=== PATIENT | male | born 1945 | race Caucasian/White ===

== ENCOUNTER 2018-01-01 18:37 | Emergency (ER) | payer MEDICARE, OTHER, SELFPAY ==
[2018-01-01 18:42] VITALS: BP 148/79; PULSE 89; RESP 15; O2SAT 97; BMI 32.1
--- NOTE | 2018-01-01 22:03 | ED_ITS ---
HPI - Wound/Laceration General Chief Complaint: Wound/Laceration Stated Complaint: CUT SELF WITH GLASS,BLEEDING Time Seen by Provider: 01/01/18 22:00 Source: patient Mode of arrival: ambulatory Limitations: no limitations History of Present Illness HPI narrative: Patient presents with the lacerations secondary to broken glass. He denies any other injuries. Laceration occurred on his right forearm. No weakness or sensory deficit. Onset (ago): minute(s) Extremity Location: Right: forearm Place: home Patient tetanus UTD: Yes Context: accidental Associated symptoms: none Related Data Home Medications Medication Instructions Recorded Confirmed ASPIRIN (Aspirin EC) 81 mg PO QDAY #0 06/19/11 ESOMEPRAZOLE SODIUM (NEXIUM) 20 mg PO QDAY@0600 #0 06/19/11 HYDROCHLOROTHIAZIDE (#HCTZ) 25 mg PO QDAY #0 06/19/11 Metformin Hydrochloride 500 mg PO QDAY #0 06/19/11 (#GLUCOPHAGE) simvastatin 20 mg PO HS #0 06/19/11 MELOXICAM 15 mg PO QDAY #0 03/29/12 SERTRALINE HCL (Sertraline HCl) 50 mg PO QDAY #0 03/29/12 nifedipine 60 mg PO QDAY #0 03/29/12 CA PANTOTHENATE/FOLIC ACID/VIT 1 tab PO QDAY #0 09/18/12 (MULTIVITAMIN) gabapentin [Neurontin] 1,200 mg PO BID #0 09/18/12 lisinopril 40 mg PO QDAY #0 09/18/12 Allergies Allergy/AdvReac Type Severity Reaction Status Date / Time No Known Drug Allergies Allergy Verified 01/01/18 18:42 Review of Systems Review of Systems All systems reviewed & are unremarkable except as noted in HPI and below Constitutional Denies chills, Denies fever(s), Denies lethargy and Denies weakness Eyes Denies change in vision, Denies eye discharge, Denies irritation and Denies loss of vision ENT Ears, Nose, Mouth, and Throat: Denies change in voice, Denies neck pain and Denies sore throat Cardiovascular Denies chest pain, Denies irregular heart rhythm, Denies lightheadedness, Denies palpitations, Denies dyspnea, Denies dyspnea on exertion and Denies orthopnea Respiratory Denies cough, Denies dyspnea, Denies dyspnea on exertion and Denies wheezing Gastrointestinal Gastrointestinal: Denies abdominal pain, Denies change in bowel habits, Denies diarrhea, Denies nausea and Denies vomiting Genitourinary Denies hematuria, Denies flank pain, Denies urinary incontinence and Denies urinary urgency Musculoskeletal Denies neck pain Comments: Full range of motion right upper extremity. Integumentary/Breasts Denies pruritus, Denies erythema, Denies rash and Reports wounds (Laceration right forearm.) Neurologic Denies confusion, Denies loss of vision and Denies weakness Psychiatric Denies anxiety, Denies confusion, Denies depression, Denies homicidal ideation and Denies suicidal ideation Endocrine Denies palpitations Hematologic/Lymphatic Denies easy bruising Allergic/Immunologic Denies wheezing PFSH Medical History Hyperlipemia (Acute) Diabetes (Acute) HTN (hypertension) (Acute) GERD (gastroesophageal reflux disease) (Acute) Laceration (Acute) Surgical History No pertinent past surgical history (Acute) Social History Smoking Status: Never smoker Comment: Occasional alcohol. Exam Initial Vital Signs Initial Vital Signs: Vital Signs Pulse Rate 89 01/01/18 18:42 Respiratory Rate 15 01/01/18 18:42 Blood Pressure 148/79 H 01/01/18 18:42 Pulse Oximetry 97 01/01/18 18:42 Const General: cooperative and well developed Nutritional Appearance: well nourished Orientation: alert, awake, oriented x3 and not confused [facility] Head: normocephalic and atraumatic Ears: external ears normal and TM's normal bilaterally Nose: external nose normal and No nasal discharge Face and sinus: face symmetric and No dry mucous membranes Mouth: oral mucosae normal and moist mucous membranes Neck Neck: normal visual inspection, trachea midline, No lymphadenopathy, No midline deformity and No JVD Lymphatic: No lymphedema Resp Effort & Inspection: normal respiratory effort, able to speak in complete sentences, no respiratory distress and no use of accessory muscles Auscultation: clear to auscultation bilaterally, no rales, no rhonchi and no wheezes Skin General: no rashes or lesions noted, No jaundice and No petechiae Trauma: laceration (2.5 cm laceration to right forearm. Depth of 4 mm. Involve skin and subcutaneous tissue only. No foreign bodies. Patient is neurovascularly intact distally. Tendon function intact.) Neuro General: alert, oriented x3, gait normal and no focal motor deficits Speech: speech normal Extrem General: full ROM and no pedal edema Procedures Laceration Repair Laceration 1: Site: upper extremity Side (If applicable): right Size (cm): 2.5 Description: linear Depth: simple, single layer Local Anesthetic: lidocaine 2% Amount of anesthesia used (mL): 2 Pre-repair: wound explored and irrigated extensively Skin layer closed with: nylon Size (cm): 5-0 Number of sutures: 6 Technique: simple, interrupted Course Hospital Course: Patient's laceration was repaired, as above. We have discussed wound care at home, as well as the usual indications for return. Patient expresses understanding. Vital Signs - 8 hr 01/01/18 18:42 Pulse Rate 89 Respiratory Rate 15 Blood Pressure 148/79 H Pulse Oximetry 97 MDM - Wound/Laceration Differential Diagnosis Differential diagnosis: Likely laceration Medical Records Attestation: I reviewed the patient's medical records. Discharge Plan Departure Patient Disposition: Home Clinical Impression: Laceration Discharge Date/Time: 01/01/18 23:32 Interventions: ED Discharge Assessment Last Done: 01/01/18 23:31 Instructions: DI for Laceration Repair Activity Restrictions/Additional Instructions: Please have your sutures removed in 7 days. If you develop redness spreading away from the wound, or if the wound splits apart and begins to drain, please be seen immediately to have a wound rechecked, as it may be infected. Prescriptions: No Action ASPIRIN (Aspirin EC) 81 mg PO QDAY Qty: 0 RF: 0 HYDROCHLOROTHIAZIDE (#HCTZ) 25 mg PO QDAY Qty: 0 RF: 0 Metformin Hydrochloride (#GLUCOPHAGE) 500 mg PO QDAY Qty: 0 RF: 0 simvastatin 20 MG tablet 20 mg PO HS Qty: 0 RF: 0 ESOMEPRAZOLE SODIUM (NEXIUM) 20 mg PO QDAY@0600 Qty: 0 RF: 0 MELOXICAM 15 mg PO QDAY Qty: 0 RF: 0 nifedipine 60 MG tablet extended release 24hr 60 mg PO QDAY Qty: 0 RF: 0 SERTRALINE HCL (Sertraline HCl) 50 mg PO QDAY Qty: 0 RF: 0 gabapentin [Neurontin] 600 MG tablet 1,200 mg PO BID Qty: 0 RF: 0 lisinopril 40 MG tablet 40 mg PO QDAY Qty: 0 RF: 0 CA PANTOTHENATE/FOLIC ACID/VIT (MULTIVITAMIN) 1 tab PO QDAY Qty: 0 RF: 0 Referrals: [facility] [Provider Group] (7 days, for suture removal.)
--- NOTE | 2018-01-01 23:27 | PC.NURSE ---
wound cleansed, bacitracin applied and cobane aplaced for security
[2018-01-01 23:28] VITALS: BP 159/57; PULSE 77; RESP 15; TEMP 36.6; O2SAT 99
== END 2018-01-01 23:32 | disposition home or self-care (01) ==
PROVIDERS: Emergency Provider Emergency Medicine
DX: S51.811A Laceration without foreign body of right forearm, initial encounter (principal); W25.XXXA Contact with sharp glass, initial encounter
CPT/HCPCS: 12001; 99282; 99283

== ENCOUNTER 2018-04-11 09:46 | Emergency (ER) | payer MEDICARE, OTHER, SELFPAY ==
[2018-04-11 09:50] VITALS: BP 154/76; PULSE 89; RESP 18; TEMP 36.3; O2SAT 100
--- NOTE | 2018-04-11 10:24 | DI.US.S_ITS ---
PROCEDURE: US PERIPH VENOUS LOW EXTREM LT INDICATIONS: LEFT CALF PAIN; SOB TECHNIQUE: Real-time imaging, as well as color and pulse Doppler interrogation, were performed of the lower extremity deep veins from the inguinal ligament to the popliteal fossa. COMPARISON: None. FINDINGS: There is a short segment occlusive thrombus identified within the popliteal vein, which does not extend into the superficial femoral vein. The superficial femoral vein, profunda femoral vein, and common femoral vein are widely patent and demonstrate normal compressibility, Doppler augmentation and color-flow. IMPRESSION: Short segment occlusive thrombus within the popliteal vein without extension into the superficial femoral vein. Dictated by: Todd Crespo M.D. on 04/11/2018 at 10:05 Approved by: Todd Crespo M.D. on 04/11/2018 at 10:24
--- NOTE | 2018-04-11 10:28 | ED_ITS ---
HPI - SOB/Dyspnea General Chief Complaint: Shortness of Breath/Dyspnea Stated Complaint: SOB Time Seen by Provider: 04/11/18 09:53 Source: patient Mode of arrival: ambulatory Limitations: no limitations History of Present Illness Patient complains of fatigue and shortness of breath for the last 3 days and calf pain for the last 2 days. He states that normally, he is very strong and able to complete what ever he starts. However, yesterday, he was volunteering at the [employer], and he states that he felt bad enough that he almost needed to come home early. He decided to stick it out, but he states he has just not been feeling right. He states he has been lightheaded and short of breath. The shortness of breath is noticeable even at rest, but he states it is worse with any level of exertion. Patient states that he did take a trip to the [facility] and flew home about a week and a half ago. He did not begin having symptoms until several days ago however. Patient has no history of DVT, and does not know of any family history of DVT. He states has 2 male relatives who had coronary artery disease, and his father of cancer. Patient was a smoker but quit 30 years ago. He states he has been noticing pain in the left calf, but no noticeable swelling. He does not have any heart or lung conditions otherwise that he knows of. The patient has type 2 diabetes and hypertension, both of which are well controlled. Patient denies fever or cough. No sore throat, vomiting, or diarrhea. [place] Data Home Medications Medication Instructions Recorded Confirmed esomeprazole magnesium [Nexium] 20 mg PO DAILY #0 06/19/11 04/11/18 simvastatin 20 mg PO BEDTIME #0 06/19/11 04/11/18 nifedipine 60 mg PO DAILY #0 03/29/12 04/11/18 multivitamin 1 tab PO DAILY #0 09/18/12 04/11/18 gabapentin 600 mg PO BID 04/11/18 04/11/18 hydrochlorothiazide 25 mg PO DAILY 04/11/18 04/11/18 lisinopril 20 mg PO DAILY 04/11/18 04/11/18 meloxicam 7.5 mg PO DAILY 04/11/18 04/11/18 metformin 500 mg PO DAILY 04/11/18 04/11/18 sertraline 100 mg PO BEDTIME 04/11/18 04/11/18 Previous Rx's Medication Instructions Recorded rivaroxaban [Xarelto] 10 mg PO DAILY #30 tab 04/11/18 Allergies Allergy/AdvReac Type Severity Reaction Status Date / Time No Known Drug Allergies Allergy Verified 01/01/18 18:42 Review of Systems Review of Systems All systems reviewed & are unremarkable except as noted in HPI and below Constitutional Denies chills, Denies fever(s), Denies lethargy and Denies weakness Eyes Denies change in vision, Denies eye discharge, Denies irritation and Denies loss of vision ENT Ears, Nose, Mouth, and Throat: Denies change in voice, Denies neck pain and Denies sore throat Cardiovascular Denies chest pain, Denies irregular heart rhythm, Denies lightheadedness, Denies palpitations, Reports dyspnea, Reports dyspnea on exertion and Denies orthopnea Respiratory Denies cough, Reports dyspnea, Reports dyspnea on exertion and Denies wheezing Gastrointestinal Gastrointestinal: Denies abdominal pain, Denies change in bowel habits, Denies diarrhea, Denies nausea and Denies vomiting Genitourinary Denies hematuria, Denies flank pain, Denies urinary incontinence and Denies urinary urgency Musculoskeletal Denies neck pain Comments: L calf pain Integumentary/Breasts Denies pruritus, Denies erythema, Denies rash and Denies wounds Neurologic Denies confusion, Denies loss of vision and Denies weakness Psychiatric Denies anxiety, Denies confusion, Denies depression, Denies homicidal ideation and Denies suicidal ideation Endocrine Denies palpitations Hematologic/Lymphatic Denies easy bruising Allergic/Immunologic Denies wheezing [facility] Medical History Central sleep apnea (Chronic) Obstructive sleep apnea of adult (Chronic) Obesity (Chronic) Hyperlipemia (Chronic) Diabetes (Chronic) HTN (hypertension) (Chronic) GERD (gastroesophageal reflux disease) (Chronic) Laceration (Inactive) Surgical History No pertinent past surgical history (Acute) Social History marital status: details: to Soraida household members: spouse lives independently: Yes caregiver/support person: No education level: college 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 Smoking Status: Never smoker alcohol intake: current substance use type: does not use Exam Initial Vital Signs Initial Vital Signs: Vital Signs Temperature 97.3 F L 04/11/18 09:50 Pulse Rate 89 04/11/18 09:50 Respiratory Rate 18 04/11/18 09:50 Blood Pressure 154/76 H 04/11/18 09:50 Pulse Oximetry 100 04/11/18 09:50 Const General: cooperative and well developed Nutritional Appearance: well nourished Orientation: alert, awake, oriented x3 and not confused [facility] Head: normocephalic and atraumatic Ears: external ears normal and TM's normal bilaterally Nose: external nose normal and No nasal discharge Face and sinus: sinuses nontender, face symmetric, no sinus tenderness and No dry mucous membranes Mouth: oral mucosae normal and moist mucous membranes Teeth and gingiva: dentition normal Throat: tonsils normal and uvula midline Eyes General: appearance normal, both eyes and all related structures Eyelids: eyelids normal Conjunctivae: conjunctivae normal Sclera: sclerae normal Pupils: PERRL EOM: EOM intact bilaterally Neck Neck: normal visual inspection, trachea midline, No lymphadenopathy, No midline deformity and No JVD Lymphatic: No lymphedema Chest Chest: normal inspection of the chest Resp Effort & Inspection: normal respiratory effort, able to speak in complete sentences, no respiratory distress and no use of accessory muscles Auscultation: clear to auscultation bilaterally, no rales, no rhonchi and no wheezes Cardio Rate: regular rate Rhythm: regular rhythm Heart Sounds: no click, no gallops, no murmurs and no rubs Pulses: normal peripheral pulses GI Inspection: non-distended Palpation: soft, no hepatosplenomegaly, No guarding, No pulsatile mass and No tender Auscultation: normal bowel sounds Back/Spine/Pelvis Back: No CVA tenderness Cervical Spine: cervical ROM normal and No pain with cervical ROM Thoracic/Lumbar Spine: thoracic and lumbar spine normal to inspection Skin General: no rashes or lesions noted, No jaundice and No petechiae Neuro General: alert, oriented x3, gait normal and no focal motor deficits Speech: speech normal Extrem General: full ROM, no calf tenderness (Mild, left) and edema (Slight, pitting, left lower extremity. Pitting is seen over the anterior tibial area.) Psych Appearance: well kempt Mental Status: mental status grossly normal Attitude: cooperative Thought Content: normal and suicidality Judgment: judgment good Course Course Narrative: Patient was worked up with labs, chest x-ray, ultrasound of the left lower extremity, and EKG. The ultrasound did show a DVT in the left leg and so the patient was sent for CTA of the chest. This did show 2 right- sided pulmonary emboli. The patient was given a dose of Lovenox in the emergency department. I did speak with [place] generally use as an oral anticoagulant for DVT management. She did state that either Xarelto or Coumadin could be used, but that she would prefer Xarelto. I discussed with the patient that as he is otherwise stable, he has the option to continue treatment as an outpatient, or to be observed in the hospital overnight and have treatment initiated here. Patient states he would prefer to take care of things as an outpatient, as his is with him and he has an appointment tomorrow. 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 He has received his Lovenox, as stated. We have discussed the usual indications for return including worsening shortness of breath, syncope, or chest pain. Also, any general worsening should prompt return. Otherwise, the patient should follow up tomorrow morning as he scheduled to do. Orders Ordered: Discontinued Medications Enoxaparin Sodium (Lovenox) 105 mg 1 mg/kg (105 mg) SUBCUT NOW ONE Stop: 04/11/18 12:41 Last Admin: 04/11/18 13:02 Dose: Enoxaparin Sodium (Lovenox) 100 mg 1 mg/kg (105 mg) SUBCUT NOW ONE Stop: 04/11/18 13:01 Last Admin: 04/11/18 13:02 Dose: 100 mg Vital Signs - 8 hr 04/11/18 09:50 Temperature 97.3 F L Pulse Rate 89 Respiratory Rate 18 Blood Pressure 154/76 H Pulse Oximetry 100 MDM - SOB/Dyspnea Medical Records Attestation: I reviewed the patient's medical records. Lab Data Attestation: I reviewed the patient's lab results. Result diagrams: 04/11/18 10:00 04/11/18 10:00 Lab Results 04/11/18 04/11/18 04/11/18 Range/Units 10:00 10:00 10:00 WBC 8.9 (4.5-11.0) X10^3/uL RBC 4.40 L (4.5-5.9) X10^6/uL Hgb 13.7 (13.5-17.5) g/dL Hct 39.8 L (41-53) % MCV 90.4 (80-100) fL MCH 31.2 (26-34) PG MCHC 34.5 (30-36) % RDW 14.5 (11.6-14.8) % Plt Count 146 L (150-400) X10^3/uL Neut % (Auto) 62.5 (50-75) % Lymph % (Auto) 22.7 L (25-40) % Andrews % (Auto) 10.5 (3-14) % Eos % (Auto) 3.3 (2-4) % Baso % (Auto) 1.0 (0-2) % Neut # (Auto) 5600 (8184-0707) /uL D-Dimer 2014 H (<230) ng/mL Sodium 142 (137-145) mmol/L Potassium 4.0 (3.4-5.1) mmol/L Chloride 102 (98-107) mmol/L Carbon Dioxide 25 (22-32) mmol/L BUN 27 H (9-20) mg/dL Creatinine 1.20 (0.66-1.25) mg/dL Estimated GFR 59.7 L (>60) mL/min BUN/Creatinine Ratio 22.5 H (6-22) Glucose 108 (80-110) mg/dL Calcium 10.0 (8.4-10.2) mg/dL Total Bilirubin 0.5 (0.2-1.3) mg/dL AST 22 (17-59) IU/L ALT 22 (21-72) IU/L Alkaline Phosphatase 92 (38-126) U/L Total Creatine Kinase 74 (55-170) U/L CK-MB (CK-2) TNP CK-MB (CK-2) Rel Index TNP Troponin I < 0.012 (0.01-0.034) ng/mL B-Natriuretic Peptide < 100.0 (<100) Total Protein 7.9 (6.3-8.2) g/dL Albumin 4.7 (3.5-5.0) g/dL Globulin 3.2 (1.7-4.1) g/dL Albumin/Globulin Ratio 1.5 (1.0-2.8) Imaging Data CT scan - chest: Radiologist's impression: PROCEDURE: CT ANGIO CHEST PE PROTOCOL INDICATIONS: Short of breath TECHNIQUE: After the administration of intravenous contrast, 2 mm thick sections acquired from the pulmonary apices to the posterior costophrenic angles. 3-dimensional maximum intensity projection (MIP) coronal and sagittal reformats were then acquired through the thorax. For radiation dose reduction, the following was used: automated exposure control, adjustment of mA and/or kV according to patient size. COMPARISON: None. FINDINGS: Image quality: Excellent. Pulmonary arteries: Pulmonary arteries are normal in size. No filling defect is noted in left main pulmonary artery, left upper and lower lobe pulmonary artery branches. There is intraluminal filling defect involving the most distal right main pulmonary artery with filling defects extending into right middle lobe pulmonary artery and proximal, mid to distal branches of right lower lobe pulmonary artery, consistent with right- sided pulmonary emboli. Lungs and pleura: There is no focal airspace opacities. Dependent atelectasis scattered in posterior lateral periphery of the lateral lower lobes are seen. No pleural effusions or pneumothorax. Central and peripheral airways are patent. Mediastinum: Heart size is mildly enlarged, without pericardial effusion. No mediastinal or hilar adenopathy. Thoracic aorta is normal in caliber and enhancement. Atherosclerotic calcifications are noted scattered along descending thoracic aorta and aortic arch. Esophagus is normal in caliber, with a small hiatal hernia. Bones and chest wall: No suspicious bony lesions. Ribs and thoracic spine appear intact throughout. Thyroid gland is within normal limits. No axillary or supraclavicular adenopathy. Abdomen: Visualized upper abdominal solid organs appear normal in the early arterial phase of enhancement. IMPRESSION: 1. Pulmonary emboli involving most distal right main pulmonary artery and extending into right middle and lower lobe pulmonary artery branches as above. No left-sided pulmonary emboli. 2. Bibasilar dependent atelectasis. Bilateral lung gaines are otherwise clear. 3. Mild cardiomegaly. No mediastinal or hilar adenopathy. Small hiatal hernia. Dictated by: Joe Cantrell M.D. on 04/11/2018 at 12:15 Approved by: Joe Cantrell M.D. on 04/11/2018 at 12:27 Chest x-ray: Attestation: I personally reviewed and interpreted this imaging study as follows: My impression: Negative Radiologist's impression: PROCEDURE: XR CHEST 2V INDICATIONS: dyspnea TECHNIQUE: 2 views of the chest were acquired. COMPARISON: None. FINDINGS: Surgical changes and devices: None. Lungs and pleura: There is elevation of the right diaphragm. Subtle haziness at the left lung base partially obscured the left diaphragm. No focal consolidation is evident. No large effusion or pneumothorax is identified. Mediastinum: Mediastinal contours are normal. Heart size is borderline enlarged. Bones and chest wall: No suspicious bony abnormalities. Degenerative changes of the spine and shoulders are normal characterized. Soft tissues appear unremarkable. IMPRESSION: 1. Probable minimal left basilar atelectasis. No acute cardiopulmonary process is evident. 2. Elevation of the right diaphragm. Dictated by: Todd Crespo M.D. on 04/11/2018 at 10:28 Approved by: Todd Crespo M.D. on 04/11/2018 at 10:29 Discharge Plan Departure Patient Disposition: Home Clinical Impression: Pulmonary embolism, DVT (deep venous thrombosis) Discharge Date/Time: 04/11/18 14:18 Interventions: ED Discharge Assessment Last Done: 04/11/18 14:23 Instructions: DI for Deep Vein Thrombosis, DI for Pulmonary Embolism Activity Restrictions/Additional Instructions: [place] would like you to start Xarelto. This is an oral anticoagulant. They would still like to see you tomorrow morning at 11:00 a.m., as you are scheduled already to do. Prescriptions: New rivaroxaban [Xarelto] 10 mg tablet 10 mg PO DAILY Qty: 30 RF: 0 No Action simvastatin 20 MG tablet 20 mg PO BEDTIME Qty: 0 RF: 0 esomeprazole magnesium [Nexium] 20 mg Capsule,Delayed Release(Dr/Ec) 20 mg PO DAILY Qty: 0 RF: 0 nifedipine 60 MG tablet extended release 24hr 60 mg PO DAILY Qty: 0 RF: 0 multivitamin Tablet 1 tab PO DAILY Qty: 0 RF: 0 gabapentin 600 mg tablet 600 mg PO BID RF: 0 lisinopril 20 mg tablet 20 mg PO DAILY RF: 0 sertraline 100 mg tablet 100 mg PO BEDTIME RF: 0 meloxicam 7.5 mg tablet 7.5 mg PO DAILY RF: 0 hydrochlorothiazide 25 mg tablet 25 mg PO DAILY RF: 0 metformin 500 mg tablet extended release 24 hr 500 mg PO DAILY RF: 0
[2018-04-11 10:29] LABS: Add Manual Diff / Slide Review NO; Eosinophils Percent Auto 3.3 % (2-4); Hematocrit 39.8 % (41-53); Hemoglobin 13.7 g/dL (13.5-17.5); Lymphocytes Percent Auto 22.7 % (25-40); Mean Corpuscular HGB Conc 34.5 % (30-36); Mean Corpuscular Hemoglobin 31.2 PG (26-34); Mean Corpuscular Volume 90.4 fL (80-100); Monocytes Percent Auto 10.5 % (3-14); Neutrophils Absolute Auto 5600 /uL (3000-5900); Neutrophils Percent Auto 62.5 % (50-75); Platelet Count 146 X10^3/uL (150-400); Red Cell Distribution Width 14.5 % (11.6-14.8); White Blood Cell Count 8.9 X10^3/uL (4.5-11.0)
[2018-04-11 10:34] LABS: Alanine Aminotransferase 22 IU/L (21-72); Albumin 4.7 g/dL (3.5-5.0); Albumin Globulin Ratio 1.5 (1.0-2.8); Alkaline Phosphatase 92 U/L (38-126); Aspartate Aminotransferase 22 IU/L (17-59); BUN Creatinine Ratio 22.5 (6-22); Bilirubin Total 0.5 mg/dL (0.2-1.3); Blood Urea Nitrogen 27 mg/dL (9-20); Carbon Dioxide 25 mmol/L (22-32); Chloride 102 mmol/L (98-107); Creatine Kinase 74 U/L (55-170); Estimated Glomerular Filt Rate 59.7 mL/min (>60); Globulin 3.2 g/dL (1.7-4.1); Glucose 108 mg/dL (80-110); HEMOLYSIS < 15 (0-50); Sodium 142 mmol/L (137-145); Total Protein 7.9 g/dL (6.3-8.2)
[2018-04-11 10:40] LABS: D Dimer 2014 ng/mL (<230)
[2018-04-11 10:47] LABS: Troponin I < 0.012 ng/mL (0.01-0.034)
[2018-04-11 10:48] LABS: B Type Natriuretic Peptide < 100.0 (<100)
--- NOTE | 2018-04-11 10:50 | DI.RAD.S_ITS ---
PROCEDURE: XR CHEST 2V INDICATIONS: dyspnea TECHNIQUE: 2 views of the chest were acquired. COMPARISON: None. FINDINGS: Surgical changes and devices: None. Lungs and pleura: There is elevation of the right diaphragm. Subtle haziness at the left lung base partially obscured the left diaphragm. No focal consolidation is evident. No large effusion or pneumothorax is identified. Mediastinum: Mediastinal contours are normal. Heart size is borderline enlarged. Bones and chest wall: No suspicious bony abnormalities. Degenerative changes of the spine and shoulders are normal characterized. Soft tissues appear unremarkable. IMPRESSION: 1. Probable minimal left basilar atelectasis. No acute cardiopulmonary process is evident. 2. Elevation of the right diaphragm. Dictated by: Todd Crespo M.D. on 04/11/2018 at 10:28 Approved by: Todd Crespo M.D. on 04/11/2018 at 10:29
[2018-04-11 11:26] VITALS: BP 116/69; PULSE 69; RESP 9; O2SAT 100
--- NOTE | 2018-04-11 12:10 | DI.CT.S_ITS ---
PROCEDURE: CT ANGIO CHEST PE PROTOCOL INDICATIONS: Short of breath TECHNIQUE: After the administration of intravenous contrast, 2 mm thick sections acquired from the pulmonary apices to the posterior costophrenic angles. 3-dimensional maximum intensity projection (MIP) coronal and sagittal reformats were then acquired through the thorax. For radiation dose reduction, the following was used: automated exposure control, adjustment of mA and/or kV according to patient size. COMPARISON: None. FINDINGS: Image quality: Excellent. Pulmonary arteries: Pulmonary arteries are normal in size. No filling defect is noted in left main pulmonary artery, left upper and lower lobe pulmonary artery branches. There is intraluminal filling defect involving the most distal right main pulmonary artery with filling defects extending into right middle lobe pulmonary artery and proximal, mid to distal branches of right lower lobe pulmonary artery, consistent with right-sided pulmonary emboli. Lungs and pleura: There is no focal airspace opacities. Dependent atelectasis scattered in posterior lateral periphery of the lateral lower lobes are seen. No pleural effusions or pneumothorax. Central and peripheral airways are patent. Mediastinum: Heart size is mildly enlarged, without pericardial effusion. No mediastinal or hilar adenopathy. Thoracic aorta is normal in caliber and enhancement. Atherosclerotic calcifications are noted scattered along descending thoracic aorta and aortic arch. Esophagus is normal in caliber, with a small hiatal hernia. Bones and chest wall: No suspicious bony lesions. Ribs and thoracic spine appear intact throughout. Thyroid gland is within normal limits. No axillary or supraclavicular adenopathy. Abdomen: Visualized upper abdominal solid organs appear normal in the early arterial phase of enhancement. IMPRESSION: 1. Pulmonary emboli involving most distal right main pulmonary artery and extending into right middle and lower lobe pulmonary artery branches as above. No left-sided pulmonary emboli. 2. Bibasilar dependent atelectasis. Bilateral lung gaines are otherwise clear. 3. Mild cardiomegaly. No mediastinal or hilar adenopathy. Small hiatal hernia. Dictated by: Joe Cantrell M.D. on 04/11/2018 at 12:15 Approved by: Jeo Cantrell M.D. on 04/11/2018 at 12:27
[2018-04-11 12:27] VITALS: BP 113/62; PULSE 70; RESP 20; O2SAT 99
[2018-04-11] MEDS: ENOXAPARIN 100 MG/ML SYRINGE SUBCUT (13:02)
[2018-04-11 13:03] VITALS: BP 118/65; PULSE 71; RESP 12; O2SAT 98
[2018-04-11 14:03] VITALS: BP 114/67; PULSE 73; RESP 12; O2SAT 98
[2018-04-11 14:23] VITALS: BP 105/48; PULSE 79; RESP 15; O2SAT 97
== END 2018-04-11 14:18 | disposition home or self-care (01) ==
PROVIDERS: Emergency Provider Emergency Medicine
DX: I26.99 Other pulmonary embolism without acute cor pulmonale (principal); I82.409 Acute embolism and thrombosis of unspecified deep veins of unspecified lower extremity
CPT/HCPCS: 36591; 71046; 71275; 80053; 82550; 83880; 84484; 85025; 85379; 93005; 93010; 93041; 93971; 99283; 99285; J1650; Q9967

== ENCOUNTER → 2018-05-07 10:51 | Outpatient (CLI) | payer MEDICARE, OTHER, SELFPAY ==
[2018-05-07 11:39] LABS: Add Manual Diff / Slide Review NO; Eosinophils Percent Auto 3.1 % (2-4); Hemoglobin 12.7 g/dL (13.5-17.5); Lymphocytes Percent Auto 29.1 % (25-40); Mean Corpuscular HGB Conc 33.3 % (30-36); Mean Corpuscular Hemoglobin 30.8 PG (26-34); Mean Corpuscular Volume 92.3 fL (80-100); Neutrophils Absolute Auto 3900 /uL (1500-7000); Neutrophils Percent Auto 56.8 % (50-75); Platelet Count 175 X10^3/uL (150-400); Red Blood Cell Count 4.12 X10^6/uL (4.5-5.9); Red Cell Distribution Width 14.6 % (11.6-14.8); White Blood Cell Count 6.8 X10^3/uL (4.5-11.0)
[2018-05-07 11:50] LABS: D Dimer < 200 ng/mL (<230)
[2018-05-07 11:52] LABS: Alanine Aminotransferase 30 IU/L (21-72); Albumin 4.5 g/dL (3.5-5.0); Albumin Globulin Ratio 1.5 (1.0-2.8); Alkaline Phosphatase 75 U/L (38-126); Aspartate Aminotransferase 22 IU/L (17-59); BUN Creatinine Ratio 20.7 (6-22); Bilirubin Total 0.4 mg/dL (0.2-1.3); Blood Urea Nitrogen 29 mg/dL (9-20); Calcium 9.8 mg/dL (8.4-10.2); Carbon Dioxide 26 mmol/L (22-32); Chloride 104 mmol/L (98-107); Globulin 3.1 g/dL (1.7-4.1); Glucose 121 mg/dL (80-110); HEMOLYSIS < 15 (0-50); Lactate Dehydrogenase 418 U/L (313-618); Potassium 4.3 mmol/L (3.4-5.1); Sodium 141 mmol/L (137-145); Total Protein 7.6 g/dL (6.3-8.2)
[2018-05-09 16:36] LABS: Beta-2-Microglobulin 3.04 mg/L (< 2.52)
== END ==
PROVIDERS: Family Provider Family Medicine; PCP Family Medicine; Visit Provider Internal Medicine Hematology & Oncology
DX: I26.99 Other pulmonary embolism without acute cor pulmonale (principal); I82.409 Acute embolism and thrombosis of unspecified deep veins of unspecified lower extremity
CPT/HCPCS: 36415; 80053; 82232; 83615; 85025; 85379

== ENCOUNTER → 2018-11-11 15:02 | Outpatient (CLI) | payer MEDICARE, OTHER, SELFPAY ==
--- NOTE | 2018-11-11 15:04 | DI.US.S_ITS ---
PROCEDURE: US [facility] VENOUS LOW EXTREM LT INDICATIONS: LEFT LEG SWELLING, HISTORY OF DEEP VEIN THROMBOSIS TECHNIQUE: Real-time imaging, as well as color and pulse Doppler interrogation, were performed of the lower extremity deep veins from the inguinal ligament to the popliteal fossa. COMPARISON: [facility], , [facility] VENOUS LOW EXTREM LT, 04/11/2018, 10:46. FINDINGS: The common femoral, femoral and popliteal veins are normally compressible, and free of intraluminal thrombus. Color and pulse Doppler demonstrate normal phasic intraluminal flow. There is normal augmentation response to distal compression maneuver. IMPRESSION: 1. No evidence of thrombus involving the deep venous system of the left lower extremity. 2. Occlusive thrombus noted in the superficial venous system of the left lower extremity at the level of the left ankle. Dictated by: Natalie Daigle MD, PhD on 11/11/2018 at 17:23 Approved by: Natalie Daigle MD, PhD on 11/11/2018 at 17:29
--- NOTE | 2018-11-11 15:04 | DI.MRI.S_ITS ---
PROCEDURE: MR HEAD/BRAIN WO/W CON INDICATIONS: left hand: loss of dexderity and dropping of objects, h/o PE TECHNIQUE: Noncontrast axial T1 spin echo, axial T2 fast spin echo, sagittal and axial FLAIR, coronal T2 fast spin echo, axial gradient echo, axial diffusion and ADC through the brain. After the administration of contrast, axial and coronal T1 spin echo with fat saturation through the brain. COMPARISON: None. FINDINGS: Image quality: Excellent. CSF spaces: Basal cisterns are patent. No extra-axial fluid collections. Ventricles are normal in size and shape. Brain: No midline shift. No intracranial bleeds or masses. No abnormal intracranial enhancement. There is cerebral volume loss for age. There is periventricular white matter chronic small vessel ischemic change. The brainstem appears normal. Diffusion-weighted images demonstrate no acute ischemic insults. No chronic ischemic insults. Normal intravascular flow voids are present. Skull and face: Calvarial marrow is normal in signal. Orbits appear normal. Sinuses: Right maxillary sinus mucous retention cyst or polyp. IMPRESSION: No evidence of acute ischemia or abnormal enhancement. Mild right maxillary sinus disease. Dictated by: Kelvin Bedolla M.D. on 11/11/2018 at 16:41 Approved by: Kelvin Bedolla M.D. on 11/11/2018 at 16:45
== END ==
PROVIDERS: Family Provider Family Medicine; PCP Family Medicine; Visit Provider Internal Medicine Hematology & Oncology
DX: R27.8 Other lack of coordination (principal); J32.0 Chronic maxillary sinusitis; I82.812 Embolism and thrombosis of superficial veins of left lower extremity; Z86.718 Personal history of other venous thrombosis and embolism
CPT/HCPCS: 70553; 93971; A9579

== ENCOUNTER → 2019-06-13 11:46 | Outpatient (CLI) | payer MEDICARE, OTHER, SELFPAY ==
--- NOTE | 2019-06-13 11:52 | DI.MRI.S_ITS ---
PROCEDURE: MR LUMBAR SPINE WO CON INDICATIONS: Radiculopathy TECHNIQUE: Noncontrast sagittal T1 spin echo and T2 fast echo, coronal T2, sagittal STIR, axial T1 and T2 fast spin echo through the lumbar spine. COMPARISON: None. FINDINGS: Image quality: Excellent. Alignment and Curvature: No plain films are available for comparison, for numbering purposes. Thus, for the purposes of this examination, 5 lumbar type vertebral bodies will be presumed, as denoted on the montage panel. This should be confirmed and correlated with plain films, prior to any lumbar spinal intervention. There is moderate rightward curvature of the lower lumbar spine a mild leftward curvature of the upper lumbar spine. There is loss of normal lumbar lordosis. There is mild grade 1 retrolisthesis of L1 on L2, L2 on L3, L3 on L4, L4-L5, and L5 on S1. Bone Marrow: Marrow is of normal overall signal. No acute vertebral body compression fractures. There is moderate reactive signal within the endplates adjacent to the L2-L3 and L5-S1 intervertebral discs. Mild reactive signal within the endplates adjacent to the L1-L2, L3-L4, and L4-L5 intervertebral discs. Spinal Cord: Conus medullaris terminates at the L1-L2 disc space level. Visualized cord demonstrates normal signal and size. Paraspinous Soft Tissues: No paravertebral masses. L1-L2: Severe disc height loss and desiccation. Mild diffuse disc bulge with superimposed broad-based right posterolateral far lateral protrusion. Mild facet hypertrophy and ligamentum flavum hypertrophy bilaterally. Mild epidural lipomatosis. Mild canal stenosis. Moderate right and mild left subarticular foraminal stenosis. L2-L3: Severe disc height loss and desiccation. Moderate diffuse disc bulge. Mild facet and ligamentum flavum hypertrophy. Moderate epidural lipomatosis. Severe canal stenosis. Mild right and moderate left subarticular foraminal stenosis. L3-L4: Moderate disc height loss and desiccation. Moderate diffuse disc bulge/osteophyte with superimposed left far lateral protrusion/osteophyte. Mild facet and ligament flavum hypertrophy. Mild epidural lipomatosis. Severe canal stenosis. Severe left and mild right subarticular foraminal stenosis. Left L3 nerve root compression. L4-L5: Moderate disc height loss and desiccation. Moderate diffuse disc bulge with superimposed left far lateral protrusion/osteophyte. Moderate facet and ligamentum flavum hypertrophy. Mild epidural lipomatosis. Severe canal stenosis. Moderate to severe left and moderate right foraminal stenosis. L5-S1: Moderate disc height loss and desiccation. Moderate diffuse disc bulge/osteophyte. Moderate facet and ligamentum flavum hypertrophy. Mild epidural lipomatosis. Severe canal stenosis. Severe bilateral foraminal stenosis with bilateral L5 nerve root compression. IMPRESSION: 1. Multilevel degenerative disc and facet disease, as well as ligamentum flavum hypertrophy and epidural lipomatosis. 2. 5 lumbar type vertebral bodies were presumed for the current report. Plain films of the lumbar spine are recommended for confirmation, prior to any lumbar spinal intervention. 3. Multilevel canal stenoses, worst at L2-L3, L3-L4, L4-L5, and L5-S1, where there are severe canal stenoses present. 4. Multilevel foraminal stenoses, worst at L3-L4 on the left, and at L5-S1 bilaterally where there is associated intraforaminal neural compression. Recommend correlation with clinical symptoms to ascertain relevance of these findings. Dictated by: Nilsa Mireles M.D. on 06/13/2019 at 13:30 Approved by: Nilsa Mireles M.D. on 06/13/2019 at 13:36
--- NOTE | 2019-06-13 11:52 | DI.MRI.S_ITS ---
PROCEDURE: MR CERVICAL SPINE WO CON INDICATIONS: Radiculopathy TECHNIQUE: Noncontrast sagittal T1 spin echo and T2 fast spin echo, sagittal STIR, foraminal oblique sagittal T2 fast spin echo, and axial gradient echo or T2 fast spin echo through the cervical spine. COMPARISON: [facility], CR, CERVICAL SPINE 1 VIEW, 06/27/2011, 9:04. [facility], MR, MR HEAD/BRAIN WO/W CON, 11/11/2018, 15:45. [facility], MR, C-SPINE WITHOUT CONTRAST, 04/28/2009, 8:49. [facility], MR, MR LUMBAR SPINE WO CON, 06/13/2019, 12:33. [facility], MR, C-SPINE WITHOUT CONTRAST, 01/26/2011, 7:32. FINDINGS: Image quality: Excellent. Alignment and Curvature: There is mild overall straightening of the normal cervical lordosis. No focal AP alignment abnormality is seen. Bone Marrow: Marrow demonstrates normal overall signal. Spinal Cord: Visualized spinal cord has normal size and signal. No cerebellar tonsillar herniation. Paraspinous Soft Tissues: No paravertebral masses. Prevertebral soft tissues are normal in thickness. C2-C3: The disc height is well-preserved. Loss of disc signal is seen at this level. A mild degree of generalized disc osteophyte complex is seen. [id number] facet hypertrophy is seen. There is mild bilateral neural foraminal narrowing seen, left worse than right. No significant central canal narrowing is seen. When comparison is made with the prior examination, these findings are similar. C3-C4: The disc height is well-preserved. Loss of disc signal is seen at this level. Moderate disc osteophyte complex is seen, which is eccentric to the right. There is prominent right-sided and moderate left-sided facet hypertrophy seen. There is moderate to severe bilateral neural foraminal narrowing seen, right worse than left. Mild to moderate central canal narrowing is seen. These degenerative changes are clearly worse than in 2011. C4-C5: The disc height is well-preserved. Loss of disc signal is seen at this level. There is at least moderate disc osteophyte complex seen. Uncovertebral joint hypertrophy is seen at this level. Large prominent facet hypertrophy is seen. There is moderate to severe bilateral neural foraminal narrowing seen. Moderate central canal narrowing is seen. These imaging findings have progressed compared to the prior study. C5-C6: Mild loss of disc height is seen. Loss of disc signal is seen. Moderate to prominent disc osteophyte complex is seen. Prominent bridging anterior osteophytes are seen on the left. Uncovertebral joint hypertrophy is seen at this level. Moderate facet joint hypertrophy is seen. Moderate to severe bilateral neural foraminal narrowing is seen, left worse than right. Moderate central canal narrowing is seen. There is associated mass effect upon the ventral spinal cord. These imaging findings have progressed compared to the prior study. C6-C7: Moderate loss of disc height is seen. Loss of disc signal is seen. Moderate to prominent disc osteophyte complex is seen. Prominent bridging anterior osteophytes are seen on the left. Uncovertebral joint hypertrophy is seen at this level. There is moderate left-sided and mild to moderate right-sided facet hypertrophy seen. There is moderate to severe bilateral neural foraminal narrowing seen. Moderate central canal narrowing is seen. There is associated mass effect upon the ventral spinal cord. These degenerative changes are more prominent than in 2011. C7-T1: Mild loss of disc height is seen. Loss of disc signal is seen. A mild degree of generalized disc osteophyte complex is seen. There is moderate to prominent left-sided and moderate right-sided facet hypertrophy seen. There is moderate to severe left-sided and moderate right-sided neural foraminal narrowing seen. Mild to moderate central canal narrowing is seen. These degenerative changes are worse than in 2011. IMPRESSION: Multiple levels of relatively prominent cervical spine degenerative change are seen. The degenerative changes are clearly worse than in 2011. Dictated by: Krzysztof Salgado M.D. on 06/13/2019 at 12:51 Approved by: Krzysztof Salgado M.D. on 06/13/2019 at 12:59
== END ==
PROVIDERS: Family Provider Family Medicine; Referring Provider Internal Medicine; Visit Provider Internal Medicine
DX: M47.22 Other spondylosis with radiculopathy, cervical region (principal); M51.16 Intervertebral disc disorders with radiculopathy, lumbar region; M51.17 Intervertebral disc disorders with radiculopathy, lumbosacral region; M48.061 Spinal stenosis, lumbar region without neurogenic claudication; M48.07 Spinal stenosis, lumbosacral region; E88.2 Lipomatosis, not elsewhere classified
CPT/HCPCS: 72141; 72148

== ENCOUNTER 2020-02-05 14:27 | Emergency (ER) | payer MEDICARE, OTHER, SELFPAY ==
[2020-02-05] VITALS (16 sets, daily range): BP systolic 131–188; BP diastolic 63–89; PULSE 100–135; RESP 14–30; TEMP 36.9; O2SAT 89–97; BMI 33.7
--- NOTE | 2020-02-05 14:39 | DI.RAD.S_ITS ---
PROCEDURE: XR CHEST 2V INDICATIONS: shortness of breath TECHNIQUE: 2 views of the chest were acquired. COMPARISON: [facility], CR, XR CHEST 2V, 04/11/2018, 10:57. FINDINGS: Surgical changes and devices: None. Lungs and pleura: Lungs are clear. No pleural effusions or pneumothorax. Mediastinum: Mediastinal contours are normal. Heart size is normal. Bones and chest wall: No suspicious bony abnormalities. Soft tissues appear unremarkable. 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 Please correlate for presence of COPD. Dictated by: Juan Cerda M.D. on 02/05/2020 at 15:31 Approved by: Juan Cerda M.D. on 02/05/2020 at 15:31
[2020-02-05 15:00] LABS: Add Manual Diff / Slide Review NO; Basophils Absolute Auto 0 /uL (0-100); Basophils Percent Auto 0.2 % (0-2); Eosinophils Absolute Auto 0 /uL (0-450); Eosinophils Percent Auto 0.3 % (2-4); Hematocrit 40.3 % (41-53); Hemoglobin 13.5 g/dL (13.5-17.5); Lymphocytes Absolute Auto 1600 /uL (1100-4500); Lymphocytes Percent Auto 11.2 % (25-40); Mean Corpuscular HGB Conc 33.6 % (30-36); Mean Corpuscular Hemoglobin 30.9 PG (26-34); Mean Corpuscular Volume 91.9 fL (80-100); Monocytes Absolute Auto 1400 /uL (0-900); Monocytes Percent Auto 9.5 % (3-14); Neutrophils Absolute Auto 11400 /uL (1500-7000); Neutrophils Percent Auto 78.8 % (50-75); Platelet Count 176 X10^3/uL (150-400); Red Blood Cell Count 4.38 X10^6/uL (4.5-5.9); Red Cell Distribution Width 14.3 % (11.6-14.8); White Blood Cell Count 14.4 X10^3/uL (4.5-11.0)
[2020-02-05 15:17] LABS: Lactate (Lactic Acid) 2.9 mmol/L (0.7-2.1)
[2020-02-05 15:18] LABS: Alanine Aminotransferase 21 IU/L (<50); Albumin 4.6 g/dL (3.5-5.0); Albumin Globulin Ratio 1.4 (1.0-2.8); Alkaline Phosphatase 84 U/L (38-126); Aspartate Aminotransferase 27 IU/L (17-59); BUN Creatinine Ratio 22.1 (6-22); Bilirubin Total 0.8 mg/dL (0.2-1.3); Blood Urea Nitrogen 33 mg/dL (9-20); Calcium 10.3 mg/dL (8.4-10.2); Carbon Dioxide 26 mmol/L (22-32); Chloride 103 mmol/L (98-107); Creatine Kinase 118 U/L (55-170); Estimated Glomerular Filt Rate 46.4 mL/min (>60); Globulin 3.3 g/dL (1.7-4.1); Glucose 131 mg/dL (80-110); HEMOLYSIS < 15 (0-50); Potassium 3.8 mmol/L (3.4-5.1); Sodium 141 mmol/L (137-145); Total Protein 7.9 g/dL (6.3-8.2)
[2020-02-05 15:27] LABS: NT-proBNP (BNP-Adult 18+) 72 pg/mL (<125)
[2020-02-05 15:29] LABS: Troponin I < 0.012 ng/mL (0.01-0.034)
[2020-02-05] MEDS: SODIUM CHLORIDE 0.9% 1,000 ML 1000 ML IV (15:33)
[2020-02-05 15:34] LABS: CKMB % Relative Index 0.8 % (1.5-5.0); Creatine Kinase MB 0.97 ng/mL (<2.37)
[2020-02-05 15:46] LABS: COVID19 -Nasal RAPID Negative (Negative)
--- NOTE | 2020-02-05 16:00 | ED.GENADULT ---
HPI - General Adult General Chief complaint: Shortness of Breath/Dyspnea Stated complaint: SOB Time Seen by Provider: 02/05/20 14:44 Source: patient Mode of arrival: Ambulatory Limitations: no limitations History of Present Illness HPI narrative: Patient is a 74-year-old male with prior history of pulmonary embolism approximately 2 years ago after [place]. He was on anticoagulation afterwards but has since been discontinued by his primary provider. Has no issues since then. He states that several days/week ago he started having more dyspnea on exertion. He states that was not to the point to where he had to stop and catch his breath but he did notice that he was having more problems breathing with exerting himself. Yesterday he underwent a lumbar spinal epidural injections secondary to chronic low back pain. He states that afterwards he went home and was moving some wood around his house when he had a sudden onset of shortness of breath. This was the point were he had to stop and catch his breath. He was able to catch his breath when it took him a little while. He reports his symptoms today are somewhat improved from that but are worse than what they have been over the past couple days. Denies any chest pain. No lower extremity swelling. Has been taking the rest of his medications as directed. Related Data Home Medications Medication Instructions Recorded Confirmed simvastatin 20 mg PO BEDTIME #0 06/19/11 05/15/19 nifedipine 60 mg PO DAILY #0 03/29/12 05/15/19 multivitamin 1 tab PO DAILY #0 09/18/12 05/15/19 gabapentin 600 mg PO BID 04/11/18 05/15/19 hydrochlorothiazide 25 mg PO DAILY 04/11/18 05/15/19 metformin 500 mg PO BID 04/11/18 05/15/19 sertraline 100 mg PO BEDTIME 04/11/18 05/15/19 Lactobacillus acidophilus 2 cap DAILY 05/06/18 05/15/19 [Probiotic] lisinopril 20 mg PO DAILY 05/06/18 05/15/19 Respironics Dreamstation BIPAP #1 ea 09/17/18 11/14/18 Allergies Allergy/AdvReac Type Severity Reaction Status Date / Time No Known Drug Allergies Allergy Verified 02/05/20 14:36 Review of Systems Constitutional Constitutional: Denies fever(s) and Denies headache(s) Eyes Eyes: Denies change in vision ENT Ears, Nose, Mouth, and Throat: Denies headache(s) Cardiovascular Cardiovascular: Denies chest pain and Reports dyspnea Respiratory Respiratory: Denies cough and Reports dyspnea Gastrointestinal Gastrointestinal: Denies abdominal pain, Denies nausea and Denies vomiting Genitourinary Genitourinary: Denies dysuria Genitourinary: Denies dysuria Musculoskeletal Musculoskeletal: Denies arthralgias and Denies myalgias Integumentary/Breasts Skin/Breast: Denies rash Neurologic Neurologic: Denies behavioral changes, Denies confusion and Denies headache(s) Psychiatric Psychiatric: Denies behavioral changes and Denies confusion Hematologic/Lymphatic Hematologic/Lymphatic: Denies easy bleeding and Denies easy bruising Allergic/Immunologic Allergic/Immunologic: Denies urticaria Patient History Medical History Central sleep apnea (Chronic) Diabetes (Chronic) DVT (deep venous thrombosis) (Acute) GERD (gastroesophageal reflux disease) (Chronic) HTN (hypertension) (Chronic) Hyperlipemia (Chronic) Laceration (Inactive) Obesity (Chronic) Obstructive sleep apnea of adult (Chronic) Pulmonary embolism (Acute) Surgical History H/O Spinal surgery (Resolved) History of hip replacement (Resolved) History of tonsillectomy and adenoidectomy (Resolved) Family History Father Pancreatic cancer Social History marital status: details: to [facility] household members: spouse lives independently: Yes caregiver/support person: No education level: college 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 Smoking Status: Former smoker alcohol intake: current substance use type: does not use Smoking Status: Former smoker alcohol intake frequency: 3 or more drinks per day Substance Use Type: does not use Exam Initial Vital Signs Initial Vital Signs: Vital Signs Temperature 98.4 F 02/05/20 14:31 Pulse Rate 135 H 02/05/20 14:31 Respiratory Rate 19 02/05/20 14:31 Blood Pressure 188/89 H 02/05/20 14:31 Pulse Oximetry 95 02/05/20 14:31 Const General: cooperative, comfortable and well developed Limitations: mental status not altered HENMT Head: normal to inspection and normocephalic Resp Effort & Inspection: normal respiratory effort Auscultation: clear to auscultation bilaterally Cardio Rate: tachycardic Rhythm: regular rhythm Pulses: radial pulses present GI Inspection: non-distended Palpation: soft Skin Lesions: no lesions Rashes: no rashes Neuro General: patient alert, patient awake and patient oriented x3 Cognition: normal cognition Speech: speech normal Extrem General: normal to inspection and capillary refill normal Psych Appearance: grossly normal and well kempt Scores GCS Nam coma scale eye opening: Spontaneous [place] coma scale verbal response: Orientated [place] coma scale motor response: Obey commands Nam coma scale total score: 15 Course Orders Ordered: ED Orders 02/05/20 14:39 XR chest 2V Stat EKG-12 Lead Stat Measure peak expiratory flow ONCE RT Consult Eval and Treat Now 02/05/20 14:50 Complete Blood Count AUTO DIFF Stat Comprehensive Metabolic Panel Stat Lactate (Lactic Acid) Stat NT-proBNP (BNP-Adult 18+) Stat Partial Thromboplastin Time Stat Troponin & CK Cardiac Panel Stat 02/05/20 15:15 COVID19 -ED/INPAT/OR/L&D Stat 02/05/20 16:01 CT angio chest PE protocol Stat 02/06/20 00:15 PTT [Partial Thromboplastin Time] Q6H 02/06/20 06:15 PTT [Partial Thromboplastin Time] Q6H 02/06/20 12:15 PTT [Partial Thromboplastin Time] Q6H Heparin Sodium/Dextrose (Heparin Drip) 25,000 unit in 500 mls @ 24 mls/hr IV CONT MAGI; Protocol Last Admin: 02/05/20 18:31 Dose: 1,200 units/hr, 24 mls/hr Documented by: ISHMAEL Discontinued Medications Heparin Sodium (Porcine) (Heparin) 7,500 unit IV NOW ONE Stop: 02/05/20 18:12 Last Admin: 02/05/20 18:28 Dose: 7,500 unit Documented by: ISHMAEL Sodium Chloride (Normal Saline 0.9%) 1,000 mls @ 1,000 mls/hr IV BOLUS ONE Stop: 02/05/20 16:26 Last Infusion: 02/05/20 16:45 Dose: 0 mls/hr Documented by: Admin: 02/05/20 15:33 Dose: 1,000 mls/hr Documented by: GARETT Heparin Sodium/Dextrose (Heparin Drip) 25,000 unit in 500 mls @ 38.374 mls/hr IV CONT MAGI; Protocol Last Admin: 02/05/20 18:25 Dose: Not Given Documented by: ISHMAEL Vital Signs Vital signs: Vital Signs - 8 hr 02/05/20 14:31 02/05/20 14:36 02/05/20 15:00 Temperature 98.4 F Pulse Rate 135 H 114 H 104 H Respiratory Rate 19 18 15 Blood Pressure 188/89 H Pulse Oximetry 95 97 95 02/05/20 15:01 02/05/20 15:11 02/05/20 15:30 Temperature Pulse Rate 104 H 107 H 104 H Respiratory Rate 16 18 16 Blood Pressure 136/70 142/63 H 131/70 Pulse Oximetry 94 93 97 02/05/20 16:00 02/05/20 16:35 02/05/20 17:00 Temperature Pulse Rate 106 H 103 H 100 H Respiratory Rate 21 14 Blood Pressure 146/73 H 145/68 H 144/67 H Pulse Oximetry 94 93 94 02/05/20 17:32 02/05/20 17:34 02/05/20 17:43 Temperature Pulse Rate 128 H 109 H 112 H Respiratory Rate 23 30 H Blood Pressure 163/80 H Pulse Oximetry 90 L 94 89 L 02/05/20 18:00 02/05/20 18:30 02/05/20 19:00 Temperature Pulse Rate 107 H 105 H 104 H Respiratory Rate 24 23 24 Blood Pressure 144/66 H 139/70 139/71 Pulse Oximetry 94 93 92 02/05/20 19:30 Temperature Pulse Rate 101 H Respiratory Rate 18 Blood Pressure 145/70 H Pulse Oximetry 94 Medical Decision Making Medical Records Medical records reviewed: Yes I reviewed the patient's medical records. Lab Data Lab results reviewed: Yes I reviewed the patient's lab results. Result diagrams: 02/05/20 14:50 02/05/20 14:50 Labs: Lab Results 02/05/20 02/05/20 02/05/20 Range/Units 14:50 14:50 14:50 WBC 14.4 H (4.5-11.0) X10^3/uL RBC 4.38 L (4.5-5.9) X10^6/uL Hgb 13.5 (13.5-17.5) g/dL Hct 40.3 L (41-53) % MCV 91.9 (80-100) fL MCH 30.9 (26-34) PG MCHC 33.6 (30-36) % RDW 14.3 (11.6-14.8) % Plt Count 176 (150-400) X10^3/uL Neut % (Auto) 78.8 H (50-75) % Lymph % (Auto) 11.2 L (25-40) % Bucks % (Auto) 9.5 (3-14) % Eos % (Auto) 0.3 L (2-4) % Baso % (Auto) 0.2 (0-2) % Neut # (Auto) 97797 H (6526-5209) /uL Lymph # (Auto) 1600 (3556-3409) /uL Bucks # (Auto) 1400 H (0-900) /uL Eos # (Auto) 0 (0-450) /uL Baso # (Auto) 0 (0-100) /uL APTT (26.4-36.2) SECONDS Sodium 141 (137-145) mmol/L Potassium 3.8 (3.4-5.1) mmol/L Chloride 103 (98-107) mmol/L Carbon Dioxide 26 (22-32) mmol/L BUN 33 H (9-20) mg/dL Creatinine 1.49 H (0.66-1.25) mg/dL Estimated GFR 46.4 L (>60) mL/min BUN/Creatinine Ratio 22.1 H (6-22) Glucose 131 H (80-110) mg/dL Lactate 2.9 H (0.7-2.1) mmol/L Calcium 10.3 H (8.4-10.2) mg/dL Total Bilirubin 0.8 (0.2-1.3) mg/dL AST 27 (17-59) IU/L ALT 21 (<50) IU/L Alkaline Phosphatase 84 (38-126) U/L Total Creatine Kinase (55-170) U/L CK-MB (CK-2) (<2.37) ng/mL CK-MB (CK-2) Rel Index (1.5-5.0) % Troponin I (0.01-0.034) ng/mL NT-Pro-B Natriuret Pep (<125) pg/mL Total Protein 7.9 (6.3-8.2) g/dL Albumin 4.6 (3.5-5.0) g/dL Globulin 3.3 (1.7-4.1) g/dL Albumin/Globulin Ratio 1.4 (1.0-2.8) COVID-19 PCR (Negative) 02/05/20 02/05/20 02/05/20 Range/Units 14:50 14:50 14:50 WBC (4.5-11.0) X10^3/uL RBC (4.5-5.9) X10^6/uL Hgb (13.5-17.5) g/dL Hct (41-53) % MCV (80-100) fL MCH (26-34) PG MCHC (30-36) % RDW (11.6-14.8) % Plt Count (150-400) X10^3/uL Neut % (Auto) (50-75) % Lymph % (Auto) (25-40) % Bucks % (Auto) (3-14) % Eos % (Auto) (2-4) % Baso % (Auto) (0-2) % Neut # (Auto) (1155-5855) /uL Lymph # (Auto) (8559-1704) /uL Bucks # (Auto) (0-900) /uL Eos # (Auto) (0-450) /uL Baso # (Auto) (0-100) /uL APTT 31 (26.4-36.2) SECONDS Sodium (137-145) mmol/L Potassium (3.4-5.1) mmol/L Chloride (98-107) mmol/L Carbon Dioxide (22-32) mmol/L BUN (9-20) mg/dL Creatinine (0.66-1.25) mg/dL Estimated GFR (>60) mL/min BUN/Creatinine Ratio (6-22) Glucose (80-110) mg/dL Lactate (0.7-2.1) mmol/L Calcium (8.4-10.2) mg/dL Total Bilirubin (0.2-1.3) mg/dL AST (17-59) IU/L ALT (<50) IU/L Alkaline Phosphatase (38-126) U/L Total Creatine Kinase 118 (55-170) U/L CK-MB (CK-2) 0.97 (<2.37) ng/mL CK-MB (CK-2) Rel Index 0.8 L (1.5-5.0) % Troponin I < 0.012 (0.01-0.034) ng/mL NT-Pro-B Natriuret Pep 72 (<125) pg/mL Total Protein (6.3-8.2) g/dL Albumin (3.5-5.0) g/dL Globulin (1.7-4.1) g/dL Albumin/Globulin Ratio (1.0-2.8) COVID-19 PCR (Negative) 02/05/20 02/05/20 Range/Units 15:15 17:16 WBC (4.5-11.0) X10^3/uL RBC (4.5-5.9) X10^6/uL Hgb (13.5-17.5) g/dL Hct (41-53) % MCV (80-100) fL MCH (26-34) PG MCHC (30-36) % RDW (11.6-14.8) % Plt Count (150-400) X10^3/uL Neut % (Auto) (50-75) % Lymph % (Auto) (25-40) % Bucks % (Auto) (3-14) % Eos % (Auto) (2-4) % Baso % (Auto) (0-2) % Neut # (Auto) (1742-7331) /uL Lymph # (Auto) (8840-1920) /uL Bucks # (Auto) (0-900) /uL Eos # (Auto) (0-450) /uL Baso # (Auto) (0-100) /uL APTT (26.4-36.2) SECONDS Sodium (137-145) mmol/L Potassium (3.4-5.1) mmol/L Chloride (98-107) mmol/L Carbon Dioxide (22-32) mmol/L BUN (9-20) mg/dL Creatinine (0.66-1.25) mg/dL Estimated GFR (>60) mL/min BUN/Creatinine Ratio (6-22) Glucose (80-110) mg/dL Lactate 1.6 (0.7-2.1) mmol/L Calcium (8.4-10.2) mg/dL Total Bilirubin (0.2-1.3) mg/dL AST (17-59) IU/L ALT (<50) IU/L Alkaline Phosphatase (38-126) U/L Total Creatine Kinase (55-170) U/L CK-MB (CK-2) (<2.37) ng/mL CK-MB (CK-2) Rel Index (1.5-5.0) % Troponin I (0.01-0.034) ng/mL NT-Pro-B Natriuret Pep (<125) pg/mL Total Protein (6.3-8.2) g/dL Albumin (3.5-5.0) g/dL Globulin (1.7-4.1) g/dL Albumin/Globulin Ratio (1.0-2.8) COVID-19 PCR Negative (Negative) Imaging Data Chest x-ray: Radiologist's Impression: [address] [address] XRay Report Signed Patient: José Miguel Borjas [facility]#: [id number] : 7Acct:[id number] Age/Sex: 74 / MDate of Service: 02/05/20 Loc: ED Accession Number: [id number] Procedure: XR chest 2V Ordering Provider: Mihir Bunch D.O. PROCEDURE: XR CHEST 2V INDICATIONS: shortness of breath TECHNIQUE: 2 views of the chest were acquired. COMPARISON: [facility], , XR CHEST 2V, 04/11/2018, 10:57. FINDINGS: Surgical changes and devices: None. Lungs and pleura: Lungs are clear. No pleural effusions or pneumothorax. Mediastinum: Mediastinal contours are normal. Heart size is normal. Bones and chest wall: No suspicious bony abnormalities. Soft tissues appear unremarkable. 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 Please correlate for presence of COPD. Dictated by: Juan Cerda M.D. on 02/05/2020 at 15:31 Approved by: Juan Cerda M.D. on 02/05/2020 at 15:31 CT scan - chest: Radiologist's Impression: [address] [address] [address] Scan Report Signed Patient: José Miguel Borjas [facility]#: [id number] : 7Acct:[id number] Age/Sex: 74 / MDate of Service: 02/05/20 Loc: ED Accession Number: [id number] Procedure: CT angio chest PE protocol Ordering Provider: Mihir Bunch D.O. PROCEDURE: CT ANGIO CHEST PE PROTOCOL INDICATIONS: Shortness of breath with history of PE TECHNIQUE: After the administration of intravenous contrast, 2 mm thick sections acquired from the pulmonary apices to the posterior costophrenic angles. 3-dimensional maximum intensity projection (MIP) coronal and sagittal reformats were then acquired through the thorax. For radiation dose reduction, the following was used: automated exposure control, adjustment of mA and/or kV according to patient size. COMPARISON: [facility], CT, CT ANGIO CHEST PE PROTOCOL, 04/11/2018, 11:56. FINDINGS: Image quality: Excellent. Pulmonary arteries: There multiple filling defects in keeping with pulmonary emboli involving the left and right pulmonary arteries with straddle appearance, bilateral lower lobar and segmental pulmonary arteries. There are also bilateral upper lobar pulmonary artery emboli. Scattered subsegmental atelectasis and/or scarring. No focal consolidation. No pleural effusions or pneumothorax. Central and peripheral airways are patent. Mediastinum: Heart size is normal, without pericardial effusion. No leftward bowing of the interventricular septum. No mediastinal or hilar adenopathy. Thoracic aorta is normal in caliber and enhancement. Esophagus is normal in caliber, without hiatal hernia. Bones and chest wall: No suspicious bony lesions. Ribs and thoracic spine appear intact throughout. Thyroid gland negative. No axillary or supraclavicular adenopathy. Abdomen: Visualized upper abdominal solid organs appear normal in the early arterial phase of enhancement. IMPRESSION: Numerous left, right pulmonary artery and bilateral upper and lower lobar pulmonary arteries, as detailed above. Critical findings were personally telephoned and discussed with Dr. Bunch in the emergency department at 1704 hours on 02/05/20. Dictated by: Kelvin Bedolla M.D. on 02/05/2020 at 16:56 Approved by: Kelvin Bedolla M.D. on 02/05/2020 at 17:11 ECG Data Attestation: I personally reviewed and interpreted this ECG as follows: Prior ECG tracings: not available for review Interpretation: Sinus rhythm Ventricular rate [address] T wave changes MDM Narrative Medical decision making narrative: Patient with shortness of breath. No chest pain. Not hypoxic while lying in the bed. Does have a history of a DVT 2 years ago. Not currently on anticoagulation. EKG is unremarkable. Labs unremarkable. Troponin BNP negative. Chest x-ray is unremarkable. CTA ordered secondary to his prior history of pulmonary embolisms which does show bilateral pulmonary embolisms with fairly large clot burden. There is no CT evidence of right heart strain. While lying in bed patient is very stable and not having much symptoms. We got him up to walk him around and after approximately 50 ft he had to sit down because of shortness of breath and his oxygen saturations dropped to the mid 80s. He has never been hypotensive. Patient was started on heparin. I did discuss the case with Dr russo pulmonology [facility] who stated that he potentially could be a candidate for catheter directed thrombolysis. She asked that I discuss the case with Cardiology. I then discussed the case with with cardiology who also stated the patient would be a candidate for catheter directed thrombolysis however given the fact that he had a lumbar spine epidural injection yesterday he would be extremely risky to perform this procedure. She did agree with the heparin. She stated that the patient should be transferred to admitted to the medicine service with trending of troponins and an echocardiogram and then re-evaluation in the morning as to whether not catheter directed thrombolysis should be pursued. I did discuss all this with the patient. I then discussed the case with the hospitalist at [facility]. Patient is stable for transfer. Will transfer the patient. Discharge Plan Departure Patient Disposition: [facility] Clinical Impression: Pulmonary embolism Qualifiers: Pulmonary embolism type: saddle Chronicity: acute Acute cor pulmonale presence: unspecified Qualified Code(s): I26.92 - Saddle embolus of pulmonary artery without acute cor pulmonale Prescriptions: No Action simvastatin 20 MG tablet 20 mg PO BEDTIME Qty: 0 RF: 0 nifedipine 60 MG tablet extended release 24hr 60 mg PO DAILY Qty: 0 RF: 0 multivitamin Tablet 1 tab PO DAILY Qty: 0 RF: 0 lisinopril 30 mg Tablet 20 mg PO DAILY RF: 0 Probiotic 10 billion cell Capsule 2 cap DAILY RF: 0 gabapentin 600 mg tablet 600 mg PO BID RF: 0 sertraline 100 mg tablet 100 mg PO BEDTIME RF: 0 hydrochlorothiazide 25 mg tablet 25 mg PO DAILY RF: 0 metformin 500 mg tablet extended release 24 hr 500 mg PO BID RF: 0 (DME) [employer] Dreamstation BIPAP Qty: 1 RF: 0
[2020-02-05 16:57] LABS: Reflexed Lactate in 2 Hours Y
[2020-02-05 17:33] LABS: Lactate 2HR (Lactic Acid Rflx) 1.6 mmol/L (0.7-2.1)
[2020-02-05 18:22] LABS: PTT Partial Thromboplastin Tim 31 SECONDS (26.4-36.2)
[2020-02-05] MEDS: HEPARIN 5,000 UNIT/ML VIAL 7500 UNIT IV (18:28)
[2020-02-05] MEDS: HEPARIN DRIP 25,000 UNIT/500 ML IV.SOLN 24 UNIT IV (18:31)
--- NOTE | 2020-03-12 12:08 | PC.NURSE ---
Iv fluids (heparin) was stopped at 2126.
== END 2020-02-05 21:27 | disposition short-term general hospital (02) ==
PROVIDERS: Emergency Provider Emergency Medicine; Family Provider Family Medicine
DX: I26.92 Saddle embolus of pulmonary artery without acute cor pulmonale (principal)
CPT/HCPCS: 36415; 71046; 71275; 80053; 82550; 82553; 83605; 83880; 84484; 85025; 85730; 87635; 93005; 96361; 96365; 96366; 96375; 99284; J1644; Q9967

== ENCOUNTER → 2020-05-28 13:34 | Outpatient (CLI) | payer MEDICARE, OTHER, SELFPAY ==
[2020-05-28] MEDS: COVID-19 VACC #1, MRNA(MOD) 100 MCG/0.5 ML VIAL IM (13:47)
== END ==
PROVIDERS: Family Provider Family Medicine; PCP Internal Medicine; Visit Provider Internal Medicine
DX: Z23 Encounter for immunization (principal)
CPT/HCPCS: 0011A; 91301

== ENCOUNTER → 2020-06-25 13:42 | Outpatient (CLI) | payer MEDICARE, OTHER, SELFPAY ==
[2020-06-25] MEDS: COVID-19 VACC #2, MRNA(MOD) 100 MCG/0.5 ML VIAL IM (13:47)
== END ==
PROVIDERS: Family Provider Family Medicine; PCP Internal Medicine; Visit Provider Internal Medicine
DX: Z23 Encounter for immunization (principal)
CPT/HCPCS: 0012A; 91301

== ENCOUNTER → 2021-11-17 07:37 | Outpatient (CLI) | payer MEDICARE, OTHER, SELFPAY ==
--- NOTE | 2021-11-17 | DI.MRI.S_ITS ---
PROCEDURE: MR LUMBAR SPINE WO CON INDICATIONS: Spinal stenosis, lumbar region with neurogenic claudication TECHNIQUE: Noncontrast sagittal T1 spin echo and T2 fast echo, sagittal STIR, and T2 fast spin echo through the lumbar spine. In cases with scoliosis, additional coronal T2 fast spin echo may be performed. COMPARISON: 06/13/2019 MRI lumbar spine FINDINGS: S shaped scoliosis in the lumbar spine is similar to the prior study. No significant listhesis. Vertebral body heights maintained. No suspicious focal marrow signal abnormality. Mild discogenic marrow edema and periarticular bone marrow edema at multiple levels. Normal position and appearance of the conus. Regional soft tissues otherwise normal. T12-L1: No spinal canal or neural foraminal stenosis. Mild facet hypertrophy. L1-L2: Diffuse disc bulge flattens the ventral thecal sac with disc material displacing the descending right L2 nerve roots in the right subarticular zone. Foraminal components of the disc bulge and facet hypertrophy combine to produce severe neural foraminal narrowing on the right with compression of the exiting right L1 nerve roots. L2-L3: Moderate to severe spinal canal stenosis due to diffuse disc bulge and a superimposed broad-based posterior disc protrusion along with buckling of the ligamentum flavum and bulky facet hypertrophy. CSF in the thecal sac is almost entirely effaced and there is crowding of the traversing nerve roots. Severe bilateral neural foraminal narrowing due to foraminal components of the disc bulge with compression of the exiting L2 nerve roots bilaterally, right greater than left. L3-L4: Severe spinal canal stenosis due to diffuse disc bulge and a superimposed broad-based posterior disc protrusion along with bulky facet hypertrophy and buckling of the ligamentum flavum. In particular the left facet is markedly hypertrophic and contribute significantly to the spinal canal stenosis at this level. Severe left and mild right neural foraminal stenosis with compression of the exiting left L3 nerve root by facet and disc material. L4-L5: Severe spinal canal stenosis with near complete effacement of CSF in the thecal sac due to a combination of diffuse disc bulge, bulky facet hypertrophy, and buckling of the ligamentum flavum. Findings more pronounced on the left at driven again by bulky left facet hypertrophy. There is severe left and mild right neural foraminal narrowing. L5-S1: Diffuse disc bulge and a superimposed broad-based posterior disc protrusion with moderate-severe subarticular zone stenosis and likely impingement of the descending S1 nerve roots bilaterally. Bilateral severe neural foraminal narrowing due to foraminal components of the disc bulge and facet hypertrophy with compression of the exiting L5 nerve roots. IMPRESSION: Overall severe multilevel multifactorial degenerative changes. Moderate to severe spinal canal stenosis at L2-L3, L3-L4, and L4-L5. Moderate to severe subarticular zone stenosis at L5-S1. Varying degrees of neural foraminal stenosis, severe bilaterally at L1-L2, L2-L3, and L5-S1 as well as on the left at L3-L4 and L4-L5. Dictated by: Florian Lewis M.D. on 11/17/2021 at 11:19 Approved by: Florian Lewis M.D. on 11/17/2021 at 11:24
== END ==
PROVIDERS: Family Provider Family Medicine; PCP Internal Medicine; Referring Provider Physical Medicine & Rehabilitation; Visit Provider Physical Medicine & Rehabilitation
DX: M48.062 Spinal stenosis, lumbar region with neurogenic claudication (principal); M48.07 Spinal stenosis, lumbosacral region; M47.816 Spondylosis without myelopathy or radiculopathy, lumbar region; M47.817 Spondylosis without myelopathy or radiculopathy, lumbosacral region
CPT/HCPCS: 72148

== ENCOUNTER 2021-12-20 11:05 | Observation (INO) | payer MEDICARE, OTHER, SELFPAY ==
[2021-12-20] VITALS (21 sets, daily range): BP systolic 125–146; BP diastolic 49–73; PULSE 88–114; RESP 14–20; TEMP 36.4–36.8; O2SAT 91–96; BMI 36.4
--- NOTE | 2021-12-20 12:34 | ED.BACK ---
HPI - Back Pain/Injury <ANATOLIY Bettencourt - Last Filed: 12/20/21 17:32> General Chief Complaint: Back Pain/Injury Stated Complaint: Back Pain,chronic,worse today Time Seen by Provider: 12/20/21 11:44 Source: patient and EMS History of Present Illness HPI Narrative: 76-year-old male former smoker, presents to the emergency department via EMS for lower back pain x6 days. Patient lives on [facility] and has been bed ridden for 6 days. Patient denies any new trauma to his lower back but has injuries from decades ago from skydiving in the . Patient reports his last MRI was in September and Dr. Michelle, of [facility], is intending on doing a lumbar fusion. Patient's request for pain medication resulted in a eventual prescription for tramadol, that he started yesterday. Patient states that he cannot rollover due to the pain in his back and has pain radiating down both legs. History of pulmonary embolism and bilateral hip replacements. Patient denies any numbness or weakness of his legs but cannot get out of bed due to the back pain. Patient has been drinking normally and urinating normally but has been eating less and has not had a bowel movement in 6 days, that he believes is due to the anticipated pain of straining. 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 Related Data Home Medications Medication Instructions Recorded Confirmed simvastatin 20 mg tablet 20 mg PO DAILY ##0 06/19/11 12/20/21 nifedipine 60 mg tablet,extended 60 mg PO DAILY ##0 03/29/12 12/20/21 release 24 hr multivitamin 1 tab PO DAILY ##0 09/18/12 12/20/21 hydrochlorothiazide 25 mg tablet 25 mg PO DAILY 04/11/18 12/20/21 metformin 500 mg tablet,extended 500 mg PO DAILY 04/11/18 12/20/21 release 24 hr Respironics Dreamstation BIPAP #1 ea 09/17/18 12/21/21 duloxetine 60 mg capsule,delayed 90 mg PO DAILY 02/17/20 12/20/21 release pregabalin 225 mg capsule 225 mg PO BID 04/13/21 12/20/21 lisinopril 20 mg tablet 20 mg PO DAILY 08/23/22 08/23/22 rivaroxaban 20 mg tablet (Xarelto) 20 mg PO DAILY 12/20/21 12/20/21 Previous Rx's Medication Instructions Recorded acetaminophen 325 mg tablet 650 mg PO Q6HR #90 tabs 12/22/21 dexamethasone 4 mg tablet 8 mg PO Q8HR #10 tabs 12/22/21 diazepam 5 mg tablet 5 mg PO Q6HR PRN Muscle Spasm #10 12/22/21 tabs docusate sodium 100 mg capsule 100 mg PO BID #20 caps 12/22/21 methocarbamol 500 mg tablet 500 mg PO Q8H #10 tabs 12/22/21 polyethylene glycol 3350 17 gram 17 gm PO DAILY #10 ea 12/22/21 oral powder packet quetiapine 25 mg tablet 12.5 mg PO 1800 #10 tabs 12/22/21 sennosides 8.6 mg tablet (senna) 17.2 mg PO BEDTIME #10 tabs 12/22/21 tramadol 50 mg tablet 50 mg PO Q4H PRN Pain, Mild (1-3) 12/22/21 #30 tabs Allergies Allergy/AdvReac Type Severity Reaction Status Date / Time No Known Drug Allergies Allergy Verified 12/20/21 11:44 Review of Systems <ANATOLIY Bettencourt - Last Filed: 12/20/21 17:32> Review of Systems Narrative: Narrative: GENERAL: Denies chills, fatigue, fever, sweats. See HPI HEENT: Denies sinus pain, ear pain, sore throat, difficulty swallowing, dizziness. RESPIRATORY: Denies dyspnea, cough, wheezing, sputum. Endorses shallow breathing due to the mask and supine position. CARDIOVASCULAR: Denies chest pain, palpitations, edema. GASTROINTESTINAL: Denies nausea, vomiting, abdominal pain, diarrhea. : Denies dysuria, frequency, incontinence, hematuria, urinary retention, flank pain. Denies any loss of control of bowel or bladder. MSK: Endorses low back pain.. SKIN: Denies rash, skin lesions, or pruritis. NEUROLOGIC: Denies weakness, dizziness, headache, numbness, confusion. PSYCHIATRIC: No concerning psychosocial issues. Patient History <ANATOLIY Bettencourt - Last Filed: 12/20/21 17:32> Medical History (Updated 12/22/21 @ 10:45 by Floresita Vora PA-C) Anticoagulated Central sleep apnea Diabetes DVT (deep venous thrombosis) GERD (gastroesophageal reflux disease) HTN (hypertension) Hx pulmonary embolism Hyperlipemia Laceration Obesity Obstructive sleep apnea of adult Pulmonary embolism Spinal stenosis Surgical History H/O Spinal surgery History of hip replacement History of tonsillectomy and adenoidectomy Family History Father Pancreatic cancer Social History marital status: details: to Soraida household members: spouse lives independently: Yes caregiver/support person: No education level: college 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 Normocephalic. CARDIOVASCULAR: Regular rate and rhythm without murmurs, peripheral pulses intact, cap refill <2 sec. RESPIRATORY: Breath sounds equal and clear bilaterally. No wheezes, rales, or rhonchi. No cough. No increased respiratory effort. No accessory muscle use. Shallow breathing noted due to supine position. GASTROINTESTINAL: Abdomen soft, lower abdominal tenderness, nondistended without guarding or rebound. Positive suprapubic pain due to the need for urination. Patient provided a urine all but states that he now cannot urinate, but feels the need. North catheter ordered. MSK: Moves all extremities. Limited range of motion, no clubbing or edema. Neurovascularly intact. NEURO: A&O x 3. SKIN: Warm, dry, no rashes or lesions noted. Initial Vital Signs Initial Vital Signs: Vital Signs Temperature 98.2 F 12/20/21 11:07 Pulse Rate 88 12/20/21 11:07 Respiratory Rate 14 12/20/21 11:07 Blood Pressure 137/70 12/20/21 11:07 Pulse Oximetry 95 12/20/21 11:07 Oxygen Delivery Method 12/20/21 11:07 Reviewed <Brook Larios DO - Last Filed: 12/23/21 09:56> Initial Vital Signs Initial Vital Signs: Vital Signs Temperature 98.2 F 12/20/21 11:07 Pulse Rate 88 12/20/21 11:07 Respiratory Rate 14 12/20/21 11:07 Blood Pressure 137/70 12/20/21 11:07 Pulse Oximetry 95 12/20/21 11:07 Oxygen Delivery Method 12/20/21 11:07 Course <ANATOLIY Bettencourt - Last Filed: 12/20/21 17:32> Orders Ordered: Discontinued Medications Acetaminophen (Acetaminophen 325 Mg Tablet) 650 mg PO Q6HR [facility] Last Admin: 12/22/21 18:19 Dose: 650 mg Documented By: Admin: 12/22/21 13:20 Dose: Not Given Documented By: Admin: 12/22/21 06:03 Dose: Not Given Documented By: Admin: 12/22/21 00:00 Dose: Not Given Documented By: Admin: 12/21/21 17:45 Dose: 650 mg Documented By: Admin: 12/21/21 12:26 Dose: 650 mg Documented By: Admin: 12/21/21 06:07 Dose: Not Given Documented By: Admin: 12/21/21 00:51 Dose: Not Given Documented By: BALA Atorvastatin Calcium (Atorvastatin 20 Mg Tablet) 10 mg PO DAILY [facility] Last Admin: 12/22/21 09:44 Dose: 10 mg Documented By: Admin: 12/21/21 09:14 Dose: 10 mg Documented By: YONY Dexamethasone (Dexamethasone 4 Mg Tablet) 8 mg PO Q8HR [facility] Last Admin: 12/22/21 13:40 Dose: 8 mg Documented By: Admin: 12/22/21 06:02 Dose: 8 mg Documented By: Admin: 12/21/21 21:23 Dose: 8 mg Documented By: Admin: 12/21/21 14:47 Dose: 8 mg Documented By: YONY Dextrose (Dextrose 50 % In Water 25 Gm/50 Ml Syringe) 25 gm IV PRN PRN PRN Reason: Hypoglycemia Diazepam (Diazepam 5 Mg Tablet) 5 mg PO NOW ONE Stop: 12/20/21 13:17 Last Admin: 12/20/21 13:36 Dose: 5 mg Documented By: CHRIS Diazepam (Diazepam 5 Mg Tablet) 5 mg PO Q6HR PRN PRN Reason: Muscle Spasm Last Admin: 12/22/21 19:55 Dose: 5 mg Documented By: Admin: 12/21/21 21:23 Dose: 5 mg Documented By: Admin: 12/21/21 12:26 Dose: 5 mg Documented By: NOEL Docusate Sodium (Docusate 100 Mg Capsule) 100 mg PO BID [facility] Last Admin: 12/22/21 09:43 Dose: 100 mg Documented By: Admin: 12/21/21 21:23 Dose: 100 mg Documented By: Admin: 12/21/21 09:14 Dose: 100 mg Documented By: Admin: 12/20/21 23:36 Dose: 100 mg Documented By: BALA Duloxetine HCl (Duloxetine 30 Mg Capsule) 90 mg PO DAILY [facility] Last Admin: 12/22/21 09:43 Dose: 90 mg Documented By: Admin: 12/21/21 09:13 Dose: 90 mg Documented By: YONY Hydromorphone HCl (Hydromorphone 1 Mg Inj) 1 mg IV NOW ONE Stop: 12/20/21 15:55 Last Admin: 12/20/21 16:14 Dose: 1 mg Documented By: CHRIS(2) Hydromorphone HCl (Hydromorphone 0.5 Mg Inj) 0.5 mg IV Q4H PRN PRN Reason: Breakthrough pain only (8-10) Sodium Chloride (Normal Saline 0.9%) 1,000 mls @ 100 mls/hr IV CONT MAGI Last Admin: 12/21/21 06:06 Dose: 100 mls/hr Documented By: BALA Insulin Human Lispro (Insulin Lispro 100 Unit/Ml 3ml Vial) 0 unit SUBCUT ACHS [facility]; Protocol Last Admin: 12/22/21 17:02 Dose: Not Given Documented By: Admin: 12/22/21 13:20 Dose: Not Given Documented By: Admin: 12/22/21 07:34 Dose: Not Given Documented By: Admin: 12/21/21 21:00 Dose: Not Given Documented By: Admin: 12/21/21 16:43 Dose: Not Given Documented By: Admin: 12/21/21 12:26 Dose: 1 unit Documented By: NOEL Co-signed By: YONY Admin: 12/21/21 08:50 Dose: Not Given Documented By: YONY Ketorolac Tromethamine (Ketorolac 30 Mg/Ml Vial) 30 mg IV NOW ONE Stop: 12/20/21 13:17 Last Admin: 12/20/21 13:36 Dose: 30 mg Documented By: CHRIS Lisinopril (Lisinopril 20 Mg Tablet) 20 mg PO DAILY [facility] Last Admin: 12/22/21 09:43 Dose: 20 mg Documented By: Admin: 12/21/21 09:13 Dose: 20 mg Documented By: YONY Methocarbamol (Methocarbamol 500 Mg Tablet) 500 mg PO Q8H [facility] Last Admin: 12/22/21 19:52 Dose: 500 mg Documented By: Admin: 12/22/21 13:40 Dose: 500 mg Documented By: Admin: 12/22/21 06:03 Dose: 500 mg Documented By: Admin: 12/21/21 21:22 Dose: 500 mg Documented By: Admin: 12/21/21 12:26 Dose: 500 mg Documented By: Admin: 12/21/21 06:06 Dose: 500 mg Documented By: Admin: 12/20/21 23:36 Dose: 500 mg Documented By: BALA Morphine Sulfate (Morphine 2 Mg/Ml Inj) 2 mg IV Q4H PRN PRN Reason: Pain, Severe (7-10) Nifedipine (Nifedipine 30 Mg Tab Er) 60 mg PO DAILY [facility] Last Admin: 12/22/21 09:42 Dose: 60 mg Documented By: Admin: 12/21/21 09:12 Dose: 60 mg Documented By: YONY Ondansetron HCl (Ondansetron 4 Mg/2 Ml Inj) 4 mg IV Q6HR PRN PRN Reason: Nausea And Vomiting Polyethylene Glycol (Polyethylene Glycol 3350 17 Gm Powd.Pack) 17 gm PO DAILY [facility] Last Admin: 12/22/21 09:42 Dose: 17 gm Documented By: Admin: 12/21/21 12:27 Dose: 17 gm Documented By: NOEL Pregabalin (Pregabalin 75 Mg Capsule) 225 mg PO BID [facility] Last Admin: 12/22/21 19:52 Dose: 225 mg Documented By: Admin: 12/22/21 09:43 Dose: 225 mg Documented By: Admin: 12/21/21 21:23 Dose: 225 mg Documented By: Admin: 12/21/21 09:14 Dose: 225 mg Documented By: Admin: 12/20/21 23:35 Dose: 225 mg Documented By: BALA Quetiapine Fumarate (Quetiapine 25 Mg Tablet) 12.5 mg PO 1800 [facility] Last Admin: 12/22/21 18:19 Dose: 12.5 mg Documented By: YONY Rivaroxaban (Rivaroxaban 10 Mg Tablet) 20 mg PO DAILY [facility] Last Admin: 12/22/21 09:45 Dose: 20 mg Documented By: Admin: 12/21/21 09:13 Dose: 20 mg Documented By: YONY Sennosides (Sennosides 8.6 Mg Tablet) 17.2 mg PO BEDTIME [facility] Last Admin: 12/21/21 21:23 Dose: 17.2 mg Documented By: Admin: 12/20/21 23:38 Dose: 17.2 mg Documented By: BALA Tramadol HCl (Tramadol 50 Mg Tablet) 50 mg PO Q4H PRN PRN Reason: Pain, Mild (1-3) Last Admin: 12/21/21 09:13 Dose: 50 mg Documented By: Admin: 12/20/21 23:39 Dose: 50 mg Documented By: BALA Consultations Consultation #1: Dr. Caicedo, orthopedics. Will forward concerns to the on-call back surgeon who will call back. Consultation #2: Dr. Michelle, Orthopedics. Review of MRI shows no acute changes that require emergent surgery. Stated that he will try to expedite the elective surgery process but may need to be admitted for pain control. Consideration marine painter, Dr. Vale, by medicine team. Consultation #3: Dr. Mir, hospitalist, was agreeable to admission for pain control. Vital Signs Vital signs: Vital Signs - 8 hr 12/20/21 11:08 12/20/21 11:07 12/20/21 11:30 Temperature 98.2 F Pulse Rate 92 H 88 90 Respiratory Rate 14 Blood Pressure 137/70 137/70 Pulse Oximetry 96 95 96 Oxygen Delivery Method Room Air 12/20/21 12:00 12/20/21 12:30 12/20/21 13:00 Temperature Pulse Rate 94 H 92 H 96 H Respiratory Rate Blood Pressure Pulse Oximetry 94 93 96 Oxygen Delivery Method 12/20/21 13:17 12/20/21 13:30 12/20/21 14:00 Temperature Pulse Rate 98 H 107 H Respiratory Rate 18 Blood Pressure Pulse Oximetry 93 94 Oxygen Delivery Method 12/20/21 14:09 12/20/21 14:09 12/20/21 14:30 Temperature Pulse Rate 102 H 107 H Respiratory Rate Blood Pressure 146/66 H Pulse Oximetry 94 95 Oxygen Delivery Method 12/20/21 15:08 12/20/21 15:30 Temperature Pulse Rate 112 H 110 H Respiratory Rate 20 Blood Pressure Pulse Oximetry 93 91 Oxygen Delivery Method <Broko Larios DO - Last Filed: 12/23/21 09:56> Orders Ordered: Discontinued Medications Acetaminophen (Acetaminophen 325 Mg Tablet) 650 mg PO Q6HR [facility] Last Admin: 12/22/21 18:19 Dose: 650 mg Documented By: Admin: 12/22/21 13:20 Dose: Not Given Documented By: Admin: 12/22/21 06:03 Dose: Not Given Documented By: Admin: 12/22/21 00:00 Dose: Not Given Documented By: Admin: 12/21/21 17:45 Dose: 650 mg Documented By: Admin: 12/21/21 12:26 Dose: 650 mg Documented By: Admin: 12/21/21 06:07 Dose: Not Given Documented By: Admin: 12/21/21 00:51 Dose: Not Given Documented By: BALA Atorvastatin Calcium (Atorvastatin 20 Mg Tablet) 10 mg PO DAILY [facility] Last Admin: 12/22/21 09:44 Dose: 10 mg Documented By: Admin: 12/21/21 09:14 Dose: 10 mg Documented By: YONY Dexamethasone (Dexamethasone 4 Mg Tablet) 8 mg PO Q8HR [facility] Last Admin: 12/22/21 13:40 Dose: 8 mg Documented By: Admin: 12/22/21 06:02 Dose: 8 mg Documented By: Admin: 12/21/21 21:23 Dose: 8 mg Documented By: Admin: 12/21/21 14:47 Dose: 8 mg Documented By: YONY Dextrose (Dextrose 50 % In Water 25 Gm/50 Ml Syringe) 25 gm IV PRN PRN PRN Reason: Hypoglycemia Diazepam (Diazepam 5 Mg Tablet) 5 mg PO NOW ONE Stop: 12/20/21 13:17 Last Admin: 12/20/21 13:36 Dose: 5 mg Documented By: CHRIS Diazepam (Diazepam 5 Mg Tablet) 5 mg PO Q6HR PRN PRN Reason: Muscle Spasm Last Admin: 12/22/21 19:55 Dose: 5 mg Documented By: Admin: 12/21/21 21:23 Dose: 5 mg Documented By: Admin: 12/21/21 12:26 Dose: 5 mg Documented By: NOEL Docusate Sodium (Docusate 100 Mg Capsule) 100 mg PO BID [facility] Last Admin: 12/22/21 09:43 Dose: 100 mg Documented By: Admin: 12/21/21 21:23 Dose: 100 mg Documented By: Admin: 12/21/21 09:14 Dose: 100 mg Documented By: Admin: 12/20/21 23:36 Dose: 100 mg Documented By: BALA Duloxetine HCl (Duloxetine 30 Mg Capsule) 90 mg PO DAILY [facility] Last Admin: 12/22/21 09:43 Dose: 90 mg Documented By: Admin: 12/21/21 09:13 Dose: 90 mg Documented By: YONY Hydromorphone HCl (Hydromorphone 1 Mg Inj) 1 mg IV NOW ONE Stop: 12/20/21 15:55 Last Admin: 12/20/21 16:14 Dose: 1 mg Documented By: CHRIS(2) Hydromorphone HCl (Hydromorphone 0.5 Mg Inj) 0.5 mg IV Q4H PRN PRN Reason: Breakthrough pain only (8-10) Sodium Chloride (Normal Saline 0.9%) 1,000 mls @ 100 mls/hr IV CONT MAGI Last Admin: 12/21/21 06:06 Dose: 100 mls/hr Documented By: BALA Insulin Human Lispro (Insulin Lispro 100 Unit/Ml 3ml Vial) 0 unit SUBCUT ACHS [facility]I; Protocol Last Admin: 12/22/21 17:02 Dose: Not Given Documented By: Admin: 12/22/21 13:20 Dose: Not Given Documented By: Admin: 12/22/21 07:34 Dose: Not Given Documented By: Admin: 12/21/21 21:00 Dose: Not Given Documented By: Admin: 12/21/21 16:43 Dose: Not Given Documented By: Admin: 12/21/21 12:26 Dose: 1 unit Documented By: NOEL Co-signed By: YONY Admin: 12/21/21 08:50 Dose: Not Given Documented By: YONY Ketorolac Tromethamine (Ketorolac 30 Mg/Ml Vial) 30 mg IV NOW ONE Stop: 12/20/21 13:17 Last Admin: 12/20/21 13:36 Dose: 30 mg Documented By: CHRIS Lisinopril (Lisinopril 20 Mg Tablet) 20 mg PO DAILY [facility] Last Admin: 12/22/21 09:43 Dose: 20 mg Documented By: Admin: 12/21/21 09:13 Dose: 20 mg Documented By: YONY Methocarbamol (Methocarbamol 500 Mg Tablet) 500 mg PO Q8H [facility] Last Admin: 12/22/21 19:52 Dose: 500 mg Documented By: Admin: 12/22/21 13:40 Dose: 500 mg Documented By: Admin: 12/22/21 06:03 Dose: 500 mg Documented By: Admin: 12/21/21 21:22 Dose: 500 mg Documented By: Admin: 12/21/21 12:26 Dose: 500 mg Documented By: Admin: 12/21/21 06:06 Dose: 500 mg Documented By: Admin: 12/20/21 23:36 Dose: 500 mg Documented By: BALA Morphine Sulfate (Morphine 2 Mg/Ml Inj) 2 mg IV Q4H PRN PRN Reason: Pain, Severe (7-10) Nifedipine (Nifedipine 30 Mg Tab Er) 60 mg PO DAILY [facility] Last Admin: 12/22/21 09:42 Dose: 60 mg Documented By: Admin: 12/21/21 09:12 Dose: 60 mg Documented By: YONY Ondansetron HCl (Ondansetron 4 Mg/2 Ml Inj) 4 mg IV Q6HR PRN PRN Reason: Nausea And Vomiting Polyethylene Glycol (Polyethylene Glycol 3350 17 Gm Powd.Pack) 17 gm PO DAILY [facility] Last Admin: 12/22/21 09:42 Dose: 17 gm Documented By: Admin: 12/21/21 12:27 Dose: 17 gm Documented By: NOEL Pregabalin (Pregabalin 75 Mg Capsule) 225 mg PO BID [facility] Last Admin: 12/22/21 19:52 Dose: 225 mg Documented By: Admin: 12/22/21 09:43 Dose: 225 mg Documented By: Admin: 12/21/21 21:23 Dose: 225 mg Documented By: Admin: 12/21/21 09:14 Dose: 225 mg Documented By: Admin: 12/20/21 23:35 Dose: 225 mg Documented By: BALA Quetiapine Fumarate (Quetiapine 25 Mg Tablet) 12.5 mg PO 1800 [facility] Last Admin: 12/22/21 18:19 Dose: 12.5 mg Documented By: YONY Rivaroxaban (Rivaroxaban 10 Mg Tablet) 20 mg PO DAILY [facility] Last Admin: 12/22/21 09:45 Dose: 20 mg Documented By: Admin: 12/21/21 09:13 Dose: 20 mg Documented By: YONY Sennosides (Sennosides 8.6 Mg Tablet) 17.2 mg PO BEDTIME [facility] Last Admin: 12/21/21 21:23 Dose: 17.2 mg Documented By: Admin: 12/20/21 23:38 Dose: 17.2 mg Documented By: BALA Tramadol HCl (Tramadol 50 Mg Tablet) 50 mg PO Q4H PRN PRN Reason: Pain, Mild (1-3) Last Admin: 12/21/21 09:13 Dose: 50 mg Documented By: Admin: 12/20/21 23:39 Dose: 50 mg Documented By: BALA Vital Signs Vital signs: Vital Signs - 8 hr 12/20/21 11:08 12/20/21 11:07 12/20/21 11:30 Temperature 98.2 F Pulse Rate 92 H 88 90 Respiratory Rate 14 Blood Pressure 137/70 137/70 Pulse Oximetry 96 95 96 Oxygen Delivery Method Room Air 12/20/21 12:00 12/20/21 12:30 12/20/21 13:00 Temperature Pulse Rate 94 H 92 H 96 H Respiratory Rate Blood Pressure Pulse Oximetry 94 93 96 Oxygen Delivery Method 12/20/21 13:17 12/20/21 13:30 12/20/21 14:00 Temperature Pulse Rate 98 H 107 H Respiratory Rate 18 Blood Pressure Pulse Oximetry 93 94 Oxygen Delivery Method 12/20/21 14:09 12/20/21 14:09 12/20/21 14:30 Temperature Pulse Rate 102 H 107 H Respiratory Rate Blood Pressure 146/66 H Pulse Oximetry 94 95 Oxygen Delivery Method 12/20/21 15:08 12/20/21 15:30 Temperature Pulse Rate 112 H 110 H Respiratory Rate 20 Blood Pressure Pulse Oximetry 93 91 Oxygen Delivery Method MDM - Back Pain/Injury <ANATOLIY Bettencourt - Last Filed: 12/20/21 17:32> Differential Diagnosis Differential diagnosis: Likely lumbar radiculopathy Lab Data Result diagrams: 12/22/21 07:11 12/22/21 07:11 Labs: Lab Results 12/20/21 Range/Units 15:44 Urine RBC 0-1/hpf (0-5/HPF) Urine WBC None seen (0-5/HPF) Ur Squamous Epith Cells None seen (0-5/HPF) Urine Bacteria None seen (None) Ur Culture Indicated? Cult not indicated Urine Dip Bedside Urine Glucose Negative Bedside Urine Bilirubin - Negative Bedside Urine Ketone - Negative Urine Specific [place] 1.015 Bedside Urine Occult Blood +/- Bedside Urine pH 6.0 Bedside Urine Protein - Negative Bedside Urine Urobilinogen - Negative Bedside Urine Nitrite - Negative Bedside Urine Leukocytes - Negative Esterase Imaging Data MRI - Lumbar: Radiologist's Impression: [address] [address] Magnetic Resonance Report Signed Patient: José Miguel Borjas MR#: [id number] : 1945 Acct:[id number] Age/Sex: 76 / M Date of Service: 12/20/21 Loc: ED Accession Number: [id number] ?? Procedure: MR lumbar spine wo con Ordering Provider: Mihir He PROCEDURE:? MR LUMBAR SPINE WO CON ? INDICATIONS:? Lumbar back pain ? TECHNIQUE:? Noncontrast sagittal T1 spin echo and T2 fast echo, sagittal STIR, and T2 fast spin echo through the lumbar spine.? In cases with scoliosis, additional coronal T2 fast spin echo may be performed.? ? COMPARISON:? [facility], , MR LUMBAR SPINE WO CON, 11/17/2021, 7:57. ? FINDINGS:? Image quality:? Excellent.? ? Alignment and Curvature:? Convex left thoracolumbar scoliosis ? Bone Marrow:? Modic type 1 degenerative endplate changes noted at L1-2 and L2-3.? In the disc spaces at L2-3, L3-4 and L4-5 to lesser degree L5-S1 is similar to the prior ? Spinal Cord:? Conus medullaris terminates at the L1 level.? Visualized cord demonstrates normal signal and size.? ? Paraspinous Soft Tissues:? No paravertebral masses.? ? T12-L1:? Disc space narrowing without central or foraminal stenosis ? L1-L2:? Disc space narrowing with circumferential disc bulge and hypertrophic facet joints results in mild central stenosis.? Moderate right and no left foraminal stenosis ? L2-L3:? Disc space narrowing with asymmetric right circumferential disc bulge and hypertrophic facet joints combines with dorsal epidural fat result in severe central stenosis.? Moderate right and left foraminal stenosis ? L3-L4:? Disc space narrowing and circumferential disc bulge with hypertrophic facet joints so results in severe central stenosis.? Moderate right and severe left foraminal stenosis ? L4-L5:? Disc space narrowing with circumferential disc bulge, hypertrophic facet joints and dorsal epidural fat to result in severe central stenosis.? Severe left and moderate severe right foraminal stenosis ? L5-S1:? Disc space narrowing and circumferential disc bulge combines with hypertrophic facet joints to result in moderate central stenosis.? Moderate bilateral lateral recess effacement Severe bilateral foraminal stenosis present. ? ? IMPRESSION:? ? 1. Multilevel advanced degenerative disc disease and arthropathy results in varying degrees of central and foraminal stenosis including severe central stenosis L2-3, L3-4 and L4-5, similar to the prior ? Approved by: Darrian Russell M.D. on 12/20/2021 at 14:26? [facility] Narrative Medical decision making narrative: 76-year-old male with complaints of lower back pain and inability to get out of bed x6 days. MRI reveals no change from previous MRI in September 2021. Patient given Toradol and Valium for additional pain relief before MRI. After MRI, patient given an additional 1 mg of Dilaudid. Patient still at a 3/[address] Caicedo and Dr. Michelle of Orthopedics who recommended contacting hospitalist for admission for pain control. Contacted Dr. Bales, who was agreeable with admission.. <Brook Larios, DO - Last Filed: 12/23/21 09:56> Lab Data Labs: Lab Results 12/20/21 Range/Units 15:44 Urine RBC 0-1/hpf (0-5/HPF) Urine WBC None seen (0-5/HPF) Ur Squamous Epith Cells None seen (0-5/HPF) Urine Bacteria None seen (None) Ur Culture Indicated? Cult not indicated Urine Dip Bedside Urine Glucose Negative Bedside Urine Bilirubin - Negative Bedside Urine Ketone - Negative Urine Specific [place] 1.015 Bedside Urine Occult Blood +/- Bedside Urine pH 6.0 Bedside Urine Protein - Negative Bedside Urine Urobilinogen - Negative Bedside Urine Nitrite - Negative Bedside Urine Leukocytes - Negative Esterase Discharge Plan Departure Patient Disposition: Admitted As Inpatient Clinical Impression: Chronic lumbar radiculopathy Admit Date/Time: 12/20/21 17:33 Admit Provider: Olya Bales <Brook Larios DO - Last Filed: 12/23/21 09:56> Cosign ED Attending Cosignature Attestation: I was immediately available in the department for consultation. Documentation has been reviewed. Case was discussed patient does not have any acute neurologic changes but has significant pain. Lumbar spine MRI from October was reviewed and was repeated today with no acute changes and Orthopedics was consulted as patient does have some severe central canal stenosis, no emergent surgery today. They request we admit to medicine for pain control.
[2021-12-20] MEDS: KETOROLAC 30 MG/ML VIAL IV (13:36)
[2021-12-20] MEDS: diazePAM 5 MG TABLET PO (13:36)
--- NOTE | 2021-12-20 14:45 | DI.MRI.S_ITS ---
PROCEDURE: MR LUMBAR SPINE WO CON INDICATIONS: Lumbar back pain TECHNIQUE: Noncontrast sagittal T1 spin echo and T2 fast echo, sagittal STIR, and T2 fast spin echo through the lumbar spine. In cases with scoliosis, additional coronal T2 fast spin echo may be performed. COMPARISON: [facility], MR, MR LUMBAR SPINE WO CON, 11/17/2021, 7:57. FINDINGS: Image quality: Excellent. Alignment and Curvature: Convex left thoracolumbar scoliosis Bone Marrow: Modic type 1 degenerative endplate changes noted at L1-2 and L2-3. In the disc spaces at L2-3, L3-4 and L4-5 to lesser degree L5-S1 is similar to the prior Spinal Cord: Conus medullaris terminates at the L1 level. Visualized cord demonstrates normal signal and size. Paraspinous Soft Tissues: No paravertebral masses. T12-L1: Disc space narrowing without central or foraminal stenosis L1-L2: Disc space narrowing with circumferential disc bulge and hypertrophic facet joints results in mild central stenosis. Moderate right and no left foraminal stenosis L2-L3: Disc space narrowing with asymmetric right circumferential disc bulge and hypertrophic facet joints combines with dorsal epidural fat result in severe central stenosis. Moderate right and left foraminal stenosis L3-L4: Disc space narrowing and circumferential disc bulge with hypertrophic facet joints so results in severe central stenosis. Moderate right and severe left foraminal stenosis L4-L5: Disc space narrowing with circumferential disc bulge, hypertrophic facet joints and dorsal epidural fat to result in severe central stenosis. Severe left and moderate severe right foraminal stenosis L5-S1: Disc space narrowing and circumferential disc bulge combines with hypertrophic facet joints to result in moderate central stenosis. Moderate bilateral lateral recess effacement Severe bilateral foraminal stenosis present. IMPRESSION: 1. 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 on 12/20/2021 at 14:26
[2021-12-20 16:06] LABS: Bacteria Urine None Seen; Culture Indicated Urine Cult Not Indicated; RBC Urine 0-1/HPF (0-5/HPF); Squamous Epithelial Cell Urine None Seen (0-5/HPF); WBC Urine None Seen (0-5/HPF)
[2021-12-20] MEDS: HYDROMORPHONE 1 MG INJ IV (16:14)
[2021-12-20 21:18] LABS: COVID19 -Nasal RAPID Negative (Negative)
[2021-12-20 21:57] LABS: Alanine Aminotransferase 19 IU/L (<50); Albumin 4.2 g/dL (3.5-5.0); Albumin Globulin Ratio 1.4 (1.0-2.8); Alkaline Phosphatase 66 U/L (38-126); Aspartate Aminotransferase 29 IU/L (17-59); BUN Creatinine Ratio 21.9 (6-22); Bilirubin Total 0.5 mg/dL (0.2-1.3); Blood Urea Nitrogen 39 mg/dL (9-20); Calcium 10.2 mg/dL (8.4-10.2); Carbon Dioxide 27 mmol/L (22-32); Chloride 102 mmol/L (98-107); Estimated Glomerular Filt Rate 40 mL/min (>60); Glucose 110 mg/dL (80-110); HEMOLYSIS < 15 (0-50); Magnesium 2.4 mg/dL (1.6-2.3); Potassium 4.4 mmol/L (3.4-5.1); Sodium 137 mmol/L (137-145); Total Protein 7.2 g/dL (6.3-8.2)
[2021-12-20] MEDS: PREGABALIN 75 MG CAPSULE 225 MG PO (23:35)
[2021-12-20] MEDS: methocarbamoL 500 MG TABLET PO (23:36)
[2021-12-20] MEDS: DOCUSATE 100 MG CAPSULE PO (23:36)
[2021-12-20] MEDS: SENNOSIDES 8.6 MG TABLET 17.2 MG PO (23:38)
[2021-12-20] MEDS: TRAMADOL 50 MG TABLET PO (23:39)
[2021-12-21] VITALS (7 sets, daily range): BP systolic 116–139; BP diastolic 58–68; PULSE 81–100; RESP 16–18; TEMP 36.2–36.5; O2SAT 94–100
--- NOTE | 2021-12-21 04:53 | P.HP_ITS ---
History of Present Illness History of Present Illness Date Patient Seen: 12/20/21 Time Patient Seen: 20:15 Chief complaint: Back Pain,chronic,worse today Narrative: José Miguel Borjas is a 76-year-old male with a history of hypertension, dyslipidemia, and a history of provoked and unprovoked pulmonary embolisms 1 being very small and the other 1 being small clots affecting both lungs and chronic back pain he has had for quite a while. He comes in because he has exacerbations where he is unable to get out of bed due to the pain. This time he is on day 7 of being flat on his back he is unable to use the bathroom and has been me using a make shift bedpan at home. He was able to convince the ED nurse to provide him with a [place] because he states he is unable to move. He states that he has not lost any bowel or bladder control. It is worse with movement, has deep throbbing pain in hip and back radiates to the back of his right leg and the front of both legs and numbing in his right foot. He has been in consultation with Dr. Michelle, orthopedic spinal surgeon and has a telemedicine appointment with an orthopedic spinal surgeon at [facility] this coming . He has a expectation that Dr. Cantrell will see him in the hospital. He underwent MRI imaging in October and then again on December 20 with no significant change. It did note multilevel advanced degenerative disc disease and arthropathy with various degrees of central and foraminal stenosis including severe state canal stenosis at L2-3, L3-4 and L4-5 similar to prior imaging. He is afebrile, blood pressure 118/60, heart rate 92, respiratory rate 18, oxygen saturation of 95% on room air he weighs 106 kg with a BMI of 36.4. He does have an elevated creatinine of 1.78 with a EGFR 40 which is higher than his normal baseline, magnesium is 2.4, no CBC was done on ED admission however morning CBCs are pending. UA is negative for UTI and COVID-19 PCR is negative Patient History Medical History Anticoagulated Central sleep apnea Diabetes DVT (deep venous thrombosis) GERD (gastroesophageal reflux disease) HTN (hypertension) Hx pulmonary embolism Hyperlipemia Laceration Obesity Obstructive sleep apnea of adult Pulmonary embolism Surgical History H/O Spinal surgery History of hip replacement History of tonsillectomy and adenoidectomy Family & Social History Family History Father Pancreatic cancer Social History: household members spouse Prior Living Arrangements House lives independently Yes caregiver/support person No Safety & Behavioral: Feels Safe in Current Yes Environment Tobacco & Substance use: Smoking Status Former smoker alcohol intake current alcohol intake frequency 0-2 drinks per day Substance Use Type does not use Meds Home Medications and Allergies Home Medications Medication Instructions Recorded Confirmed Type simvastatin 20 mg tablet 20 mg PO DAILY ##0 06/19/11 12/20/21 History nifedipine 60 mg tablet,extended 60 mg PO DAILY ##0 03/29/12 12/20/21 History release 24 hr multivitamin 1 tab PO DAILY ##0 09/18/12 12/20/21 History hydrochlorothiazide 25 mg tablet 25 mg PO DAILY 04/11/18 12/20/21 History metformin 500 mg tablet,extended 500 mg PO DAILY 04/11/18 12/20/21 History release 24 hr [employer]pir[employer] Dreamstation BIPAP #1 ea 09/17/18 11/14/18 History duloxetine 60 mg capsule,delayed 90 mg PO DAILY 02/17/20 12/20/21 History release pregabalin 225 mg capsule 225 mg PO BID 04/13/21 12/20/21 History lisinopril 20 mg tablet 20 mg PO DAILY 12/20/21 12/20/21 History rivaroxaban 20 mg tablet (Xarelto) 20 mg PO DAILY 12/20/21 12/20/21 History Allergies Allergy/AdvReac Type Severity Reaction Status Date / Time No Known Drug Allergies Allergy Verified 12/20/21 11:44 Review of Systems Review of Systems ROS: Yes All systems reviewed with the patient and are negative except as ot herwise documented Exam Vital Signs (past 8 hours): - 12/20/21 21:30 12/21/21 00:00 12/21/21 04:31 Temperature 97.6 F 97.2 F L 97.2 F L Pulse Rate 100 H 97 H 92 H Respiratory Rate 18 18 18 Blood Pressure 141/73 H 122/67 118/60 Pulse Oximetry 95 95 95 Oxygen Flow Rate 0 0 0 Oxygen Delivery Method Room Air Oxygen Flow Rate 0 Narrative Exam Narrative: Gen: Alert, oriented, truncal E obese 76 y.o. male, NAD HEENT: normocephalic, atraumatic, conjunctiva clear, sclera non-icteric, oral mucosa pink and moist Neck: supple, full ROM, no JVD, trachea is midline Resp: Lungs CTA, non-labored breathing CV: RRR, no murmur or rubs Abd: Obese, soft, non-tender, normoactive BTs Skin: no lesions or rashes, dry and intact Neuro: Alert and oriented X 4 w/no focal deficits. Speech clear and coherent. Extremities: Has difficulty ambulating but is able to roll over without significant pain Psyche: normal mood and affect. Objective Labs Result Diagrams: 12/20/21 21:38 Labs: Laboratory Results - last 24 hr 12/20/21 12/20/21 12/20/21 15:44 20:40 21:38 Sodium 137 Potassium 4.4 Chloride 102 Carbon Dioxide 27 BUN 39 H Creatinine 1.78 H Estimated GFR 40 L BUN/Creatinine Ratio 21.9 Glucose 110 Calcium 10.2 Magnesium 2.4 H Total Bilirubin 0.5 AST 29 ALT 19 Alkaline Phosphatase 66 Total Protein 7.2 Albumin 4.2 Globulin 3.0 Albumin/Globulin Ratio 1.4 Urine RBC 0-1/hpf Urine WBC None seen Ur Squamous Epith Cells None seen Urine Bacteria None seen Ur Culture Indicated? Cult not indicated SARS-CoV-2 (PCR) Negative Assessment & Plan Assessment & Plan narrative: José Miguel Borjas is observed overnight for pain control and for an evaluation of his lumbar radiculopathy by Physical therapy. Lumbar radiculopathy, likely chronic, present on admission * Pain control with Dilaudid, Robaxin, and tramadol * PT evaluation in the morning * I have requested consult from Dr. Cantrell however I am not sure he will be available to see the patient and informed him of such History of pulmonary embolisms x2 * Patient is on lifelong anticoagulation with rivaroxaban 20 mg daily * He sees Hematology Acute kidney injury unknown cause * Possibly likely due to dehydration presumably the patient has been avoiding taking in fluids due to pain upon ambulation Diabetes type 2 * A1c is pending * Low-dose correctional insulin per protocol, metformin is held * Carb controlled diet Essential hypertension, chronic * Appears to be well controlled * Continue home dose of lisinopril 20 mg p.o. daily Dyslipidemia, chronic * Continue simvastatin 20 mg p.o. daily VTE Prophylaxis: Wells risk score 3.0 X Bilateral SCDs Patient is currently anticoagulated on rivaroxaban 20 mg daily. Patient is placed into observation as his stay is not expected to exceed 2 midnights. FEN: IV fluids: Normal saline at 100 mL/hour, diet: Carb controlled on, labs: CBC, C/BMP, liver enzymes, Mag, PT/INR Consultants requested consultation from Dr. Cantrell Dispo: Probable discharge home Code status: Full as discussed with the patient who identifies Soraida Borjas, as his surrogate and POA. X I have utilized all available immediate resources to obtain, update, or review of the patient's current medications COVID-19 COVID-19 status: Negative Result date/Date tested (Pos, Neg/Pending): 12/20/21 Scores Wells' Criteria for PE Clinical signs and symptoms of DVT: No PE is #1 Dx or equally likely: No Heart rate > 100: No Immobilization at least 3 days or surg in previous 4 weeks: Yes History of PE or DVT: Yes Hemoptysis: No Malignancy w/Treatment within 6 months or palliative: No Wells' PE Score total: 3.0 Quality VTE Deep Vein Thrombosis/Pulmonary Embolism Present on Admission: No MIPS - Admit I confirm the patient?s Advance Care Plan is present, Code status is documented, Surrogate decision maker is in patient?s record [If Yes, STOP here]: Yes MIPS - DC The patient has current or prior documentation of left ventricular ejection fraction (LVEF) less than 40%, or moderate or severely depressed left ventricular systolic function.: No
[2021-12-21] MEDS: SODIUM CHLORIDE 0.9% 1,000 ML 100 ML IV (06:06)
[2021-12-21] MEDS: methocarbamoL 500 MG TABLET PO ×3 (06:06→21:22)
[2021-12-21 06:12] LABS: Add Manual Diff / Slide Review NO; Basophils Absolute Auto 200 /uL (0-100); Basophils Percent Auto 2.5 % (0-2); Eosinophils Absolute Auto 500 /uL (0-450); Eosinophils Percent Auto 7.3 % (2-4); Hematocrit 42.8 % (41-53); Hemoglobin 14.7 g/dL (13.5-17.5); Lymphocytes Absolute Auto 2200 /uL (1100-4500); Lymphocytes Percent Auto 29.8 % (25-40); Mean Corpuscular HGB Conc 34.3 % (30-36); Mean Corpuscular Hemoglobin 30.9 PG (26-34); Mean Corpuscular Volume 90.1 fL (80-100); Monocytes Absolute Auto 1000 /uL (0-900); Monocytes Percent Auto 13.7 % (3-14); Neutrophils Absolute Auto 3400 /uL (1500-7000); Neutrophils Percent Auto 46.7 % (50-75); Platelet Count 223 X10^3/uL (150-400); Red Blood Cell Count 4.75 X10^6/uL (4.5-5.9); Red Cell Distribution Width 14.7 % (11.6-14.8); White Blood Cell Count 7.4 X10^3/uL (4.5-11.0)
[2021-12-21 06:31] LABS: BUN Creatinine Ratio 24.9 (6-22); Blood Urea Nitrogen 42 mg/dL (9-20); Calcium 10.5 mg/dL (8.4-10.2); Carbon Dioxide 29 mmol/L (22-32); Chloride 102 mmol/L (98-107); Estimated Glomerular Filt Rate 42 mL/min (>60); Glucose 110 mg/dL (80-110); HEMOLYSIS < 15 (0-50); Magnesium 2.4 mg/dL (1.6-2.3); Potassium 4.1 mmol/L (3.4-5.1); Sodium 137 mmol/L (137-145)
[2021-12-21 06:36] LABS: Hemoglobin A1C% w Est Avg Glu 6.1 % (4.0-6.0)
[2021-12-21] MEDS: NIFEdipine 30 MG TAB ER 60 MG PO (09:12)
[2021-12-21] MEDS: TRAMADOL 50 MG TABLET PO (09:13)
[2021-12-21] MEDS: DULOXETINE 30 MG CAPSULE 90 MG PO (09:13)
[2021-12-21] MEDS: RIVAROXABAN 10 MG TABLET 20 MG PO (09:13)
[2021-12-21] MEDS: lisinopriL 20 MG TABLET PO (09:13)
[2021-12-21] MEDS: ATORVASTATIN 20 MG TABLET 10 MG PO (09:14)
[2021-12-21] MEDS: DOCUSATE 100 MG CAPSULE PO ×2 (09:14→21:23)
[2021-12-21] MEDS: PREGABALIN 75 MG CAPSULE 225 MG PO ×2 (09:14→21:23)
--- NOTE | 2021-12-21 11:46 | PM.CN ---
History of Present Illness Consult details Date Patient Seen: 12/21/21 Time Patient Seen: 11:46 Chief complaint: Back Pain,chronic,worse today Requesting provider: Ginette Bedolla Narrative: Dr Michelle saw pt and spoke to pt and . Per Dr Michelle, pt has been followed by him as an outpatient and is in the process of being scheduled for a 3-level transforaminal lumbar interbody fusion with posterolateral instrumentation. The pt presented to the ED yesterday after being bedridden for several days due to severe pain. Per Dr Michelle, he is feeling better today. Meds Home Medications and Allergies Home Medications Medication Instructions Recorded Confirmed Type simvastatin 20 mg tablet 20 mg PO DAILY ##0 06/19/11 12/20/21 History nifedipine 60 mg tablet,extended 60 mg PO DAILY ##0 03/29/12 12/20/21 History release 24 hr multivitamin 1 tab PO DAILY ##0 09/18/12 12/20/21 History hydrochlorothiazide 25 mg tablet 25 mg PO DAILY 04/11/18 12/20/21 History metformin 500 mg tablet,extended 500 mg PO DAILY 04/11/18 12/20/21 History release 24 hr [employer] Dreamstation BIPAP #1 ea 09/17/18 12/21/21 History duloxetine 60 mg capsule,delayed 90 mg PO DAILY 02/17/20 12/20/21 History release pregabalin 225 mg capsule 225 mg PO BID 04/13/21 12/20/21 History lisinopril 20 mg tablet 20 mg PO DAILY 12/20/21 12/20/21 History rivaroxaban 20 mg tablet (Xarelto) 20 mg PO DAILY 12/20/21 12/20/21 History Allergies Allergy/AdvReac Type Severity Reaction Status Date / Time No Known Drug Allergies Allergy Verified 12/20/21 11:44 Exam Vital Signs (past 8 hours): - 12/21/21 04:31 12/21/21 07:52 12/21/21 09:13 Temperature 97.2 F L 97.7 F Pulse Rate 92 H 81 Respiratory Rate 18 17 Blood Pressure 118/60 118/65 118/65 Pulse Oximetry 95 98 Oxygen Flow Rate 0 0 Oxygen Delivery Method Room Air Oxygen Flow Rate 0 Objective Labs Result Diagrams: 12/21/21 05:48 12/21/21 05:48 Labs: Laboratory Results - last 24 hr 12/20/21 12/20/21 12/20/21 15:44 20:40 21:38 WBC RBC Hgb Hct MCV MCH MCHC RDW Plt Count Neut % (Auto) Lymph % (Auto) [place] % (Auto) Eos % (Auto) Baso % (Auto) Neut # (Auto) Lymph # (Auto) [place] # (Auto) Eos # (Auto) Baso # (Auto) Sodium 137 Potassium 4.4 Chloride 102 Carbon Dioxide 27 BUN 39 H Creatinine 1.78 H Estimated GFR 40 L BUN/Creatinine Ratio 21.9 Glucose 110 Hemoglobin A1c Calcium 10.2 Magnesium 2.4 H Total Bilirubin 0.5 AST 29 ALT 19 Alkaline Phosphatase 66 Total Protein 7.2 Albumin 4.2 Globulin 3.0 Albumin/Globulin Ratio 1.4 Urine RBC 0-1/hpf Urine WBC None seen Ur Squamous Epith Cells None seen Urine Bacteria None seen Ur Culture Indicated? Cult not indicated SARS-CoV-2 (PCR) Negative 12/21/21 12/21/21 12/21/21 05:48 05:48 05:48 WBC 7.4 RBC 4.75 Hgb 14.7 Hct 42.8 MCV 90.1 MCH 30.9 MCHC 34.3 RDW 14.7 Plt Count 223 Neut % (Auto) 46.7 L Lymph % (Auto) 29.8 [place] % (Auto) 13.7 Eos % (Auto) 7.3 H Baso % (Auto) 2.5 H Neut # (Auto) 3400 Lymph # (Auto) 2200 [place] # (Auto) 1000 H Eos # (Auto) 500 H Baso # (Auto) 200 H Sodium 137 Potassium 4.1 Chloride 102 Carbon Dioxide 29 BUN 42 H Creatinine 1.69 H Estimated GFR 42 L BUN/Creatinine Ratio 24.9 H Glucose 110 Hemoglobin A1c 6.1 H Calcium 10.5 H Magnesium 2.4 H Total Bilirubin AST ALT Alkaline Phosphatase Total Protein Albumin Globulin Albumin/Globulin Ratio Urine RBC Urine WBC Ur Squamous Epith Cells Urine Bacteria Ur Culture Indicated? SARS-CoV-2 (PCR) [facility] Medical History Anticoagulated Central sleep apnea Diabetes DVT (deep venous thrombosis) GERD (gastroesophageal reflux disease) HTN (hypertension) Hx pulmonary embolism Hyperlipemia Laceration Obesity Obstructive sleep apnea of adult Pulmonary embolism Surgical History H/O Spinal surgery History of hip replacement History of tonsillectomy and adenoidectomy Family History Father Pancreatic cancer Social History marital status: details: william Quigley household members: spouse lives independently: Yes caregiver/support person: No education level: college 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 Will continue plan for lumbar decompression and fusion in the future as an outpatient. Adding Valium to pain regimen as well as Miralax to bowel regimen. Starting dexamethasone 8 mg PO q 8 hrs. Recommend discharge w/ Medrol Chris. Time Spent With Patient Critical Care time: I spent a total of [] minutes of critical care time on this patient's care today; this time is exclusive of procedural time.
[2021-12-21] MEDS: INSULIN LISPRO 100 UNIT/ML 3ML VIAL SUBCUT (12:26)
[2021-12-21] MEDS: ACETAMINOPHEN 325 MG TABLET 650 MG PO ×2 (12:26→17:45)
[2021-12-21] MEDS: diazePAM 5 MG TABLET PO ×2 (12:26→21:23)
[2021-12-21] MEDS: polyethylene glycoL 3350 17 GM POWD.PACK PO (12:27)
--- NOTE | 2021-12-21 13:07 | PT-IP ANOTE ---
checked on pt but pt is eating lunch. will checked again later.
--- NOTE | 2021-12-21 14:31 | P.PN_ITS ---
Subjective Subjective Date Patient Seen: 12/21/21 Time Patient Seen: 14:15 Interval history: And having no new complaints. He states that his pain is actually somewhat better. He is quite comfortable minimal pain when lying completely still. He does have some slight numbness on the dorsal aspect of both feet. When the pain does come it is mostly in the anterior lower leg area. Can also include up to the buttock area. Exam Vital Signs (past 8 hours): - 12/21/21 07:52 12/21/21 09:13 12/21/21 11:49 Temperature 97.7 F 97.7 F Pulse Rate 81 85 Respiratory Rate 17 17 Blood Pressure 118/65 118/65 116/62 Pulse Oximetry 98 97 Oxygen Flow Rate 0 0 Oxygen Delivery Method Room Air Oxygen Flow Rate 0 Narrative Exam Narrative: Gen: Alert, oriented, general obesity. It appears to be in no acute distress. HEENT: normocephalic, atraumatic, conjunctiva clear, sclera non-icteric, oral mucosa pink and moist Neck: supple, full ROM, no JVD, trachea is midline Resp: Lungs CTA, non-labored breathing CV: Heart sounds S1-S2, rhythm normal, no murmur or rubs Abd:? Obese, soft, non-tender, bowel sounds normal Skin: no lesions or rashes, dry and intact Neuro: Alert and oriented X 4 w/no focal deficits. Speech clear and coherent. Extremities:? Has difficulty ambulating but is able to roll over without significant pain Psyche: normal mood and affect. Objective Labs Result Diagrams: 12/21/21 05:48 12/21/21 05:48 Labs: Laboratory Results - last 24 hr 12/20/21 12/20/21 12/20/21 15:44 20:40 21:38 WBC RBC Hgb Hct MCV MCH MCHC RDW Plt Count Neut % (Auto) Lymph % (Auto) [place] % (Auto) Eos % (Auto) Baso % (Auto) Neut # (Auto) Lymph # (Auto) [place] # (Auto) Eos # (Auto) Baso # (Auto) Sodium 137 Potassium 4.4 Chloride 102 Carbon Dioxide 27 BUN 39 H Creatinine 1.78 H Estimated GFR 40 L BUN/Creatinine Ratio 21.9 Glucose 110 Hemoglobin A1c Calcium 10.2 Magnesium 2.4 H Total Bilirubin 0.5 AST 29 ALT 19 Alkaline Phosphatase 66 Total Protein 7.2 Albumin 4.2 Globulin 3.0 Albumin/Globulin Ratio 1.4 Urine RBC 0-1/hpf Urine WBC None seen Ur Squamous Epith Cells None seen Urine Bacteria None seen Ur Culture Indicated? Cult not indicated SARS-CoV-2 (PCR) Negative 12/21/21 12/21/21 12/21/21 05:48 05:48 05:48 WBC 7.4 RBC 4.75 Hgb 14.7 Hct 42.8 MCV 90.1 MCH 30.9 MCHC 34.3 RDW 14.7 Plt Count 223 Neut % (Auto) 46.7 L Lymph % (Auto) 29.8 [place] % (Auto) 13.7 Eos % (Auto) 7.3 H Baso % (Auto) 2.5 H Neut # (Auto) 3400 Lymph # (Auto) 2200 [place] # (Auto) 1000 H Eos # (Auto) 500 H Baso # (Auto) 200 H Sodium 137 Potassium 4.1 Chloride 102 Carbon Dioxide 29 BUN 42 H Creatinine 1.69 H Estimated GFR 42 L BUN/Creatinine Ratio 24.9 H Glucose 110 Hemoglobin A1c 6.1 H Calcium 10.5 H Magnesium 2.4 H Total Bilirubin AST ALT Alkaline Phosphatase Total Protein Albumin Globulin Albumin/Globulin Ratio Urine RBC Urine WBC Ur Squamous Epith Cells Urine Bacteria Ur Culture Indicated? SARS-CoV-2 (PCR) [facility] Medical History Anticoagulated Central sleep apnea Diabetes DVT (deep venous thrombosis) GERD (gastroesophageal reflux disease) HTN (hypertension) Hx pulmonary embolism Hyperlipemia Laceration Obesity Obstructive sleep apnea of adult Pulmonary embolism Surgical History H/O Spinal surgery History of hip replacement History of tonsillectomy and adenoidectomy Family History Father Pancreatic cancer Social History marital status: details: william Quigley household members: spouse lives independently: Yes caregiver/support person: No education level: college 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 Lumbar radiculopathy, likely chronic, present on admission Pain control with Dilaudid, Robaxin, and tramadol. Will consider to add intrave nously if renal function improves. PT evaluation pending Dr. Michelle consulted and his physician legislative assistant saw the patient. 2.History of pulmonary embolisms x2 Patient is on lifelong anticoagulation with rivaroxaban 20 mg daily. Followed by hematology. 3. Acute kidney injury unknown cause Possibly likely due to dehydration presumably the patient has been avoiding taking in fluids due to pain upon ambulation. If not improved in the morning will continue intravenous fluid hydration. 4. Diabetes type 2 A1c is 6.1 Low-dose correctional insulin per protocol, metformin is held Carb controlled diet 5. Essential hypertension, chronic Appears to be well controlled Continue home dose of lisinopril 20 mg p.o. daily 6. Dyslipidemia, chronic Continue simvastatin 20 mg p.o. daily VTE Prophylaxis: Wells risk score 3.0 X Bilateral SCDs? Patient is currently anticoagulated on rivaroxaban 20 mg daily. Patient is placed into observation as his stay is not expected to exceed 2 midnights. FEN: IV fluids:? Normal saline at 100 mL/hour, diet:? Carb controlled diet. Consultants requested consultation from Dr. Michelle Dispo:? Probable discharge home Code status:? Full as discussed with the patient who identifies Soraida Borjas, as? his surrogate and POA. Time Spent With Patient Critical Care time: I spent a total of [] minutes of critical care time on this patient's care today; this time is exclusive of procedural time. Quality VTE Deep Vein Thrombosis/Pulmonary Embolism Present on Admission: No
[2021-12-21] MEDS: dexAMETHasone 4 MG TABLET 8 MG PO ×2 (14:47→21:23)
--- NOTE | 2021-12-21 15:06 | CM.DANOTE ---
Patient is a 76 yo male who was admitted on 12/20/21 for Back Pain. Pt has [employer] for insurance and his PCP is Annabella Mora. EMR was reviewed. Per MD, pt with spinal stenosis and lumbar radiculopathy. Per Ortho MD Consult, pt's pain meds changed for better pain management and no need for emergent back surgery but Dr. Michelle has pt on the schedule for surgery in 2 weeks and to work with PT. PT eval ordered and still pending and not able to complete until later this afternoon. SW met bedside with pt and explained role and he confirms he lives on [facility] with his spouse and is typically independent at baseline but past couple weeks has declined in his ambulation and increased pain and has mostly been bedbound last few days. Pt denies any hx of HH or SNF but states he would be agreeable to HH if needed at d/c and spouse is his DPOA and will be bedside again later today. Pt states he was brought to ED via EMS and is hopeful to be able to ambulate at least some with PT and to d/c via spouse POV pending his pain. Plan: SW to follow closely for PT eval and recommendations to determine if pt better pain managed for safe d/c home with spouse and r/o HH while awaiting outpt surgery. JAZMIN Moy Discharge Planning/Care Management Advanced directive, confirm from FAMILY Start: 12/20/21 23:12 Freq: Q24H Status: Active Protocol: Document 12/20/21 23:12 AKP (Rec: 12/20/21 23:14 AKP [id number]) Advance Directive, confirm on record Time 23:14 Person contacted pt to ask to bring Copy received No CM Discharge Assessment Start: 12/21/21 15:01 Freq: Status: Active Protocol: Document 12/21/21 15:02 BF (Rec: 12/21/21 15:06 BF [id number]) Discharge Planning Assessment Assigned Hse Specialist JAZMIN Recinos DPOA/Assigned Designee Name spouse Soraida Advance Directives? Yes Advance Directives on File No History Provided By Patient,Medical Record Has Patient been admitted in last 30 No days? Prior Living Arrangements House Household Members spouse Type of transporation used prior to Drives own vehicle admit Independent with ADL's Yes Is patient alert and oriented? Yes Caregiver for Another No Patient/Family Preference Home with Home Health Barriers to Discharge No Discharge Plan Home with Home Health Transportation Arrangement Spouse will be bedside and if pt passes PT eval then likely d/c home via POV Additional Comment Pending PT eval Whiteboard Updated in Patient Room with Yes name and ext. # of Hse Specialist Review Status In Process Please Provide Date Initial DC 12/21/21 Assessment Was Performed Next Review Type Continued Stay Review
--- NOTE | 2021-12-21 15:30 | PT.IIE ---
Current Diagnoses Radiculopathy, lumbar region (12/20/21) prison (current) use of anticoagulants (12/20/21) Personal history of pulmonary embolism (12/20/21) Surgical History (Last Reviewed 12/21/21 @ 05:07 by ANATOLIY Child) H/O Spinal surgery History of hip replacement History of tonsillectomy and adenoidectomy Medical History (Last Reviewed 12/21/21 @ 05:07 by ANATOLIY Child) Anticoagulated Central sleep apnea Diabetes DVT (deep venous thrombosis) GERD (gastroesophageal reflux disease) HTN (hypertension) Hx pulmonary embolism Hyperlipemia Laceration Obesity Obstructive sleep apnea of adult Pulmonary embolism Physical Therapy Inpatient Evaluation/Re-Eval M1 PT/OT-IP Prior Functional Status Start: 12/21/21 16:20 Freq: NEEDED Status: Active Protocol: Document 12/21/21 15:20 AB (Rec: 12/21/21 16:36 AB [email or web address]) Medical Review Prior Functional Status Medical History Reviewed Yes Communication able to make needs known Mobility and Gait pt stated that he is modified independent with all mobilities and ambulation using a walking stick but has worsening back pain and has been using a 4WW for ~ 4 weeks but now has not been able to get out of the bed due to pain for ~ 6 days. Social History Household Members spouse Living Arrangements House Number of Floors (Floors) One Floor Number of Stairs To Enter/Railing? 3 steps R rail to enter from the back 3 steps wide rails from the front Home Environment Standard Height Toilet,Walk in Shower,Tub/Shower Doors,Built -In Shower Seat Home Equipment Front Wheel Walker,Four Wheel Walker,Hand Held Shower,Grab Bars In Shower Additional Social History Comment stated that his other option for d/c is to go to their [place] in [place] with only 1 step to enter M2 PT-IP Current Condition Start: 12/21/21 16:20 Freq: NEEDED Status: Active Protocol: Document 12/21/21 15:20 AB (Rec: 12/21/21 16:36 AB [email or web address]) Physical Therapy Current Condition Current Condition Evaluation Date 12/21/21 Treatment Diagnosis LBP; difficulty in walking Onset Date 12/20/21 M3 PT-IP Subjective Start: 12/21/21 16:20 Freq: NEEDED Status: Active Protocol: Document 12/21/21 15:20 AB (Rec: 12/21/21 16:36 AB [id number]) Subjective Physical Therapy Visit Type Type Initial Evaluation Visit Start Time 15:20 Visit Stop Time 16:00 Total Visit Minutes 40 Number of MACHINE BUILDER Visits 0 Physical Therapy Visit Comments Patient Comments agreeable to do PT Therapy Pain Assessment Pain When Pain Assessed At Rest Location Lower Back Intensity 5 Scale Used Numeric (0 - 10) Pain Management Techniques Apply Cold,Distraction, Modification of Treatment,Re- positioning,Timing of Activity with Medications M4 PT-IP Mobility and Gait Start: 12/21/21 16:20 Freq: NEEDED Status: Active Protocol: Document 12/21/21 15:20 AB (Rec: 12/21/21 16:36 [email or web address]) PT-Bed Mobility Assessment Rolling Type of Rolling Log Rolling Level of Assist Maximal Assistance Supine to Sit Supine to Sit Maximum Assistance,Bedrails PT-Transfer Assessment Sit to and From Stand Sit to and from Stand Moderate Assistance,Maximum Assistance,1 Person Assistance ,Use of Upper Extremities Equipment Transfer Assistive Device Gait Belt,Front Wheeled Walker Orthotic/Prosthetic Devices or Brace: No Transfers Transfer Destination Chair Transfer Technique ambulated Transfer Ability Level of Assist Moderate Assistance,Maximum Assistance,1 Person Assistance ,Use of Upper Extremities Comments Mobility Comments educated pt regarding back precautions and log roll bed mobility. BP in supine: 136/ 62. completed log roll supine to sit max A and max cues. mod A for sitting balance with increase posterior LOB. educated on posture and increase awareness of COG. completed sit to stand mod to max A and max cues. (+) tremors during standing and required mod to max A for balance. pt c/o dizziness and needs to sit back down. BP checked: 157/78. pt agreed to stand again and completed mod to max A and ambulated to the chair using FWW ~ 15 ft mod to max A and max cues. presents with unsteady gait with B hip ER but with narrow OLIVA. sat on chair and positioned. call light and table placed within reach. informed pt regarding current level of assistance and d/c plan. pt understood and agreed. Gait Assessment Gait Gait Assistance Required: Moderate Assistance,Maximum Assistance Distance (Feet) 15 Able to Maintain Weight Bearing Status Yes During Gait Assistive Devices Assistive Device Gait Belt,Front Wheeled Walker Orthotic/Prosthetic Devices or Brace: No Gait Deviations General Gait Pattern Antalgic,Decreased Stride Length,Decreased Feet Clearance,Narrow Based Gait Factors Limiting Gait Function Factors Limiting Gait Function Decreased Activity Tolerance, Decreased Sensation,Decreased Strength,Difficulty Following Directions,Limited Range of Motion,Pain,Poor Balance,Poor Safety Awareness PT-Balance Assessment Sitting Balance and Reactions Static Sitting Balance Ability Fair Dynamic Sitting Balance Ability Poor Standing Balance and Reactions Static Standing Balance Ability Poor Dynamic Standing Balance Ability Poor Device Used FWW M5 PT-IP Objective Assessments Start: 12/21/21 16:20 Freq: NEEDED Status: Active Protocol: Document 12/21/21 15:20 AB (Rec: 12/21/21 16:36 AB [email or web address]) Orientation Orientation/Cognition Level of Alertness Alert Orientation Name,Place,Situation Language Function Ability No Deficits Noted Safety Awareness Decreased Safety Awareness Memory Description No Deficits Noted Gross Range of Motion Lower Extremity ROM Assessment Within Functional Limits Strength Lower Extremity Strength Assessment Bilaterally Impaired Knee 3+/5 Muscle Tone Muscle Tone WNL Yes M6 PT-IP Treatment Start: 12/21/21 16:20 Freq: NEEDED Status: Active Protocol: Document 12/21/21 15:20 AB (Rec: 12/21/21 16:36 AB [email or web address]) Physical Therapy Treatment Education Education Provided Precautions,Safety M7 PT-IP Assessment and Plan Start: 12/21/21 16:20 Freq: NEEDED Status: Active Protocol: Document 12/21/21 15:20 AB (Rec: 12/21/21 16:36 AB [email or web address]) PT Summary Assessment and Plan Potential Rehabilitation Potential Fair Status of Condition at Evaluation Evolving Summary Impairments Pain,ROM,Strength,Balance, Coordination,Sensation,Tone, Cognition,Bed Mobility, Transfers,Gait,Activity Tolerance Assessment Summary pt requirign mod to max A with mobility and unable to tolerate much activity due to c/o increase LBP. will continue to assess progress but pt may require SNF rehab. will conduct caregiver training with spouse when appropriate. Goals Bed Mobility Goal Standby Assistance Transfer Goal Standby Assistance,Front Wheeled Walker Gait Goal Standby Assistance,Front Wheel Walker Gait Distance 200 Other Goals up/down 3 steps R rail SBA Days to Meet Goals 10 Frequency of Treatment Frequency Of Treatment Once a Day Treatment Plan Physical Therapy Treatment Plan Bed Mobility Training,Transfer Training,Gait Training, Therapeutic Exercise,Balance Retraining,Discharge Planning, Hot or Cold Pack,Neuromuscular Re-ed,Coordination Retraining ,Manual Therapy Precautions Lumbar Precautions Log Roll,No Twisting,Limit Bending,Lifting Restriction of 10 lbs Recommendations To Nursing Amount of Assist Needed 2 Person Assist Discharge Recommendations PT Discharge Recommendations Home with 20/11 Assist Available,Home Health,SNF Rehab,Home vs SNF Transportation Needs at Discharge Private Vehicle,Wheelchair/ Cabulance
--- NOTE | 2021-12-21 15:59 | PM.PN.1 ---
Exam Vital Signs (past 8 hours): - 12/21/21 09:13 12/21/21 11:49 Temperature 97.7 F Pulse Rate 85 Respiratory Rate 17 Blood Pressure 118/65 116/62 Pulse Oximetry 97 Oxygen Flow Rate 0 Oxygen Delivery Method Room Air Oxygen Flow Rate 0 Objective Labs Result Diagrams: 12/21/21 05:48 12/21/21 05:48 Labs: Laboratory Results - last 24 hr 12/20/21 12/20/21 12/20/21 15:44 20:40 21:38 WBC RBC Hgb Hct MCV MCH MCHC RDW Plt Count Neut % (Auto) Lymph % (Auto) [place] % (Auto) Eos % (Auto) Baso % (Auto) Neut # (Auto) Lymph # (Auto) [place] # (Auto) Eos # (Auto) Baso # (Auto) Sodium 137 Potassium 4.4 Chloride 102 Carbon Dioxide 27 BUN 39 H Creatinine 1.78 H Estimated GFR 40 L BUN/Creatinine Ratio 21.9 Glucose 110 Hemoglobin A1c Calcium 10.2 Magnesium 2.4 H Total Bilirubin 0.5 AST 29 ALT 19 Alkaline Phosphatase 66 Total Protein 7.2 Albumin 4.2 Globulin 3.0 Albumin/Globulin Ratio 1.4 Urine RBC 0-1/hpf Urine WBC None seen Ur Squamous Epith Cells None seen Urine Bacteria None seen Ur Culture Indicated? Cult not indicated SARS-CoV-2 (PCR) Negative 12/21/21 12/21/21 12/21/21 05:48 05:48 05:48 WBC 7.4 RBC 4.75 Hgb 14.7 Hct 42.8 MCV 90.1 MCH 30.9 MCHC 34.3 RDW 14.7 Plt Count 223 Neut % (Auto) 46.7 L Lymph % (Auto) 29.8 [place] % (Auto) 13.7 Eos % (Auto) 7.3 H Baso % (Auto) 2.5 H Neut # (Auto) 3400 Lymph # (Auto) 2200 [place] # (Auto) 1000 H Eos # (Auto) 500 H Baso # (Auto) 200 H Sodium 137 Potassium 4.1 Chloride 102 Carbon Dioxide 29 BUN 42 H Creatinine 1.69 H Estimated GFR 42 L BUN/Creatinine Ratio 24.9 H Glucose 110 Hemoglobin A1c 6.1 H Calcium 10.5 H Magnesium 2.4 H Total Bilirubin AST ALT Alkaline Phosphatase Total Protein Albumin Globulin Albumin/Globulin Ratio Urine RBC Urine WBC Ur Squamous Epith Cells Urine Bacteria Ur Culture Indicated? 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 Patient has radicular pain and spasm to left leg for the last week. Patient has radiculopathy on exam with leg numbness and + straight leg raise w/o s/s of cauda equina syndrome. Motor strength 4/5 in left quadriceps/TA/EHL/Gastroc, exam is limited by pain. His recent MRI was reviewed which showed no acute changes with chronic appearing degenerative changes. Patient has less pain today and is able to sit up to 60 degrees w/o pain during my visit. There is no plan for urgent surgery at this time. Will continue pain management, prescribe IV steroids and possible d/c home with oral steroids. Will expedite patient's elective lumbar surgery scheduling once acute pain and immobility improves. Can d/c to home once patient is able to mobilize with PT/OT and will plan surgical treatment on elective basis for L3-S1 TLIF and L2-3 hemilaminectomy. Time Spent With Patient Critical Care time: I spent a total of [] minutes of critical care time on this patient's care today; this time is exclusive of procedural time. Quality VTE Deep Vein Thrombosis/Pulmonary Embolism Present on Admission: No
[2021-12-21] MEDS: SENNOSIDES 8.6 MG TABLET 17.2 MG PO (21:23)
[2021-12-22 05:00] VITALS: BP 140/70; PULSE 115; RESP 18; TEMP 36.1; O2SAT 95
[2021-12-22] MEDS: dexAMETHasone 4 MG TABLET 8 MG PO ×2 (06:02→13:40)
[2021-12-22] MEDS: methocarbamoL 500 MG TABLET PO ×3 (06:03→19:52)
[2021-12-22 07:50] LABS: Add Manual Diff / Slide Review NO; Basophils Absolute Auto 0 /uL (0-100); Basophils Percent Auto 0.3 % (0-2); Eosinophils Absolute Auto 0 /uL (0-450); Eosinophils Percent Auto 0.1 % (2-4); Hematocrit 43.3 % (41-53); Hemoglobin 14.8 g/dL (13.5-17.5); Lymphocytes Absolute Auto 900 /uL (1100-4500); Lymphocytes Percent Auto 10.6 % (25-40); Mean Corpuscular HGB Conc 34.3 % (30-36); Mean Corpuscular Hemoglobin 30.7 PG (26-34); Mean Corpuscular Volume 89.7 fL (80-100); Monocytes Absolute Auto 300 /uL (0-900); Monocytes Percent Auto 2.9 % (3-14); Neutrophils Absolute Auto 7700 /uL (1500-7000); Neutrophils Percent Auto 86.1 % (50-75); Platelet Count 244 X10^3/uL (150-400); Red Blood Cell Count 4.83 X10^6/uL (4.5-5.9); Red Cell Distribution Width 14.4 % (11.6-14.8)
[2021-12-22 08:11] LABS: Alanine Aminotransferase 21 IU/L (<50); Albumin 4.5 g/dL (3.5-5.0); Albumin Globulin Ratio 1.3 (1.0-2.8); Alkaline Phosphatase 70 U/L (38-126); Aspartate Aminotransferase 31 IU/L (17-59); BUN Creatinine Ratio 26.5 (6-22); Bilirubin Total 0.6 mg/dL (0.2-1.3); Blood Urea Nitrogen 36 mg/dL (9-20); Calcium 10.2 mg/dL (8.4-10.2); Carbon Dioxide 24 mmol/L (22-32); Chloride 104 mmol/L (98-107); Estimated Glomerular Filt Rate 55 mL/min (>60); Globulin 3.5 g/dL (1.7-4.1); Glucose 142 mg/dL (80-110); HEMOLYSIS < 15 (0-50); Potassium 4.7 mmol/L (3.4-5.1); Sodium 138 mmol/L (137-145)
[2021-12-22 08:19] LABS: Magnesium 2.3 mg/dL (1.6-2.3)
--- NOTE | 2021-12-22 08:59 | PM.PN.1 ---
Subjective Subjective Date Patient Seen: 12/22/21 Time Patient Seen: 09:00 Interval history: Feeling much better. Difficulty with change of position and pain. Still remains a 1 person assist. Patient is improving and is pleased with this. Per nursing, has been confused at night. Exam Vital Signs (past 8 hours): - 12/22/21 05:00 Temperature 97.0 F L Pulse Rate 115 H Respiratory Rate 18 Blood Pressure 140/70 Pulse Oximetry 95 Oxygen Flow Rate 0 Oxygen Delivery Method Room Air Oxygen Flow Rate 0 Narrative Exam Narrative: Gen: Alert, oriented, general obesity.? It appears to be in no acute distress. HEENT: normocephalic, atraumatic, conjunctiva clear, sclera non-icteric, oral mucosa pink and moist Neck: supple, full ROM, no JVD, trachea is midline Resp: Lungs CTA, non-labored breathing CV:? Heart sounds S1-S2, rhythm normal, no murmur or rubs Abd:? Obese, soft, non-tender, bowel sounds normal Skin: no lesions or rashes, dry and intact Neuro: Alert and oriented X 4 w/no focal deficits. Speech clear and coherent. Extremities:? Has difficulty changing positions. Needs one-person assist for getting in and out of bed and any movement. Psyche: normal mood and affect. Objective Labs Result Diagrams: 12/22/21 07:11 12/22/21 07:11 Labs: Laboratory Results - last 24 hr 12/22/21 12/22/21 12/22/21 07:11 07:11 07:11 WBC 9.0 RBC 4.83 Hgb 14.8 Hct 43.3 MCV 89.7 MCH 30.7 MCHC 34.3 RDW 14.4 Plt Count 244 Neut % (Auto) 86.1 H D Lymph % (Auto) 10.6 L [place] % (Auto) 2.9 L Eos % (Auto) 0.1 L Baso % (Auto) 0.3 Neut # (Auto) 7700 H Lymph # (Auto) 900 L [place] # (Auto) 300 Eos # (Auto) 0 Baso # (Auto) 0 Sodium 138 Potassium 4.7 Chloride 104 Carbon Dioxide 24 BUN 36 H Creatinine 1.36 H Estimated GFR 55 L BUN/Creatinine Ratio 26.5 H Glucose 142 H Calcium 10.2 Magnesium 2.3 Total Bilirubin 0.6 AST 31 ALT 21 Alkaline Phosphatase 70 Total Protein 8.0 Albumin 4.5 Globulin 3.5 Albumin/Globulin Ratio 1.3 PFSH Medical History Anticoagulated Central sleep apnea Diabetes DVT (deep venous thrombosis) GERD (gastroesophageal reflux disease) HTN (hypertension) Hx pulmonary embolism Hyperlipemia Laceration Obesity Obstructive sleep apnea of adult Pulmonary embolism Surgical History H/O Spinal surgery History of hip replacement History of tonsillectomy and adenoidectomy Family History Father Pancreatic cancer Social History marital status: details: to Soraida household members: spouse lives independently: Yes caregiver/support person: No education level: college 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 Lumbar radiculopathy, likely chronic, present on admission Pain control with Dilaudid, Robaxin, and tramadol.? On steroids as well with benefit. May be contributing however to nighttime confusion. PT ongoing. Dr. Michelle consulted and his physician cataloging assistant saw the patient.? 2.History of pulmonary embolisms x2 Patient is on lifelong anticoagulation with rivaroxaban 20 mg daily.? Followed by hematology. 3. Acute kidney injury unknown cause Possibly likely due to dehydration presumably the patient has been avoiding taking in fluids due to pain upon ambulation.? Consistently improving. 4. Diabetes type 2 A1c is 6.1 Low-dose correctional insulin per protocol, metformin is held Carb controlled diet 5. Essential hypertension, chronic Appears to be well controlled Continue home dose of lisinopril 20 mg p.o. daily 6. Dyslipidemia, chronic Continue simvastatin 20 mg p.o. daily 7. Confusion in the evening. Add quetiapine dose at 6:00 p.m. VTE Prophylaxis: Wells risk score 3.0 X Bilateral SCDs? Patient is currently anticoagulated on rivaroxaban 20 mg daily. Expect discharge tomorrow if continues to improve. FEN: IV fluids:? Normal saline at 100 mL/hour, diet:? Carb controlled diet. Consultants requested consultation from Dr. Michelle Dispo:? Probable discharge home Code status:? Full as discussed with the patient who identifies Soraida Borjas, as? his surrogate and POA. Time Spent With Patient Critical Care time: I spent a total of [] minutes of critical care time on this patient's care today; this time is exclusive of procedural time. Quality VTE Deep Vein Thrombosis/Pulmonary Embolism Present on Admission: No
[2021-12-22] MEDS: NIFEdipine 30 MG TAB ER 60 MG PO (09:42)
[2021-12-22] MEDS: polyethylene glycoL 3350 17 GM POWD.PACK PO (09:42)
[2021-12-22 09:43] VITALS: BP 140/70
[2021-12-22] MEDS: lisinopriL 20 MG TABLET PO (09:43)
[2021-12-22] MEDS: DULOXETINE 30 MG CAPSULE 90 MG PO (09:43)
[2021-12-22] MEDS: PREGABALIN 75 MG CAPSULE 225 MG PO ×2 (09:43→19:52)
[2021-12-22] MEDS: DOCUSATE 100 MG CAPSULE PO (09:43)
[2021-12-22] MEDS: ATORVASTATIN 20 MG TABLET 10 MG PO (09:44)
[2021-12-22] MEDS: RIVAROXABAN 10 MG TABLET 20 MG PO (09:45)
[2021-12-22 09:53] VITALS: BP 135/72; PULSE 121; RESP 18; TEMP 36.3; O2SAT 95
--- NOTE | 2021-12-22 10:41 | P.PN_ITS ---
Subjective Subjective Date Patient Seen: 12/22/21 Time Patient Seen: 10:41 Interval history: Pt sitting up in chair, quite cheerful and comfortable. He states that the only thing that may prevent him from going home is right hip pain. Started dexamethasone orally yesterday, and this seems to have helped his radicular symptoms. No N/V. Voiding without difficulty. Has not moved bowels since admission but is passing flatus. Exam Vital Signs (past 8 hours): - 12/22/21 05:00 12/22/21 09:43 12/22/21 09:53 Temperature 97.0 F L 97.3 F L Pulse Rate 115 H 121 H Respiratory Rate 18 18 Blood Pressure 140/70 140/70 135/72 Pulse Oximetry 95 95 Oxygen Flow Rate 0 0 Oxygen Delivery Method Room Air Oxygen Flow Rate 0 Narrative Exam Narrative: 4/5 strength in quadriceps, hamstrings, DF, PF, EHL bilaterally. Sensation to light touch intact in BLE. Calves soft, compressible, nontender. Objective Labs Result Diagrams: 12/22/21 07:11 12/22/21 07:11 Labs: Laboratory Results - last 24 hr 12/22/21 12/22/21 12/22/21 07:11 07:11 07:11 WBC 9.0 RBC 4.83 Hgb 14.8 Hct 43.3 MCV 89.7 MCH 30.7 MCHC 34.3 RDW 14.4 Plt Count 244 Neut % (Auto) 86.1 H D Lymph % (Auto) 10.6 L [place] % (Auto) 2.9 L Eos % (Auto) 0.1 L Baso % (Auto) 0.3 Neut # (Auto) 7700 H Lymph # (Auto) 900 L [place] # (Auto) 300 Eos # (Auto) 0 Baso # (Auto) 0 Sodium 138 Potassium 4.7 Chloride 104 Carbon Dioxide 24 BUN 36 H Creatinine 1.36 H Estimated GFR 55 L BUN/Creatinine Ratio 26.5 H Glucose 142 H Calcium 10.2 Magnesium 2.3 Total Bilirubin 0.6 AST 31 ALT 21 Alkaline Phosphatase 70 Total Protein 8.0 Albumin 4.5 Globulin 3.5 Albumin/Globulin Ratio 1.3 PFSH Medical History (Updated 12/22/21 @ 10:45 by Floresita Vora PA-C) Anticoagulated Central sleep apnea Diabetes DVT (deep venous thrombosis) GERD (gastroesophageal reflux disease) HTN (hypertension) Hx pulmonary embolism Hyperlipemia Laceration Obesity Obstructive sleep apnea of adult Pulmonary embolism Spinal stenosis Surgical History H/O Spinal surgery History of hip replacement History of tonsillectomy and adenoidectomy Family History Father Pancreatic cancer Social History marital status: details: william Quigley household members: spouse lives independently: Yes caregiver/support person: No education level: college 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 Dr Michelle has started the surgery scheduling process for L2-3 decompression and L3-S1 decompression and fusion. The patient will follow up with us as an outpatient and have this surgery scheduled electively. I will have our office call him with an update on a surgery date; due to his medical history of PE w/ chronic anticoagulation, DM, ILEANA, and chronic kidney disease, we will need medical optimization/clearance from his other providers prior to proceeding. Recommend Medrol Chris on discharge to help with pain from nerve root irritation. Time Spent With Patient Critical Care time: I spent a total of [] minutes of critical care time on this patient's care today; this time is exclusive of procedural time. Quality VTE Deep Vein Thrombosis/Pulmonary Embolism Present on Admission: No
--- NOTE | 2021-12-22 11:18 | PT.IPTN ---
Current Diagnoses Spinal stenosis, site unspecified (12/20/21) Radiculopathy, lumbar region (12/20/21) nursing home (current) use of anticoagulants (12/20/21) Personal history of pulmonary embolism (12/20/21) Physical Therapy Treatment Note M2 PT-IP Current Condition Start: 12/21/21 16:20 Freq: NEEDED Status: Active Protocol: Document 12/21/21 15:20 AB (Rec: 12/21/21 16:36 AB [id number]) Physical Therapy Current Condition Current Condition Evaluation Date 12/21/21 Treatment Diagnosis LBP; difficulty in walking Onset Date 12/20/21 M3 PT-IP Subjective Start: 12/21/21 16:20 Freq: NEEDED Status: Active Protocol: Document 12/22/21 11:09 BC (Rec: 12/22/21 11:18 BC [id number]) Subjective Physical Therapy Visit Type Type Treatment Note Visit Start Time 10:30 Visit Stop Time 11:00 Total Visit Minutes 25 Physical Therapy Visit Comments Patient Comments Pt states he is feeling 90% better. Patient Goals Go home today M4 PT-IP Mobility and Gait Start: 12/21/21 16:20 Freq: NEEDED Status: Active Protocol: Document 12/22/21 11:09 BC (Rec: 12/22/21 11:18 BC [id number]) PT-Transfer Assessment Sit to and From Stand Sit to and from Stand Independent Equipment Transfer Assistive Device Front Wheeled Walker Transfers Transfer Destination Chair Transfer Technique Stand Pivot Transfer Ability Level of Assist Standby Assistance Comments Mobility Comments Pt sitting to recliner without reaching back for chair arm rests. States he is doing ok and has no pain with sit to stand transfer. Reviewed safety. Gait Assessment Gait Gait Assistance Required: Standby Assistance Distance (Feet) 180 Assistive Devices Assistive Device Gait Belt,Front Wheeled Walker Gait Deviations General Gait Pattern Antalgic,Lateral Trunk Lean, Wide Based Gait Factors Limiting Gait Function Factors Limiting Gait Function Decreased Strength,Pain Comments Gait Comments Pt with trendelenburg gait pattern during SLS on LLE. States pain and weakness are limiting his gait pattern but overall he feels more steady today with ambulation than last 1+ week. Stair Climbing Assessment Evaluation Level of Assist On Stairs Standby Assistance Devices Stair Climbing Assistive Devices Front Wheel Walker,Left Railing Technique/Endurance Stair Climbing Direction Ascend and Descend Stair Climbing Technique Step to Step Number of Steps Climbed 1 Comments Stair Climbing Comments Pt recalled single step in back door that he can access with a driveway to [facility] easily. The step has a railing on the L hand side. Pt able to ascend/descend step with SBA and vc's for safety. PT-Balance Assessment Sitting Balance and Reactions Static Sitting Balance Ability Normal Dynamic Sitting Balance Ability Normal Standing Balance and Reactions Static Standing Balance Ability Good Dynamic Standing Balance Ability Good Device Used FWW M5 PT-IP Objective Assessments Start: 12/21/21 16:20 Freq: NEEDED Status: Active Protocol: Document 12/21/21 15:20 AB (Rec: 12/21/21 16:36 AB [id number]) Orientation Orientation/Cognition Level of Alertness Alert Orientation Name,Place,Situation Language Function Ability No Deficits Noted Safety Awareness Decreased Safety Awareness Memory Description No Deficits Noted Gross Range of Motion Lower Extremity ROM Assessment Within Functional Limits Strength Lower Extremity Strength Assessment Bilaterally Impaired Knee 3+/5 Muscle Tone Muscle Tone WNL Yes M6 PT-IP Treatment Start: 12/21/21 16:20 Freq: NEEDED Status: Active Protocol: Document 12/22/21 11:09 BC (Rec: 12/22/21 11:18 [id number]) Physical Therapy Treatment Other Treatments Other Treatment Performed Education on single step mgmt, railing and walker use. Pt reports no further questions/ concerns regarding d/c home. M7 PT-IP Assessment and Plan Start: 12/21/21 16:20 Freq: NEEDED Status: Active Protocol: Document 12/22/21 11:09 BC (Rec: 12/22/21 11:18 [id number]) PT Summary Assessment and Plan Potential Rehabilitation Potential Excellent Status of Condition at Evaluation Stable Summary Progress Towards Goals Goals Met Assessment Summary Pt is reporting significant improvement in LBP vs his past 1.5 weeks of LBP. States 90% better. He continues to use the FWW for support. Pt has met his PT goals. He is able to ambulate 180' and manage 1 step to enter home with SBA today. He is transferring in/ out of bed I'ly and to bathroom with FWW I'ly in room per Pt/nsng. He does still have an antalgic gait pattern with LLE SLS phase of gait but he is not demonstrating instability and is safely using the FWW for support. Recommend d/c home with family support and continued follow up with surgeon. Goals Bed Mobility Goal Standby Assistance Transfer Goal Standby Assistance,Front Wheeled Walker Gait Goal Standby Assistance,Front Wheel Walker Gait Distance 200 Other Goals up/down 3 steps R rail SBA Days to Meet Goals 10 Frequency of Treatment Frequency Of Treatment Discharge Recommendations To Nursing Amount of Assist Needed Independent,Standby Assistance Discharge Recommendations PT Discharge Recommendations Home with Assistance,Home with / Assist Available Transportation Needs at Discharge Private Vehicle
--- NOTE | 2021-12-22 11:41 | CM.DPNOTE ---
Discharge Planning Note: Patient sitting up in chair this morning. Patient lives with supportive spouse on [address]. PT genovevaal recommends home with assistance and able to negotiate stairs. Patient has FWW. OT Eval still pending. BOBBI Canas in this morning. Plan: Watch closely for discharge orders. Consider HH if needed? Look for OT Eval notes. Isela Briseno RN/DCP
[2021-12-22 16:25] VITALS: BP 134/59; PULSE 105; RESP 16; TEMP 37.2; O2SAT 94
[2021-12-22] MEDS: ACETAMINOPHEN 325 MG TABLET 650 MG PO (18:19)
[2021-12-22] MEDS: QUETIAPINE 25 MG TABLET 12.5 MG PO (18:19)
--- NOTE | 2021-12-22 18:24 | PM.DS.1 ---
History of Present Illness History of Present Illness Date Patient Seen: 12/22/21 Time Patient Seen: 18:15 Chief complaint: Back Pain,chronic,worse today Narrative: José Miguel Borjas is a 76-year-old male with a history of hypertension, dyslipidemia, and a history of provoked and unprovoked pulmonary embolisms 1 being very small and the other 1 being small clots affecting both lungs and chronic back pain he has had for quite a while.? He comes in because he has exacerbations where he is unable to get out of bed due to the pain.? This time he is on day 7 of being flat on his back he is unable to use the bathroom and has been me using a make shift bedpan at home.? He was able to convince the ED nurse to provide him with a North because he states he is unable to move.? He states that he has not lost any bowel or bladder control.? It is worse with movement, has deep throbbing pain in hip and back radiates to the back of his right leg and the front of both legs and numbing in his right foot.? He has been in consultation with Dr. Michelle, orthopedic spinal surgeon and has a telemedicine appointment with an orthopedic spinal surgeon at [facility].? Dr. Michelle was consulted to see him in the hospital. Discharge Providers Provider Date of admission: 12/20/21 17:33 Discharge Date: 12/22/21 Primary care physician: Annabella Mora MD Consults: 12/20/21 21:08 Consult to Physician Routine Comment: Consulting Provider: Eric Michelle Reason for consultation: lumbar radiculopathy Has provider been notified: Yes 12/21/21 04:58 Consult to Physical Therapy Evaluate & Treat Comment: Chronic back pain to the point of being debilitati Physician Instructions: Evaluate and Treat Discharge provider: Olya Bales MD Summary Hospital Course Discharge Diagnosis: Acute on chronic low back pain secondary to spinal stenosis. Hospital Course: Patient's back pain and decrease in mobility abruptly increased and therefore presented to the emergency room. With conservative treatment with medication the patient was able to decrease his pain increases mood mobility. Once he was functional enough to be large home. His medications include did corticosteroids and pain medication as well as meds are diazepam for muscle relaxation. These were continued on discharge. Time Spent with Patient Time spent: Less than 30 minutes Exam Vital Signs (past 8 hours): - 12/22/21 16:25 Temperature 99.0 F Pulse Rate 105 H Respiratory Rate 16 Blood Pressure 134/59 L Pulse Oximetry 94 Oxygen Flow Rate 0 Oxygen Delivery Method Room Air Oxygen Flow Rate 0 Narrative Exam Narrative: Gen: Alert, oriented, general obesity.? It appears to be in no acute distress. HEENT: normocephalic, atraumatic, conjunctiva clear, sclera non-icteric, oral mucosa pink and moist Neck: supple, full ROM, no JVD, trachea is midline Resp: Lungs CTA, non-labored breathing CV:? Heart sounds S1-S2, rhythm normal, no murmur or rubs Abd:? Obese, soft, non-tender, bowel sounds normal Skin: no lesions or rashes, dry and intact Neuro: Alert and oriented X 4 w/no focal deficits. Speech clear and coherent. Extremities:? Has difficulty changing positions.? However has improved to be functional to go home. Psyche: normal mood and affect. Objective Labs Result Diagrams: 12/22/21 07:11 12/22/21 07:11 Labs: Laboratory Results - last 24 hr 12/22/21 12/22/21 12/22/21 07:11 07:11 07:11 WBC 9.0 RBC 4.83 Hgb 14.8 Hct 43.3 MCV 89.7 MCH 30.7 MCHC 34.3 RDW 14.4 Plt Count 244 Neut % (Auto) 86.1 H D Lymph % (Auto) 10.6 L Josephine % (Auto) 2.9 L Eos % (Auto) 0.1 L Baso % (Auto) 0.3 Neut # (Auto) 7700 H Lymph # (Auto) 900 L Josephine # (Auto) 300 Eos # (Auto) 0 Baso # (Auto) 0 Sodium 138 Potassium 4.7 Chloride 104 Carbon Dioxide 24 BUN 36 H Creatinine 1.36 H Estimated GFR 55 L BUN/Creatinine Ratio 26.5 H Glucose 142 H Calcium 10.2 Magnesium 2.3 Total Bilirubin 0.6 AST 31 ALT 21 Alkaline Phosphatase 70 Total Protein 8.0 Albumin 4.5 Globulin 3.5 Albumin/Globulin Ratio 1.3 PFSH Medical History (Updated 12/22/21 @ 10:45 by Floresita Vora PA-C) Anticoagulated Central sleep apnea Diabetes DVT (deep venous thrombosis) GERD (gastroesophageal reflux disease) HTN (hypertension) Hx pulmonary embolism Hyperlipemia Laceration Obesity Obstructive sleep apnea of adult Pulmonary embolism Spinal stenosis Surgical History H/O Spinal surgery History of hip replacement History of tonsillectomy and adenoidectomy Family History Father Pancreatic cancer Social History marital status: details: william Quigley household members: spouse lives independently: Yes caregiver/support person: No education level: college 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 Smoking Status: Former smoker alcohol intake: current substance use type: does not use Discharge Plan Discharge Plan Patient Disposition: Home Discharge orders & Medications Prescriptions: New quetiapine 25 mg Tablet 12.5 mg PO 1800 Qty: 10 0RF methocarbamol 500 mg Tablet 500 mg PO Q8H Qty: 10 0RF sennosides [senna] 8.6 mg Tablet 17.2 mg PO BEDTIME Qty: 10 0RF acetaminophen 325 mg Tablet 650 mg PO Q6HR Qty: 90 0RF polyethylene glycol 3350 17 gram Powder In Packet 17 gm PO DAILY Qty: 10 0RF tramadol 50 mg Tablet 50 mg PO Q4H PRN (Reason: Pain, Mild (1-3)) Qty: 30 0RF dexamethasone 4 mg Tablet 8 mg PO Q8HR Qty: 10 0RF docusate sodium 100 mg Capsule 100 mg PO BID Qty: 20 0RF diazepam 5 mg Tablet 5 mg PO Q6HR PRN (Reason: Muscle Spasm) Qty: 10 0RF Continued simvastatin 20 MG tablet 20 mg PO DAILY Qty: 0 nifedipine 60 MG tablet extended release 24hr 60 mg PO DAILY Qty: 0 multivitamin Tablet 1 tab PO DAILY Qty: 0 duloxetine 60 mg Capsule,Delayed Release(Dr/Ec) 90 mg PO DAILY pregabalin 225 mg Capsule 225 mg PO BID hydrochlorothiazide 25 mg tablet 25 mg PO DAILY metformin 500 mg tablet extended release 24 hr 500 mg PO DAILY Rx Instructions: PT TAKES ONE TAB ONE TIME DAILY lisinopril 20 mg tablet 20 mg PO DAILY Xarelto 20 mg tablet 20 mg PO DAILY (DME) [employer] BIPAP Qty: 1 Dose Instruction: As directed Label Comments: Pressure: IPAP 21 EPAP 17 DME: [facility] Rx Instructions: As directed Follow up/Referrals: Annabella Mora MD [Primary Care Provider] - Diet/Activity/Treatments Diet: Diet as Tolerated Discharge Data Primary Care Provider: Annabella Mora Attending Provider: Olya Bales VTE Deep Vein Thrombosis/Pulmonary Embolism Present on Admission: No
[2021-12-22] MEDS: diazePAM 5 MG TABLET PO (19:55)
== END 2021-12-22 20:01 | disposition home or self-care (01) ==
LOC: ED 17:30 → AC 19:35
PROVIDERS: Nurse Practitioner Family; Admitting Provider Neuromusculoskeletal Medicine, Sports Medicine; Emergency Provider Registered Nurse; Family Provider Family Medicine; PCP Internal Medicine; Referring Provider Registered Nurse; Visit Provider Neuromusculoskeletal Medicine, Sports Medicine
DX: M54.16 Radiculopathy, lumbar region (principal); M54.50 Low back pain, unspecified; N17.9 Acute kidney failure, unspecified; I10 Essential (primary) hypertension; Z86.711 Personal history of pulmonary embolism; Z79.01 Long term (current) use of anticoagulants; E11.9 Type 2 diabetes mellitus without complications; Z79.84 Long term (current) use of oral hypoglycemic drugs; E78.5 Hyperlipidemia, unspecified; R41.0 Disorientation, unspecified; Z20.822 Contact with and (suspected) exposure to COVID-19; Z87.891 Personal history of nicotine dependence; M48.061 Spinal stenosis, lumbar region without neurogenic claudication; E66.9 Obesity, unspecified; Z68.36 Body mass index [BMI] 36.0-36.9, adult
CPT/HCPCS: 36415; 72148; 80048; 80053; 81003; 81015; 82962; 83036; 83735; 85025; 87635; 96374; 96375; 97162; 97530; 99284; C9803; G0378; J1170; J1815; J1885

== ENCOUNTER 2021-12-27 07:57 | Emergency (ER) | payer MEDICARE, OTHER, SELFPAY ==
[2021-12-20 22:59] VITALS: BMI 36.4
[2021-12-27] VITALS (24 sets, daily range): BP systolic 122–176; BP diastolic 66–83; PULSE 75–99; RESP 10–45; TEMP 37; O2SAT 91–99; BMI 34.7
--- NOTE | 2021-12-27 | DI.RAD.S_ITS ---
PROCEDURE: XR LUMBAR SPINE 2-3V INDICATIONS: fall TECHNIQUE: 3 views of the lumbar spine were acquired. COMPARISON: None. FINDINGS: Bones: 5 [id number] vertebrae are present. There is mild dextroscoliosis of lumbar spine centered at L4 level. Moderate degenerative disc disease throughout lumbar spine is seen with loss of disc height, degenerative endplate changes and bilateral facet arthrosis more prominent at L4-5 and L5-S1 levels. No vertebral body compression fractures. No suspicious bony lesions. Soft tissues: Overlying bowel gas pattern is normal. No suspicious soft tissue calcifications. IMPRESSION: Degenerative disc disease throughout lumbar spine. Scoliosis as above. No gross acute compression fracture or spondylolisthesis. Dictated by: Joe Cantrell M.D. on 12/27/2021 at 9:35 Approved by: Joe Cantrell M.D. on 12/27/2021 at 9:35
--- NOTE | 2021-12-27 08:21 | PC.NURSE ---
Pt stated he had to pee. He was unable to urinate with the urinal. Spouse states he had wiped the tip of his penis after trying to pee and the wipe was bloody. Will perform bladder scan as ordered.
--- NOTE | 2021-12-27 08:22 | ED_ITS ---
HPI - Fall General Chief Complaint: Fall Stated Complaint: Fall, on thinners. Time Seen by Provider: 12/27/21 08:11 Source: EMS Mode of arrival: EMS Limitations: no limitations History of Present Illness HPI Narrative: This is a 76-year-old male with known history of lumbar stenosis, chronic back pain, pulmonary emboli anticoagulated on Xarelto, hypertension, dyslipidemia and diabetes type 2. Patient presents today after a ground level fall. Patient has had increasing back pain he is seen Dr. Michelle and has gone through medical clearance and is awaiting insurance approval for back surgery. Today patient was at home he was up secondary to his pain at about 4:00 a.m. this morning he had 10 mg of oxycodone, oral Valium and Vistaril. He was ambulating with his walker and lost balance and fell backwards into closet doors landing on his buttocks and then striking his head on the door. Patient is anticoagulated. No loss of consciousness. Patient denies headache, he states his neck does hurt him. He denies any chest pain. States he feels short of breath. Denies any nausea or vomiting. His main complaint is pain in his lower back in the location of his usual back issues but significantly worse. Patient states it radiates down his legs which is not new, he is also had paresthesias and numbness down his bilateral extremities prior to and currently. He is had some issues with incontinence prior to today. None currently at this time. Patient has had prior cervical surgery remotely and bilateral hip replacement. Denies prior back surgeries. No known drug allergies. Remote tobacco, occasional alcohol nothing recently, patient has been using THC to help with pain management but has not been helpful no other recreational drugs. [facility] and is accompanied by his today. Related Data Home Medications Medication Instructions Recorded Confirmed simvastatin 20 mg tablet 20 mg PO DAILY ##0 06/19/11 12/20/21 nifedipine 60 mg tablet,extended 60 mg PO DAILY ##0 03/29/12 12/20/21 release 24 hr multivitamin 1 tab PO DAILY ##0 09/18/12 12/20/21 hydrochlorothiazide 25 mg tablet 25 mg PO DAILY 04/11/18 12/20/21 metformin 500 mg tablet,extended 500 mg PO DAILY 04/11/18 12/20/21 release 24 hr RespirAuthentic8s Dreamstation BIPAP #1 ea 09/17/18 12/21/21 duloxetine 60 mg capsule,delayed 90 mg PO DAILY 02/17/20 12/20/21 release pregabalin 225 mg capsule 225 mg PO BID 04/13/21 12/20/21 lisinopril 20 mg tablet 20 mg PO DAILY 12/20/21 12/20/21 rivaroxaban 20 mg tablet (Xarelto) 20 mg PO DAILY 12/20/21 12/20/21 Previous Rx's Medication Instructions Recorded acetaminophen 325 mg tablet 650 mg PO Q6HR #90 tabs 12/22/21 dexamethasone 4 mg tablet 8 mg PO Q8HR #10 tabs 12/22/21 diazepam 5 mg tablet 5 mg PO Q6HR PRN Muscle Spasm #10 12/22/21 tabs docusate sodium 100 mg capsule 100 mg PO BID #20 caps 12/22/21 methocarbamol 500 mg tablet 500 mg PO Q8H #10 tabs 12/22/21 polyethylene glycol 3350 17 gram 17 gm PO DAILY #10 ea 12/22/21 oral powder packet quetiapine 25 mg tablet 12.5 mg PO 1800 #10 tabs 12/22/21 sennosides 8.6 mg tablet (senna) 17.2 mg PO BEDTIME #10 tabs 12/22/21 tramadol 50 mg tablet 50 mg PO Q4H PRN Pain, Mild (1-3) 12/22/21 #30 tabs dexamethasone 4 mg tablet 4 mg PO TID #18 tabs 12/23/21 Allergies Allergy/AdvReac Type Severity Reaction Status Date / Time No Known Drug Allergies Allergy Verified 12/27/21 08:09 Review of Systems Review of Systems ROS Unobtainable: All systems reviewed & are unremarkable except as noted in HPI and below Patient History Medical History Anticoagulated Central sleep apnea Diabetes DVT (deep venous thrombosis) GERD (gastroesophageal reflux disease) HTN (hypertension) Hx pulmonary embolism Hyperlipemia Laceration Obesity Obstructive sleep apnea of adult Pulmonary embolism Spinal stenosis Surgical History H/O Spinal surgery History of hip replacement History of tonsillectomy and adenoidectomy Family History Father Pancreatic cancer Social History marital status: details: to Soraida household members: spouse lives independently: Yes caregiver/support person: No education level: college 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 Patient appears quite uncomfortable on exam. HEENT: Atraumatic, pupils are equal round reactive to light, extraocular movements are intact, nares are clear, TMs are clear with no fluid, there is no conjunctival pallor. Throat is clear without any exudates, erythema, tonsillar enlargement or uvular deviation HEART: Regular rate and rhythm without murmur, clicks, rubs. Pulses are equal in upper and lower extremities LUNGS:Lungs clear to auscultation, no wheezes, rales, crackles, chest moves symmetrically ABD:bowel sounds normal, soft, non-tender, no guarding, rebound, rigidity, no masses noted, no hepatosplenomegaly :No CVA tenderness BACK: No cervical, thoracic or lumbar vertebral point tenderness. Patient has decreased range of motion, patient is significantly uncomfortable unable to raise the bed more than 15? without significant pain. Patient's gait is unable to be tested. Patient has normal range of motion of upper extremities. Rectal exam is has tone present. No saddle anesthesia noted Muscle strength is 5/5 in bilateral lower extremities-patient able to flex at the hips, knees and ankles without issue after pain medication but significantly exacerbates his pain, DTRs present but difficulty to appreciate. Dorsalis pedis and tibialis pulses are 2+ and lower extremities. Sensation is intact in the lower extremities, patient perceives difference right versus left but is able to feel light sensation. MSCL: Non-tender, no muscle atrophy, no bony tenderness. NEURO:CN 2-12 intact, sensation normal SKIN: No rash, erythema or other skin changes. Initial Vital Signs Initial Vital Signs: Vital Signs Temperature 98.6 F 12/27/21 08:03 Pulse Rate 84 12/27/21 08:03 Respiratory Rate 36 H 12/27/21 08:03 Blood Pressure 167/83 H 12/27/21 08:03 Pulse Oximetry 99 12/27/21 08:03 Oxygen Delivery Method 12/27/21 08:03 Scores GCS Henderson coma scale eye opening: Spontaneous Henderson coma scale verbal response: Orientated Nam coma scale motor response: Obey commands Henderson coma scale total score: 15 Nexus Score for C-Spine Focal Neurologic deficit present: No Midline spinal tenderness present: No Altered level of conciousness present: No Intoxication present: No Distracting Injury Present: Yes Nexus Criteria for C-spine: 1 Course Orders Ordered: ED Orders 12/27/21 10:52 CT cervical spine wo con Stat CT chest abd pel w con Stat CT head/brain wo con Stat 12/27/21 17:09 COVID19 -Nasal RAPID/Pre-Proc Stat Hydromorphone HCl (Hydromorphone 1 Mg Inj) 1 mg IV Q2H PRN PRN Reason: pain Last Admin: 12/27/21 18:52 Dose: 1 mg Documented By: Admin: 12/27/21 14:11 Dose: 1 mg Documented By: STEPHANIE Discontinued Medications Dexamethasone (Dexamethasone 10 Mg/Ml Vial) 10 mg IV NOW ONE Stop: 12/27/21 12:26 Last Admin: 12/27/21 12:59 Dose: 10 mg Documented By: STEPHANIE Diazepam (Diazepam 5 Mg Tablet) 5 mg PO NOW ONE Stop: 12/27/21 12:26 Last Admin: 12/27/21 12:58 Dose: 5 mg Documented By: STEPHANIE Hydromorphone HCl (Hydromorphone 1 Mg Inj) 1 mg IV NOW ONE Stop: 12/27/21 08:23 Last Admin: 12/27/21 08:50 Dose: 1 mg Documented By: STEPHANIE Hydromorphone HCl (Hydromorphone 1 Mg Inj) 1 mg IV NOW ONE Stop: 12/27/21 10:53 Last Admin: 12/27/21 10:56 Dose: 1 mg Documented By: STEPHANIE Hydromorphone HCl (Hydromorphone 0.5 Mg Inj) 0.5 mg IV NOW ONE Stop: 12/27/21 12:26 Last Admin: 12/27/21 12:59 Dose: 0.5 mg Documented By: STEPHANIE Lidocaine HCl (Lidocaine 2% (Glydo) 6 Ml Gel) 6 ml TOP NOW ONE Stop: 12/27/21 10:41 Last Admin: 12/27/21 10:42 Dose: 6 ml Documented By: STEPHANIE Vital Signs Vital signs: Vital Signs - 8 hr 12/27/21 12:00 12/27/21 12:00 12/27/21 12:30 Pulse Rate 84 Respiratory Rate 10 L Blood Pressure 165/74 H 159/71 H Pulse Oximetry 98 Oxygen Delivery Method Nasal Cannula Oxygen Flow Rate 2.0 12/27/21 12:30 12/27/21 13:00 12/27/21 13:00 Pulse Rate 91 H 86 Respiratory Rate 29 H 38 H Blood Pressure 144/80 H Pulse Oximetry 98 97 Oxygen Delivery Method Oxygen Flow Rate 12/27/21 13:30 12/27/21 13:30 12/27/21 14:00 Pulse Rate 76 Respiratory Rate 21 Blood Pressure 148/70 H 175/81 H Pulse Oximetry 93 Oxygen Delivery Method Oxygen Flow Rate 12/27/21 14:00 12/27/21 14:05 12/27/21 14:30 Pulse Rate 85 Respiratory Rate 34 H Blood Pressure 146/75 H Pulse Oximetry 91 Oxygen Delivery Method Room Air Nasal Cannula Oxygen Flow Rate 2 12/27/21 14:30 12/27/21 15:00 12/27/21 15:00 Pulse Rate 82 88 Respiratory Rate 18 17 Blood Pressure 143/74 H Pulse Oximetry 96 97 Oxygen Delivery Method Nasal Cannula Nasal Cannula Oxygen Flow Rate 2.0 2.0 12/27/21 15:30 12/27/21 15:30 12/27/21 16:00 Pulse Rate 84 Respiratory Rate 10 L Blood Pressure 142/69 H 169/77 H Pulse Oximetry 97 Oxygen Delivery Method Oxygen Flow Rate 12/27/21 16:00 12/27/21 16:30 12/27/21 16:30 Pulse Rate 85 84 Respiratory Rate 11 L 11 L Blood Pressure 155/75 H Pulse Oximetry 97 96 Oxygen Delivery Method Oxygen Flow Rate 12/27/21 17:00 12/27/21 17:00 12/27/21 17:30 Pulse Rate 87 Respiratory Rate 15 Blood Pressure 153/73 H 157/73 H Pulse Oximetry 98 Oxygen Delivery Method Oxygen Flow Rate 12/27/21 17:30 12/27/21 17:59 12/27/21 18:00 Pulse Rate 93 H 99 H Respiratory Rate 12 16 Blood Pressure 145/75 H Pulse Oximetry 99 99 Oxygen Delivery Method Oxygen Flow Rate 12/27/21 18:00 12/27/21 18:30 12/27/21 18:30 Pulse Rate 97 H 89 Respiratory Rate 13 12 Blood Pressure 149/78 H Pulse Oximetry 99 97 Oxygen Delivery Method Room Air Room Air Oxygen Flow Rate MDM - Fall Lab Data Result diagrams: 12/27/21 08:40 12/27/21 08:40 Labs: Lab Results 12/27/21 12/27/21 12/27/21 Range/Units 08:40 08:40 08:40 WBC 16.7 H (4.5-11.0) X10^3/uL RBC 4.95 (4.5-5.9) X10^6/uL Hgb 14.9 (13.5-17.5) g/dL Hct 44.1 (41-53) % MCV 89.1 (80-100) fL MCH 30.0 (26-34) PG MCHC 33.7 (30-36) % RDW 14.7 (11.6-14.8) % Plt Count 293 (150-400) X10^3/uL Neut % (Auto) 76.4 H (50-75) % Lymph % (Auto) 16.5 L (25-40) % [place] % (Auto) 6.3 (3-14) % Eos % (Auto) 0.2 L (2-4) % Baso % (Auto) 0.6 (0-2) % Neut # (Auto) 50306 H (3072-6890) /uL Lymph # (Auto) 2800 (5054-1514) /uL [place] # (Auto) 1100 H (0-900) /uL Eos # (Auto) 0 (0-450) /uL Baso # (Auto) 100 (0-100) /uL PT 19.4 H (10.1-12.7) SECONDS INR 1.7 H (0.9-1.3) APTT 33 (26-36) SECONDS Sodium 138 (137-145) mmol/L Potassium 4.1 (3.4-5.1) mmol/L Chloride 105 (98-107) mmol/L Carbon Dioxide 23 (22-32) mmol/L BUN 32 H (9-20) mg/dL Creatinine 1.31 H (0.66-1.25) mg/dL Estimated GFR 57 L (>60) mL/min BUN/Creatinine Ratio 24.4 H (6-22) Glucose 108 (80-110) mg/dL Calcium 10.3 H (8.4-10.2) mg/dL Total Bilirubin 0.7 (0.2-1.3) mg/dL AST 28 (17-59) IU/L ALT 21 (<50) IU/L Alkaline Phosphatase 77 (38-126) U/L Total Protein 7.8 (6.3-8.2) g/dL Albumin 4.4 (3.5-5.0) g/dL Globulin 3.4 (1.7-4.1) g/dL Albumin/Globulin Ratio 1.3 (1.0-2.8) Lipase 242 (23-300) U/L SARS-CoV-2 (PCR) (Negative) 12/27/21 Range/Units 17:09 WBC (4.5-11.0) X10^3/uL RBC (4.5-5.9) X10^6/uL Hgb (13.5-17.5) g/dL Hct (41-53) % MCV (80-100) fL MCH (26-34) PG MCHC (30-36) % RDW (11.6-14.8) % Plt Count (150-400) X10^3/uL Neut % (Auto) (50-75) % Lymph % (Auto) (25-40) % [place] % (Auto) (3-14) % Eos % (Auto) (2-4) % Baso % (Auto) (0-2) % Neut # (Auto) (6462-6582) /uL Lymph # (Auto) (2761-4702) /uL [place] # (Auto) (0-900) /uL Eos # (Auto) (0-450) /uL Baso # (Auto) (0-100) /uL PT (10.1-12.7) SECONDS INR (0.9-1.3) APTT (26-36) SECONDS Sodium (137-145) mmol/L Potassium (3.4-5.1) mmol/L Chloride (98-107) mmol/L Carbon Dioxide (22-32) mmol/L BUN (9-20) mg/dL Creatinine (0.66-1.25) mg/dL Estimated GFR (>60) mL/min BUN/Creatinine Ratio (6-22) Glucose (80-110) mg/dL Calcium (8.4-10.2) mg/dL Total Bilirubin (0.2-1.3) mg/dL AST (17-59) IU/L ALT (<50) IU/L Alkaline Phosphatase (38-126) U/L Total Protein (6.3-8.2) g/dL Albumin (3.5-5.0) g/dL Globulin (1.7-4.1) g/dL Albumin/Globulin Ratio (1.0-2.8) Lipase (23-300) U/L SARS-CoV-2 (PCR) Negative (Negative) Urine Dip Bedside Urine Glucose Negative Bedside Urine Bilirubin - Negative Bedside Urine Ketone - Negative Urine Specific [place] 1.015 Bedside Urine Occult Blood ++ Bedside Urine pH 6.5 Bedside Urine Protein - Negative Bedside Urine Urobilinogen - Negative Bedside Urine Nitrite - Negative Bedside Urine Leukocytes - Negative Esterase Imaging Data MRI Lspine: Radiologist's Impression: [address] [address] Magnetic Resonance Report Signed Patient: José Miguel Borjas MR#: [id number] : 1945 Acct:[id number] Age/Sex: 76 / M Date of Service: 12/20/21 Loc: ED Accession Number: [id number] ?? Procedure: MR lumbar spine wo con Ordering Provider: Mihir He PROCEDURE:? MR LUMBAR SPINE WO CON ? INDICATIONS:? Lumbar back pain ? TECHNIQUE:? Noncontrast sagittal T1 spin echo and T2 fast echo, sagittal STIR, and T2 fast spin echo through the lumbar spine.? In cases with scoliosis, additional coronal T2 fast spin echo may be performed.? ? COMPARISON:? [facility], , MR LUMBAR SPINE WO CON, 11/17/2021, 7:57. ? FINDINGS:? Image quality:? Excellent.? ? Alignment and Curvature:? Convex left thoracolumbar scoliosis ? Bone Marrow:? Modic type 1 degenerative endplate changes noted at L1-2 and L2- 3.? In the disc spaces at L2-3, L3-4 and L4-5 to lesser degree L5-S1 is similar to the prior ? Spinal Cord:? Conus medullaris terminates at the L1 level.? Visualized cord demonstrates normal signal and size.? ? Paraspinous Soft Tissues:? No paravertebral masses.? ? T12-L1:? Disc space narrowing without central or foraminal stenosis ? L1-L2:? Disc space narrowing with circumferential disc bulge and hypertrophic facet joints results in mild central stenosis.? Moderate right and no left foraminal stenosis ? L2-L3:? Disc space narrowing with asymmetric right circumferential disc bulge and hypertrophic facet joints combines with dorsal epidural fat result in severe central stenosis.? Moderate right and left foraminal stenosis ? L3-L4:? Disc space narrowing and circumferential disc bulge with hypertrophic facet joints so results in severe central stenosis.? Moderate right and severe left f oraminal stenosis ? L4-L5:? Disc space narrowing with circumferential disc bulge, hypertrophic facet joints and dorsal epidural fat to result in severe central stenosis.? Severe left and moderate severe right foraminal stenosis ? L5-S1:? Disc space narrowing and circumferential disc bulge combines with hypertrophic facet joints to result in moderate central stenosis.? Moderate bilateral lateral recess effacement Severe bilateral foraminal stenosis present. ? ? IMPRESSION:? ? 1. Multilevel advanced degenerative disc disease and arthropathy results in varying degrees of central and foraminal stenosis including severe central stenosis L2- 3, L3-4 and L4-5, similar to the prior ? Approved by: Darrian Russell M.D. on 12/20/2021 at 14:26? CT scan - head: Radiologist's Impression: [place] [address] CT Scan Report Signed Patient: José Miguel Borjas MR#: [id number] : 1945 Acct:[id number] Age/Sex: 76 / M Date of Service: 12/27/21 Loc: ED Accession Number: [id number] ?? Procedure: CT head/brain wo con Ordering Provider: Brook Larios D.O. PROCEDURE:? CT HEAD/BRAIN WO CON ? INDICATIONS:? fall, back pain Lumbar known stenosis, ? change cxr, head in ? TECHNIQUE:? Noncontrast 4.5 mm thick angled axial sections acquired from the foramen magnum to the vertex, with coronal and sagittal reformats.? For radiation dose reduction, the following was used:? automated exposure control, adjustment of mA and/or kV according to patient size.? ? COMPARISON:? 11/11/2018 MRI brain ? FINDINGS:? Image quality:? Excellent.? ? CSF spaces:? Basal cisterns are patent.? No extra-axial fluid collections.? Ventricles are normal in size and shape.? ? Brain:? Tnjn-[id number] global cerebral volume loss and chronic microvascular ischemic changes.? No midline shift.? No intracranial masses or hemorrhage.? Zelaya-white matter interface is normal.? ? Skull and face:? Calvarium and visualized facial bones are intact, without suspicious lesions.? ? Sinuses:? Visualized sinuses and mastoids are predominantly clear.? ? IMPRESSION:? No acute intracranial finding. ? ? Dictated by: Florian Lewis M.D. on 12/27/2021 at 12:05 ? ? Approved by: Florian Lewis M.D. on 12/27/2021 at 12:05?? CT - cervical spine: Radiologist's Impression: [place] [address] CT Scan Report Signed Patient: José Miguel Borjas MR#: [id number] : 1945 Acct:[id number] Age/Sex: 76 / M Date of Service: 12/27/21 Loc: ED Accession Number: [id number] ?? Procedure: CT cervical spine wo con Ordering Provider: Brook Larios D.O. PROCEDURE:? CT CERVICAL SPINE WO CON ? INDICATIONS:? fall, back pain Lumbar known stenosis, ? change cxr, head in ? TECHNIQUE:? Noncontrast 3 mm thick sections acquired from the skull base to the T4 level.? Sagittal and coronal reformats were then constructed.? For radiation dose reduction, the following was used:? automated exposure control, adjustment of mA and/or kV according to patient size.? ? COMPARISON:? None. ? FINDINGS:? Image quality:? Excellent.? ? Bones:? No fractures or dislocations.? Degenerative endplate changes, loss of disc height and bilateral uncinate hypertrophic changes are noted throughout cervical spine more prominent at C5-6 and C6-7 levels.? Dorsal disc osteophyte complex formation at C4-5 through C6-7 levels are noted causing [id number] central canal stenosis and bilateral neural foraminal narrowing.? Visualized superior ribs are intact.? ? Soft tissues:? Prevertebral soft tissues are normal in thickness.? No paraver tebral hematomas.? No apical pneumothoraces.? ? ? IMPRESSION:? 1. No acute cervical spine fracture or dislocation. 2. Degenerative disc disease throughout cervical spine as above.? Dictated by: Joe Cantrell M.D. on 12/27/2021 at 11:30 ? ? Approved by: Joe Cantrell M.D. on 12/27/2021 at 11:36?? CT scan - abdomen/pelvis: Radiologist's Impression: José Miguel Borjas?(Bashir)??76??M??1945 ? Allergy/Adv: No Known Drug Allergies (More??) Close Head CT (Signed) Florian Lewis - 12/27/21 Chest/Abdomen/Pelvis CT (Signed) Hossein Jain - 12/27/[address] (Signed) Joe Cantrell - 12/27/21 Pelvis X-Ray (Signed) Joe Cantrell - 12/27/21 Chest X-Ray (Signed) Florian Lewis - 12/27/21 Lumbar Spine X-Ray (Signed) Joe Cantrell - 12/27/21 Telemetry Strips 12/20/21 Lumbar Spine MRI (Signed) Darrian Russell - 12/20/21 Lumbar Spine MRI (Signed) Florian Lewis - 11/17/21 Chest CTA (Signed) Kelvin Bedolla - 02/05/20 Chest X-Ray (Signed) Juan Cerda - 02/05/20 Lumbar Spine MRI (Signed) Nilsa Mireles - 06/13/19 Cervical Spine MRI (Signed) Krzysztof Salgado - 06/13/19 Vascular Ultrasound (Signed) Natalie Daigle - 11/11/18 Brain MRI (Signed) Kelvin Bedolla - 11/11/18 Chest CTA (Signed) Joe Cantrell - 04/11/18 Chest X-Ray (Signed) Todd Crespo - 04/11/18 Vascular Ultrasound (Signed) Todd Crespo - 04/11/18 Telemetry Strips 04/11/18 Launch?Image [address] [address] [address] Scan Report Signed Patient: José Miguel Borjas MR#: [id number] : 1945 Acct:[id number] Age/Sex: 76 / M Date of Service: 12/27/21 Loc: ED Accession Number: [id number] ?? Procedure: CT chest abd pel w con Ordering Provider: Brook Larios D.O. PROCEDURE:? CT CHEST ABD PEL W CON ? INDICATIONS:? fall, back pain Lumbar known stenosis, ? change cxr, head in ? TECHNIQUE:? After the administration of intravenous contrast, 5 mm thick sections acquired from the lung apices to the symphysis.? 2.5 mm thick coronal and sagittal reformats were acquired. ?Additional 7 mm thick coronal maximum intensity projection (MIP) reformats acquired through the lungs.? Optional 10-minute delayed imaging may be performed from the kidneys to the bladder.? For radiation dose reduction, the following was used:? automated exposure control, adjustment of mA and/or kV according to patient size.? ? COMPARISON:? [facility], CR, XR LUMBAR SPINE 2-3V, 12/27/2021, 9:04.? [facility], CR, XR PELVIS 1-2V, 12/27/2021, 9:04.? CT, CT ANGIO CHEST PE PROTOCOL, 02/05/2020, 16:27. ? FINDINGS:? Image quality:? Excellent.? ? CHEST:? Lungs:? No pulmonary contusions or lacerations.? No acute airspace opacities.? Minimal dependent atelectasis.? No pneumothorax or hemothorax.? Central and peripheral airways appear patent and normal in caliber.? ? Mediastinum:? No mediastinal hematomas.? Heart size is normal.? Moderate koch ry artery calcifications.? No pericardial effusion.? Thoracic aorta and pulmonary arteries demonstrate normal size and enhancement.? No mediastinal or hilar adenopathy.? Esophagus is normal in caliber.? No hiatal hernia.? Elevation of the right hemidiaphragm, unchanged.? ? Chest wall:? No rib fractures.? No subcutaneous emphysema.? No axillary or supraclavicular adenopathy.? Thyroid gland is unremarkable.? ? ? ABDOMEN:? Solid organs:? Liver is normal in size and enhancement, without lacerations.? A few punctate hypodensities which are likely benign cysts.? Gallbladder is unremarkable.? Biliary system is non-dilated.? Pancreas enhances normally, without transection.? Spleen is normal in size and enhancement, without lacerations.? No adrenal hematomas.? Both kidneys enhance normally, without hydronephrosis or lacerations.? ? Peritoneum and bowel:? No free fluid or air.? Unenhanced bowel loops demonstrate normal wall thickness and caliber.? Prominent stool in the colon.? Normal appendix.? ? Nodes and vessels:? No retroperitoneal or mesenteric adenopathy.? Aorta and inferior vena cava are normal in size and enhancement.? Circumferential calcified atherosclerotic plaque.? ? Miscellaneous:? Tiny umbilical hernia ? ? PELVIS:? Genitourinary:? Bladder is decompressed with North catheter.? Trabeculated appearance.? ? Miscellaneous:? No inguinal hernias or adenopathy.? ? Bones:? Pelvic ring and hip joints appear intact.? Bilateral hip arthroplasties.? Beam hardening artifact.? Mild scoliosis.? No vertebral compression fractures.? Moderate to severe degenerative change in DDD.? ? ? IMPRESSION:? 1. No hemothorax.? Minimal dependent atelectasis.? ? 2. No traumatic injury identified.? No free fluid. ? 3.? Trabeculated appearance of the urinary bladder.? ? 4. Diverticulosis. ? ? ? Dictated by: Hossein Jain M.D. on 12/27/2021 at 11:51 ? ? Approved by: Hossein Jain M.D. on 12/27/2021 at 12:06?? ECG Data Attestation: I personally reviewed and interpreted this ECG as follows: Prior ECG tracings: available for review Interpretation: Sinus rhythm rate of 92 NJ 174 QRS of 92 and QTC of 427. No acute ST changes appreciated. Patient has slight elevation of and V2 V3 but this appears to be stable compared to priors from 2018. No reciprocal changes noted. MDM Narrative Medical decision making narrative: This is a 76-year-old male with acute on chronic low back pain after ground level fall with known lumbar stenosis with plan for lumbar surgery in the near future. Patient did take oxycodone, Valium and Vistaril which may have increased his fall risk he fell backwards onto his buttocks and did hit his head on some closet doors. He complains lumen neck pain but his main complaint is l ower back. Patient does not have acute neurologic changes from his recent findings. Did have an MRI of his L-spine on 12/20/2021 and patient has multilevel degenerative disc disease which is advanced and arthropathy with varying degrees of central and foraminal stenosis including severe central st enosis at L2 through L5 similar to a prior MRI in October. Patient is anticoagulated secondary to having history of pulmonary embolus, head CT and C- spine as well as L-spine were ordered based on patient's anticoagulation status. There was delay in imaging secondary to CT scanner going down. We were able to get back up up over having to ship the patient for imaging. Head CT, cervical spine and chest abdomen pelvis were obtained his chest x-ray showed possible hemothorax versus atypical change. Head CT, C-spine and CT abdomen pelvis do not show any acute changes significant degenerative changes no fracture. Patient has an L-spine MRI from 12/20/2021 which shows severe moderate to severe spinal stenosis and foraminal stenosis L 2 through L5. Patient's does have urinary retention, he had 400 mL out with an additional 1000 mL present on bladder scan and North catheter placement. He does not have any obvious saddle anesthesia but did not feel his retention. Has chronic radiculopathy with pain and paresthesias but no new changes in his paresthesias. His pain has been increasing over time and he is been unable to get out of bed or easily move and has become increasingly weak and fell today. Also been increasing his pain management regimen quite a bit and was seen here a week ago. Patient case was discussed with ortho Orthopedic Dr. Carter, Dr Michelle who felt patient was emergent today for surgery. Dr. Cantrell is not on today. Patient was recommended have images pushed to outside facility and consultation. I spoke with Dr. Regan at [facility] with spinal surgery who accepts for transfer to [facility] Emergency [facility]. Patient has required multiple doses of IV pain medications, he is occasionally dropped his O2 sats and response to pain medications but has improved unless he is moved. Critical Care Time Critical Care Time Critical Care Time: Yes Total Critical Care Time: 47 Attestation: The high probability of a clinically significant, sudden or life threatening deterioration of the [neurologic] system(s) required my full and direct attention, intervention and personal management. The aggregate critical care time was [] minutes. This time is in addition to time spent performing reported procedures but includes the following: [x] Data Review and interpretation [x] Patient assessment and monitoring of vital signs [x] Documentation [x] Medication orders and management Discharge Plan Departure Patient Disposition: [facility] Clinical Impression: Spinal stenosis, Cauda equina syndrome, Fall, Urinary retention, Back pain Prescriptions: No Action simvastatin 20 MG tablet 20 mg PO DAILY Qty: 0 nifedipine 60 MG tablet extended release 24hr 60 mg PO DAILY Qty: 0 multivitamin Tablet 1 tab PO DAILY Qty: 0 duloxetine 60 mg Capsule,Delayed Release(Dr/Ec) 90 mg PO DAILY pregabalin 225 mg Capsule 225 mg PO BID hydrochlorothiazide 25 mg tablet 25 mg PO DAILY metformin 500 mg tablet extended release 24 hr 500 mg PO DAILY Rx Instructions: PT TAKES ONE TAB ONE TIME DAILY lisinopril 20 mg tablet 20 mg PO DAILY Xarelto 20 mg tablet 20 mg PO DAILY quetiapine 25 mg Tablet 12.5 mg PO 1800 Qty: 10 0RF methocarbamol 500 mg Tablet 500 mg PO Q8H Qty: 10 0RF sennosides [senna] 8.6 mg Tablet 17.2 mg PO BEDTIME Qty: 10 0RF acetaminophen 325 mg Tablet 650 mg PO Q6HR Qty: 90 0RF polyethylene glycol 3350 17 gram Powder In Packet 17 gm PO DAILY Qty: 10 0RF tramadol 50 mg Tablet 50 mg PO Q4H PRN (Reason: Pain, Mild (1-3)) Qty: 30 0RF dexamethasone 4 mg Tablet 8 mg PO Q8HR Qty: 10 0RF docusate sodium 100 mg Capsule 100 mg PO BID Qty: 20 0RF diazepam 5 mg Tablet 5 mg PO Q6HR PRN (Reason: Muscle Spasm) Qty: 10 0RF dexamethasone 4 mg tablet 4 mg PO TID Qty: 18 0RF Rx Instructions: Following the prescription the patient already has for 8 mg t.i.d., initiate 4 mg t.i.d. for 3 days then 4 mg b.i.d. for 3 days then 4 mg daily for 3 days. with 18 tablets of 4 mg tabs. (DME) Respironics Dreamstation BIPAP Qty: 1 Dose Instruction: As directed Label Comments: Pressure: IPAP 21 EPAP 17 DME: [facility] Rx Instructions: As directed Referrals: Arielle Claros DO [Primary Care Provider] -
--- NOTE | 2021-12-27 08:25 | DI.RAD.S_ITS ---
PROCEDURE: XR PELVIS 1-2V INDICATIONS: fall, back TECHNIQUE: 3 view of the lower pelvis acquired. COMPARISON: [facility], CR, PELVIS W UNILATERAL HIP RIGHT, 10/02/2012, 15:15. FINDINGS: Bones: Patient is status post bilateral hip arthroplasty, with hardware components in expected positions. The hip joint appears congruent. No gross hardware loosening or failure. No acute pelvic fracture or dislocation is seen. Soft tissues: Overlying postoperative changes are noted. No suspicious soft tissue densities. IMPRESSION: Prior bilateral total hip arthroplasty. No gross acute pelvic fracture or dislocation. No gross hardware complication. Dictated by: Joe Cantrell M.D. on 12/27/2021 at 9:33 Approved by: Joe Cantrell M.D. on 12/27/2021 at 9:35
--- NOTE | 2021-12-27 08:25 | DI.RAD.S_ITS ---
PROCEDURE: XR CHEST 1V INDICATIONS: fall, back TECHNIQUE: One view of the chest was acquired. COMPARISON: [facility], , XR CHEST 2V, 02/05/2020, 15:00. FINDINGS: Asymmetric new opacification in the right lung apex. Lungs otherwise clear. No pneumothorax. IMPRESSION: New asymmetric right a buckle opacity. Given that this is a supine exam in the setting of trauma, the finding could potentially represent pleural fluid or hemothorax. A lung mass could cause a similar appearance. Recommend CT chest for further characterization. Dictated by: Florian Lewis M.D. on 12/27/2021 at 9:27 Approved by: Florian Lewis M.D. on 12/27/2021 at 9:29
[2021-12-27 08:48] LABS: Add Manual Diff / Slide Review NO; Basophils Absolute Auto 100 /uL (0-100); Basophils Percent Auto 0.6 % (0-2); Eosinophils Absolute Auto 0 /uL (0-450); Eosinophils Percent Auto 0.2 % (2-4); Hematocrit 44.1 % (41-53); Hemoglobin 14.9 g/dL (13.5-17.5); Lymphocytes Absolute Auto 2800 /uL (1100-4500); Lymphocytes Percent Auto 16.5 % (25-40); Mean Corpuscular HGB Conc 33.7 % (30-36); Mean Corpuscular Volume 89.1 fL (80-100); Monocytes Absolute Auto 1100 /uL (0-900); Monocytes Percent Auto 6.3 % (3-14); Neutrophils Absolute Auto 12700 /uL (1500-7000); Neutrophils Percent Auto 76.4 % (50-75); Platelet Count 293 X10^3/uL (150-400); Red Blood Cell Count 4.95 X10^6/uL (4.5-5.9); Red Cell Distribution Width 14.7 % (11.6-14.8); White Blood Cell Count 16.7 X10^3/uL (4.5-11.0)
[2021-12-27] MEDS: HYDROMORPHONE 1 MG INJ IV ×4 (08:50→18:52)
[2021-12-27 08:56] LABS: INR 1.7 (0.9-1.3); Prothrombin Time 19.4 SECONDS (10.1-12.7)
[2021-12-27 08:58] LABS: PTT Partial Thromboplastin Tim 33 SECONDS (26-36)
[2021-12-27 09:02] LABS: Alanine Aminotransferase 21 IU/L (<50); Albumin 4.4 g/dL (3.5-5.0); Albumin Globulin Ratio 1.3 (1.0-2.8); Alkaline Phosphatase 77 U/L (38-126); Aspartate Aminotransferase 28 IU/L (17-59); BUN Creatinine Ratio 24.4 (6-22); Bilirubin Total 0.7 mg/dL (0.2-1.3); Blood Urea Nitrogen 32 mg/dL (9-20); Calcium 10.3 mg/dL (8.4-10.2); Carbon Dioxide 23 mmol/L (22-32); Chloride 105 mmol/L (98-107); Estimated Glomerular Filt Rate 57 mL/min (>60); Globulin 3.4 g/dL (1.7-4.1); Glucose 108 mg/dL (80-110); HEMOLYSIS 23 (0-50); Lipase 242 U/L (23-300); Potassium 4.1 mmol/L (3.4-5.1); Sodium 138 mmol/L (137-145); Total Protein 7.8 g/dL (6.3-8.2)
[2021-12-27] MEDS: LIDOCAINE 2% (GLYDO) 6 ML GEL TOP (10:42)
--- NOTE | 2021-12-27 10:52 | DI.CT.S_ITS ---
PROCEDURE: CT CHEST ABD PEL W CON INDICATIONS: fall, back pain Lumbar known stenosis, ? change cxr, head in TECHNIQUE: After the administration of intravenous contrast, 5 mm thick sections acquired from the lung apices to the symphysis. 2.5 mm thick coronal and sagittal reformats were acquired. Additional 7 mm thick coronal maximum intensity projection (MIP) reformats acquired through the lungs. Optional 10-minute delayed imaging may be performed from the kidneys to the bladder. For radiation dose reduction, the following was used: automated exposure control, adjustment of mA and/or kV according to patient size. COMPARISON: [facility], CR, XR LUMBAR SPINE 2-3V, 12/27/2021, 9:04. [facility], CR, XR PELVIS 1-2V, 12/27/2021, 9:04. CT, CT ANGIO CHEST PE PROTOCOL, 02/05/2020, 16:27. FINDINGS: Image quality: Excellent. CHEST: Lungs: No pulmonary contusions or lacerations. No acute airspace opacities. Minimal dependent atelectasis. No pneumothorax or hemothorax. Central and peripheral airways appear patent and normal in caliber. Mediastinum: No mediastinal hematomas. Heart size is normal. Moderate coronary artery calcifications. No pericardial effusion. Thoracic aorta and pulmonary arteries demonstrate normal size and enhancement. No mediastinal or hilar adenopathy. Esophagus is normal in caliber. No hiatal hernia. Elevation of the right hemidiaphragm, unchanged. Chest wall: No rib fractures. No subcutaneous emphysema. No axillary or supraclavicular adenopathy. Thyroid gland is unremarkable. ABDOMEN: Solid organs: Liver is normal in size and enhancement, without lacerations. A few punctate hypodensities which are likely benign cysts. Gallbladder is unremarkable. Biliary system is non-dilated. Pancreas enhances normally, without transection. Spleen is normal in size and enhancement, without lacerations. No adrenal hematomas. Both kidneys enhance normally, without hydronephrosis or lacerations. Peritoneum and bowel: No free fluid or air. Unenhanced bowel loops demonstrate normal wall thickness and caliber. Prominent stool in the colon. Normal appendix. Nodes and vessels: No retroperitoneal or mesenteric adenopathy. Aorta and inferior vena cava are normal in size and enhancement. Circumferential calcified atherosclerotic plaque. Miscellaneous: Tiny umbilical hernia PELVIS: Genitourinary: Bladder is decompressed with North catheter. Trabeculated appearance. Miscellaneous: No inguinal hernias or adenopathy. Bones: Pelvic ring and hip joints appear intact. Bilateral hip arthroplasties. Beam hardening artifact. Mild scoliosis. No vertebral compression fractures. Moderate to severe degenerative change in DDD. IMPRESSION: 1. No hemothorax. Minimal dependent atelectasis. 2. No traumatic injury identified. No free fluid. 3. Trabeculated appearance of the urinary bladder. 4. Diverticulosis. Dictated by: Hossein Jain M.D. on 12/27/2021 at 11:51 Approved by: Hossein Jain M.D. on 12/27/2021 at 12:06
--- NOTE | 2021-12-27 10:52 | DI.CT.S_ITS ---
PROCEDURE: CT CERVICAL SPINE WO CON INDICATIONS: fall, back pain Lumbar known stenosis, ? change cxr, head in TECHNIQUE: Noncontrast 3 mm thick sections acquired from the skull base to the T4 level. Sagittal and coronal reformats were then constructed. For radiation dose reduction, the following was used: automated exposure control, adjustment of mA and/or kV according to patient size. COMPARISON: None. FINDINGS: Image quality: Excellent. Bones: No fractures or dislocations. Degenerative endplate changes, loss of disc height and bilateral uncinate hypertrophic changes are noted throughout cervical spine more prominent at C5-6 and C6-7 levels. Dorsal disc osteophyte complex formation at C4-5 through C6-7 levels are noted causing [id number] central canal stenosis and bilateral neural foraminal narrowing. Visualized superior ribs are intact. Soft tissues: Prevertebral soft tissues are normal in thickness. No paravertebral hematomas. No apical pneumothoraces. IMPRESSION: 1. No acute cervical spine fracture or dislocation. 2. Degenerative disc disease throughout cervical spine as above. Dictated by: Joe Cantrell M.D. on 12/27/2021 at 11:30 Approved by: Joe Cantrell M.D. on 12/27/2021 at 11:36
--- NOTE | 2021-12-27 10:52 | DI.CT.S_ITS ---
PROCEDURE: CT HEAD/BRAIN WO CON INDICATIONS: fall, back pain Lumbar known stenosis, ? change cxr, head in TECHNIQUE: Noncontrast 4.5 mm thick angled axial sections acquired from the foramen magnum to the vertex, with coronal and sagittal reformats. For radiation dose reduction, the following was used: automated exposure control, adjustment of mA and/or kV according to patient size. COMPARISON: 11/11/2018 MRI brain FINDINGS: Image quality: Excellent. CSF spaces: Basal cisterns are patent. No extra-axial fluid collections. Ventricles are normal in size and shape. Brain: [id number]-zefxxnff global cerebral volume loss and chronic microvascular ischemic changes. No midline shift. No intracranial masses or hemorrhage. Zelaya-white matter interface is normal. Skull and face: Calvarium and visualized facial bones are intact, without suspicious lesions. Sinuses: Visualized sinuses and mastoids are predominantly clear. IMPRESSION: No acute intracranial finding. Dictated by: Florian Lewis M.D. on 12/27/2021 at 12:05 Approved by: Florian Lewis M.D. on 12/27/2021 at 12:05
[2021-12-27] MEDS: diazePAM 5 MG TABLET PO (12:58)
[2021-12-27] MEDS: DEXAMETHASONE 10 MG/ML VIAL IV (12:59)
[2021-12-27] MEDS: HYDROMORPHONE 0.5 MG INJ IV (12:59)
--- NOTE | 2021-12-27 13:53 | PC.NURSE ---
Standby for rectal exam. Patient tolerated fairly. Removed excess sheets and les move at time of exam
--- NOTE | 2021-12-27 14:06 | PC.NURSE ---
Patient oxygen level dips intermittently. Patient saturations come back up with verbal reminders to take deep breaths. Placed on 2L NC to help maintain sats above 91%
[2021-12-27 17:45] LABS: COVID19 -Nasal RAPID Negative (Negative)
--- NOTE | 2021-12-28 15:35 | PC.NURSE ---
I called [facility] and they sent me to the unit that this patient is on. I gave the unit nurse Lorne information about [facility] where the social science research assistant (Sharon) would be able to help secure a bed for them, as HV wanted to transfer patient here by direct admit. There are no available beds here and the patient needs SNF capacity. Sharon's number is [phone].
== END 2021-12-27 19:00 | disposition short-term general hospital (02) ==
PROVIDERS: Emergency Provider Emergency Medicine; Family Provider Family Medicine; PCP Family Medicine
DX: M48.02 Spinal stenosis, cervical region (principal); G83.4 Cauda equina syndrome; R33.8 Other retention of urine; M54.50 Low back pain, unspecified; R09.02 Hypoxemia; M54.2 Cervicalgia; W19.XXXA Unspecified fall, initial encounter; Z79.01 Long term (current) use of anticoagulants; Z20.822 Contact with and (suspected) exposure to COVID-19
CPT/HCPCS: 36415; 51798; 70450; 71045; 71260; 72100; 72125; 72170; 74177; 80053; 81003; 83690; 85025; 85610; 85730; 87635; 93005; 96374; 96375; 96376; 99285; 99291; C9803; G0390; J1100; J1170; Q9967

== ENCOUNTER 2022-01-03 15:53 | Emergency (ER) | payer MEDICARE, OTHER, SELFPAY ==
[2021-12-20 22:59] VITALS: BMI 36.4
[2022-01-03] VITALS (38 sets, daily range): BP systolic 88–140; BP diastolic 50–63; PULSE 88–109; RESP 18; TEMP 36.3; O2SAT 95–99
--- NOTE | 2022-01-03 17:29 | ED.SYNCOPE ---
HPI - Syncope <Doroteo Martin MD - Last Filed: 02/14/22 09:05> General Chief Complaint: Dizziness Stated Complaint: Dizzy, Fell over, BP was 60/37 HR was 128 Time Seen by Provider: 01/03/22 17:11 Source: patient Mode of arrival: Wheelchair Limitations: no limitations History of Present Illness HPI narrative: Mr. Borjas is a 76-year-old man with severe back pain. He was admitted to [facility] from December 27 through yesterday. No surgery was done. Family was told that the back abnormalities were non operative. Today [facility] was going [facility] to get a prescription for a reported urinary tract infection that was not included in her discharge medications. As he was walking into the clinic he fainted on the sidewalk and was not injured. They brought him into the clinic and found that his systolic pressure was 60 with a heart rate over 100. Staff at that clinic suggested that ER evaluation was more appropriate. At this point the patient says that he feels quite well. He is unaware of any dysuria. He has had a North catheter in place since the exacerbation of his back pain was more severe over these past few weeks. On the schedule for back surgery in early January with Dr. Viviana sorto here. He denies weakness. He denies fever, chills, nausea, vomiting, chest pain, shortness of breath, abdominal pain or constipation. Past medical history includes pulmonary embolism, spinal stenosis, cauda equina, hypertension, diabetes and sleep apnea. Related Data Home Medications Medication Instructions Recorded Confirmed multivitamin 1 tab PO DAILY ##0 09/18/12 01/30/22 metformin 500 mg tablet,extended 500 mg PO DAILY 04/11/18 01/30/22 release 24 hr Respironics Dreamstation BIPAP #1 ea 09/17/18 01/30/22 rivaroxaban 20 mg tablet (Xarelto) 20 mg PO DAILY 12/20/21 01/30/22 duloxetine 30 mg capsule,delayed 30 mg PO DAILY 01/25/22 01/30/22 release lisinopril 10 mg tablet 10 mg PO BEDTIME 01/25/22 01/30/22 Previous Rx's Medication Instructions Recorded docusate sodium 100 mg capsule 100 mg PO BID #20 caps 12/22/21 acetaminophen 325 mg tablet 650 mg PO Q6HR PRN Pain, Mild 02/02/22 (1-3) #60 tabs oxycodone 5 mg tablet 5 mg PO Q4H PRN pain #60 tabs 02/02/22 pregabalin 150 mg capsule 150 mg PO BID #60 caps 02/02/22 Allergies Allergy/AdvReac Type Severity Reaction Status Date / Time No Known Drug Allergies Allergy Verified 01/30/22 06:43 Review of Systems <Doroteo Martin MD - Last Filed: 02/14/22 09:05> Review of Systems Narrative: Complete review of systems is negative other than as noted above. Patient History <Doroteo Martin MD - Last Filed: 02/14/22 09:05> Medical History Anticoagulated Central sleep apnea COVID-19 virus infection (01/03/22) Diabetes DVT (deep venous thrombosis) GERD (gastroesophageal reflux disease) HTN (hypertension) Hx pulmonary embolism Hyperlipemia Laceration Obesity Obstructive sleep apnea of adult Pulmonary embolism Spinal stenosis Surgical History H/O Spinal surgery History of hip replacement History of tonsillectomy and adenoidectomy Family History Father Pancreatic cancer Social History marital status: details: [facility] household members: spouse lives independently: Yes caregiver/support person: No education level: college 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 HEAD: Atraumatic. Normocephalic. EYES: Sclera are clear without icterus. Extraocular movements are full. ENT: No rhinorrhea. Oropharynx is moist. Mouth exam is benign. NECK: Supple. Full range of motion. CARDIOVASCULAR: Normal rate and rhythm without murmur gallop or rub. RESPIRATORY: Clear to auscultation. Breath sounds equal bilaterally. No wheezes, rales, or rhonchi. GASTROINTESTINAL: Abdomen soft, non-tender, nondistended. EXTREMITIES: No edema, full range of motion. No obvious trauma. NEURO: Nonfocal examination, normal speech, normal dorsiflexion and plantar flexion strength SKIN: No rash or erythema of visible areas PSYCH: Normally oriented. Normal range of affect. Appropriate behavior Initial Vital Signs Initial Vital Signs: Vital Signs Temperature 97.3 F L 01/03/22 15:58 Pulse Rate 107 H 01/03/22 15:58 Respiratory Rate 18 01/03/22 15:58 Blood Pressure 104/58 L 01/03/22 15:58 Pulse Oximetry 95 01/03/22 15:58 Oxygen Delivery Method 01/03/22 15:58 <Darby Montoya MD - Last Filed: 01/03/22 23:23> Initial Vital Signs Initial Vital Signs: Vital Signs Temperature 97.3 F L 01/03/22 15:58 Pulse Rate 107 H 01/03/22 15:58 Respiratory Rate 18 01/03/22 15:58 Blood Pressure 104/58 L 01/03/22 15:58 Pulse Oximetry 95 01/03/22 15:58 Oxygen Delivery Method 01/03/22 15:58 Course <Doroteo Martin MD - Last Filed: 02/14/22 09:05> Orders Ordered: Discontinued Medications Amoxicillin/Clavulanate Potassium (Amoxicillin/Clav 875/125 Mg) 1 tab PO NOW ONE Stop: 01/03/22 23:16 Last Admin: 01/03/22 23:34 Dose: 1 tab Documented By: APOLINAR Duloxetine HCl (Duloxetine 30 Mg Capsule) 30 mg PO NOW ONE Stop: 01/03/22 23:16 Last Admin: 01/03/22 23:34 Dose: 30 mg Documented By: AMU Sodium Chloride (Normal Saline 0.9%) 1,000 mls @ 1,000 mls/hr IV BOLUS ONE Stop: 01/03/22 18:34 Last Infusion: 01/03/22 19:28 Dose: 0 mls/hr Documented By: Admin: 01/03/22 17:57 Dose: 1,000 mls/hr Documented By: MARIO Oxycodone/Acetaminophen (Oxycodone/Acetaminophen 5/325 Tablet) 1 tab PO NOW ONE Stop: 01/03/22 23:16 Last Admin: 01/03/22 23:34 Dose: 1 tab Documented By: APOLINAR Oxycodone/Acetaminophen (Oxycodone/Apap 5/325 Prepack) 1 bottle MISC SEEINSTR ONE Stop: 01/03/22 23:16 Last Admin: 01/03/22 23:34 Dose: 1 bottle Documented By: APOLINAR Vital Signs Vital signs: Vital Signs - 8 hr 01/03/22 15:58 01/03/22 18:43 01/03/22 17:19 Temperature 97.3 F L Pulse Rate 107 H Pulse Rate [Orthostatic Lying] 90 Pulse Rate [Orthostatic Sitting] 97 H Pulse Rate [Orthostatic Standing] 105 H Respiratory Rate 18 Blood Pressure 104/58 L Blood Pressure [Orthostatic Lying] 106/54 L Blood Pressure [Orthostatic Sitting] 105/57 L Blood Pressure [Orthostatic Standing] 100/50 L Pulse Oximetry 95 97 Oxygen Delivery Method Room Air 01/03/22 17:20 01/03/22 17:20 01/03/22 17:21 Temperature Pulse Rate 99 H Pulse Rate [Orthostatic Lying] Pulse Rate [Orthostatic Sitting] Pulse Rate [Orthostatic Standing] Respiratory Rate Blood Pressure 93/52 L 104/54 L Blood Pressure [Orthostatic Lying] Blood Pressure [Orthostatic Sitting] Blood Pressure [Orthostatic Standing] Pulse Oximetry 97 Oxygen Delivery Method 01/03/22 17:21 01/03/22 17:30 01/03/22 17:30 Temperature Pulse Rate 98 H 94 H Pulse Rate [Orthostatic Lying] Pulse Rate [Orthostatic Sitting] Pulse Rate [Orthostatic Standing] Respiratory Rate Blood Pressure 101/58 L Blood Pressure [Orthostatic Lying] Blood Pressure [Orthostatic Sitting] Blood Pressure [Orthostatic Standing] Pulse Oximetry 96 98 Oxygen Delivery Method 01/03/22 17:45 01/03/22 17:45 01/03/22 17:46 Temperature Pulse Rate 90 94 H Pulse Rate [Orthostatic Lying] Pulse Rate [Orthostatic Sitting] Pulse Rate [Orthostatic Standing] Respiratory Rate Blood Pressure 88/53 L Blood Pressure [Orthostatic Lying] Blood Pressure [Orthostatic Sitting] Blood Pressure [Orthostatic Standing] Pulse Oximetry 97 97 Oxygen Delivery Method 01/03/22 17:47 01/03/22 17:50 01/03/22 17:50 Temperature Pulse Rate 90 Pulse Rate [Orthostatic Lying] Pulse Rate [Orthostatic Sitting] Pulse Rate [Orthostatic Standing] Respiratory Rate Blood Pressure 91/60 108/58 L Blood Pressure [Orthostatic Lying] Blood Pressure [Orthostatic Sitting] Blood Pressure [Orthostatic Standing] Pulse Oximetry 97 Oxygen Delivery Method 01/03/22 18:00 01/03/22 18:00 01/03/22 18:15 Temperature Pulse Rate 90 91 H Pulse Rate [Orthostatic Lying] Pulse Rate [Orthostatic Sitting] Pulse Rate [Orthostatic Standing] Respiratory Rate Blood Pressure 107/61 Blood Pressure [Orthostatic Lying] Blood Pressure [Orthostatic Sitting] Blood Pressure [Orthostatic Standing] Pulse Oximetry 97 95 Oxygen Delivery Method 01/03/22 18:15 01/03/22 18:30 01/03/22 18:30 Temperature Pulse Rate 88 Pulse Rate [Orthostatic Lying] Pulse Rate [Orthostatic Sitting] Pulse Rate [Orthostatic Standing] Respiratory Rate Blood Pressure 116/60 126/58 L Blood Pressure [Orthostatic Lying] Blood Pressure [Orthostatic Sitting] Blood Pressure [Orthostatic Standing] Pulse Oximetry 95 Oxygen Delivery Method 01/03/22 18:39 01/03/22 18:39 01/03/22 18:40 Temperature Pulse Rate 96 H 97 H Pulse Rate [Orthostatic Lying] Pulse Rate [Orthostatic Sitting] Pulse Rate [Orthostatic Standing] Respiratory Rate Blood Pressure 106/54 L Blood Pressure [Orthostatic Lying] Blood Pressure [Orthostatic Sitting] Blood Pressure [Orthostatic Standing] Pulse Oximetry 98 98 Oxygen Delivery Method 01/03/22 18:40 01/03/22 18:41 01/03/22 18:41 Temperature Pulse Rate 106 H Pulse Rate [Orthostatic Lying] Pulse Rate [Orthostatic Sitting] Pulse Rate [Orthostatic Standing] Respiratory Rate Blood Pressure 105/57 L 100/50 L Blood Pressure [Orthostatic Lying] Blood Pressure [Orthostatic Sitting] Blood Pressure [Orthostatic Standing] Pulse Oximetry 99 Oxygen Delivery Method 01/03/22 18:45 01/03/22 18:45 01/03/22 19:00 Temperature Pulse Rate 91 H Pulse Rate [Orthostatic Lying] Pulse Rate [Orthostatic Sitting] Pulse Rate [Orthostatic Standing] Respiratory Rate Blood Pressure 122/59 L 122/58 L Blood Pressure [Orthostatic Lying] Blood Pressure [Orthostatic Sitting] Blood Pressure [Orthostatic Standing] Pulse Oximetry 99 Oxygen Delivery Method 01/03/22 19:00 01/03/22 19:15 01/03/22 19:15 Temperature Pulse Rate 91 H 93 H Pulse Rate [Orthostatic Lying] Pulse Rate [Orthostatic Sitting] Pulse Rate [Orthostatic Standing] Respiratory Rate Blood Pressure 125/58 L Blood Pressure [Orthostatic Lying] Blood Pressure [Orthostatic Sitting] Blood Pressure [Orthostatic Standing] Pulse Oximetry 95 95 Oxygen Delivery Method 01/03/22 19:30 01/03/22 19:30 01/03/22 19:45 Temperature Pulse Rate 90 90 Pulse Rate [Orthostatic Lying] Pulse Rate [Orthostatic Sitting] Pulse Rate [Orthostatic Standing] Respiratory Rate Blood Pressure 140/63 Blood Pressure [Orthostatic Lying] Blood Pressure [Orthostatic Sitting] Blood Pressure [Orthostatic Standing] Pulse Oximetry 96 97 Oxygen Delivery Method 01/03/22 19:45 01/03/22 20:00 01/03/22 20:00 Temperature Pulse Rate 94 H Pulse Rate [Orthostatic Lying] Pulse Rate [Orthostatic Sitting] Pulse Rate [Orthostatic Standing] Respiratory Rate Blood Pressure 132/56 L 119/58 L Blood Pressure [Orthostatic Lying] Blood Pressure [Orthostatic Sitting] Blood Pressure [Orthostatic Standing] Pulse Oximetry 97 Oxygen Delivery Method 01/03/22 20:15 01/03/22 20:15 01/03/22 20:30 Temperature Pulse Rate 94 H Pulse Rate [Orthostatic Lying] Pulse Rate [Orthostatic Sitting] Pulse Rate [Orthostatic Standing] Respiratory Rate Blood Pressure 122/58 L 106/52 L Blood Pressure [Orthostatic Lying] Blood Pressure [Orthostatic Sitting] Blood Pressure [Orthostatic Standing] Pulse Oximetry 98 Oxygen Delivery Method 01/03/22 20:30 01/03/22 20:45 01/03/22 20:45 Temperature Pulse Rate 95 H 92 H Pulse Rate [Orthostatic Lying] Pulse Rate [Orthostatic Sitting] Pulse Rate [Orthostatic Standing] Respiratory Rate Blood Pressure 96/51 L Blood Pressure [Orthostatic Lying] Blood Pressure [Orthostatic Sitting] Blood Pressure [Orthostatic Standing] Pulse Oximetry 98 98 Oxygen Delivery Method 01/03/22 21:00 01/03/22 21:00 01/03/22 21:15 Temperature Pulse Rate 90 93 H Pulse Rate [Orthostatic Lying] Pulse Rate [Orthostatic Sitting] Pulse Rate [Orthostatic Standing] Respiratory Rate Blood Pressure 118/55 L Blood Pressure [Orthostatic Lying] Blood Pressure [Orthostatic Sitting] Blood Pressure [Orthostatic Standing] Pulse Oximetry 99 98 Oxygen Delivery Method 01/03/22 21:15 01/03/22 21:30 01/03/22 21:30 Temperature Pulse Rate 97 H Pulse Rate [Orthostatic Lying] Pulse Rate [Orthostatic Sitting] Pulse Rate [Orthostatic Standing] Respiratory Rate Blood Pressure 123/57 L 121/56 L Blood Pressure [Orthostatic Lying] Blood Pressure [Orthostatic Sitting] Blood Pressure [Orthostatic Standing] Pulse Oximetry 98 Oxygen Delivery Method 01/03/22 21:45 01/03/22 21:45 01/03/22 22:00 Temperature Pulse Rate 97 H Pulse Rate [Orthostatic Lying] Pulse Rate [Orthostatic Sitting] Pulse Rate [Orthostatic Standing] Respiratory Rate Blood Pressure 98/56 L 105/58 L Blood Pressure [Orthostatic Lying] Blood Pressure [Orthostatic Sitting] Blood Pressure [Orthostatic Standing] Pulse Oximetry 98 Oxygen Delivery Method 01/03/22 22:00 01/03/22 22:07 01/03/22 22:07 Temperature Pulse Rate 95 H 91 H Pulse Rate [Orthostatic Lying] Pulse Rate [Orthostatic Sitting] Pulse Rate [Orthostatic Standing] Respiratory Rate Blood Pressure 111/58 L Blood Pressure [Orthostatic Lying] Blood Pressure [Orthostatic Sitting] Blood Pressure [Orthostatic Standing] Pulse Oximetry 98 98 Oxygen Delivery Method 01/03/22 22:09 01/03/22 22:09 01/03/22 22:15 Temperature Pulse Rate 109 H 95 H Pulse Rate [Orthostatic Lying] Pulse Rate [Orthostatic Sitting] Pulse Rate [Orthostatic Standing] Respiratory Rate Blood Pressure 95/52 L Blood Pressure [Orthostatic Lying] Blood Pressure [Orthostatic Sitting] Blood Pressure [Orthostatic Standing] Pulse Oximetry 98 98 Oxygen Delivery Method 01/03/22 22:15 Temperature Pulse Rate Pulse Rate [Orthostatic Lying] Pulse Rate [Orthostatic Sitting] Pulse Rate [Orthostatic Standing] Respiratory Rate Blood Pressure 113/59 L Blood Pressure [Orthostatic Lying] Blood Pressure [Orthostatic Sitting] Blood Pressure [Orthostatic Standing] Pulse Oximetry Oxygen Delivery Method <Darby Montoya MD - Last Filed: 01/03/22 23:23> Orders Ordered: Discontinued Medications Amoxicillin/Clavulanate Potassium (Amoxicillin/Clav 875/125 Mg) 1 tab PO NOW ONE Stop: 01/03/22 23:16 Last Admin: 01/03/22 23:34 Dose: 1 tab Documented By: APOLINAR Duloxetine HCl (Duloxetine 30 Mg Capsule) 30 mg PO NOW ONE Stop: 01/03/22 23:16 Last Admin: 01/03/22 23:34 Dose: 30 mg Documented By: APOLINAR Sodium Chloride (Normal Saline 0.9%) 1,000 mls @ 1,000 mls/hr IV BOLUS ONE Stop: 01/03/22 18:34 Last Infusion: 01/03/22 19:28 Dose: 0 mls/hr Documented By: Admin: 01/03/22 17:57 Dose: 1,000 mls/hr Documented By: MARIO Oxycodone/Acetaminophen (Oxycodone/Acetaminophen 5/325 Tablet) 1 tab PO NOW ONE Stop: 01/03/22 23:16 Last Admin: 01/03/22 23:34 Dose: 1 tab Documented By: APOLINAR Oxycodone/Acetaminophen (Oxycodone/Apap 5/325 Prepack) 1 bottle MISC SEEINSTR ONE Stop: 01/03/22 23:16 Last Admin: 01/03/22 23:34 Dose: 1 bottle Documented By: APOLINAR Vital Signs Vital signs: Vital Signs - 8 hr 01/03/22 15:58 01/03/22 18:43 01/03/22 17:19 Temperature 97.3 F L Pulse Rate 107 H Pulse Rate [Orthostatic Lying] 90 Pulse Rate [Orthostatic Sitting] 97 H Pulse Rate [Orthostatic Standing] 105 H Respiratory Rate 18 Blood Pressure 104/58 L Blood Pressure [Orthostatic Lying] 106/54 L Blood Pressure [Orthostatic Sitting] 105/57 L Blood Pressure [Orthostatic Standing] 100/50 L Pulse Oximetry 95 97 Oxygen Delivery Method Room Air 01/03/22 17:20 01/03/22 17:20 01/03/22 17:21 Temperature Pulse Rate 99 H Pulse Rate [Orthostatic Lying] Pulse Rate [Orthostatic Sitting] Pulse Rate [Orthostatic Standing] Respiratory Rate Blood Pressure 93/52 L 104/54 L Blood Pressure [Orthostatic Lying] Blood Pressure [Orthostatic Sitting] Blood Pressure [Orthostatic Standing] Pulse Oximetry 97 Oxygen Delivery Method 01/03/22 17:21 01/03/22 17:30 01/03/22 17:30 Temperature Pulse Rate 98 H 94 H Pulse Rate [Orthostatic Lying] Pulse Rate [Orthostatic Sitting] Pulse Rate [Orthostatic Standing] Respiratory Rate Blood Pressure 101/58 L Blood Pressure [Orthostatic Lying] Blood Pressure [Orthostatic Sitting] Blood Pressure [Orthostatic Standing] Pulse Oximetry 96 98 Oxygen Delivery Method 01/03/22 17:45 01/03/22 17:45 01/03/22 17:46 Temperature Pulse Rate 90 94 H Pulse Rate [Orthostatic Lying] Pulse Rate [Orthostatic Sitting] Pulse Rate [Orthostatic Standing] Respiratory Rate Blood Pressure 88/53 L Blood Pressure [Orthostatic Lying] Blood Pressure [Orthostatic Sitting] Blood Pressure [Orthostatic Standing] Pulse Oximetry 97 97 Oxygen Delivery Method 01/03/22 17:47 01/03/22 17:50 01/03/22 17:50 Temperature Pulse Rate 90 Pulse Rate [Orthostatic Lying] Pulse Rate [Orthostatic Sitting] Pulse Rate [Orthostatic Standing] Respiratory Rate Blood Pressure 91/60 108/58 L Blood Pressure [Orthostatic Lying] Blood Pressure [Orthostatic Sitting] Blood Pressure [Orthostatic Standing] Pulse Oximetry 97 Oxygen Delivery Method 01/03/22 18:00 01/03/22 18:00 01/03/22 18:15 Temperature Pulse Rate 90 91 H Pulse Rate [Orthostatic Lying] Pulse Rate [Orthostatic Sitting] Pulse Rate [Orthostatic Standing] Respiratory Rate Blood Pressure 107/61 Blood Pressure [Orthostatic Lying] Blood Pressure [Orthostatic Sitting] Blood Pressure [Orthostatic Standing] Pulse Oximetry 97 95 Oxygen Delivery Method 01/03/22 18:15 01/03/22 18:30 01/03/22 18:30 Temperature Pulse Rate 88 Pulse Rate [Orthostatic Lying] Pulse Rate [Orthostatic Sitting] Pulse Rate [Orthostatic Standing] Respiratory Rate Blood Pressure 116/60 126/58 L Blood Pressure [Orthostatic Lying] Blood Pressure [Orthostatic Sitting] Blood Pressure [Orthostatic Standing] Pulse Oximetry 95 Oxygen Delivery Method 01/03/22 18:39 01/03/22 18:39 01/03/22 18:40 Temperature Pulse Rate 96 H 97 H Pulse Rate [Orthostatic Lying] Pulse Rate [Orthostatic Sitting] Pulse Rate [Orthostatic Standing] Respiratory Rate Blood Pressure 106/54 L Blood Pressure [Orthostatic Lying] Blood Pressure [Orthostatic Sitting] Blood Pressure [Orthostatic Standing] Pulse Oximetry 98 98 Oxygen Delivery Method 01/03/22 18:40 01/03/22 18:41 01/03/22 18:41 Temperature Pulse Rate 106 H Pulse Rate [Orthostatic Lying] Pulse Rate [Orthostatic Sitting] Pulse Rate [Orthostatic Standing] Respiratory Rate Blood Pressure 105/57 L 100/50 L Blood Pressure [Orthostatic Lying] Blood Pressure [Orthostatic Sitting] Blood Pressure [Orthostatic Standing] Pulse Oximetry 99 Oxygen Delivery Method 01/03/22 18:45 01/03/22 18:45 01/03/22 19:00 Temperature Pulse Rate 91 H Pulse Rate [Orthostatic Lying] Pulse Rate [Orthostatic Sitting] Pulse Rate [Orthostatic Standing] Respiratory Rate Blood Pressure 122/59 L 122/58 L Blood Pressure [Orthostatic Lying] Blood Pressure [Orthostatic Sitting] Blood Pressure [Orthostatic Standing] Pulse Oximetry 99 Oxygen Delivery Method 01/03/22 19:00 01/03/22 19:15 01/03/22 19:15 Temperature Pulse Rate 91 H 93 H Pulse Rate [Orthostatic Lying] Pulse Rate [Orthostatic Sitting] Pulse Rate [Orthostatic Standing] Respiratory Rate Blood Pressure 125/58 L Blood Pressure [Orthostatic Lying] Blood Pressure [Orthostatic Sitting] Blood Pressure [Orthostatic Standing] Pulse Oximetry 95 95 Oxygen Delivery Method 01/03/22 19:30 01/03/22 19:30 01/03/22 19:45 Temperature Pulse Rate 90 90 Pulse Rate [Orthostatic Lying] Pulse Rate [Orthostatic Sitting] Pulse Rate [Orthostatic Standing] Respiratory Rate Blood Pressure 140/63 Blood Pressure [Orthostatic Lying] Blood Pressure [Orthostatic Sitting] Blood Pressure [Orthostatic Standing] Pulse Oximetry 96 97 Oxygen Delivery Method 01/03/22 19:45 01/03/22 20:00 01/03/22 20:00 Temperature Pulse Rate 94 H Pulse Rate [Orthostatic Lying] Pulse Rate [Orthostatic Sitting] Pulse Rate [Orthostatic Standing] Respiratory Rate Blood Pressure 132/56 L 119/58 L Blood Pressure [Orthostatic Lying] Blood Pressure [Orthostatic Sitting] Blood Pressure [Orthostatic Standing] Pulse Oximetry 97 Oxygen Delivery Method 01/03/22 20:15 01/03/22 20:15 01/03/22 20:30 Temperature Pulse Rate 94 H Pulse Rate [Orthostatic Lying] Pulse Rate [Orthostatic Sitting] Pulse Rate [Orthostatic Standing] Respiratory Rate Blood Pressure 122/58 L 106/52 L Blood Pressure [Orthostatic Lying] Blood Pressure [Orthostatic Sitting] Blood Pressure [Orthostatic Standing] Pulse Oximetry 98 Oxygen Delivery Method 01/03/22 20:30 01/03/22 20:45 01/03/22 20:45 Temperature Pulse Rate 95 H 92 H Pulse Rate [Orthostatic Lying] Pulse Rate [Orthostatic Sitting] Pulse Rate [Orthostatic Standing] Respiratory Rate Blood Pressure 96/51 L Blood Pressure [Orthostatic Lying] Blood Pressure [Orthostatic Sitting] Blood Pressure [Orthostatic Standing] Pulse Oximetry 98 98 Oxygen Delivery Method 01/03/22 21:00 01/03/22 21:00 01/03/22 21:15 Temperature Pulse Rate 90 93 H Pulse Rate [Orthostatic Lying] Pulse Rate [Orthostatic Sitting] Pulse Rate [Orthostatic Standing] Respiratory Rate Blood Pressure 118/55 L Blood Pressure [Orthostatic Lying] Blood Pressure [Orthostatic Sitting] Blood Pressure [Orthostatic Standing] Pulse Oximetry 99 98 Oxygen Delivery Method 01/03/22 21:15 01/03/22 21:30 01/03/22 21:30 Temperature Pulse Rate 97 H Pulse Rate [Orthostatic Lying] Pulse Rate [Orthostatic Sitting] Pulse Rate [Orthostatic Standing] Respiratory Rate Blood Pressure 123/57 L 121/56 L Blood Pressure [Orthostatic Lying] Blood Pressure [Orthostatic Sitting] Blood Pressure [Orthostatic Standing] Pulse Oximetry 98 Oxygen Delivery Method 01/03/22 21:45 01/03/22 21:45 01/03/22 22:00 Temperature Pulse Rate 97 H Pulse Rate [Orthostatic Lying] Pulse Rate [Orthostatic Sitting] Pulse Rate [Orthostatic Standing] Respiratory Rate Blood Pressure 98/56 L 105/58 L Blood Pressure [Orthostatic Lying] Blood Pressure [Orthostatic Sitting] Blood Pressure [Orthostatic Standing] Pulse Oximetry 98 Oxygen Delivery Method 01/03/22 22:00 01/03/22 22:07 01/03/22 22:07 Temperature Pulse Rate 95 H 91 H Pulse Rate [Orthostatic Lying] Pulse Rate [Orthostatic Sitting] Pulse Rate [Orthostatic Standing] Respiratory Rate Blood Pressure 111/58 L Blood Pressure [Orthostatic Lying] Blood Pressure [Orthostatic Sitting] Blood Pressure [Orthostatic Standing] Pulse Oximetry 98 98 Oxygen Delivery Method 01/03/22 22:09 01/03/22 22:09 01/03/22 22:15 Temperature Pulse Rate 109 H 95 H Pulse Rate [Orthostatic Lying] Pulse Rate [Orthostatic Sitting] Pulse Rate [Orthostatic Standing] Respiratory Rate Blood Pressure 95/52 L Blood Pressure [Orthostatic Lying] Blood Pressure [Orthostatic Sitting] Blood Pressure [Orthostatic Standing] Pulse Oximetry 98 98 Oxygen Delivery Method 01/03/22 22:15 Temperature Pulse Rate Pulse Rate [Orthostatic Lying] Pulse Rate [Orthostatic Sitting] Pulse Rate [Orthostatic Standing] Respiratory Rate Blood Pressure 113/59 L Blood Pressure [Orthostatic Lying] Blood Pressure [Orthostatic Sitting] Blood Pressure [Orthostatic Standing] Pulse Oximetry Oxygen Delivery Method MDM - Syncope <Doroteo Martin MD - Last Filed: 02/14/22 09:05> Lab Data Result diagrams: 01/03/22 16:31 01/03/22 16:31 Labs: Lab Results 01/03/22 01/03/22 01/03/22 Range/Units 16:31 16:31 16:31 WBC 10.4 (4.5-11.0) X10^3/uL RBC 4.45 L (4.5-5.9) X10^6/uL Hgb 13.7 (13.5-17.5) g/dL Hct 39.9 L (41-53) % MCV 89.6 (80-100) fL MCH 30.7 (26-34) PG MCHC 34.3 (30-36) % RDW 14.7 (11.6-14.8) % Plt Count 291 (150-400) X10^3/uL Neut % (Auto) 70.5 (50-75) % Lymph % (Auto) 11.1 L (25-40) % [place] % (Auto) 13.6 (3-14) % Eos % (Auto) 2.8 (2-4) % Baso % (Auto) 2.0 (0-2) % Neut # (Auto) 7300 H (3560-0679) /uL Lymph # (Auto) 1200 (3743-0698) /uL [place] # (Auto) 1400 H (0-900) /uL Eos # (Auto) 300 (0-450) /uL Baso # (Auto) 200 H (0-100) /uL PT 20.3 H (10.1-12.7) SECONDS INR 1.8 H (0.9-1.3) Sodium 136 L (137-145) mmol/L Potassium 4.2 (3.4-5.1) mmol/L Chloride 101 (98-107) mmol/L Carbon Dioxide 23 (22-32) mmol/L BUN 29 H (9-20) mg/dL Creatinine 2.36 H (0.66-1.25) mg/dL Estimated GFR 28 L (>60) mL/min BUN/Creatinine Ratio 12.3 (6-22) Glucose 95 (80-110) mg/dL Lactate (0.7-2.1) mmol/L Calcium 9.6 (8.4-10.2) mg/dL Total Bilirubin 0.5 (0.2-1.3) mg/dL AST 29 (17-59) IU/L ALT 27 (<50) IU/L Alkaline Phosphatase 65 (38-126) U/L Troponin I < 0.012 (0.01-0.034) ng/mL Total Protein 7.5 (6.3-8.2) g/dL Albumin 4.2 (3.5-5.0) g/dL Globulin 3.3 (1.7-4.1) g/dL Albumin/Globulin Ratio 1.3 (1.0-2.8) TSH (0.47-4.68) uIU/mL Urine Color Urine Appearance Urine pH (4.5-8.0) Ur Specific [place] (1.000-1.035) Urine Protein (Negative) Urine Glucose (UA) (Negative) g/dL Urine Ketones (NEGATIVE) Urine Occult Blood (Negative) Urine Nitrate (Negative) Urine Bilirubin (NEGATIVE) Ur Bilirubin Confirm (Negative) Urine Urobilinogen (0.2) E.U./dL Ur Leukocyte Esterase (NEGATIVE) Urine RBC (0-5/HPF) Urine WBC (0-5/HPF) Urine Bacteria (None) Hyaline Casts (None) Ur Culture Indicated? SARS-CoV-2 (PCR) (Negative) 01/03/22 01/03/22 01/03/22 Range/Units 16:31 16:31 17:26 WBC (4.5-11.0) X10^3/uL RBC (4.5-5.9) X10^6/uL Hgb (13.5-17.5) g/dL Hct (41-53) % MCV (80-100) fL MCH (26-34) PG MCHC (30-36) % RDW (11.6-14.8) % Plt Count (150-400) X10^3/uL Neut % (Auto) (50-75) % Lymph % (Auto) (25-40) % [place] % (Auto) (3-14) % Eos % (Auto) (2-4) % Baso % (Auto) (0-2) % Neut # (Auto) (4397-4720) /uL Lymph # (Auto) (6861-2449) /uL [place] # (Auto) (0-900) /uL Eos # (Auto) (0-450) /uL Baso # (Auto) (0-100) /uL PT (10.1-12.7) SECONDS INR (0.9-1.3) Sodium (137-145) mmol/L Potassium (3.4-5.1) mmol/L Chloride (98-107) mmol/L Carbon Dioxide (22-32) mmol/L BUN (9-20) mg/dL Creatinine (0.66-1.25) mg/dL Estimated GFR (>60) mL/min BUN/Creatinine Ratio (6-22) Glucose (80-110) mg/dL Lactate 2.6 H (0.7-2.1) mmol/L Calcium (8.4-10.2) mg/dL Total Bilirubin (0.2-1.3) mg/dL AST (17-59) IU/L ALT (<50) IU/L Alkaline Phosphatase (38-126) U/L Troponin I (0.01-0.034) ng/mL Total Protein (6.3-8.2) g/dL Albumin (3.5-5.0) g/dL Globulin (1.7-4.1) g/dL Albumin/Globulin Ratio (1.0-2.8) TSH 0.884 (0.47-4.68) uIU/mL Urine Color Yellow Urine Appearance Cloudy Urine pH 5.0 (4.5-8.0) Ur Specific [place] 1.015 (1.000-1.035) Urine Protein 2+ H (Negative) Urine Glucose (UA) Trace H (Negative) g/dL Urine Ketones 1+ H (NEGATIVE) Urine Occult Blood 3+ H (Negative) Urine Nitrate Negative (Negative) Urine Bilirubin 1+ H (NEGATIVE) Ur Bilirubin Confirm Negative (Negative) Urine Urobilinogen 0.2 (0.2) E.U./dL Ur Leukocyte Esterase Trace H (NEGATIVE) Urine RBC >100/hpf H (0-5/HPF) Urine WBC 1-5/hpf (0-5/HPF) Urine Bacteria None seen (None) Hyaline Casts 0-1/lpf (None) Ur Culture Indicated? Cult not indicated SARS-CoV-2 (PCR) (Negative) 01/03/22 01/03/22 Range/Units 19:20 20:05 WBC (4.5-11.0) X10^3/uL RBC (4.5-5.9) X10^6/uL Hgb (13.5-17.5) g/dL Hct (41-53) % MCV (80-100) fL MCH (26-34) PG MCHC (30-36) % RDW (11.6-14.8) % Plt Count (150-400) X10^3/uL Neut % (Auto) (50-75) % Lymph % (Auto) (25-40) % [place] % (Auto) (3-14) % Eos % (Auto) (2-4) % Baso % (Auto) (0-2) % Neut # (Auto) (5624-5609) /uL Lymph # (Auto) (6181-2303) /uL [place] # (Auto) (0-900) /uL Eos # (Auto) (0-450) /uL Baso # (Auto) (0-100) /uL PT (10.1-12.7) SECONDS INR (0.9-1.3) Sodium (137-145) mmol/L Potassium (3.4-5.1) mmol/L Chloride (98-107) mmol/L Carbon Dioxide (22-32) mmol/L BUN (9-20) mg/dL Creatinine (0.66-1.25) mg/dL Estimated GFR (>60) mL/min BUN/Creatinine Ratio (6-22) Glucose (80-110) mg/dL Lactate 0.8 (0.7-2.1) mmol/L Calcium (8.4-10.2) mg/dL Total Bilirubin (0.2-1.3) mg/dL AST (17-59) IU/L ALT (<50) IU/L Alkaline Phosphatase (38-126) U/L Troponin I (0.01-0.034) ng/mL Total Protein (6.3-8.2) g/dL Albumin (3.5-5.0) g/dL Globulin (1.7-4.1) g/dL Albumin/Globulin Ratio (1.0-2.8) TSH (0.47-4.68) uIU/mL Urine Color Urine Appearance Urine pH (4.5-8.0) Ur Specific [place] (1.000-1.035) Urine Protein (Negative) Urine Glucose (UA) (Negative) g/dL Urine Ketones (NEGATIVE) Urine Occult Blood (Negative) Urine Nitrate (Negative) Urine Bilirubin (NEGATIVE) Ur Bilirubin Confirm (Negative) Urine Urobilinogen (0.2) E.U./dL Ur Leukocyte Esterase (NEGATIVE) Urine RBC (0-5/HPF) Urine WBC (0-5/HPF) Urine Bacteria (None) Hyaline Casts (None) Ur Culture Indicated? SARS-CoV-2 (PCR) Positive H (Negative) <Darby Montoya MD - Last Filed: 01/03/22 23:23> Lab Data Labs: Lab Results 01/03/22 01/03/22 01/03/22 Range/Units 16:31 16:31 16:31 WBC 10.4 (4.5-11.0) X10^3/uL RBC 4.45 L (4.5-5.9) X10^6/uL Hgb 13.7 (13.5-17.5) g/dL Hct 39.9 L (41-53) % MCV 89.6 (80-100) fL MCH 30.7 (26-34) PG MCHC 34.3 (30-36) % RDW 14.7 (11.6-14.8) % Plt Count 291 (150-400) X10^3/uL Neut % (Auto) 70.5 (50-75) % Lymph % (Auto) 11.1 L (25-40) % [place] % (Auto) 13.6 (3-14) % Eos % (Auto) 2.8 (2-4) % Baso % (Auto) 2.0 (0-2) % Neut # (Auto) 7300 H (8966-2166) /uL Lymph # (Auto) 1200 (8456-9897) /uL [place] # (Auto) 1400 H (0-900) /uL Eos # (Auto) 300 (0-450) /uL Baso # (Auto) 200 H (0-100) /uL PT 20.3 H (10.1-12.7) SECONDS INR 1.8 H (0.9-1.3) Sodium 136 L (137-145) mmol/L Potassium 4.2 (3.4-5.1) mmol/L Chloride 101 (98-107) mmol/L Carbon Dioxide 23 (22-32) mmol/L BUN 29 H (9-20) mg/dL Creatinine 2.36 H (0.66-1.25) mg/dL Estimated GFR 28 L (>60) mL/min BUN/Creatinine Ratio 12.3 (6-22) Glucose 95 (80-110) mg/dL Lactate (0.7-2.1) mmol/L Calcium 9.6 (8.4-10.2) mg/dL Total Bilirubin 0.5 (0.2-1.3) mg/dL AST 29 (17-59) IU/L ALT 27 (<50) IU/L Alkaline Phosphatase 65 (38-126) U/L Troponin I < 0.012 (0.01-0.034) ng/mL Total Protein 7.5 (6.3-8.2) g/dL Albumin 4.2 (3.5-5.0) g/dL Globulin 3.3 (1.7-4.1) g/dL Albumin/Globulin Ratio 1.3 (1.0-2.8) TSH (0.47-4.68) uIU/mL Urine Color Urine Appearance Urine pH (4.5-8.0) Ur Specific [place] (1.000-1.035) Urine Protein (Negative) Urine Glucose (UA) (Negative) g/dL Urine Ketones (NEGATIVE) Urine Occult Blood (Negative) Urine Nitrate (Negative) Urine Bilirubin (NEGATIVE) Ur Bilirubin Confirm (Negative) Urine Urobilinogen (0.2) E.U./dL Ur Leukocyte Esterase (NEGATIVE) Urine RBC (0-5/HPF) Urine WBC (0-5/HPF) Urine Bacteria (None) Hyaline Casts (None) Ur Culture Indicated? SARS-CoV-2 (PCR) (Negative) 01/03/22 01/03/22 01/03/22 Range/Units 16:31 16:31 17:26 WBC (4.5-11.0) X10^3/uL RBC (4.5-5.9) X10^6/uL Hgb (13.5-17.5) g/dL Hct (41-53) % MCV (80-100) fL MCH (26-34) PG MCHC (30-36) % RDW (11.6-14.8) % Plt Count (150-400) X10^3/uL Neut % (Auto) (50-75) % Lymph % (Auto) (25-40) % [place] % (Auto) (3-14) % Eos % (Auto) (2-4) % Baso % (Auto) (0-2) % Neut # (Auto) (9104-7344) /uL Lymph # (Auto) (9529-0175) /uL [place] # (Auto) (0-900) /uL Eos # (Auto) (0-450) /uL Baso # (Auto) (0-100) /uL PT (10.1-12.7) SECONDS INR (0.9-1.3) Sodium (137-145) mmol/L Potassium (3.4-5.1) mmol/L Chloride (98-107) mmol/L Carbon Dioxide (22-32) mmol/L BUN (9-20) mg/dL Creatinine (0.66-1.25) mg/dL Estimated GFR (>60) mL/min BUN/Creatinine Ratio (6-22) Glucose (80-110) mg/dL Lactate 2.6 H (0.7-2.1) mmol/L Calcium (8.4-10.2) mg/dL Total Bilirubin (0.2-1.3) mg/dL AST (17-59) IU/L ALT (<50) IU/L Alkaline Phosphatase (38-126) U/L Troponin I (0.01-0.034) ng/mL Total Protein (6.3-8.2) g/dL Albumin (3.5-5.0) g/dL Globulin (1.7-4.1) g/dL Albumin/Globulin Ratio (1.0-2.8) TSH 0.884 (0.47-4.68) uIU/mL Urine Color Yellow Urine Appearance Cloudy Urine pH 5.0 (4.5-8.0) Ur Specific [place] 1.015 (1.000-1.035) Urine Protein 2+ H (Negative) Urine Glucose (UA) Trace H (Negative) g/dL Urine Ketones 1+ H (NEGATIVE) Urine Occult Blood 3+ H (Negative) Urine Nitrate Negative (Negative) Urine Bilirubin 1+ H (NEGATIVE) Ur Bilirubin Confirm Negative (Negative) Urine Urobilinogen 0.2 (0.2) E.U./dL Ur Leukocyte Esterase Trace H (NEGATIVE) Urine RBC >100/hpf H (0-5/HPF) Urine WBC 1-5/hpf (0-5/HPF) Urine Bacteria None seen (None) Hyaline Casts 0-1/lpf (None) Ur Culture Indicated? Cult not indicated SARS-CoV-2 (PCR) (Negative) 01/03/22 01/03/22 Range/Units 19:20 20:05 WBC (4.5-11.0) X10^3/uL RBC (4.5-5.9) X10^6/uL Hgb (13.5-17.5) g/dL Hct (41-53) % MCV (80-100) fL MCH (26-34) PG MCHC (30-36) % RDW (11.6-14.8) % Plt Count (150-400) X10^3/uL Neut % (Auto) (50-75) % Lymph % (Auto) (25-40) % [place] % (Auto) (3-14) % Eos % (Auto) (2-4) % Baso % (Auto) (0-2) % Neut # (Auto) (9773-7240) /uL Lymph # (Auto) (9906-1222) /uL [place] # (Auto) (0-900) /uL Eos # (Auto) (0-450) /uL Baso # (Auto) (0-100) /uL PT (10.1-12.7) SECONDS INR (0.9-1.3) Sodium (137-145) mmol/L Potassium (3.4-5.1) mmol/L Chloride (98-107) mmol/L Carbon Dioxide (22-32) mmol/L BUN (9-20) mg/dL Creatinine (0.66-1.25) mg/dL Estimated GFR (>60) mL/min BUN/Creatinine Ratio (6-22) Glucose (80-110) mg/dL Lactate 0.8 (0.7-2.1) mmol/L Calcium (8.4-10.2) mg/dL Total Bilirubin (0.2-1.3) mg/dL AST (17-59) IU/L ALT (<50) IU/L Alkaline Phosphatase (38-126) U/L Troponin I (0.01-0.034) ng/mL Total Protein (6.3-8.2) g/dL Albumin (3.5-5.0) g/dL Globulin (1.7-4.1) g/dL Albumin/Globulin Ratio (1.0-2.8) TSH (0.47-4.68) uIU/mL Urine Color Urine Appearance Urine pH (4.5-8.0) Ur Specific [place] (1.000-1.035) Urine Protein (Negative) Urine Glucose (UA) (Negative) g/dL Urine Ketones (NEGATIVE) Urine Occult Blood (Negative) Urine Nitrate (Negative) Urine Bilirubin (NEGATIVE) Ur Bilirubin Confirm (Negative) Urine Urobilinogen (0.2) E.U./dL Ur Leukocyte Esterase (NEGATIVE) Urine RBC (0-5/HPF) Urine WBC (0-5/HPF) Urine Bacteria (None) Hyaline Casts (None) Ur Culture Indicated? SARS-CoV-2 (PCR) Positive H (Negative) MDM Narrative Medical decision making narrative: 76-year-old gentleman initially seen by Dr. Mitchell, care is assumed, independent exam is done records reviewed. Records are now available from [facility]. Was admitted on 12/28 with concerns for cauda equina syndrome with no evidence of cauda equina syndrome eventually determined. He did have acute urinary retention had a North catheter placed removed replaced and currently has a catheter in. He was discharged home from the hospital yesterday and was instructed to complete a 10 day outpatient course of Augmentin for presumed urinary tract infection. 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 With the hypotension appreciated he was instructed to come to the emergency department. He is incidentally found to be COVID positive in the emergency department and he is minimally symptomatic with that. Oxygen saturations are 98% on room air. He was given a L of fluid, has like wayne urine being produced through his North catheter. 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 I believe he simply had an orthostatic hypotensive episode in this is not evidence of sepsis. I do not think the orthostasis with secondary to COVID, I think he is truly asymptomatic with this at this time. He is given his usual medications for the evening including Augmentin, duloxetine pain medications and a couple of pain pills to take home. He will be staying in [facility] and will not be getting back to his going with [facility] until tomorrow morning. All this is reviewed with patient and he is safe for home discharge His primary care doctor would not fill his Augmentin prescription that was overlooked with his discharge from [facility]. After reviewing the notes from her review I will fill 10 days of Augmentin for the patient. Discharge Plan Departure Patient Disposition: Home Clinical Impression: Orthostasis, Urinary (tract) obstruction, Urinary tract infection, COVID, Chronic back pain Instructions: Orthostatic Hypotension Activity Restrictions/Additional Instructions: Thank you for coming in today I am sorry that you have had to experience all of the difficulties with our current medical system. I believe that the episode that you had today was mild dehydration. You are given a L of fluid in the emergency department. I did not find any evidence of sepsis. You do need to continue your Augmentin and I will give you a prescription to fill. [facility] You were incidentally noted to be positive for COVID today. I do not believe that you are symptomatic and I do not believe that the episode of low blood pressure was related to COVID for you today. As you have been vaccinated and boosted I do not think that there is significant benefit to any of the additional antiviral medications at this time Please continue the medications as recommended from [facility] with your discharge yesterday I hope you continue to heal well Prescriptions: No Action multivitamin Tablet 1 tab PO DAILY Qty: 0 lisinopril 10 mg Tablet 10 mg PO BEDTIME duloxetine 30 mg Capsule,Delayed Release(Dr/Ec) 30 mg PO DAILY acetaminophen 325 mg Tablet 650 mg PO Q6HR PRN (Reason: Pain, Mild (1-3)) Qty: 60 0RF oxycodone 5 mg tablet 5 mg PO Q4H PRN (Reason: pain) Qty: 60 0RF pregabalin 150 mg Capsule 150 mg PO BID Qty: 60 0RF metformin 500 mg tablet extended release 24 hr 500 mg PO DAILY Rx Instructions: PT TAKES ONE TAB ONE TIME DAILY Xarelto 20 mg tablet 20 mg PO DAILY docusate sodium 100 mg Capsule 100 mg PO BID Qty: 20 0RF (DME) [employer] BIPAP Qty: 1 Dose Instruction: As directed Label Comments: Pressure: IPAP 21 EPAP 17 DME: [facility] Rx Instructions: As directed Referrals: Arielle Claros DO [Primary Care Provider] - Visit Report Forms: Patient Portal/API
--- NOTE | 2022-01-03 17:37 | DI.RAD.S_ITS ---
PROCEDURE: XR CHEST 1V INDICATIONS: Palpitations TECHNIQUE: One view of the chest was acquired. COMPARISON: [facility], CR, XR CHEST 1V, 12/27/2021, 9:04. FINDINGS: Surgical changes and devices: None. Lungs and pleura: Lungs are clear. No pleural effusions or pneumothorax. Mediastinum: Mediastinal contours appear normal. Heart size is normal. Bones and chest wall: No suspicious bony lesions. Overlying soft tissues appear unremarkable. IMPRESSION: No acute process. Dictated by: Nilsa Mireles M.D. on 01/03/2022 at 18:12 Approved by: Nilsa Mireles M.D. on 01/03/2022 at 18:12
[2022-01-03 17:44] LABS: INR 1.8 (0.9-1.3); Prothrombin Time 20.3 SECONDS (10.1-12.7)
[2022-01-03 17:48] LABS: Lactate (Lactic Acid) 2.6 mmol/L (0.7-2.1)
[2022-01-03 17:49] LABS: Alanine Aminotransferase 27 IU/L (<50); Albumin 4.2 g/dL (3.5-5.0); Albumin Globulin Ratio 1.3 (1.0-2.8); Alkaline Phosphatase 65 U/L (38-126); Aspartate Aminotransferase 29 IU/L (17-59); BUN Creatinine Ratio 12.3 (6-22); Bilirubin Total 0.5 mg/dL (0.2-1.3); Blood Urea Nitrogen 29 mg/dL (9-20); Calcium 9.6 mg/dL (8.4-10.2); Carbon Dioxide 23 mmol/L (22-32); Chloride 101 mmol/L (98-107); Estimated Glomerular Filt Rate 28 mL/min (>60); Globulin 3.3 g/dL (1.7-4.1); Glucose 95 mg/dL (80-110); HEMOLYSIS 21 (0-50); Potassium 4.2 mmol/L (3.4-5.1); Sodium 136 mmol/L (137-145); Total Protein 7.5 g/dL (6.3-8.2)
[2022-01-03 17:57] LABS: Add Manual Diff / Slide Review NO; Basophils Absolute Auto 200 /uL (0-100); Eosinophils Absolute Auto 300 /uL (0-450); Eosinophils Percent Auto 2.8 % (2-4); Hematocrit 39.9 % (41-53); Hemoglobin 13.7 g/dL (13.5-17.5); Lymphocytes Absolute Auto 1200 /uL (1100-4500); Lymphocytes Percent Auto 11.1 % (25-40); Mean Corpuscular HGB Conc 34.3 % (30-36); Mean Corpuscular Hemoglobin 30.7 PG (26-34); Mean Corpuscular Volume 89.6 fL (80-100); Monocytes Absolute Auto 1400 /uL (0-900); Monocytes Percent Auto 13.6 % (3-14); Neutrophils Absolute Auto 7300 /uL (1500-7000); Neutrophils Percent Auto 70.5 % (50-75); Platelet Count 291 X10^3/uL (150-400); Red Blood Cell Count 4.45 X10^6/uL (4.5-5.9); Red Cell Distribution Width 14.7 % (11.6-14.8); White Blood Cell Count 10.4 X10^3/uL (4.5-11.0)
[2022-01-03] MEDS: SODIUM CHLORIDE 0.9% 1,000 ML 1000 ML IV (17:57)
[2022-01-03 18:01] LABS: Troponin I < 0.012 ng/mL (0.01-0.034)
[2022-01-03 18:19] LABS: Thyroid Stimulating Hormone 0.884 uIU/mL (0.47-4.68)
[2022-01-03 19:40] LABS: Reflexed Lactate in 2 Hours Y
[2022-01-03 19:57] LABS: COVID19 -Nasal RAPID POSITIVE (Negative)
[2022-01-03 20:19] LABS: Appearance Urine UA CLOUDY; Bilirubin Urine UA 1+ (NEGATIVE); Color Urine UA YELLOW; Glucose Urine UA TRACE g/dL (Negative); Ketones Urine UA 1+ (NEGATIVE); Leukocyte Esterase Urine UA TRACE (NEGATIVE); Nitrite Urine UA NEGATIVE (Negative); Occult Blood Urine UA 3+ (Negative); Protein Urine UA 2+ (Negative); Specific Gravity Urine UA 1.015 (1.000-1.035); Urobilinogen Urine UA 0.2 E.U./dL (0.2)
[2022-01-03 20:29] LABS: Ictotest Urine Negative (Negative)
[2022-01-03 20:31] LABS: Bacteria Urine None Seen; Culture Indicated Urine Cult Not Indicated; Hyaline Casts Urine 0-1/LPF; RBC Urine >100/HPF (0-5/HPF); WBC Urine 1-5/HPF (0-5/HPF)
[2022-01-03 20:32] LABS: Lactate 2HR (Lactic Acid Rflx) 0.8 mmol/L (0.7-2.1)
[2022-01-03] MEDS: OXYCODONE/ACETAMINOPHEN 5/325 TABLET 1 TAB PO (23:34)
[2022-01-03] MEDS: DULOXETINE 30 MG CAPSULE PO (23:34)
[2022-01-03] MEDS: OXYCODONE/APAP 5/325 PREPACK 1 BOTTLE MISC (23:34)
[2022-01-03] MEDS: AMOXICILLIN/CLAV 875/125 MG 1 TAB PO (23:34)
== END 2022-01-03 23:56 | disposition home or self-care (01) ==
PROVIDERS: Family Medicine Addiction Medicine; Emergency Provider Emergency Medicine; Family Provider Family Medicine; PCP Family Medicine
DX: I95.1 Orthostatic hypotension (principal); N13.9 Obstructive and reflux uropathy, unspecified; U07.1 COVID-19; N30.01 Acute cystitis with hematuria; M54.9 Dorsalgia, unspecified
CPT/HCPCS: 36415; 71045; 80053; 81001; 83605; 84443; 84484; 85025; 85610; 87635; 96360; 96361; 99284; C9803

== ENCOUNTER → 2022-01-12 10:10 | Outpatient (CLI) | payer MEDICARE, OTHER, SELFPAY ==
[2021-12-20 22:59] VITALS: BMI 36.4
--- NOTE | 2022-01-12 | DI.CT.S_ITS ---
PROCEDURE: CT LUMBAR SPINE WO CON INDICATIONS: SPINAL STENOSIS OF LUMBAR REGION TECHNIQUE: Noncontrast 0.8 mm thick sections acquired from the T12 level to the sacrum. Sagittal and coronal reformats were constructed. For radiation dose reduction, the following was used: automated exposure control. COMPARISON: [facility], MR, MR LUMBAR SPINE WO CON, 12/20/2021, 14:34. [facility], MR, MR LUMBAR SPINE WO CON, 11/17/2021, 7:57. [facility], MR, MR LUMBAR SPINE WO CON, 06/13/2019, 12:33. [facility], CT, CT CHEST ABD PEL W CON, 12/27/2021, 11:05. FINDINGS: Image quality: Excellent. Bones: No acute vertebral body compression fractures. No suspicious lytic or blastic bony lesions. No pars defects. S-shaped scoliotic curvature is seen. T12-L1: Bridging endplate osteophytes are seen on the right and on the left. No significant neural foraminal or central canal narrowing can be seen. L1-L2: Moderate to severe loss of disc height is seen on the right side. Endplate irregularity and sclerosis can be seen. Posteriorly projected endplate osteophytes are seen. At least moderate disc bulge is seen, which is eccentric to the right. Mild facet joint hypertrophy is seen. There is moderate to severe left-sided and at least moderate right-sided neural foraminal narrowing. Moderate central canal narrowing is seen. L2-L3: Moderate to severe loss of disc height and disc signal can be seen. Vacuum disc phenomenon is seen at this level. Endplate irregularity and sclerosis are seen. Posteriorly projected endplate osteophytes are seen. At least moderate disc bulge is seen, which is eccentric to the right side. Partially bridging endplate osteophytes are seen on the right. There is moderate to severe left-sided and at least moderate right-sided neural foraminal narrowing. At least moderate central canal narrowing is seen. L3-L4: At least moderate loss of disc height is seen. Vacuum disc phenomenon is seen at this level. Vacuum disc phenomenon is also seen posterior to the disc level itself, as on series 4, image 50 and on series 6, image 35. At least moderate left-sided and moderate right-sided neural foraminal narrowing can be seen. There is at least moderate right-sided and moderate to severe left-sided neural foraminal narrowing seen. Severe central canal narrowing is seen at this level. L4-L5: At least moderate loss of disc height can be seen on the left side. Vacuum disc phenomenon is seen at this level. Posteriorly projected endplate osteophytes are seen. At least moderate disc bulge is seen at this level. There is at least moderate bilateral neural foraminal narrowing seen at this level. Moderate to severe central canal narrowing is seen. L5-S1: Moderate to severe loss of disc height is seen. Vacuum disc phenomenon is seen at this level. At least moderate disc bulge is seen, which is eccentric to the right. Prominent facet hypertrophy is seen, right worse than left. Moderate to severe bilateral neural foraminal narrowing can be seen, right worse than left. At least moderate central canal narrowing is seen. Soft tissues: No retroperitoneal masses or hematomas. Visualized aorta is normal in caliber. Atherosclerotic calcification is noted. IMPRESSION: Multiple levels of prominent degenerative change are seen, which are worst inferiorly. Dictated by: Krzysztof Salgado M.D. on 01/12/2022 at 11:51 Approved by: Krzysztof Salgado M.D. on 01/12/2022 at 12:00
== END ==
PROVIDERS: Family Provider Family Medicine; PCP Family Medicine; Referring Provider Orthopaedic Surgery Orthopaedic Surgery of the Spine; Visit Provider Orthopaedic Surgery Orthopaedic Surgery of the Spine
DX: M48.061 Spinal stenosis, lumbar region without neurogenic claudication (principal)
CPT/HCPCS: 72131

== ENCOUNTER → 2022-01-13 14:04 | Outpatient (CLI) | payer MEDICARE, OTHER, SELFPAY ==
[2021-12-20 22:59] VITALS: BMI 36.4
[2022-01-13 14:43] LABS: Add Manual Diff / Slide Review NO; Basophils Absolute Auto 100 /uL (0-100); Basophils Percent Auto 1.3 % (0-2); Eosinophils Absolute Auto 700 /uL (0-450); Eosinophils Percent Auto 9.7 % (2-4); Hematocrit 37.2 % (41-53); Hemoglobin 12.7 g/dL (13.5-17.5); Lymphocytes Absolute Auto 2100 /uL (1100-4500); Lymphocytes Percent Auto 27.6 % (25-40); Mean Corpuscular HGB Conc 34.2 % (30-36); Mean Corpuscular Hemoglobin 30.7 PG (26-34); Mean Corpuscular Volume 89.7 fL (80-100); Monocytes Absolute Auto 600 /uL (0-900); Monocytes Percent Auto 7.9 % (3-14); Neutrophils Absolute Auto 4100 /uL (1500-7000); Neutrophils Percent Auto 53.5 % (50-75); Platelet Count 217 X10^3/uL (150-400); Red Blood Cell Count 4.15 X10^6/uL (4.5-5.9); Red Cell Distribution Width 15.6 % (11.6-14.8); White Blood Cell Count 7.7 X10^3/uL (4.5-11.0)
[2022-01-13 14:51] LABS: Hemoglobin A1C% w Est Avg Glu 6.2 % (4.0-6.0)
[2022-01-13 14:58] LABS: BUN Creatinine Ratio 15.2 (6-22); Blood Urea Nitrogen 16 mg/dL (9-20); Calcium 9.3 mg/dL (8.4-10.2); Carbon Dioxide 25 mmol/L (22-32); Chloride 107 mmol/L (98-107); Estimated Glomerular Filt Rate > 60 mL/min (>60); Glucose 78 mg/dL (80-110); HEMOLYSIS < 15 (0-50); Potassium 3.9 mmol/L (3.4-5.1); Sodium 141 mmol/L (137-145)
== END ==
PROVIDERS: Family Provider Family Medicine; Referring Provider Orthopaedic Surgery Orthopaedic Surgery of the Spine; Visit Provider Orthopaedic Surgery Orthopaedic Surgery of the Spine
DX: Z01.818 Encounter for other preprocedural examination (principal); R73.9 Hyperglycemia, unspecified; R33.9 Retention of urine, unspecified; Z01.812 Encounter for preprocedural laboratory examination
CPT/HCPCS: 36415; 80048; 83036; 84153; 85025; 93005

== ENCOUNTER → 2022-01-27 10:19 | Outpatient (CLI) | payer MEDICARE, OTHER, SELFPAY ==
[2021-12-20 22:59] VITALS: BMI 36.4
[2022-01-27 10:51] LABS: COVID19 -Nasal RAPID Negative (Negative)
== END ==
PROVIDERS: Family Provider Family Medicine; Referring Provider Orthopaedic Surgery Orthopaedic Surgery of the Spine; Visit Provider Orthopaedic Surgery Orthopaedic Surgery of the Spine
DX: Z20.822 Contact with and (suspected) exposure to COVID-19 (principal)
CPT/HCPCS: 87635; C9803

== ENCOUNTER 2022-01-30 06:24 | Inpatient (IN) | payer MEDICARE, OTHER, SELFPAY ==
[2021-12-20 22:59] VITALS: BMI 36.4
[2022-01-25 09:34] VITALS: BMI 34.1
[2022-01-30] VITALS (18 sets, daily range): BP systolic 123–174; BP diastolic 66–97; PULSE 79–106; RESP 11–22; TEMP 35.8–37.1; O2SAT 91–98; BMI 34.1
[2022-01-30] MEDS: ACETAMINOPHEN 325 MG TABLET 975 MG PO (07:22)
[2022-01-30] MEDS: LACTATED RINGERS 1,000 ML 42 ML IV ×2 (07:31→10:11)
[2022-01-30 07:34] LABS: BUN Creatinine Ratio 17.1 (6-22); Blood Urea Nitrogen 18 mg/dL (9-20); Calcium 9.4 mg/dL (8.4-10.2); Carbon Dioxide 22 mmol/L (22-32); Chloride 109 mmol/L (98-107); Estimated Glomerular Filt Rate > 60 mL/min (>60); Glucose 118 mg/dL (80-110); HEMOLYSIS < 15 (0-50); Potassium 3.7 mmol/L (3.4-5.1); Sodium 140 mmol/L (137-145)
--- NOTE | 2022-01-30 07:43 | PM.PREOP ---
Pre-operative Note COVID-19 COVID-19 status: Negative Result date/Date tested (Pos, Neg/Pending): 01/30/22 Criteria for continued procedure: Expected advancement of disease process, Possibility delay results in more complex future surgery or treatment, Increased loss of function, Continuing or worsening of significant or severe pain, Deterioration of the patient's condition or overall health and Delay expected to result in less-positive ultimate med/surg outcome Interval Note History & Physical reviewed/Exam performed by Physician: Yes Changes to H&P: No
[2022-01-30] MEDS: CEFAZOLIN 2 GM/100 ML PREMIX 100 ML IV ×3 (08:18→19:35)
--- NOTE | 2022-01-30 08:35 | SUR.OPER ---
Prone on spine table, head in foam head support, padded chest and pelvic supports, gel pad at knees, lower legs supported by pillows; nipples, genitalia and toes free of pressure, arms secured on foam padded arm boards at <90 degrees abduction. Tape over blanket at thigh secured to table.
[2022-01-30] MEDS: BUPIVACAINE 0.25% (PF) 30 ML, EPINEPHrine 0.15 MG INJ (08:55)
[2022-01-30] MEDS: BUPIVACAINE LIPOSOME 266 MG/20 ML VIAL INJ (08:55)
--- NOTE | 2022-01-30 11:00 | DI.RAD.S_ITS ---
PROCEDURE: XR LUMBAR SPINE 2-3V INDICATIONS: L3-4, L4-5, L5-S1 TLIF ROBOT TECHNIQUE: 2 nondiagnostic intraoperative fluoroscopic views of the lumbar spine were acquired. COMPARISON: [facility], , XR LUMBAR SPINE 2-3V, 12/27/2021, 9:04. FINDINGS: Intraoperative fluoroscopic images demonstrate postsurgical changes of L3-S1 posterior fixation by means of bilateral rods and pedicle screws with interbody devices. Hardware is in appropriate position and appears intact. No [place] bone fracture or acute complicating hardware feature identified. IMPRESSION: L3-S1 posterior fixation changes. Dictated by: Florian Lewis M.D. on 01/30/2022 at 14:10 Approved by: Florian Lewis M.D. on 01/30/2022 at 14:11
--- NOTE | 2022-01-30 13:00 | P.OP_ITS ---
Operative Date/Time/Diagnoses Date of procedure: 01/30/22 Time of procedure: 07:40 Pre-op diagnosis: 1. Lumbar scoliosis 2. Lumbar spinal stenosis with neurogenic claudication Post-op diagnosis: same Procedure & Clinicians Procedure: 1. L3-4, L4-5, L5-S1 Postero-lateral and posterior interbody fusion 2. L3-4, L4-5, L5-S1 interbody cage placement. 3. L3-4, L4-5, L5-S1 decompressive laminectomy with bilateral facetecomies 4. L3-4, L4-5, L5-S1 Posterior segmental instrumentation 5. L2-3 laminectomy 6. [place] of bone marrow from iliac crest 7. Utilization of microsurgical technique and operating microscope 8. Utilization of robotic assisted navigation Same procedure as scheduled: Yes Indications: Patient has been having chronic back pain and worsening lumbar radiculopathy and symptoms of neurogenic claudication. Patient failed multiple conservative management with worsening pain weakness and numbness in his lower extremity. Patient has been having difficulty performing activity of daily living. After discussing risks benefits of treatment options, patient elected proceed with surgery. Surgeon: Eric Michelle Suit Maker: Glenn Rodriguez Click Yes if Unassisted: No Anesthesia Type: General Operative Notes Closure Type: primary Specimen(s): none sent Prosthetic devices, grafts, tissues, transplants, or devices: Globus CREO MIS screws, Rise cages Applied: catheter Estimated Blood Loss (mL): 150 Blood products transfused: none Procedure in detail: Patient was seen in the preoperative area. Risks and benefits of the surgery was discussed with the patient. Informed consent was obtained from the patient and placed in the chart. Surgical site was marked. Patient was taken to the operative room. General anesthesia was administered. Prophylactic antibiotic was given to the patient less than 30 min before the incision was made. Patient was placed into a prone position on the Hua table. Patient's back was then prepped and draped in the sterile fashion. Time-out was performed at this time. After patient was prepped and draped, patient's PSIS was palpated and marked bilaterally. Small 1 cm incision was made over the PSIS for placement of the reference probes. Two trocar was placed into the PSIS 1 on each side. The reference probe was attached to the trocar of the reference apparatus. At this time the C-arm imaging was used to confirm AP and lateral of L3-4, L4- L5, L5-S1 vertebrae and merged the C-arm imaging using the [employer] robotic navigation system with the CT of the lumbar spine. After successful merging was completed and confirmed, skin marker was used to abhinav out the skin incision using the [employer] robotic arm. Bilateral incision was made at this time. Pre templated trajectory was used and guided using the [employer] robotic navigation system for bilateral L3, L4, L5, S1 pedicle screw placement. This was done by using the robotic arm to guide the high-speed bur to make a cortical entry point. Next a drill was placed also using the robotic arm and guided using the navigation system drilling partially through bilateral L3, L4, L5 and S1 pedicles. Next L3, L4, L5, S1 pedicle screws it was pre templated and measured was placed onto the power school bus driver and inserted into the pedicles bilaterally. After all 8 screws were placed C-arm imaging was taken of both AP and lateral to confirm the placement. Excellent placement of the screws were confirmed and a matched precisely with the pre planned screw placement using the navigation system. MARs retractor was inserted using Play[employer]testivation guidence. Globus MARS retractors was placed inside the incision and docked onto the L3, L4 and L5 lamina. Using microsurgical technique and operating microscope, a L3, L4, L5 laminectomy and L3-4, L4-5, L5-S1 facetectomy was performed using a Kerrison rongeur. Patient was found have severe lateral recess and neural foramen stenosis which was fully decompressed after the laminectomy facetectomy. More than 75% of the facets were removed during the process of decompression rendering L3-4, L4-5, L5-S1 level grossly unstable and required a fusion procedure at the same time. The disc space at L3-4, L4-5, L5-S1 was identified, and a total diskectomy was performed at L3-4, L4-5, L5-S1 level. The endplates were decorticated using a rasp and shaver. The total diskectomy and decortication was performed at L3-4, L4-5, L5-S1 level in order to to accomplish a L3-4, L4-5, L5-S1 fusion. The local bone from the laminectomy and facetectomy was saved for local bone grafting. After the total diskectomy and decortication was completed, Trifecta bone graft material was combined with local bone that was harvested earlier. The MARs retractor was then redirected over the L2-3 interval. Using microsurgical technique and operating microscope a L2 laminectomy was performed by removing the lamina along with ligamentum flavum at the side of the laminectomy to further decompress the central canal along with lateral recess. At this time, a separate skin is incision was made over the iliac crest. A Jamshidi needle was inserted into the iliac crest through a separate skin incision. 5 cc of bone marrow aspiration was obtained through the separate skin incision using a Jamshidi needle from the iliac crest. The bone marrow aspiration was combined with local bone and the Trifecta bone grafting material. The bone grafting material was placed into the L3-4, L4-5, L5-S1 interbody space along with a expandable cage. The cage was expanded to its maximum height using the torque limiting screwdriver. The disc preparation as well as the cage insertion were also performed under navigation guidance. After the cage was placed, AP and lateral C-arm imaging was taken to confirm placement of the cage and excellent position was confirmed. Globus MARS retractor was inserted and docked onto the L3-4, L4-5, L5-S1 posterolateral gutter on the right side. Using the power drill, posterior- lateral decortication was performed at L3-4, L4-5, L5-S1 level until bleeding cortical bone was identified. The remaining bone grafting material was placed into the L3-4, L4-5, L5-S1 posterior lateral gutter he order to accomplish posterolateral fusion at the L3-4, L4-5, L5-S1 level. At this time the tulips were attached to the L3, L4, L5, S1 pedicle screw shanks. After measuring the length of the rods, they were inserted into the tulips of the pedicle screws and locked in place using locking caps and torque limiting screwdriver bilaterally. Total 8 caps and 2 titanium rods was used in order to complete the posterior instrumentation construct. After all the hardware was placed, and confirmed with AP and lateral C-arm imaging, the wound was then irrigated with sterile normal saline and packed with Ray-Vy gauze for 3 min to accomplish hemostasis. After the gauze was removed the deep fascia was closed with #1 Vicryl suture. The subcutaneous layer was closed with 2-0 Vicryl. The skin was closed with skin angela. Patient tolerated the procedure well. There were no complications. Neuro monitoring system was used to monitor patient's neurologic status throughout entire procedure. There was no disturbance of the neural monitoring signals throughout the case. Complications: none Post-operative Condition: stable Disposition: PACU Plan for aftercare: Admit to inpatient hospital
[2022-01-30] MEDS: hydrOXYzine pamoate 25 MG CAPSULE PO (14:02)
--- NOTE | 2022-01-30 14:25 | SUR.PHASEI ---
Report given to ZOYA Avelar. Pt josafat pain, A&Ox3.
[2022-01-30] MEDS: SODIUM CHLORIDE 0.9% 1,000 ML 100 ML IV (14:48)
[2022-01-30] MEDS: ACETAMINOPHEN 325 MG TABLET 650 MG PO (15:11)
[2022-01-30] MEDS: OXYCODONE IR 5 MG TABLET PO (15:11)
[2022-01-30] MEDS: OXYCODONE IR 5 MG TABLET 10 MG PO ×2 (15:47→21:21)
[2022-01-30] MEDS: lisinopriL 10 MG TABLET PO (21:15)
[2022-01-30] MEDS: DOCUSATE 100 MG CAPSULE PO (21:15)
[2022-01-30] MEDS: PREGABALIN 75 MG CAPSULE 150 MG PO (21:15)
[2022-01-30] MEDS: SENNOSIDES 8.6 MG TABLET 17.2 MG PO (21:15)
[2022-01-31] VITALS (7 sets, daily range): BP systolic 128–146; BP diastolic 56–81; PULSE 87–121; RESP 18–25; TEMP 36.4–37.9; O2SAT 94–98
[2022-01-31] MEDS: hydrOXYzine pamoate 25 MG CAPSULE PO (00:52)
[2022-01-31] MEDS: OXYCODONE IR 5 MG TABLET 10 MG PO (00:52)
[2022-01-31] MEDS: SODIUM CHLORIDE 0.9% 1,000 ML 100 ML IV ×2 (00:53→10:10)
[2022-01-31] MEDS: CEFAZOLIN 2 GM/100 ML PREMIX 100 ML IV (03:35)
--- NOTE | 2022-01-31 05:33 | DI.RAD.S_ITS ---
PROCEDURE: XR CHEST 1V INDICATIONS: pneumonia? TECHNIQUE: One view of the chest was acquired. COMPARISON: [facility], CR, XR CHEST 1V, 01/03/2022, 17:45. [facility], CR, XR CHEST 1V, 12/27/2021, 9:04. FINDINGS: Surgical changes and devices: None. Lungs and pleura: Elevation of the right hemidiaphragm as before. Streaky opacity present at the left lung base/retrocardiac region. No large pleural effusion. No pneumothorax. Mediastinum: Cardiac silhouette is at the upper limit of normal in size. Mediastinal and hilar contours appear similar to before. Bones and chest wall: No suspicious bony lesions. Overlying soft tissues appear unremarkable. IMPRESSION: Mild left basilar opacity is present, nonspecific. This could represent atelectasis but aspiration or pneumonia are also possible. This report is concordant with the preliminary report. Dictated by: Salvatore Schroeder M.D. on 01/31/2022 at 8:10 Approved by: Salvatore Schroeder M.D. on 01/31/2022 at 8:20
--- NOTE | 2022-01-31 05:53 | PM.EVENT ---
Event Note Date Patient Seen: 01/31/22 Time Patient Seen: 05:30 Event Note (Rapid Response, Code, or fall): Called to bedside by RN for clinical status change. Patient is POD #1 from spinal surgery for spinal stenosis. He has luciano in place. Has history of diabetes, possible cognitive impairment, mannie. Recent UTI and urinary retention. He did well after surgery. He was evaluate by RN to have clinical status change with mental status change, rigors/tremors, diaphoresis. Upon entering the room patient does respond by looking towards voice of speaker. Unable to really follow further commands. When asked questions only answers in one word response okay and only intermittently. He is diaphoretic and rigoring through the exam. Vitals notable for temp 97.6, bp 134/64, rr 18, sats 96% on room air. Blood sugar 118. Ordered for cbc, cmp, lactate, UA/culture, blood culture, chest xray, abg. Back examined with bandage on back noted to be saturated with serosanguinous fluid, wound examined and is clean with no purulence, erythema or fluctuance. Per notes patient had similar presentation to another hospital in November 2021 with tremors and confusion and was found to have urinary retention and urine infection. Zosyn and IV fluids ordered to start as well after labs drawn. In addition patient did get hydroxyzine overnight, suspect that anticholinergic toxicity is less likely for now as patient is diaphoretic but will stop this medication. Will order EKG to evaluate QRS and QT intervals
[2022-01-31 05:54] LABS: Appearance Urine UA CLEAR; Bilirubin Urine UA NEGATIVE (NEGATIVE); Color Urine UA YELLOW; Glucose Urine UA NEGATIVE (Negative); Ketones Urine UA NEGATIVE (NEGATIVE); Leukocyte Esterase Urine UA 2+ (NEGATIVE); Nitrite Urine UA NEGATIVE (Negative); Occult Blood Urine UA 1+ (Negative); Protein Urine UA NEGATIVE (Negative); Specific Gravity Urine UA <=1.005 (1.000-1.035); Urobilinogen Urine UA 0.2 E.U./dL (0.2)
[2022-01-31 06:07] LABS: Add Manual Diff / Slide Review NO; Basophils Absolute Auto 100 /uL (0-100); Basophils Percent Auto 0.5 % (0-2); Eosinophils Absolute Auto 0 /uL (0-450); Eosinophils Percent Auto 0.2 % (2-4); Hematocrit 38.2 % (41-53); Hemoglobin 12.8 g/dL (13.5-17.5); Lymphocytes Absolute Auto 1900 /uL (1100-4500); Lymphocytes Percent Auto 13.5 % (25-40); Mean Corpuscular HGB Conc 33.6 % (30-36); Mean Corpuscular Hemoglobin 30.6 PG (26-34); Monocytes Absolute Auto 1500 /uL (0-900); Monocytes Percent Auto 11.1 % (3-14); Neutrophils Absolute Auto 10300 /uL (1500-7000); Neutrophils Percent Auto 74.7 % (50-75); Platelet Count 212 X10^3/uL (150-400); Red Blood Cell Count 4.19 X10^6/uL (4.5-5.9); Red Cell Distribution Width 16.5 % (11.6-14.8); White Blood Cell Count 13.7 X10^3/uL (4.5-11.0)
[2022-01-31 06:08] LABS: Bacteria Urine Few (2-10); Culture Indicated Urine Specimen Cultured; RBC Urine 1-5/HPF (0-5/HPF); Uric Acid Crystals Urine Occasional; WBC Urine 5-10/HPF (0-5/HPF)
[2022-01-31] MEDS: HYDROMORPHONE 0.5 MG INJ IV (06:08)
[2022-01-31] MEDS: SODIUM CHLORIDE 0.9% 1,000 ML 1000 ML IV (06:10)
[2022-01-31 06:19] LABS: Alanine Aminotransferase 17 IU/L (<50); Albumin 3.8 g/dL (3.5-5.0); Albumin Globulin Ratio 1.2 (1.0-2.8); Alkaline Phosphatase 77 U/L (38-126); Aspartate Aminotransferase 33 IU/L (17-59); BUN Creatinine Ratio 13.1 (6-22); Bilirubin Total 0.8 mg/dL (0.2-1.3); Blood Urea Nitrogen 14 mg/dL (9-20); Calcium 9.5 mg/dL (8.4-10.2); Carbon Dioxide 23 mmol/L (22-32); Chloride 106 mmol/L (98-107); Estimated Glomerular Filt Rate > 60 mL/min (>60); Globulin 3.1 g/dL (1.7-4.1); Glucose 121 mg/dL (80-110); HEMOLYSIS < 15 (0-50); Potassium 4.1 mmol/L (3.4-5.1); Sodium 139 mmol/L (137-145); Total Protein 6.9 g/dL (6.3-8.2)
[2022-01-31] MEDS: PIPERACILLIN/TAZO 4.5 GM in SODIUM CHLORIDE 0.9% 100 ML IV (06:19)
[2022-01-31 06:21] LABS: PCO2 ABG 16.4 mmHg (35-45)
[2022-01-31 06:21] LABS: Hematocrit 38.6 % (41-53); Hemoglobin 12.8 g/dL (13.5-17.5)
[2022-01-31 06:22] LABS: Fractionated Inspired Oxygen 21; HCO3 ABG 18 mmol/L (22-26); Oxygen Saturation ABG 99 % (95-100); PO2 ABG 89 mmHg (80-100); TCO2 ABG 18 mmol/L (21-31); pH ABG 7.64 (7.35-7.45)
[2022-01-31 06:29] LABS: Magnesium 1.7 mg/dL (1.6-2.3)
[2022-01-31] MEDS: SODIUM CHLORIDE 0.9% 1,000 ML 2210 ML IV (06:44)
--- NOTE | 2022-01-31 07:10 | PC.NURSE ---
Change in Patient Condition Pt was checked on @0510 and found shivering in bed. Pt reported feeling cold and provided with warm blankets. VS- BP:133/76, RR 24, HR: 86, TEMP: 98.9 oral, O2Sat: 98% RA, A/Ox1, BS: 118. Pt was unable to verbalize reposonses except for yes/no inconsistently. Mechanical Unit Repairer was notified @0515 and on-call hospitalist Milton was notified @0519 via telephone. Provider Milton arrived to the floor @0530 and placed orders for labs, EKG, chest x-ray, NOW IV Bolus, and abx. Pt was given IV bolus and hydromorphone for pain 11/06 per JUN. Change of shift report given to Donna Lui RN. The pt's primary provider, Dr. Michelle, was notified and updated in the change of condition @0748. No new orders given at this time.
[2022-01-31 08:00] LABS: Reflexed Lactate in 2 Hours Y
--- NOTE | 2022-01-31 08:02 | PM.CN ---
History of Present Illness Consult details Date Patient Seen: 01/31/22 Time Patient Seen: 14:00 Chief complaint: Tlif robot Narrative: José Miguel Borjas is a 76-year-old male with past medical history of spinal stenosis s/p lumbar fusion on 01/30, DVT and PE on Xarelto, ILEANA, GERD, hypertension, hyperlipidemia and type 2 diabetes who is 1 day postop from spinal surgery and developed acute encephalopathy and rigors. Nighttime Was called to the bedside due to acute confusion and found patient to have leukocytotis, tachycardia, elevated lactate of 3, and significant pyuria on UA concerning for sespsis due to urinary source. Cultures and antibiotics ordered as well as 30cc/kg fluid bolus. Now that I am seeing the patient has several hours later his confusion has improved significantly however he is still with stuttering aphasia type speech. CT noncontrast head and MRI brain ordered to rule out stroke. Family members at bedside and state he has had acute episodes of confusion and delirium in the past with prior UTI thought to be the cause. Patient currently feels better than earlier today and denies chest pain, shortness breast, abdominal pain, nausea vomiting or diarrhea. Meds Home Medications and Allergies Home Medications Medication Instructions Recorded Confirmed Type multivitamin 1 tab PO DAILY ##0 09/18/12 01/30/22 History metformin 500 mg tablet,extended 500 mg PO DAILY 04/11/18 01/30/22 History release 24 hr Respironics Dreamstation BIPAP #1 ea 09/17/18 01/30/22 History rivaroxaban 20 mg tablet (Xarelto) 20 mg PO DAILY 12/20/21 01/30/22 History docusate sodium 100 mg capsule 100 mg PO BID #20 caps 12/22/21 01/30/22 Rx acetaminophen 325 mg tablet 650 mg PO Q6HR PRN Pain 01/25/22 01/30/22 History duloxetine 30 mg capsule,delayed 30 mg PO DAILY 01/25/22 01/30/22 History release lisinopril 10 mg tablet 10 mg PO BEDTIME 01/25/22 01/30/22 History oxycodone 5 mg tablet 5 mg PO Q6H PRN Pain 01/25/22 01/30/22 History pregabalin 150 mg capsule 150 mg PO BID 01/25/22 01/30/22 History Allergies Allergy/AdvReac Type Severity Reaction Status Date / Time No Known Drug Allergies Allergy Verified 01/30/22 06:43 Review of Systems Review of Systems Narrative: All other systems reviewed with the patient and are negative unless otherwise stated. Exam Vital Signs (past 8 hours): - 01/31/22 03:41 01/31/22 07:56 Temperature 97.6 F 100.3 F H Pulse Rate 87 102 H Respiratory Rate 18 20 Blood Pressure 134/64 135/75 Pulse Oximetry 96 98 Oxygen Flow Rate 0 0 Oxygen Delivery Method Room Air Oxygen Flow Rate 0 Narrative Exam Narrative: GEN: no acute distress, alert but oriented only to person HEENT: moist mucous membranes, PERRL NECK: trachea midline, no JVD CV: regular rate and rhythm, no murmurs PULM: clear bilaterally ABD: soft, nontender, nondistended, no organomegaly EXT: warm and well perfused with no edema NEURO: Mild cogwheel rigidity on upper extremities, mild bilateral tremor of upper extremities, no other focal deficits Objective Labs Result Diagrams: 01/31/22 06:19 01/31/22 05:45 Labs: Laboratory Results - last 24 hr 01/31/22 01/31/22 01/31/22 05:45 05:45 05:45 WBC 13.7 H RBC 4.19 L Hgb 12.8 L Hct 38.2 L MCV 91.0 MCH 30.6 MCHC 33.6 RDW 16.5 H Plt Count 212 Neut % (Auto) 74.7 Lymph % (Auto) 13.5 L [place] % (Auto) 11.1 Eos % (Auto) 0.2 L Baso % (Auto) 0.5 Neut # (Auto) 67491 H Lymph # (Auto) 1900 [place] # (Auto) 1500 H Eos # (Auto) 0 Baso # (Auto) 100 ABG pH ABG pCO2 ABG pO2 ABG HCO3 ABG Total CO2 ABG O2 Saturation ABG Base Excess FiO2 Sodium 139 Potassium 4.1 Chloride 106 Carbon Dioxide 23 BUN 14 Creatinine 1.07 Estimated GFR > 60 BUN/Creatinine Ratio 13.1 Glucose 121 H Lactate 3.0 H Calcium 9.5 Magnesium Total Bilirubin 0.8 AST 33 ALT 17 Alkaline Phosphatase 77 Total Protein 6.9 Albumin 3.8 Globulin 3.1 Albumin/Globulin Ratio 1.2 Urine Color Urine Appearance Urine pH Ur Specific [place] Urine Protein Urine Glucose (UA) Urine Ketones Urine Occult Blood Urine Nitrate Urine Bilirubin Urine Urobilinogen Ur Leukocyte Esterase Urine RBC Urine WBC Uric Acid Crystals Urine Bacteria Ur Culture Indicated? 01/31/22 01/31/22 01/31/22 05:45 05:45 06:00 WBC RBC Hgb Hct MCV MCH MCHC RDW Plt Count Neut % (Auto) Lymph % (Auto) [place] % (Auto) Eos % (Auto) Baso % (Auto) Neut # (Auto) Lymph # (Auto) [place] # (Auto) Eos # (Auto) Baso # (Auto) ABG pH 7.64 H* ABG pCO2 16.4 L* ABG pO2 89 ABG HCO3 18 L ABG Total CO2 18 L ABG O2 Saturation 99 ABG Base Excess -3.0 L FiO2 21 Sodium Potassium Chloride Carbon Dioxide BUN Creatinine Estimated GFR BUN/Creatinine Ratio Glucose Lactate Calcium Magnesium 1.7 Total Bilirubin AST ALT Alkaline Phosphatase Total Protein Albumin Globulin Albumin/Globulin Ratio Urine Color Yellow Urine Appearance Clear Urine pH 5.0 Ur Specific [place] <=1.005 Urine Protein Negative Urine Glucose (UA) Negative Urine Ketones Negative Urine Occult Blood 1+ H Urine Nitrate Negative Urine Bilirubin Negative Urine Urobilinogen 0.2 Ur Leukocyte Esterase 2+ H Urine RBC 1-5/hpf D Urine WBC 5-10/hpf H Uric Acid Crystals Occasional Urine Bacteria Few (2-10) H Ur Culture Indicated? Specimen cultured 01/31/22 06:19 WBC RBC Hgb 12.8 L Hct 38.6 L MCV MCH MCHC RDW Plt Count Neut % (Auto) Lymph % (Auto) [place] % (Auto) Eos % (Auto) Baso % (Auto) Neut # (Auto) Lymph # (Auto) [place] # (Auto) Eos # (Auto) Baso # (Auto) ABG pH ABG pCO2 ABG pO2 ABG HCO3 ABG Total CO2 ABG O2 Saturation ABG Base Excess FiO2 Sodium Potassium Chloride Carbon Dioxide BUN Creatinine Estimated GFR BUN/Creatinine Ratio Glucose Lactate Calcium Magnesium Total Bilirubin AST ALT Alkaline Phosphatase Total Protein Albumin Globulin Albumin/Globulin Ratio Urine Color Urine Appearance Urine pH Ur Specific [place] Urine Protein Urine Glucose (UA) Urine Ketones Urine Occult Blood Urine Nitrate Urine Bilirubin Urine Urobilinogen Ur Leukocyte Esterase Urine RBC Urine WBC Uric Acid Crystals Urine Bacteria Ur Culture Indicated? [facility] Medical History (Updated 01/25/22 @ 10:27 by Ashley Tao RN) Anticoagulated Central sleep apnea COVID-19 virus infection (01/03/22) Diabetes DVT (deep venous thrombosis) GERD (gastroesophageal reflux disease) HTN (hypertension) Hx pulmonary embolism Hyperlipemia Laceration Obesity Obstructive sleep apnea of adult Pulmonary embolism Spinal stenosis Surgical History H/O Spinal surgery History of hip replacement History of tonsillectomy and adenoidectomy Family History Father Pancreatic cancer Social History marital status: details: to Soraida household members: spouse lives independently: Yes caregiver/support person: No education level: college 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 Tobacco & Substance Use Smoking Status: Former smoker alcohol intake: current substance use type: does not use Assessment & Plan Assessment & Plan narrative: # acute encephalopathy, not present on admission -likely delirium secondary to UTI -improving with IV antibiotics -CT noncontrast head and MRI brain normal -frequent reorientation -suspect possible underlying Parkinson's as patient has tremor and cogwheel rigidity on exam # complicated UTI -UA with pyuria -continue Zosyn -follow-up cultures -may warrant outpatient Urology referral given recurrent history of UTI in male # lumbar spinal stenosis postop day 1 lumbar fusion -Dr. Viviana damian primary -pain meds ordered # type 2 diabetes -home metformin -sliding scale insulin # hypertension, chronic -continue home lisinopril # depression, chronic -continue home Cymbalta # history of DVT and PE -holding xarelto due to recent surgery -will restart per ortho recs Code status is full code. COVID negative. DVT prophylaxis with SCDs. Proxy is spouse Soraida. I have reviewed home meds and used all available resources to reconcile the home meds. Time Spent With Patient Critical Care time: I spent a total of [] minutes of critical care time on this patient's care today; this time is exclusive of procedural time.
--- NOTE | 2022-01-31 08:24 | DI.CT.S_ITS ---
PROCEDURE: CT HEAD/BRAIN WO CON INDICATIONS: acute encephalopathy TECHNIQUE: Noncontrast 4.5 mm thick angled axial sections acquired from the foramen magnum to the vertex, with coronal and sagittal reformats. For radiation dose reduction, the following was used: automated exposure control, adjustment of mA and/or kV according to patient size. COMPARISON: [facility], MR, MR HEAD/BRAIN WO/W CON, 11/11/2018, 15:45. [facility], CT, CT HEAD/BRAIN WO CON, 12/27/2021, 11:05. FINDINGS: Image quality: This examination is limited by involuntary motion artifact. Images are repeated, yet without significant improvement. CSF spaces: Basal cisterns are patent. No extra-axial fluid collections. The ventricles are symmetric in size and shape. Brain: No intracranial bleeds or masses. There is cerebral volume loss for age, with resultant ventricular and sulcal prominence. There are periventricular and deep white matter chronic small vessel ischemic changes. There is intracranial internal carotid artery atherosclerosis. Skull and face: Calvarium and visualized facial bones appear intact, without suspicious lesions. Sinuses: Moderate mucosal thickening is seen involving the ethmoid air cells. The paranasal sinuses are otherwise unremarkable. No abnormal fluid is seen within the mastoid air cells. IMPRESSION: Motion limited study demonstrating no cause of acute encephalopathy. Dictated by: Krzysztof Salgado M.D. on 01/31/2022 at 8:41 Approved by: Krzysztof Salgado M.D. on 01/31/2022 at 8:45
[2022-01-31 08:57] LABS: Lactate 2HR (Lactic Acid Rflx) 1.6 mmol/L (0.7-2.1)
[2022-01-31] MEDS: METFORMIN XR 500 MG TABLET PO (09:23)
[2022-01-31] MEDS: DULOXETINE 30 MG CAPSULE PO (09:23)
[2022-01-31] MEDS: MULTIVITAMIN 1 TABLET 1 TAB PO (09:23)
[2022-01-31] MEDS: MAGNESIUM CHLORIDE 64 MG TABLET 128 MG PO (09:23)
[2022-01-31] MEDS: PREGABALIN 75 MG CAPSULE 150 MG PO ×2 (09:23→20:00)
[2022-01-31] MEDS: PIPERACILLIN/TAZO 3.375 GM in SODIUM CHLORIDE 0.9% 100 ML IV ×2 (10:11→18:05)
--- NOTE | 2022-01-31 10:13 | OT.IP.EVAL ---
Current Diagnoses Other secondary scoliosis, lumbar region (01/30/22) Spondylolisthesis, lumbar region (01/30/22) Spinal stenosis, lumbar region with neurogenic claudication (01/30/22) Surgery Performed Operation Date: 01/30/22 07:45 Actual Procedures p L3-4, L4-5, L5-S1 TLIF w. posterior instrumentation, L2-3 laminectomy -Robot(Not Applicable) - Eric Michelle MD Past Medical History (Last Updated 01/25/22 @ 10:27 by Ashley Tao RN) Anticoagulated Central sleep apnea COVID-19 virus infection (01/03/22) Diabetes DVT (deep venous thrombosis) GERD (gastroesophageal reflux disease) HTN (hypertension) Hx pulmonary embolism Hyperlipemia Laceration Obesity Obstructive sleep apnea of adult Pulmonary embolism Spinal stenosis Surgical History (Last Reviewed 12/27/21 @ 08:29 by Brook Larios DO) H/O Spinal surgery History of hip replacement History of tonsillectomy and adenoidectomy Occupational Therapy Inpatient Evaluation/Re-Eval M1 PT/OT-IP Prior Functional Status Start: 01/31/22 12:58 Freq: NEEDED Status: Active Protocol: Document 01/31/22 10:42 AB (Rec: 01/31/22 13:09 AB [id number]) Medical Review Prior Functional Status Medical History Reviewed Yes Communication with confusion and needs time to respond to questions and instructions Mobility and Gait unable to obtain complete PLOF /home set up but info obtained from EMR from pt's previous admission. per pt: he uses a 4WW for outdoor mobility and without AD indoors. Social History Household Members spouse Living Arrangements House Number of Floors (Floors) One Floor Number of Stairs To Enter/Railing? 3 steps R rail to enter Home Environment Standard Height Toilet,Walk in Shower Home Equipment Front Wheel Walker,Four Wheel Walker,Shower Seat with Backrest,Hand Held Shower,Grab Bars Near Toilet,Grab Bars In Shower M2 OT-IP Current Condition Start: 01/31/22 15:50 Freq: Status: Active Protocol: Document 01/31/22 09:27 [facility] (Rec: 01/31/22 16:08 [facility] [id number]) Occupational Therapy Current Condition Current Condition Evaluation Date 01/31/22 Treatment Diagnosis S/p L3-4, L4-5 , L5-S1 TLIF Diagnosis Onset Date 01/30/22 Post Operative Precautions Lumbar Precautions Log Roll,No Twisting,Limit Bending,Lifting Restriction of 10 lbs,Gait Belt above Incisional Area M3 OT- IP Subjective and Pain Start: 01/31/22 15:50 Freq: Status: Active Protocol: Document 01/31/22 09:27 [facility] (Rec: 01/31/22 16:08 [facility] [id number]) OT- Subjective Occupational Therapy Visit Type Type Initial Evaluation Visit Start Time 09: Visit Stop Time 10:13 Total Visit Minutes 46 Occupational Therapy Visit Comments Patient Comments Pt agreed to get up and nurse and nursing aid in to assist. Patient/Caregiver Goals To go home. OT Pain Assessment Pain When Pain Assessed At Rest Pain Present Pain Present Pain Reported M4 OT- IP ADL's Start: 01/31/22 15:50 Freq: Status: Active Protocol: Document 01/31/22 09:27 [facility] (Rec: 01/31/22 16:08 [facility] [id number]) OT [id number] Comments OT Self-Feeding Comments NOt at meal time. pt having tremors in his hands and needing assist to help hold the cup in order to take in water. Pt needing 1:1 assist for self feeding at this time. OT ADL-Grooming Comments OT Grooming Comments not performed OT ADL-Oral Care Comments Oral Care Comments not performed OT ADL-Dressing General Eval Lower Body Dressing Ability Total Assistance Areas Needing Assistance Socks OT ADL-Toileting General Evaluation Areas Needing Assistance Empty Catheter or Colostomy Comments OT Toileting Comments luciano in place OT ADL-Bathing Comments OT Bathing Comments Sponge bath more appropriate at this time M5 OT- IP IADL's Start: 01/31/22 15:50 Freq: Status: Active Protocol: Document 01/31/22 09:27 [facility] (Rec: 01/31/22 16:08 [facility] [id number]) OT-Instrumental Activities of Daily Living Deficits IADL Deficits Identified Deficits Home Safety Awareness Awareness of Need for Assistance at Home Decreased Awareness Ability to Problem Solve Emergency Unable to Problem Solve Situations Home Safety Comments Pt having difficulty to get the words out and follow commands at this time. Pt has supportive and adult kids to assist at home for all needs. Medication Management Medication Management Caregiver Administers Money Management Money Management Comments Concerns that pt not able to perform at this time. Meal Preparation Meal Preparation Caregiver Provides Assist Grounds Foreman Grounds Foreman Caregiver Provides Assist M6 OT- IP Functional Cognition Start: 01/31/22 15:50 Freq: Status: Active Protocol: Document 01/31/22 09:27 [facility] (Rec: 01/31/22 16:08 [facility] [id number]) Cognitive Factors Limiting Selfcare Function Cognitive Ability Level of Alertness Alert,Confusional State Ability to Follow Commands Able to Follow One Step Commands with Increased Time, Able to Follow One Step Commands with Repetition Safety Awareness Decreased Recall of Precautions,Decreased Ability to Apply Precautions Cognitive Comments Cognitive Assessment Comments Pt needing lots of cues, encouragement and simple concrete cues to follow as needing increased time to follow commands. pt also noted decreased initiation for movements. M7 OT- IP Mobility and Balance Start: 01/31/22 15:50 Freq: Status: Active Protocol: Document 01/31/22:27 [facility] (Rec: 01/31/22 16:08 [facility] [id number]) OT- Bed Mobility Assessment Supine to Sit Supine to Sit Assist Moderate Assistance,2 Person Assistance Scooting Scooting to Edge of Bed Moderate Assistance,2 Person Assistance OT-Transfer Assessment Sit to and From Stand Sit to and from Stand Maximum Assistance,2 Person Assistance Transfers Transfer Ability Maximum Assistance,2 Person Assistance Technique Transfer Destination Bed,Chair Transfer Technique Stand Step Pivot Devices Transfer Assistive Devices Gait Belt,Front Wheeled Walker Comments Mobility Comments MODA to help roll, get his feet off the bed and assist to get his trunk upright. BP supine 142/68, sitting 132/61. Bed raised up and needing MAX AX2 to stand and 3 person assist to help transfer to the recliner. Assist to weight shift, guide the walker and for balance. At this time especially from a lower surface mechanical lift will be safer to use for the pt. OT- Balance Assessment Sitting Balance and Reactions Static Sitting Balance Ability Fair Dynamic Sitting Balance Ability Poor Standing Balance and Reactions Static Standing Balance Ability Poor Dynamic Standing Balance Ability Poor Comments Other Balance Tests/Deviations/Treatment Pt needing CGA to MODA for : sitting balance at the edge of the bed. M8 OT- IP Objective Assessments Start: 01/31/22 15:50 Freq: Status: Active Protocol: Document 01/31/22 09:27 [facility] (Rec: 01/31/22 16:08 [facility] [id number]) OT-Muscle Tone Assessment Comments Muscle Tone Comments pt tremors in his hands with exertion M9 OT- IP Assessment and Plan Start: 01/31/22 15:50 Freq: Status: Active Protocol: Document 01/31/22 09:27 [facility] (Rec: 01/31/22 16:08 [facility] [id number]) OT Summary Assessment and Plan Potential Rehabilitation Potential Good Analytic Complexity at Evaluation Moderate Summary OT Impairments Pain,Strength,Balance, Coordination,Functional Cognition,Functional Mobility, Self-Feeding,Grooming,Dressing ,Toileting,Bathing,Toilet Transfers,Shower Transfers, Activity Tolerance Progress Towards Goals Slow Progress due to Medical Issues,Slow Progress due to Activity Tolerance,Slow Progress due to Cognition Assessment Summary Pt MOD complexity due to pain, decreased initiation of movement, having tremors and needing 2-3 person assist for all mobility needs. At this time pt would benefit skilled rehab pending progress. Pt here in the hospital in 11/2021 for LBP and greatly improve from MOD/MAX x1 to SBA in on eday. Therefore suggest SNF versus home with 24/7 assist and home health pending pt's progress and caregiver training. Goals Self-Feeding Goal Standby Assistance Grooming Goal Standby Assistance Dressing Goal Moderate Assistance Toileting Goal Moderate Assistance Bathing Goal Moderate Assistance Toilet Transfer Goal Minimal Assistance Shower Transfer Goal Minimal Assistance Days to Meet Goals 25 Frequency of Treatment Frequency Of Treatment Once a Day Treatment Plan OT Treatment Plan ADL Training,Functional Cognition Training,Functional Mobility,Patient/Family Education,Discharge Planning Other Treatment Recommendations and Next Transfer to [facility] with MAX A x2 Treatment Focus Discharge Recommendations OT Discharge Recommendations SNF Rehab Other Discharge Recommendations Home with 24/7 versus SNF if pt able to make good progress and pt's family able to complete caregiver training Transportation Needs at Discharge Wheelchair/Cabulance
--- NOTE | 2022-01-31 10:42 | PT.IIE ---
Current Diagnoses Other secondary scoliosis, lumbar region (01/30/22) Spondylolisthesis, lumbar region (01/30/22) Spinal stenosis, lumbar region with neurogenic claudication (01/30/22) Surgery Performed Operation Date: 01/30/22 07:45 Actual Procedures p L3-4, L4-5, L5-S1 TLIF w. posterior instrumentation, L2-3 laminectomy -Robot(Not Applicable) - Eric Michelle MD Surgical History (Last Reviewed 12/27/21 @ 08:29 by Brook Larios DO) H/O Spinal surgery History of hip replacement History of tonsillectomy and adenoidectomy Medical History (Last Updated 01/25/22 @ 10:27 by Ashley Tao RN) Anticoagulated Central sleep apnea COVID-19 virus infection (01/03/22) Diabetes DVT (deep venous thrombosis) GERD (gastroesophageal reflux disease) HTN (hypertension) Hx pulmonary embolism Hyperlipemia Laceration Obesity Obstructive sleep apnea of adult Pulmonary embolism Spinal stenosis Physical Therapy Inpatient Evaluation/Re-Eval M1 PT/OT-IP Prior Functional Status Start: 01/31/22 12:58 Freq: NEEDED Status: Active Protocol: Document 01/31/22 10:42 AB (Rec: 01/31/22 13:09 AB [id number]) Medical Review Prior Functional Status Medical History Reviewed Yes Communication with confusion and needs time to respond to questions and instructions Mobility and Gait unable to obtain complete PLOF /home set up but info obtained from EMR from pt's previous admission. per pt: he uses a 4WW for outdoor mobility and without AD indoors. Social History Household Members spouse Living Arrangements House Number of Floors (Floors) One Floor Number of Stairs To Enter/Railing? 3 steps R rail to enter Home Environment Standard Height Toilet,Walk in Shower Home Equipment Front Wheel Walker,Four Wheel Walker,Shower Seat with Backrest,Hand Held Shower,Grab Bars Near Toilet,Grab Bars In Shower M2 PT-IP Current Condition Start: 01/31/22 12:58 Freq: NEEDED Status: Active Protocol: Document 01/31/22 10:42 AB (Rec: 01/31/22 13:09 AB [id number]) Physical Therapy Current Condition Current Condition Evaluation Date 01/31/22 Treatment Diagnosis s/p L3-4, L4-5, L5S1 TLIF; difficulty in walking Onset Date 01/30/22 M3 PT-IP Subjective Start: 01/31/22 12:58 Freq: NEEDED Status: Active Protocol: Document 01/31/22 10:42 AB (Rec: 01/31/22 13:09 [id number]) Subjective Physical Therapy Visit Type Type Initial Evaluation Visit Start Time 10:42 Visit Stop Time 11:12 Total Visit Minutes 30 Number of DEVELOPMENT TECHNICIAN Visits 0 Therapy Pain Assessment Pain When Pain Assessed At Rest Pain Present Pain Present Pain Reported Location Lower Back Scale Used pain scale not stated M4 PT-IP Mobility and Gait Start: 01/31/22 12:58 Freq: NEEDED Status: Active Protocol: Document 01/31/22 10:42 AB (Rec: 01/31/22 13:09 [id number]) PT-Transfer Assessment Sit to and From Stand Sit to and from Stand Total Assistance,2 Person Assistance,Use of Upper Extremities Equipment Transfer Assistive Device Gait Belt,Front Wheeled Walker Comments Mobility Comments pt sitting on the chair. agreed to do PT. pt with confusion and difficulty following directions or answering questions. attempted sit<>stand x 2 and pt unable to stand despite total Ax 2 provided. pt with increase resistance and pushing back to seated position during sit to stand. positioned pt on chair. total A for scooting. call light and table placed within reach. Gait Assessment Comments Gait Comments unable at this time PT-Balance Assessment Sitting Balance and Reactions Static Sitting Balance Ability Poor Dynamic Sitting Balance Ability Poor M5 PT-IP Objective Assessments Start: 01/31/22 12:58 Freq: NEEDED Status: Active Protocol: Document 01/31/22 10:42 AB (Rec: 01/31/22 13:09 AB [id number]) Orientation Orientation/Cognition Level of Alertness Confusional State Orientation Name Safety Awareness Decreased Safety Awareness Memory Description Short Term Impaired,Correction Impaired Gross Range of Motion Lower Extremity ROM Assessment Within Functional Limits Strength Comments Strength Comments unable to complete MMT due to pt's difficulty following directions Muscle Tone Muscle Tone WNL Yes M6 PT-IP Treatment Start: 01/31/22 12:58 Freq: NEEDED Status: Active Protocol: Document 01/31/22 10:42 AB (Rec: 01/31/22 13:09 AB [id number]) Physical Therapy Treatment Education Education Provided Precautions,Weight Bearing Status,Safety M7 PT-IP Assessment and Plan Start: 01/31/22 12:58 Freq: NEEDED Status: Active Protocol: Document 01/31/22 10:42 AB (Rec: 01/31/22 13:09 AB [id number]) PT Summary Assessment and Plan Potential Rehabilitation Potential Fair Status of Condition at Evaluation Unstable Summary Impairments Pain,ROM,Strength,Balance, Coordination,Sensation,Tone, Cognition,Bed Mobility, Transfers,Gait,Activity Tolerance Assessment Summary pt unable to participate much with activity and with confusion affecting mobility, safety and participation. attempted sit<>stand from the chair x 3 attempts and despite total A x 2, pt was unable to complete task. will continue to assess progress but at this time, pt will require SNF rehab. Goals Bed Mobility Goal Moderate Assistance Transfer Goal Maximal Assistance,Front Wheeled Walker Gait Goal Moderate Assistance,Front Wheel Walker Gait Distance 25 Other Goals improve bed mobility: SBA improve transfers: SBA using FWW improve ambulation: SBA using FWW 150 ft up/down 3 steps using R rail ascending SBA Days to Meet Goals 10 Frequency of Treatment Frequency Of Treatment Twice a Day Treatment Plan Physical Therapy Treatment Plan Bed Mobility Training,Transfer Training,Gait Training, Therapeutic Exercise,Balance Retraining,Post Op Education, Discharge Planning,Hot or Cold Pack,Neuromuscular Re-ed, Coordination Retraining,Manual Therapy Precautions Lumbar Precautions Log Roll,No Twisting,Limit Bending,Lifting Restriction of 10 lbs,Gait Belt above Incisional Area Recommendations To Nursing Amount of Assist Needed Mechanical Lift Discharge Recommendations PT Discharge Recommendations SNF Rehab Transportation Needs at Discharge Wheelchair/Cabulance
--- NOTE | 2022-01-31 11:26 | P.PN_ITS ---
Subjective Subjective Date Patient Seen: 01/31/22 Time Patient Seen: 11:29 Interval history: Postop day 1 posterior spinal fusion with Dr. Michelle patient had mental status change overnight. Was found to have elevated white count low-grade fever and confusion. Concern for UTI. Antibiotics and fluid bolus started. Internal medicine hospitalist Service evaluated the patient and continue to follow. Low- grade fever 100 right now mild tachycardia 101, normotensive. Patient is sitting at the bedside chair. Pleasantly confused.No complaints Exam Vital Signs (past 8 hours): - 01/31/22 03:41 01/31/22 07:56 01/31/22 09:30 Temperature 97.6 F 100.3 F H 100.0 F H Pulse Rate 87 102 H 101 H Respiratory Rate 18 20 24 Blood Pressure 134/64 135/75 142/68 H Pulse Oximetry 96 98 96 Oxygen Flow Rate 0 0 0 Oxygen Delivery Method Room Air Oxygen Flow Rate 0 Narrative Exam Narrative: Patient is sitting at the bedside chair. He is pleasant and conversing but confused. States pain is controlled. No complaints. Dorsiflexes and plantar flexes his ankles when but otherwise confused. No acute distress. Physical therapy in the room working with patient Objective Labs Result Diagrams: 01/31/22 06:19 01/31/22 05:45 Labs: Laboratory Results - last 24 hr 01/31/22 01/31/22 01/31/22 05:45 05:45 05:45 WBC 13.7 H RBC 4.19 L Hgb 12.8 L Hct 38.2 L MCV 91.0 MCH 30.6 MCHC 33.6 RDW 16.5 H Plt Count 212 Neut % (Auto) 74.7 Lymph % (Auto) 13.5 L Moffat % (Auto) 11.1 Eos % (Auto) 0.2 L Baso % (Auto) 0.5 Neut # (Auto) 31123 H Lymph # (Auto) 1900 Moffat # (Auto) 1500 H Eos # (Auto) 0 Baso # (Auto) 100 ABG pH ABG pCO2 ABG pO2 ABG HCO3 ABG Total CO2 ABG O2 Saturation ABG Base Excess FiO2 Sodium 139 Potassium 4.1 Chloride 106 Carbon Dioxide 23 BUN 14 Creatinine 1.07 Estimated GFR > 60 BUN/Creatinine Ratio 13.1 Glucose 121 H Lactate 3.0 H Calcium 9.5 Magnesium Total Bilirubin 0.8 AST 33 ALT 17 Alkaline Phosphatase 77 Total Protein 6.9 Albumin 3.8 Globulin 3.1 Albumin/Globulin Ratio 1.2 Urine Color Urine Appearance Urine pH Ur Specific [place] Urine Protein Urine Glucose (UA) Urine Ketones Urine Occult Blood Urine Nitrate Urine Bilirubin Urine Urobilinogen Ur Leukocyte Esterase Urine RBC Urine WBC Uric Acid Crystals Urine Bacteria Ur Culture Indicated? 01/31/22 01/31/22 01/31/22 05:45 05:45 06:00 WBC RBC Hgb Hct MCV MCH MCHC RDW Plt Count Neut % (Auto) Lymph % (Auto) [place] % (Auto) Eos % (Auto) Baso % (Auto) Neut # (Auto) Lymph # (Auto) [place] # (Auto) Eos # (Auto) Baso # (Auto) ABG pH 7.64 H* ABG pCO2 16.4 L* ABG pO2 89 ABG HCO3 18 L ABG Total CO2 18 L ABG O2 Saturation 99 ABG Base Excess -3.0 L FiO2 21 Sodium Potassium Chloride Carbon Dioxide BUN Creatinine Estimated GFR BUN/Creatinine Ratio Glucose Lactate Calcium Magnesium 1.7 Total Bilirubin AST ALT Alkaline Phosphatase Total Protein Albumin Globulin Albumin/Globulin Ratio Urine Color Yellow Urine Appearance Clear Urine pH 5.0 Ur Specific [place] <=1.005 Urine Protein Negative Urine Glucose (UA) Negative Urine Ketones Negative Urine Occult Blood 1+ H Urine Nitrate Negative Urine Bilirubin Negative Urine Urobilinogen 0.2 Ur Leukocyte Esterase 2+ H Urine RBC 1-5/hpf D Urine WBC 5-10/hpf H Uric Acid Crystals Occasional Urine Bacteria Few (2-10) H Ur Culture Indicated? Specimen cultured 01/31/22 01/31/22 06:19 08:38 WBC RBC Hgb 12.8 L Hct 38.6 L MCV MCH MCHC RDW Plt Count Neut % (Auto) Lymph % (Auto) [place] % (Auto) Eos % (Auto) Baso % (Auto) Neut # (Auto) Lymph # (Auto) [place] # (Auto) Eos # (Auto) Baso # (Auto) ABG pH ABG pCO2 ABG pO2 ABG HCO3 ABG Total CO2 ABG O2 Saturation ABG Base Excess FiO2 Sodium Potassium Chloride Carbon Dioxide BUN Creatinine Estimated GFR BUN/Creatinine Ratio Glucose Lactate 1.6 Calcium Magnesium Total Bilirubin AST ALT Alkaline Phosphatase Total Protein Albumin Globulin Albumin/Globulin Ratio Urine Color Urine Appearance Urine pH Ur Specific [place] Urine Protein Urine Glucose (UA) Urine Ketones Urine Occult Blood Urine Nitrate Urine Bilirubin Urine Urobilinogen Ur Leukocyte Esterase Urine RBC Urine WBC Uric Acid Crystals Urine Bacteria Ur Culture Indicated? PFSH Medical History (Updated 01/25/22 @ 10:27 by Ashley Tao RN) Anticoagulated Central sleep apnea COVID-19 virus infection (01/03/22) Diabetes DVT (deep venous thrombosis) GERD (gastroesophageal reflux disease) HTN (hypertension) Hx pulmonary embolism Hyperlipemia Laceration Obesity Obstructive sleep apnea of adult Pulmonary embolism Spinal stenosis Surgical History H/O Spinal surgery History of hip replacement History of tonsillectomy and adenoidectomy Family History Father Pancreatic cancer Social History marital status: details: to Soraida household members: spouse lives independently: Yes caregiver/support person: No education level: college 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 posterior instrumentation, L2-3 laminectomy -Robot Not Applicable Eric Michelle MD Postoperative day: 1 Postoperative status: other (Altered mental status) Postoperative status narrative: Postop day 1 posterior spinal fusion with Dr. Michelle. Patient with altered mental status. Concern for UTI. Hospitalist consulted. Antibiotics in fluids received. Continue to monitor. Postoperative plan: other (Appreciate internal medicine hospitalist team. for spine. Weightbear as tolerated. No bending lifting or twisting.) Time Spent With Patient Time with patient: less than 15 minutes Quality VTE Deep Vein Thrombosis/Pulmonary Embolism Present on Admission: No
[2022-01-31] MEDS: ACETAMINOPHEN 325 MG TABLET 650 MG PO (13:11)
[2022-01-31] MEDS: OXYCODONE IR 5 MG TABLET PO ×2 (13:11→18:03)
--- NOTE | 2022-01-31 13:45 | DI.MRI.S_ITS ---
PROCEDURE: MR HEAD/BRAIN WO CON INDICATIONS: acute encephalopathy TECHNIQUE: Non-contrast axial T1 spin echo, axial T2 fast spin echo, sagittal and axial FLAIR, coronal T2 fast spin echo, axial gradient echo, axial diffusion and ADC through the brain. COMPARISON: [facility], CT, CT HEAD/BRAIN WO CON, 01/31/2022, 8:20. [facility], MR, MR HEAD/BRAIN WO/W CON, 11/11/2018, 15:45. FINDINGS: Image quality: This examination is limited by involuntary motion artifact. CSF spaces: Ventricles appear symmetric in size and shape. Basal cisterns are patent. No extra-axial fluid collections. Brain: No intracranial bleeds or mass effects. There is cerebral volume loss for age. There are periventricular and deep white matter chronic small vessel ischemic changes. Brainstem appears normal. Diffusion-weighted images show no acute ischemic insults. No chronic ischemic insults. Normal intravascular flow voids are present. Skull and face: Calvarial bone marrow is normal in signal. Orbits are normal. Sinuses: There is a mucous retention cyst seen involving the inferior aspect of the right maxillary sinus. Sinuses and mastoids are otherwise clear. IMPRESSION: No acute intracranial process is seen. No findings of acute or subacute infarction can be seen. Note is made of age-appropriate brain parenchymal volume loss and chronic small vessel ischemic changes. Dictated by: Krzysztof Salgado M.D. on 01/31/2022 at 14:20 Approved by: Krzysztof Salgado M.D. on 01/31/2022 at 14:21
--- NOTE | 2022-01-31 14:10 | PT.IPTN ---
Current Diagnoses Other secondary scoliosis, lumbar region (01/30/22) Spondylolisthesis, lumbar region (01/30/22) Spinal stenosis, lumbar region with neurogenic claudication (01/30/22) Surgery Performed Operation Date: 01/30/22 07:45 Actual Procedures p L3-4, L4-5, L5-S1 TLIF w. posterior instrumentation, L2-3 laminectomy -Robot(Not Applicable) - Eric Michelle MD Physical Therapy Treatment Note M2 PT-IP Current Condition Start: 01/31/22 12:58 Freq: NEEDED Status: Active Protocol: Document 01/31/22 10:42 AB (Rec: 01/31/22 13:09 AB [id number]) Physical Therapy Current Condition Current Condition Evaluation Date 01/31/22 Treatment Diagnosis s/p L3-4, L4-5, L5S1 TLIF; difficulty in walking Onset Date 01/30/22 M3 PT-IP Subjective Start: 01/31/22 12:58 Freq: NEEDED Status: Active Protocol: Document 01/31/22 14:10 AB (Rec: 01/31/22 15:17 AB [id number]) Subjective Physical Therapy Visit Type Type Treatment Note Visit Start Time 14:10 Visit Stop Time 14:32 Total Visit Minutes 22 Number of CUTTER TENDER Visits 0 Physical Therapy Visit Comments Patient Comments requesting to go back to bed Therapy Pain Assessment Pain When Pain Assessed At Rest Pain Present Pain Present Pain Reported Location Lower Back Intensity 2 Scale Used Numeric (0 - 10) Pain Management Techniques Distraction,Modification of Treatment,Re-positioning, Timing of Activity with Medications M4 PT-IP Mobility and Gait Start: 01/31/22 12:58 Freq: NEEDED Status: Active Protocol: Document 01/31/22 14:10 AB (Rec: 01/31/22 15:17 AB [id number]) PT-Bed Mobility Assessment Rolling Type of Rolling Log Rolling Level of Assist Maximal Assistance Supine to Sit Supine to Sit Maximum Assistance,2 Person Assistance,Bedrails Scooting Scooting Up and Down in Bed Dependent PT-Transfer Assessment Sit to and From Stand Sit to and from Stand Maximum Assistance,2 Person Assistance,Use of Upper Extremities Equipment Transfer Assistive Device Gait Belt,Front Wheeled Walker Orthotic/Prosthetic Devices or Brace: No Transfers Transfer Destination Bed Transfer Technique Stand Step Pivot Transfer Ability Level of Assist Maximum Assistance,1 Person Assistance,Use of Upper Extremities Comments Mobility Comments pt requesting to go back to bed per NAC. pt able to following directions better this afternoon but continues to have confusion. completed sit to stand max A x 2 and max cues and completed step transfer to bed using FWW max A x 2 and max cues. Max A x 2 for log roll sit to supine. total A x 2 for positioning in bed. call light and table placed within reach. M5 PT-IP Objective Assessments Start: 01/31/22 12:58 Freq: NEEDED Status: Active Protocol: Document 01/31/22 10:42 AB (Rec: 01/31/22 13:09 AB [id number]) Orientation Orientation/Cognition Level of Alertness Confusional State Orientation Name Safety Awareness Decreased Safety Awareness Memory Description Short Term Impaired,Salon Assistant Impaired Gross Range of Motion Lower Extremity ROM Assessment Within Functional Limits Strength Comments Strength Comments unable to complete MMT due to pt's difficulty following directions Muscle Tone Muscle Tone WNL Yes M6 PT-IP Treatment Start: 01/31/22 12:58 Freq: NEEDED Status: Active Protocol: Document 01/31/22 14:10 AB (Rec: 01/31/22 15:17 AB [id number]) Physical Therapy Treatment Education Education Provided Safety M7 PT-IP Assessment and Plan Start: 01/31/22 12:58 Freq: NEEDED Status: Active Protocol: Document 01/31/22 14:10 AB (Rec: 01/31/22 15:17 AB [id number]) PT Summary Assessment and Plan Potential Rehabilitation Potential Fair Summary Impairments Pain,ROM,Strength,Balance, Coordination,Sensation,Tone, Cognition,Bed Mobility, Transfers,Gait,Activity Tolerance Progress Towards Goals Slow Progress due to Pain,Slow Progress due to Medical Issues,Slow Progress - Other Assessment Summary pt requiring max A x 2 bed mobility and transfers using FWW. pt continues to have confusion and decrease activity tolerance affecting mobility. will continue to assess progress but at this time, will require SNF rehab. Goals Bed Mobility Goal Moderate Assistance Transfer Goal Maximal Assistance,Front Wheeled Walker Gait Goal Moderate Assistance,Front Wheel Walker Gait Distance 25 Other Goals improve bed mobility: SBA improve transfers: SBA using FWW improve ambulation: SBA using FWW 150 ft up/down 3 steps using R rail ascending SBA Days to Meet Goals 10 Frequency of Treatment Frequency Of Treatment Twice a Day Treatment Plan Physical Therapy Treatment Plan Bed Mobility Training,Transfer Training,Gait Training, Therapeutic Exercise,Balance Retraining,Post Op Education, Discharge Planning,Hot or Cold Pack,Neuromuscular Re-ed, Coordination Retraining,Manual Therapy Precautions Lumbar Precautions Log Roll,No Twisting,Limit Bending,Lifting Restriction of 10 lbs,Gait Belt above Incisional Area Recommendations To Nursing Amount of Assist Needed Mechanical Lift Discharge Recommendations PT Discharge Recommendations SNF Rehab Transportation Needs at Discharge Wheelchair/Cabulance
--- NOTE | 2022-01-31 14:57 | CM.DANOTE ---
DCP Assessment: Payor: Medicare and for life PCP: SANIYA Provider Pt is a 76 y.o. M who presented to the hospital for a scheduled TLIF surgery. Pt brought up to the floor for further evaluation and management of surgical procedure. DCP met with pt this afternoon to discuss discharge needs. Pt just got done with PT and was back in bed. DCP introduced herself and role. Pt lives with his spouse on [facility] in a single story house. Pt is fairly independent at baseline and normally does not use any DME's. Pt does not drive and relies on his spouse for transport. There are currently no discharge needs but DCP to continue to follow and work with team. Whiteboard updated and instructed to call if needed. Pt thankful for discussion. P: Once medically stable, pt to discharge home via spouse POV. R/O HH. Urmila Martin RN/LUC Discharge Planning/Care Management CM Discharge Assessment Start: 01/31/22 11:42 Freq: Status: Active Protocol: Document 01/31/22 14:42 AJ (Rec: 01/31/22 14:43 AJ [id number]) Discharge Planning Assessment Assigned Cdl A Driver Urmila Martin RN/LUC Advance Directives? Yes Advance Directives on File No History Provided By Patient,Medical Record Prior Living Arrangements House Household Members spouse Type of transporation used prior to Relies on Others admit Independent with ADL's Yes Is patient alert and oriented? Yes Caregiver for Another No DME Already Rented / Owned FWW / Walker,Cane Patient/Family Preference Home with Home Health Discharge Plan Home Transportation Arrangement Spouse POV Referrals Initiated Home Health Additional Comment R/O pending HH [place] Whiteboard Updated in Patient Room with Yes name and ext. # of Cdl A Driver Comment Instructed to call if needed Review Status In Process Please Provide Date Initial DC 01/31/22 Assessment Was Performed Next Review Type Continued Stay Review Pre-Anesthesia Assessment Start: 01/25/22 09:34 Freq: Status: Complete Protocol: Document 01/25/22 09:34 CAB (Rec: 01/25/22 10:59 CAB [id number]) Pre-Anesthesia Assessment Preferred Name Bashir Patient Information Reviewed Via Phone Assessment Assessment Completed With Patient Diagnostic Results BMP/CMP,CBC,EKG Comment Labs/ECG @ [facility] 01/13/22, COVID screen @ [facility] 01/27/22 Primary Care Provider Arielle Claros Seen Specialist in Last 12 Months Yes Specialist Seen Emergency,Orthopedist Primary Language Lebanese Preferred Language Lebanese Office Services Assistant Required No Height 177.8 cm Weight 107.955 kg Body Mass Index (BMI) 34.1 Hearing Ability Normal Visual Assist Glasses Dentition Type Teeth, Natural Present,Dental Implants Barriers to Learning None Hx Anesthesia Reactions No Hx Family Anesthesia Reaction No Hx Malignant Hyperthermia No Hx Blood Transfusions No Anesthesia Review Requested Yes: PAC courtesy re: COVID 01/03/22 with comorbidities 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 No Does patient have HARDING/SOB No Hx Sleep Apnea Yes: BiPAP CPAP/BIPAP use prescribed used intermittently Currently Taking a Beta [place] No Hx Chest Pain No Hx SOB No Hx Syncope or Dizziness Yes: Syncopal episodes over last 2-3 months Anti-Coagulant Therapy Yes: Xarelto-hold x 2 days per surgeon and Hematology Has a Solderer Furnace No Cardiac Testing No Hx Pacemaker/ICD No Pacemaker Rep Required? No Diet Type At Home Regular dysphagia No Gastrointestinal Symptoms Constipation Bladder Pattern Retention Urinary Catheter Present No Hx Urinary Self Catheterization No Comment Catheter removed 01/11/22 Diabetes Yes: Pt infrequently checks blood sugars Hx Drug Resistant Organism No Presence of External or Internal Medical Yes: Bilat hip prosthesis, Devices BiPAP, dental implants Have you had any close contact with Yes: Pt had Covid-19 01/03/22, someone diagnosed with COVID-19? minimal symptoms Are you experiencing any of these No symptoms symptoms? Received a COVID vaccine? Yes: x2 booster Received all doses? Yes Marital Status Lives With spouse Prior Living Arrangements House Number of Floors (Floors) One Floor Support System Spouse Does the Patient Have Assistance After Yes Surgery Patient Discharge Plan Description Return Home Comment Pt advised 2 night length of stay per surgeon Additional comment Lives on [place] Feels Safe in Current Environment Yes Been Physically Hurt or Threatened By a No Person in Current Environment Do you have thoughts of harming yourself None or others? Are you currently considering suicide? No Do you have a plan to hurt yourself or No Plan others? Do You Have Any Spiritual Beliefs That No May Affect Your HC Choices? Do You Have Any Cultural Practices That No May Affect Your HC Choices? Comment Mormonism Who Can We Speak to About Patient's Care Family, friends Identifying Code for Release of Patient Declines to issue Information Health Care Proxy/Next of Kin Soraida Borjas () Health Care Proxy Emergency Contact Name Soraida Borjas Emergency Contact Advance Directives? Yes Advance Directives on File No Power of Silk Spooler Yes Power of Silk Spooler Name Soraida Borjas Power of Silk Spooler PAC Instructions Bring CPAP/BIPAP,Diabetes instructions,Durable medical equipment,Medications to take/ avoid,Nasal antibiotic,No ETOH /petroleum product on skin DOS ,NPO,Post-op transportation, Pre-surgical wash,Sturdy shoes /comfortable clothes,Do not bring valuables and remove jewelry
[2022-01-31] MEDS: lisinopriL 10 MG TABLET PO (20:00)
[2022-02-01] VITALS (11 sets, daily range): BP systolic 134–181; BP diastolic 72–96; PULSE 96–125; RESP 16–30; TEMP 36.7–37.8; O2SAT 94–98
[2022-02-01] MEDS: ACETAMINOPHEN 325 MG TABLET 650 MG PO ×2 (00:32→20:30)
[2022-02-01] MEDS: HYDROMORPHONE 0.5 MG INJ IV ×2 (00:48→04:48)
[2022-02-01] MEDS: PIPERACILLIN/TAZO 3.375 GM in SODIUM CHLORIDE 0.9% 100 ML IV ×3 (02:06→17:26)
--- NOTE | 2022-02-01 02:47 | PC.NURSE ---
Addendum entered by Bell Simeon R.N. 02/01/22 05:19: Patient called and reported horrible back pain. Dilauded given and effective for pain control. T 98.6, HR 105, RR 22, O2 96% on 2L nasal canula. Original Note: Patient noted to be with increased pain, moaning and shivering. Reports back pain, appears to be severe pain, shouting out with movement. Febrile with temp of 100.0, tachycardic with hr 125, RR 30. Tylenol given for fever, dilauded given for pain. Placed on 2L O2. Patient on NS @100, running concurrently with zosyn. Notified Dr. Rose regarding change in condition, he stated to continue fluids and antibiotics. Will continue to monitor.
[2022-02-01] MEDS: SODIUM CHLORIDE 0.9% 1,000 ML 100 ML IV ×2 (04:53→22:24)
[2022-02-01 07:39] LABS: Add Manual Diff / Slide Review NO; Basophils Absolute Auto 100 /uL (0-100); Basophils Percent Auto 0.6 % (0-2); Eosinophils Absolute Auto 200 /uL (0-450); Eosinophils Percent Auto 1.1 % (2-4); Hematocrit 31.7 % (41-53); Hemoglobin 10.7 g/dL (13.5-17.5); Lymphocytes Absolute Auto 1500 /uL (1100-4500); Lymphocytes Percent Auto 11.1 % (25-40); Mean Corpuscular HGB Conc 33.8 % (30-36); Mean Corpuscular Hemoglobin 30.9 PG (26-34); Mean Corpuscular Volume 91.4 fL (80-100); Monocytes Absolute Auto 1900 /uL (0-900); Monocytes Percent Auto 13.4 % (3-14); Neutrophils Absolute Auto 10200 /uL (1500-7000); Neutrophils Percent Auto 73.8 % (50-75); Platelet Count 166 X10^3/uL (150-400); Red Blood Cell Count 3.47 X10^6/uL (4.5-5.9); Red Cell Distribution Width 16.5 % (11.6-14.8); White Blood Cell Count 13.9 X10^3/uL (4.5-11.0)
[2022-02-01 07:43] LABS: BUN Creatinine Ratio 11.9 (6-22); Blood Urea Nitrogen 13 mg/dL (9-20); Calcium 8.3 mg/dL (8.4-10.2); Carbon Dioxide 24 mmol/L (22-32); Chloride 108 mmol/L (98-107); Estimated Glomerular Filt Rate > 60 mL/min (>60); Glucose 119 mg/dL (80-110); HEMOLYSIS < 15 (0-50); Magnesium 1.8 mg/dL (1.6-2.3); Potassium 3.6 mmol/L (3.4-5.1); Sodium 139 mmol/L (137-145)
--- NOTE | 2022-02-01 07:53 | PM.PN.1 ---
Subjective Subjective Date Patient Seen: 02/01/22 Time Patient Seen: 11:00 Interval history: Patient a little clearer mentally today per at bedside. He states he feels well and his back pain is manageable. Had mild temp of 100F overnight and WBC still elevated at 13.9 so added vancomycin. Exam Vital Signs (past 8 hours): - 02/01/22 00:00 02/01/22 01:30 02/01/22 04:00 Temperature 100.0 F H 99.4 F 98.6 F Pulse Rate 125 H 105 H Respiratory Rate 30 H 22 Blood Pressure 134/96 H 151/75 H Pulse Oximetry 94 96 Oxygen Flow Rate 2 Oxygen Delivery Method Nasal Cannula Oxygen Flow Rate 2 Narrative Exam Narrative: GEN: no acute distress, alert and oriented only to person HEENT: moist mucous membranes, PERRL NECK: trachea midline, no JVD CV: regular rate and rhythm, no murmurs PULM: clear bilaterally ABD: soft, nontender, nondistended, no organomegaly EXT: warm and well perfused with no edema NEURO: Mild cogwheel rigidity on upper extremities, mild bilateral tremor of upper extremities, no other focal deficits Objective Labs Result Diagrams: 02/01/22 06:41 02/01/22 06:41 Labs: Laboratory Results - last 24 hr 01/31/22 02/01/22 02/01/22 08:38 06:41 06:41 WBC 13.9 H RBC 3.47 L Hgb 10.7 L Hct 31.7 L MCV 91.4 MCH 30.9 MCHC 33.8 RDW 16.5 H Plt Count 166 Neut % (Auto) 73.8 Lymph % (Auto) 11.1 L [place] % (Auto) 13.4 Eos % (Auto) 1.1 L Baso % (Auto) 0.6 Neut # (Auto) 77643 H Lymph # (Auto) 1500 [place] # (Auto) 1900 H Eos # (Auto) 200 Baso # (Auto) 100 Sodium 139 Potassium 3.6 Chloride 108 H Carbon Dioxide 24 BUN 13 Creatinine 1.09 Estimated GFR > 60 BUN/Creatinine Ratio 11.9 Glucose 119 H Lactate 1.6 Calcium 8.3 L Magnesium 1.8 PFSH Medical History Anticoagulated Central sleep apnea COVID-19 virus infection (01/03/22) Diabetes DVT (deep venous thrombosis) GERD (gastroesophageal reflux disease) HTN (hypertension) Hx pulmonary embolism Hyperlipemia Laceration Obesity Obstructive sleep apnea of adult Pulmonary embolism Spinal stenosis Surgical History H/O Spinal surgery History of hip replacement History of tonsillectomy and adenoidectomy Family History Father Pancreatic cancer Social History marital status: details: to Soraida household members: spouse lives independently: Yes caregiver/support person: No education level: college 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 Smoking Status: Former smoker alcohol intake: current substance use type: does not use Assessment & Plan Assessment & Plan narrative: # acute encephalopathy, not present on admission, improving -likely delirium secondary to UTI -improving with IV antibiotics -CT noncontrast head and MRI brain normal -frequent reorientation -suspect possible underlying Parkinson's as patient has tremor and cogwheel rigidity on exam # complicated UTI -UA with pyuria -continue Zosyn, added vanco due to persistently elevated WBC at 13.9 -follow-up cultures -may warrant outpatient Urology referral given recurrent history of UTI in male # lumbar spinal stenosis postop day 1 lumbar fusion -Dr. Viviana damian primary -po pain meds PRN -ortho dc dilaudid on 02/01 # type 2 diabetes -home metformin -sliding scale insulin # hypertension, chronic -continue home lisinopril # depression, chronic -continue home Cymbalta # history of DVT and PE -holding xarelto due to recent surgery -will restart per ortho recs Code status is full code. COVID negative. DVT prophylaxis with SCDs. Proxy is spouse Soraida. I have reviewed home meds and used all available resources to reconcile the home meds. Time Spent With Patient Critical Care time: I spent a total of [] minutes of critical care time on this patient's care today; this time is exclusive of procedural time. Quality VTE Deep Vein Thrombosis/Pulmonary Embolism Present on Admission: No
--- NOTE | 2022-02-01 08:08 | PM.PNPO.1 ---
Subjective Subjective Date Patient Seen: 02/01/22 Time Patient Seen: 08:08 Interval history: Patient awake this morning. Still disoriented and confused. Daughter at bedside. States he had some pain overnight and chills. Exam Vital Signs (past 8 hours): - 02/01/22 01:30 02/01/22 04:00 Temperature 99.4 F 98.6 F Pulse Rate 105 H Respiratory Rate 22 Blood Pressure 151/75 H Pulse Oximetry 96 Oxygen Flow Rate 2 Oxygen Delivery Method Nasal Cannula Oxygen Flow Rate 2 Narrative Exam Narrative: 76-year-old male resting comfortably in bed in no apparent distress. Motor functions intact bilateral lower extremities. Sensation grossly intact to light touch bilateral lower extremities. Const Orientation: alert, awake and confused HENMT Head: normal to inspection Resp Effort & Inspection: normal respiratory effort Objective Labs Result Diagrams: 02/01/22 06:41 02/01/22 06:41 Labs: Laboratory Results - last 24 hr 01/31/22 02/01/22 02/01/22 08:38 06:41 06:41 WBC 13.9 H RBC 3.47 L Hgb 10.7 L Hct 31.7 L MCV 91.4 MCH 30.9 MCHC 33.8 RDW 16.5 H Plt Count 166 Neut % (Auto) 73.8 Lymph % (Auto) 11.1 L [place] % (Auto) 13.4 Eos % (Auto) 1.1 L Baso % (Auto) 0.6 Neut # (Auto) 03499 H Lymph # (Auto) 1500 [place] # (Auto) 1900 H Eos # (Auto) 200 Baso # (Auto) 100 Sodium 139 Potassium 3.6 Chloride 108 H Carbon Dioxide 24 BUN 13 Creatinine 1.09 Estimated GFR > 60 BUN/Creatinine Ratio 11.9 Glucose 119 H Lactate 1.6 Calcium 8.3 L Magnesium 1.8 PFSH Medical History Anticoagulated Central sleep apnea COVID-19 virus infection (01/03/22) Diabetes DVT (deep venous thrombosis) GERD (gastroesophageal reflux disease) HTN (hypertension) Hx pulmonary embolism Hyperlipemia Laceration Obesity Obstructive sleep apnea of adult Pulmonary embolism Spinal stenosis Surgical History H/O Spinal surgery History of hip replacement History of tonsillectomy and adenoidectomy Family History Father Pancreatic cancer Social History marital status: details: william Quigley household members: spouse lives independently: Yes caregiver/support person: No education level: college 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 posterior instrumentation, L2-3 laminectomy -Robot Not Applicable Eric Michelle MD Postoperative day: 2 Postoperative status narrative: Stable status post lumbar fusion on January 30, 2022 Hospitalist consulted for mental status change morning January 31, 2022. Sepsis identified at 6:20 a.m. January 31, 2022. Postoperative plan narrative: Mobilize with physical therapy, limit bending, lifting, twisting Multimodal pain management, discontinued Dilaudid added oxycodone 10 mg q.4 hours as needed pain Acute encephalopathy, not present on admission, complicated UTI, type 2 diabetes, chronic hypertension followed by hospitalist. Discussed patient this morning with hospitalist. He may add broad-spectrum antibiotic, prelim urine culture shows no growth, chest x-ray showed mild left basilar opacity present, nonspecific. This could represent atelectasis but aspiration or pneumonia are also possible Disposition, to be determined Quality VTE Deep Vein Thrombosis/Pulmonary Embolism Present on Admission: No
[2022-02-01] MEDS: PREGABALIN 75 MG CAPSULE 150 MG PO ×2 (08:44→20:30)
[2022-02-01] MEDS: OXYCODONE IR 10 MG TABLET PO ×3 (08:44→18:17)
[2022-02-01] MEDS: DOCUSATE 100 MG CAPSULE PO ×2 (08:44→20:29)
[2022-02-01] MEDS: DULOXETINE 30 MG CAPSULE PO (08:44)
[2022-02-01] MEDS: MULTIVITAMIN 1 TABLET 1 TAB PO (08:45)
[2022-02-01] MEDS: VANCOMYCIN 1,000 MG/200 ML PIGGYBACK 200 MG IV ×2 (09:33→22:23)
--- NOTE | 2022-02-01 10:05 | PT.IPTN ---
Current Diagnoses Other secondary scoliosis, lumbar region (01/30/22) Spondylolisthesis, lumbar region (01/30/22) Spinal stenosis, lumbar region with neurogenic claudication (01/30/22) Surgery Performed Operation Date: 01/30/22 07:45 Actual Procedures p L3-4, L4-5, L5-S1 TLIF w. posterior instrumentation, L2-3 laminectomy -Robot(Not Applicable) - Eric Michelle MD Physical Therapy Treatment Note M2 PT-IP Current Condition Start: 01/31/22 12:58 Freq: NEEDED Status: Active Protocol: Document 01/31/22 10:42 AB (Rec: 01/31/22 13:09 AB [id number]) Physical Therapy Current Condition Current Condition Evaluation Date 01/31/22 Treatment Diagnosis s/p L3-4, L4-5, L5S1 TLIF; difficulty in walking Onset Date 01/30/22 M3 PT-IP Subjective Start: 01/31/22 12:58 Freq: NEEDED Status: Active Protocol: Document 02/01/22 10:05 AB (Rec: 02/01/22 11:06 AB [id number]) Subjective Physical Therapy Visit Type Type Treatment Note Visit Start Time 10:05 Visit Stop Time 10:35 Total Visit Minutes 30 Number of RX SPECIALIST Visits 0 Physical Therapy Visit Comments Patient Comments agreeable to do PT Therapy Pain Assessment Pain When Pain Assessed At Rest Pain Present Pain Present Pain Reported Location Lower Back Scale Used pain scale not stated Pain Management Techniques Apply Cold,Distraction, Modification of Treatment,Re- positioning,Timing of Activity with Medications M4 PT-IP Mobility and Gait Start: 01/31/22 12:58 Freq: NEEDED Status: Active Protocol: Document 02/01/22 10:05 AB (Rec: 02/01/22 11:06 AB [id number]) PT-Bed Mobility Assessment Rolling Type of Rolling Log Rolling Level of Assist Maximal Assistance,2 Person Assistance Supine to Sit Supine to Sit Maximum Assistance,Total Assistance,2 Person Assistance ,Head of Bed Elevated,Bedrails Scooting Scooting to Edge of Bed Dependent PT-Transfer Assessment Sit to and From Stand Sit to and from Stand Maximum Assistance,2 Person Assistance,Use of Upper Extremities Equipment Transfer Assistive Device Gait Belt,Front Wheeled Walker Orthotic/Prosthetic Devices or Brace: No Transfers Transfer Destination Chair Transfer Technique Stand Step Pivot Transfer Ability Level of Assist Maximum Assistance,2 Person Assistance,Use of Upper Extremities Comments Mobility Comments pt continues to have confusion and with difficulty following instructions and responding to questions. completed log roll supine to sit max A x 2 and max cues. mod to max A for sitting on EOB. (+) SOB but O2 sat at RA 93-95%. pt completed sit to stand max A and max cues and step transfer to chair using FWW max A x 2 and max cues. max A x 2 for controlled descent to chair. positioned pt on the chair total A x 2 for positioning/scooting. call light and table placed within reach. left pt in room with family. Gait Assessment Comments Gait Comments unable at this time M5 PT-IP Objective Assessments Start: 01/31/22 12:58 Freq: NEEDED Status: Active Protocol: Document 01/31/22 10:42 AB (Rec: 01/31/22 13:09 AB [id number]) Orientation Orientation/Cognition Level of Alertness Confusional State Orientation Name Safety Awareness Decreased Safety Awareness Memory Description Short Term Impaired,Senior Care Impaired Gross Range of Motion Lower Extremity ROM Assessment Within Functional Limits Strength Comments Strength Comments unable to complete MMT due to pt's difficulty following directions Muscle Tone Muscle Tone WNL Yes M6 PT-IP Treatment Start: 01/31/22 12:58 Freq: NEEDED Status: Active Protocol: Document 02/01/22 10:05 AB (Rec: 02/01/22 11:06 AB [id number]) Physical Therapy Treatment Education Education Provided Precautions,Safety M7 PT-IP Assessment and Plan Start: 01/31/22 12:58 Freq: NEEDED Status: Active Protocol: Document 02/01/22 10:05 AB (Rec: 02/01/22 11:06 AB [email or web address]) PT Summary Assessment and Plan Potential Rehabilitation Potential Fair Summary Impairments Pain,ROM,Strength,Balance, Coordination,Sensation,Tone, Cognition,Bed Mobility, Transfers,Gait,Activity Tolerance Progress Towards Goals Slow Progress due to Pain,Slow Progress due to Medical Issues,Slow Progress due to Activity Tolerance Assessment Summary pt continues to require max A x 2 to total A x 2 with mobility. Pt requires max cues with low tasks and presents with confusion and difficulty following directions. Pt will require SNF rehab at this time to improve overall strength and mobility. Goals Bed Mobility Goal Moderate Assistance Transfer Goal Maximal Assistance,Front Wheeled Walker Gait Goal Moderate Assistance,Front Wheel Walker Gait Distance 25 Other Goals improve bed mobility: SBA improve transfers: SBA using FWW improve ambulation: SBA using FWW 150 ft up/down 3 steps using R rail ascending SBA Days to Meet Goals 10 Frequency of Treatment Frequency Of Treatment Twice a Day Treatment Plan Physical Therapy Treatment Plan Bed Mobility Training,Transfer Training,Gait Training, Therapeutic Exercise,Balance Retraining,Post Op Education, Discharge Planning,Hot or Cold Pack,Neuromuscular Re-ed, Coordination Retraining,Manual Therapy Precautions Lumbar Precautions Log Roll,No Twisting,Limit Bending,Lifting Restriction of 10 lbs,Gait Belt above Incisional Area Recommendations To Nursing Amount of Assist Needed Mechanical Lift Discharge Recommendations PT Discharge Recommendations SNF Rehab Transportation Needs at Discharge Wheelchair/Cabulance
--- NOTE | 2022-02-01 12:55 | OT.IP.TRT ---
Current Diagnoses Other secondary scoliosis, lumbar region (01/30/22) Spondylolisthesis, lumbar region (01/30/22) Spinal stenosis, lumbar region with neurogenic claudication (01/30/22) Surgery Performed Operation Date: 01/30/22 07:45 Actual Procedures p L3-4, L4-5, L5-S1 TLIF w. posterior instrumentation, L2-3 laminectomy -Robot(Not Applicable) - Eric Michelle MD Occupational Therapy Treatment Note M2 OT-IP Current Condition Start: 01/31/22 15:50 Freq: Status: Active Protocol: Document 01/31/22 09:27 [facility] (Rec: 01/31/22 16:08 [facility] [id number]) Occupational Therapy Current Condition Current Condition Evaluation Date 01/31/22 Treatment Diagnosis S/p L3-4, L4-5 , L5-S1 TLIF Diagnosis Onset Date 01/30/22 Post Operative Precautions Lumbar Precautions Log Roll,No Twisting,Limit Bending,Lifting Restriction of 10 lbs,Gait Belt above Incisional Area M3 OT- IP Subjective and Pain Start: 01/31/22 15:50 Freq: Status: Active Protocol: Document 02/01/22 12:55 [facility] (Rec: 02/01/22 14:47 [facility] [id number]) OT- Subjective Occupational Therapy Visit Type Type Treatment Note Visit Start Time 12:55 Visit Stop Time 14:35 Total Visit Minutes 15 Notes Pt ssen for split treatment, [id number], and [id number]. Occupational Therapy Visit Comments Patient Comments Pt agreed to do cognitive assessment. Pt's family in the room. Patient/Caregiver Goals To get better and go home. OT Pain Assessment Pain When Pain Assessed At Rest Pain Present Pain Present Pain Reported M6 OT- IP Functional Cognition Start: 01/31/22 15:50 Freq: Status: Active Protocol: Document 02/01/22 12:55 [facility] (Rec: 02/01/22 14:47 [facility] [id number]) Cognitive Factors Limiting Selfcare Function Cognitive Ability Level of Alertness Confusional State Patient Orientation Name Attention Span Ability Capable of Focused Attention, Unable to Focus Ability to Follow Commands Able to Follow One Step Commands with Increased Time, Able to Follow One Step Commands with Repetition Memory Description Short Term Impaired,Inward Toll Operator Impaired,Working Impaired Safety Awareness Decreased Recall of Precautions,Decreased Ability to Apply Precautions Cognitive Tests SLUMS Attempted to do SLUMS and pt able not able insisting he is 81 and even after his correcting him not able to recall that he is 76. Pt also not able to figure out how old he is at this time when written out. Pt aware that he is not thinking well. Cognitive Comments Cognitive Assessment Comments Pt able to get his words out better today but at times unable to get the words out or think well. At time able to do automatic movements smotthly and was able to use the utensil to eat one bite of chicken and at times has decreased initiation of movement. Spoke at length with his family regarding at this time SNF may be a better option then home as pt currently needing extensive two person assist for needs and also havs 3 steps in order to get into the house. Able to encourage pt to try to eat more as just having surgery and important to have protein. Pt open to having a protein drink, nursing notified. OT- Balance Assessment Sitting Balance and Reactions Static Sitting Balance Ability Fair Dynamic Sitting Balance Ability Poor Standing Balance and Reactions Static Standing Balance Ability Poor Dynamic Standing Balance Ability Poor Comments Other Balance Tests/Deviations/Treatment Pt needign CGA to MODA for : sitting balance at the edge of the bed. M8 OT- IP Objective Assessments Start: 01/31/22 15:50 Freq: Status: Active Protocol: Document 01/31/22 09:27 [facility] (Rec: 01/31/22 16:08 [facility] [id number]) OT-Muscle Tone Assessment Comments Muscle Tone Comments pt tremore in his hhands with exertion M9 OT- IP Assessment and Plan Start: 01/31/22 15:50 Freq: Status: Active Protocol: Document 02/01/22 12:55 [facility] (Rec: 02/01/22 14:47 [facility] [id number]) OT Summary Assessment and Plan Potential Rehabilitation Potential Good Analytic Complexity at Evaluation Moderate Summary OT Impairments Pain,Strength,Balance, Coordination,Functional Cognition,Functional Mobility, Self-Feeding,Grooming,Dressing ,Toileting,Bathing,Toilet Transfers,Shower Transfers, Activity Tolerance Progress Towards Goals Slow Progress due to Medical Issues,Slow Progress due to Activity Tolerance,Slow Progress due to Cognition Assessment Summary Pt still needing extensive 2 person assist for mobility needs and at this time will benefit from skilled rehab. Attempted to initiate SLUMS, however pt not able to think well and not able to recall his age at this time. To reattempt SLUMS when appropriate. Goals Self-Feeding Goal Standby Assistance Grooming Goal Standby Assistance Dressing Goal Moderate Assistance Toileting Goal Moderate Assistance Bathing Goal Moderate Assistance Toilet Transfer Goal Minimal Assistance Shower Transfer Goal Minimal Assistance Days to Meet Goals 35 Frequency of Treatment Frequency Of Treatment Once a Day Treatment Plan OT Treatment Plan ADL Training,Functional Cognition Training,Functional Mobility,Patient/Family Education,Discharge Planning Discharge Recommendations OT Discharge Recommendations SNF Rehab Transportation Needs at Discharge Wheelchair/Cabulance
--- NOTE | 2022-02-01 13:20 | PT.IPTN ---
Current Diagnoses Other secondary scoliosis, lumbar region (01/30/22) Spondylolisthesis, lumbar region (01/30/22) Spinal stenosis, lumbar region with neurogenic claudication (01/30/22) Surgery Performed Operation Date: 01/30/22 07:45 Actual Procedures p L3-4, L4-5, L5-S1 TLIF w. posterior instrumentation, L2-3 laminectomy -Robot(Not Applicable) - Eric Michelle MD Physical Therapy Treatment Note M2 PT-IP Current Condition Start: 01/31/22 12:58 Freq: NEEDED Status: Active Protocol: Document 01/31/22 10:42 AB (Rec: 01/31/22 13:09 AB [id number]) Physical Therapy Current Condition Current Condition Evaluation Date 01/31/22 Treatment Diagnosis s/p L3-4, L4-5, L5S1 TLIF; difficulty in walking Onset Date 01/30/22 M3 PT-IP Subjective Start: 01/31/22 12:58 Freq: NEEDED Status: Active Protocol: Document 02/01/22 13:20 AB (Rec: 02/01/22 14:06 AB [email or web address]) Subjective Physical Therapy Visit Type Type Treatment Note Visit Start Time 13:20 Visit Stop Time 13:50 Total Visit Minutes 30 Number of WHEEL INSTALLER Visits 0 Physical Therapy Visit Comments Patient Comments agreeable to do PT Therapy Pain Assessment Pain When Pain Assessed At Rest Pain Present Pain Present Pain Reported Location Lower Back Scale Used pain scale not stated M4 PT-IP Mobility and Gait Start: 01/31/22 12:58 Freq: NEEDED Status: Active Protocol: Document 02/01/22 13:20 AB (Rec: 02/01/22 14:06 AB [email or web address]) PT-Bed Mobility Assessment Sit to Supine Sit to Supine Maximum Assistance,Total Assistance,2 Person Assistance ,Bedrails PT-Transfer Assessment Sit to and From Stand Sit to and from Stand Maximum Assistance Equipment Transfer Assistive Device Gait Belt,Front Wheeled Walker Orthotic/Prosthetic Devices or Brace: No Transfers Transfer Destination Bed Transfer Technique Stand Step Pivot Transfer Ability Level of Assist Maximum Assistance,2 Person Assistance,Use of Upper Extremities Comments Mobility Comments pt agreed to do PT. family in room. completed sit to stand from chair max A x 2 and max cues. max A for ambulation using FWW ~ 3 ft and with chair follow. presents with decrease step elevation/ clearance and step length. max A with all tasks needing one step instructions. pt continues to present with difficlty following directions needing increase time to complete all tasks. pt sat back on chair max A x 1-2 for controlled descent. pt requested to go back to bed . completed sit to stand max A x 2 and max cues and step transfer to bed using FWW max A x 2 and max cues. requires max A x 2 to total A x 2 log roll bed mobility sit to supine. positioned pt in bed. call light and table placed within reach. left pt with family. disease case manager in room. Gait Assessment Gait Gait Assistance Required: Maximum Assistance,1 Person Assist,2 Person Assist Distance (Feet) 3 Able to Maintain Weight Bearing Status No During Gait Assistive Devices Assistive Device Gait Belt,Front Wheeled Walker Orthotic/Prosthetic Devices or Brace: No Gait Deviations General Gait Pattern Decreased Stride Length, Decreased Feet Clearance,Step- to Gait Factors Limiting Gait Function Factors Limiting Gait Function Decreased Activity Tolerance, Decreased Strength,Limited Range of Motion,Pain,Poor Balance,Poor Safety Awareness M5 PT-IP Objective Assessments Start: 01/31/22 12:58 Freq: NEEDED Status: Active Protocol: Document 01/31/22 10:42 AB (Rec: 01/31/22 13:09 [id number]) Orientation Orientation/Cognition Level of Alertness Confusional State Orientation Name Safety Awareness Decreased Safety Awareness Memory Description Short Term Impaired,Halfway Impaired Gross Range of Motion Lower Extremity ROM Assessment Within Functional Limits Strength Comments Strength Comments unable to complete MMT due to pt's difficulty following directions Muscle Tone Muscle Tone WNL Yes M6 PT-IP Treatment Start: 01/31/22 12:58 Freq: NEEDED Status: Active Protocol: Document 02/01/22 13:20 AB (Rec: 02/01/22 14:06 [email or web address]) Physical Therapy Treatment Education Education Provided Safety M7 PT-IP Assessment and Plan Start: 01/31/22 12:58 Freq: NEEDED Status: Active Protocol: Document 02/01/22 13:20 AB (Rec: 02/01/22 14:06 [email or web address]) PT Summary Assessment and Plan Potential Rehabilitation Potential Fair Summary Impairments Pain,ROM,Strength,Balance, Coordination,Sensation,Tone, Cognition,Bed Mobility, Transfers,Gait,Activity Tolerance Progress Towards Goals Slow Progress due to Pain,Slow Progress due to Medical Issues,Slow Progress due to Activity Tolerance,Slow Progress - Other Assessment Summary pt continues to require max A x 2 to total A x 2 with all mobilities and max cues with all tasks. pt will require SNF rehab to improve strength and functional independence. will continue to assess progress. Goals Bed Mobility Goal Moderate Assistance Transfer Goal Maximal Assistance,Front Wheeled Walker Gait Goal Moderate Assistance,Front Wheel Walker Gait Distance 25 Other Goals improve bed mobility: SBA improve transfers: SBA using FWW improve ambulation: SBA using FWW 150 ft up/down 3 steps using R rail ascending SBA Days to Meet Goals 10 Frequency of Treatment Frequency Of Treatment Twice a Day Treatment Plan Physical Therapy Treatment Plan Bed Mobility Training,Transfer Training,Gait Training, Therapeutic Exercise,Balance Retraining,Post Op Education, Discharge Planning,Hot or Cold Pack,Neuromuscular Re-ed, Coordination Retraining,Manual Therapy Precautions Lumbar Precautions Log Roll,No Twisting,Limit Bending,Lifting Restriction of 10 lbs,Gait Belt above Incisional Area Recommendations To Nursing Amount of Assist Needed Mechanical Lift Discharge Recommendations PT Discharge Recommendations SNF Rehab Transportation Needs at Discharge Wheelchair/Cabulance
--- NOTE | 2022-02-01 13:53 | CM.DPNOTE ---
Addendum entered by Urmila Martin R.N. 02/01/22 14:35: Referral also sent to [facility]. ADJ Original Note: DCP Cont: Per PT, pt recommending SNF. DCP spoke with pt and pt spouse, Soraida, and provided them with SNF options. DCP provided them with Medicare list and showed them medicare website on Ipad. Due to patient residence being on [facility], pt wanting [facility] was decided upon. DCP to go back and talk to Soraida to get backup options. DCP contacted [facility] and provided September with referral. September to contact DCP back regarding acceptance. Urmila Martin RN/LUC
[2022-02-01] MEDS: RIVAROXABAN 10 MG TABLET 20 MG PO (17:26)
[2022-02-01] MEDS: SENNOSIDES 8.6 MG TABLET 17.2 MG PO (20:29)
[2022-02-01] MEDS: lisinopriL 10 MG TABLET PO (20:29)
[2022-02-02 00:30] VITALS: BP 168/81; PULSE 110; RESP 17; TEMP 36.4; O2SAT 95
[2022-02-02] MEDS: PIPERACILLIN/TAZO 3.375 GM in SODIUM CHLORIDE 0.9% 100 ML IV ×2 (02:15→10:09)
--- NOTE | 2022-02-02 02:49 | PC.NURSE ---
assumed care of patient at 2300. patient a/o x 3, able to answer questions appropriately with little hints. when asked who his visitor was, he said: that is my brother Angel. shortly after, and also later on in the night, patient was able to recognize that his visitor was his son Angel, and not his brother. 2pa w/ FWW to BSC. followed directions & understood how to log roll. dressing to lower back saturated w/ dried blood and sero-sang drainage on the tape. alll the dressings removed, 2 incisions to lower back look great, no redness, wound is approximated, and angela are all intact. took a pic of incision per patients request on his own phone. area cleansed w/ NS. new dressings as what was removed were reapplied. new xeroform gauze applied over angela. two large bordered island dressings applied. patient states it feels so much better. agreeable to turn side to side thru the night; positioned w/ pillows. luciano was removed on day shift: voiding well. son overnight in room. patient able to voice needs and mentation seems improved thru the NOC. CTM for changes.
[2022-02-02] MEDS: ACETAMINOPHEN 325 MG TABLET 650 MG PO (04:27)
[2022-02-02] MEDS: OXYCODONE IR 10 MG TABLET PO ×2 (04:28→14:21)
[2022-02-02 06:24] VITALS: BP 119/49; PULSE 86; RESP 16; TEMP 36.7; O2SAT 93
[2022-02-02 07:03] LABS: BUN Creatinine Ratio 11.8 (6-22); Blood Urea Nitrogen 11 mg/dL (9-20); Calcium 8.4 mg/dL (8.4-10.2); Carbon Dioxide 22 mmol/L (22-32); Chloride 109 mmol/L (98-107); Estimated Glomerular Filt Rate > 60 mL/min (>60); Glucose 151 mg/dL (80-110); HEMOLYSIS < 15 (0-50); Potassium 3.3 mmol/L (3.4-5.1); Sodium 137 mmol/L (137-145)
[2022-02-02 07:15] LABS: Add Manual Diff / Slide Review NO; Basophils Absolute Auto 100 /uL (0-100); Basophils Percent Auto 0.7 % (0-2); Eosinophils Absolute Auto 400 /uL (0-450); Eosinophils Percent Auto 3.3 % (2-4); Hematocrit 29.8 % (41-53); Hemoglobin 10.2 g/dL (13.5-17.5); Lymphocytes Absolute Auto 1000 /uL (1100-4500); Lymphocytes Percent Auto 8.6 % (25-40); Mean Corpuscular HGB Conc 34.1 % (30-36); Mean Corpuscular Hemoglobin 30.9 PG (26-34); Mean Corpuscular Volume 90.6 fL (80-100); Monocytes Absolute Auto 1300 /uL (0-900); Monocytes Percent Auto 11.4 % (3-14); Neutrophils Absolute Auto 8700 /uL (1500-7000); Platelet Count 165 X10^3/uL (150-400); Red Blood Cell Count 3.29 X10^6/uL (4.5-5.9); Red Cell Distribution Width 15.9 % (11.6-14.8); White Blood Cell Count 11.5 X10^3/uL (4.5-11.0)
--- NOTE | 2022-02-02 07:43 | P.PN_ITS ---
Subjective Subjective Date Patient Seen: 02/02/22 Time Patient Seen: 07:43 Interval history: Patient's son is at bedside. Patient is alert and oriented this morning. States his pain is mild. No fever or chills. No nausea or vomiting. States his able to use the bedside commode this morning. Exam Vital Signs (past 8 hours): - 02/02/22 00:30 02/02/22 06:24 Temperature 97.6 F 98.0 F Pulse Rate 110 H 86 Respiratory Rate 17 16 Blood Pressure 168/81 H 119/49 L Pulse Oximetry 95 93 Oxygen Flow Rate 0 0 Oxygen Delivery Method Room Air Oxygen Flow Rate 0 Narrative Exam Narrative: Patient is alert and oriented this morning. Resting comfortably in bed. In no acute distress. Motor functions intact bilateral lower extremities. Sensation grossly intact to light touch bilateral lower extremities. Dressing is clean, dry and intact. Const General: comfortable Nutritional Appearance: average body habitus Resp Effort & Inspection: normal respiratory effort and able to speak in complete sentences Objective Labs Result Diagrams: 02/02/22 06:30 02/02/22 06:30 Labs: Laboratory Results - last 24 hr 02/01/22 02/02/22 02/02/22 06:41 06:30 06:30 WBC 11.5 H RBC 3.29 L Hgb 10.2 L Hct 29.8 L MCV 90.6 MCH 30.9 MCHC 34.1 RDW 15.9 H Plt Count 165 Neut % (Auto) 76.0 H Lymph % (Auto) 8.6 L Turner % (Auto) 11.4 Eos % (Auto) 3.3 Baso % (Auto) 0.7 Neut # (Auto) 8700 H Lymph # (Auto) 1000 L Turner # (Auto) 1300 H Eos # (Auto) 400 Baso # (Auto) 100 Sodium 139 137 Potassium 3.6 3.3 L Chloride 108 H 109 H Carbon Dioxide 24 22 BUN 13 11 Creatinine 1.09 0.93 Estimated GFR > 60 > 60 BUN/Creatinine Ratio 11.9 11.8 Glucose 119 H 151 H Calcium 8.3 L 8.4 Magnesium 1.8 PFSH Medical History Anticoagulated Central sleep apnea COVID-19 virus infection (01/03/22) Diabetes DVT (deep venous thrombosis) GERD (gastroesophageal reflux disease) HTN (hypertension) Hx pulmonary embolism Hyperlipemia Laceration Obesity Obstructive sleep apnea of adult Pulmonary embolism Spinal stenosis Surgical History H/O Spinal surgery History of hip replacement History of tonsillectomy and adenoidectomy Family History Father Pancreatic cancer Social History marital status: details: william Quigley household members: spouse lives independently: Yes caregiver/support person: No education level: college 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 posterior instrumentation, L2-3 laminectomy -Robot Not Applicable Eric Michelle MD Postoperative day: 3 Postoperative status narrative: Improving Postoperative plan narrative: Mobilize with physical therapy, limit bending, lifting, twisting Multimodal pain management, discontinued Dilaudid added oxycodone 10 mg q.4 hours as needed pain Restart Xarelto Acute encephalopathy, not present on admission, complicated UTI, type 2 diabetes, chronic hypertension followed by hospitalist. Discussed patient this morning with hospitalist. He may add broad-spectrum antibiotic, prelim urine culture shows no growth, chest x-ray showed mild left basilar opacity present, nonspecific. This could represent atelectasis but aspiration or pneumonia are also possible Disposition, to be determined Quality VTE Deep Vein Thrombosis/Pulmonary Embolism Present on Admission: No
[2022-02-02] MEDS: PREGABALIN 75 MG CAPSULE 150 MG PO (08:53)
[2022-02-02] MEDS: DOCUSATE 100 MG CAPSULE PO (08:53)
[2022-02-02] MEDS: DULOXETINE 30 MG CAPSULE PO (08:53)
[2022-02-02] MEDS: RIVAROXABAN 10 MG TABLET 20 MG PO (08:53)
[2022-02-02] MEDS: MULTIVITAMIN 1 TABLET 1 TAB PO (08:53)
[2022-02-02] MEDS: VANCOMYCIN 1,000 MG/200 ML PIGGYBACK 200 MG IV (08:57)
[2022-02-02 09:02] VITALS: BP 143/73; PULSE 95; RESP 16; TEMP 36.4; O2SAT 97
--- NOTE | 2022-02-02 09:31 | PT.IPTN ---
Current Diagnoses Other secondary scoliosis, lumbar region (01/30/22) Spondylolisthesis, lumbar region (01/30/22) Spinal stenosis, lumbar region with neurogenic claudication (01/30/22) Surgery Performed Operation Date: 01/30/22 07:45 Actual Procedures p L3-4, L4-5, L5-S1 TLIF w. posterior instrumentation, L2-3 laminectomy -Robot(Not Applicable) - Eric Michelle MD Physical Therapy Treatment Note M2 PT-IP Current Condition Start: 01/31/22 12:58 Freq: NEEDED Status: Active Protocol: Document 01/31/22 10:42 AB (Rec: 01/31/22 13:09 AB [id number]) Physical Therapy Current Condition Current Condition Evaluation Date 01/31/22 Treatment Diagnosis s/p L3-4, L4-5, L5S1 TLIF; difficulty in walking Onset Date 01/30/22 M3 PT-IP Subjective Start: 01/31/22 12:58 Freq: NEEDED Status: Active Protocol: Document 02/02/22 09:12 KS (Rec: 02/02/22 11:55 KS [id number]) Subjective Physical Therapy Visit Type Type Treatment Note Visit Start Time 09:12 Visit Stop Time 09:31 Total Visit Minutes 19 Number of TECHNICAL ASSISTANT Visits 1 Physical Therapy Visit Comments Patient Comments agreeable to do PT Therapy Pain Assessment Pain When Pain Assessed At Rest Pain Present Pain Present Pain Reported Location Lower Back Intensity 2 Scale Used Numeric (0 - 10) M4 PT-IP Mobility and Gait Start: 01/31/22 12:58 Freq: NEEDED Status: Active Protocol: Document 02/02/22 09:12 KS (Rec: 02/02/22 11:55 KS [id number]) PT-Transfer Assessment Sit to and From Stand Sit to and from Stand Moderate Assistance,Maximum Assistance,1 Person Assistance ,Use of Upper Extremities Equipment Transfer Assistive Device Gait Belt,Front Wheeled Walker Orthotic/Prosthetic Devices or Brace: No Transfers Transfer Destination Chair Transfer Technique sit<>stand Transfer Ability Level of Assist Moderate Assistance,2 Person Assistance,Use of Upper Extremities Comments Mobility Comments Pt in chair upon arrival from therapy and agreeable to participate. Son in room. Pt able to recall 3/3 spinal precautions this AM. Pt required Mod to Max A for sit< >stand w/ FWW w/ cues for hand placement and sequencing. While standing, pt had posterior lean requiring Mod A to maintain standing balance, however was able to perform ~ [address] Minimal BLE elevation from floor due to weakness and quick approach to fatigue. Pt took seated rest break and then performed additional sit< >stand and marching in place. Pt left in chair w/ all needs in reach. Gait Assessment Comments Gait Comments Did not progress gait due to posterior lean and quick approach to fatigue. M5 PT-IP Objective Assessments Start: 01/31/22 12:58 Freq: NEEDED Status: Active Protocol: Document 01/31/22 10:42 AB (Rec: 01/31/22 13:09 AB [id number]) Orientation Orientation/Cognition Level of Alertness Confusional State Orientation Name Safety Awareness Decreased Safety Awareness Memory Description Short Term Impaired,Half-Way Impaired Gross Range of Motion Lower Extremity ROM Assessment Within Functional Limits Strength Comments Strength Comments unable to complete MMT due to pt's difficulty following directions Muscle Tone Muscle Tone WNL Yes M6 PT-IP Treatment Start: 01/31/22 12:58 Freq: NEEDED Status: Active Protocol: Document 02/02/22 09:12 KS (Rec: 02/02/22 11:55 KS [id number]) Physical Therapy Treatment Exercises Exercises Ankle Pumps Education Education Provided Safety Other Treatments Other Treatment Performed Marching in place. M7 PT-IP Assessment and Plan Start: 01/31/22 12:58 Freq: NEEDED Status: Active Protocol: Document 02/02/22 09:12 KS (Rec: 02/02/22 11:55 KS [id number]) PT Summary Assessment and Plan Potential Rehabilitation Potential Good Summary Impairments Pain,ROM,Strength,Balance, Coordination,Sensation,Tone, Cognition,Bed Mobility, Transfers,Gait,Activity Tolerance Progress Towards Goals Slow Progress due to Medical Issues,Slow Progress due to Activity Tolerance Assessment Summary Pt showing progress, but still requires at least Mod A for sit<>stand and Mod A to maintain standing balance due to retrolean. Pt limited by weakness and low activity tolerance and is high fall risk. He will require SNF to improve functional mobility independence. Goals Bed Mobility Goal Moderate Assistance Transfer Goal Maximal Assistance,Front Wheeled Walker Gait Goal Moderate Assistance,Front Wheel Walker Gait Distance 25 Other Goals improve bed mobility: SBA improve transfers: SBA using FWW improve ambulation: SBA using FWW 150 ft up/down 3 steps using R rail ascending SBA Days to Meet Goals 10 Frequency of Treatment Frequency Of Treatment Twice a Day Treatment Plan Physical Therapy Treatment Plan Bed Mobility Training,Transfer Training,Gait Training, Therapeutic Exercise,Balance Retraining,Post Op Education, Discharge Planning,Hot or Cold Pack,Neuromuscular Re-ed, Coordination Retraining,Manual Therapy Precautions Lumbar Precautions Log Roll,No Twisting,Limit Bending,Lifting Restriction of 10 lbs,Gait Belt above Incisional Area Recommendations To Nursing Amount of Assist Needed Mechanical Lift Discharge Recommendations PT Discharge Recommendations SNF Rehab Transportation Needs at Discharge Wheelchair/Cabulance
--- NOTE | 2022-02-02 09:38 | PM.PN.1 ---
Subjective Subjective Date Patient Seen: 02/02/22 Time Patient Seen: 10:58 Interval history: Patient feels well and has no complaints. Ready to go to SNF today. Exam Vital Signs (past 8 hours): - 02/02/22 06:24 02/02/22 09:02 Temperature 98.0 F 97.5 F L Pulse Rate 86 95 H Respiratory Rate 16 16 Blood Pressure 119/49 L 143/73 H Pulse Oximetry 93 97 Oxygen Flow Rate 0 0 Oxygen Delivery Method Room Air Oxygen Flow Rate 0 Narrative Exam Narrative: GEN: no acute distress, alert and oriented only to person HEENT: moist mucous membranes, PERRL NECK: trachea midline, no JVD CV: regular rate and rhythm, no murmurs PULM: clear bilaterally ABD: soft, nontender, nondistended, no organomegaly EXT: warm and well perfused with no edema NEURO: Mild cogwheel rigidity on upper extremities, mild bilateral tremor of upper extremities, no other focal deficits Objective Labs Result Diagrams: 02/02/22 06:30 02/02/22 06:30 Labs: Laboratory Results - last 24 hr 02/02/22 02/02/22 06:30 06:30 WBC 11.5 H RBC 3.29 L Hgb 10.2 L Hct 29.8 L MCV 90.6 MCH 30.9 MCHC 34.1 RDW 15.9 H Plt Count 165 Neut % (Auto) 76.0 H Lymph % (Auto) 8.6 L [place] % (Auto) 11.4 Eos % (Auto) 3.3 Baso % (Auto) 0.7 Neut # (Auto) 8700 H Lymph # (Auto) 1000 L [place] # (Auto) 1300 H Eos # (Auto) 400 Baso # (Auto) 100 Sodium 137 Potassium 3.3 L Chloride 109 H Carbon Dioxide 22 BUN 11 Creatinine 0.93 Estimated GFR > 60 BUN/Creatinine Ratio 11.8 Glucose 151 H Calcium 8.4 PFSH Medical History Anticoagulated Central sleep apnea COVID-19 virus infection (01/03/22) Diabetes DVT (deep venous thrombosis) GERD (gastroesophageal reflux disease) HTN (hypertension) Hx pulmonary embolism Hyperlipemia Laceration Obesity Obstructive sleep apnea of adult Pulmonary embolism Spinal stenosis Surgical History H/O Spinal surgery History of hip replacement History of tonsillectomy and adenoidectomy Family History Father Pancreatic cancer Social History marital status: details: to Soraida household members: spouse lives independently: Yes caregiver/support person: No education level: college 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 Smoking Status: Former smoker alcohol intake: current substance use type: does not use Assessment & Plan Assessment & Plan narrative: # acute encephalopathy, not present on admission, improving -likely delirium secondary to UTI vs back surgery -improving with IV antibiotics -CT noncontrast head and MRI brain normal -frequent reorientation -suspect possible underlying Parkinson's as patient has tremor and cogwheel rigidity on exam -recommend outpatient neurology referral # acute leukocytosis -WBC peaked at 13.7 with fever of 100.3F -IV zosyn used and WBC improved to 11.5 and afebrile -all cultures negative -dc on po levaquin for 1 week to be safe # complicated UTI -UA with pyuria -continue Zosyn, added vanco due to persistently elevated WBC at 13.9 -follow-up culture grew nothing suprisingly -may warrant outpatient Urology referral given recurrent history of UTI in male # lumbar spinal stenosis postop day 1 lumbar fusion -Dr. Viviana damian primary -po pain meds PRN -ortho dc dilaudid on 02/01 # type 2 diabetes -home metformin -sliding scale insulin # hypertension, chronic -continue home lisinopril # depression, chronic -continue home Cymbalta # history of DVT and PE -holding xarelto due to recent surgery -will restart per ortho recs Medicine will sign off today. Thank you for allowing us to participate in the care of this patient. Should you have any further questions, do not hesitate to speak with us directly or call us. Code status is full code. COVID negative. DVT prophylaxis with SCDs. Proxy is spouse Soraida. I have reviewed home meds and used all available resources to reconcile the home meds. Time Spent With Patient Critical Care time: I spent a total of [] minutes of critical care time on this patient's care today; this time is exclusive of procedural time. Quality VTE Deep Vein Thrombosis/Pulmonary Embolism Present on Admission: No
[2022-02-02] MEDS: POTASSIUM CHLORIDE 20 MEQ TAB 40 MEQ PO (10:09)
--- NOTE | 2022-02-02 10:12 | OT.IP.TRT ---
Current Diagnoses Other secondary scoliosis, lumbar region (01/30/22) Spondylolisthesis, lumbar region (01/30/22) Spinal stenosis, lumbar region with neurogenic claudication (01/30/22) Surgery Performed Operation Date: 01/30/22 07:45 Actual Procedures p L3-4, L4-5, L5-S1 TLIF w. posterior instrumentation, L2-3 laminectomy -Robot(Not Applicable) - Eric Michelle MD Occupational Therapy Treatment Note M2 OT-IP Current Condition Start: 01/31/22 15:50 Freq: Status: Active Protocol: Document 01/31/22 09:27 [facility] (Rec: 01/31/22 16:08 [facility] [id number]) Occupational Therapy Current Condition Current Condition Evaluation Date 01/31/22 Treatment Diagnosis S/p L3-4, L4-5 , L5-S1 TLIF Diagnosis Onset Date 01/30/22 Post Operative Precautions Lumbar Precautions Log Roll,No Twisting,Limit Bending,Lifting Restriction of 10 lbs,Gait Belt above Incisional Area M3 OT- IP Subjective and Pain Start: 01/31/22 15:50 Freq: Status: Active Protocol: Document 02/02/22 10:12 [facility] (Rec: 02/02/22 10:26 [facility] [id number]) OT- Subjective Occupational Therapy Visit Type Type Treatment Note Visit Start Time 09:53 Visit Stop Time 10:12 Total Visit Minutes 19 Occupational Therapy Visit Comments Patient Comments Pt more alert and better able to follow commands. Patient/Caregiver Goals To get better and to go to skilled rehab prior to going home. OT Pain Assessment Pain When Pain Assessed At Rest Pain Present Pain Present Denied Pain M4 OT- IP ADL's Start: 01/31/22 15:50 Freq: Status: Active Protocol: Document 02/02/22 10:12 [facility] (Rec: 02/02/22 10:26 [facility] [id number]) OT [id number] Comments OT Self-Feeding Comments NOt at meal time, pt able to feed himself now. OT ADL-Grooming General Evaluation Grooming Ability Standby Assistance Areas Needing Assistance Retrieving/Set-up of Grooming Items Comments OT Grooming Comments While seated. OT ADL-Oral Care General Eval Oral Care Ability Standby Assistance Areas of Assistance Retrieving/Set-Up of Items Comments Oral Care Comments Slight increased time to process on his own for sequence of task while seated. OT ADL-Dressing Comments OT Dressing Comments Not performed. OT ADL-Toileting Comments OT Toileting Comments Not performed. OT ADL-Bathing Comments OT Bathing Comments TO try a shower tomorrow if pt still here. M5 OT- IP IADL's Start: 01/31/22 15:50 Freq: Status: Active Protocol: Document 01/31/22 09:27 [facility] (Rec: 01/31/22 16:08 [facility] [id number]) OT-Instrumental Activities of Daily Living Deficits IADL Deficits Identified Deficits Home Safety Awareness Awareness of Need for Assistance at Home Decreased Awareness Ability to Problem Solve Emergency Unable to Problem Solve Situations Home Safety Comments Pt having difficulty to get the words out and follow commands at this time. Pt has supportive and adult kids to assist at home for all needs. Medication Management Medication Management Caregiver Administers Money Management Money Management Comments Concerns that pt not able to perform at this time. Meal Preparation Meal Preparation Caregiver Provides Assist Rehabilitation Services Counselor Rehabilitation Services Counselor Caregiver Provides Assist M6 OT- IP Functional Cognition Start: 01/31/22 15:50 Freq: Status: Active Protocol: Document 02/02/22 10:12 [facility] (Rec: 02/02/22 10:26 [facility] [id number]) Cognitive Factors Limiting Selfcare Function Cognitive Ability Level of Alertness Alert Patient Orientation Name,Situation Attention Span Ability Capable of Focused Attention, Capable of Sustained Attention Ability to Follow Commands Able to Follow One Step Commands with Increased Time, Able to Follow One Step Commands with Repetition Memory Description Short Term Impaired Safety Awareness Decreased Recall of Precautions Cognitive Comments Cognitive Assessment Comments Initially pt able to recall 2/ 3 back precautions but at ths end of the session able to recall all precautions. Able to simulate safe and unsafe techniques of transfers and ADl needs and having pt to explain the situations whether it is safe or not. Pt able to accurately identify 75% of the situations and give explanations of safer options . Pt thinking but better now. M9 OT- IP Assessment and Plan Start: 01/31/22 15:50 Freq: Status: Active Protocol: Document 02/02/22 10:12 [facility] (Rec: 02/02/22 10:26 [facility] [id number]) OT Summary Assessment and Plan Potential Rehabilitation Potential Good Analytic Complexity at Evaluation Moderate Summary OT Impairments Pain,Strength,Balance, Coordination,Functional Cognition,Functional Mobility, Self-Feeding,Grooming,Dressing ,Toileting,Bathing,Toilet Transfers,Shower Transfers, Activity Tolerance Progress Towards Goals Slow Progress due to Activity Tolerance,Slow Progress due to Cognition Assessment Summary Pt thinking much better and 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 Able to go over equipment suggestions of toilet paper aid /bidet with pt. Pt able to explain and figure out with 75% accuracy of what situations are safe or unsafe when OT demonstrating various ADl and mobility scenarios. Pt looking to go to skilled rehab when medically stable. Goals Self-Feeding Goal Independent Grooming Goal Independent Dressing Goal Minimal Assistance Toileting Goal Minimal Assistance Bathing Goal Minimal Assistance Toilet Transfer Goal Standby Assistance Shower Transfer Goal Contact Guard Assistance Days to Meet Goals 35 Frequency of Treatment Frequency Of Treatment Once a Day Treatment Plan OT Treatment Plan ADL Training,Functional Cognition Training,Functional Mobility,Patient/Family Education,Discharge Planning Discharge Recommendations OT Discharge Recommendations SNF Rehab Transportation Needs at Discharge Wheelchair/Cabulance
--- NOTE | 2022-02-02 11:02 | CM.DPC ---
Addendum entered by Vangie Maloney R.N. 02/02/22 12:13: Sharon from [facility] Called back and stated, they can accept patient, he will just have to quarantine, until they check in with [facility], which could take 24 hours. Patient would have private room. 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 Dr. Rothman completed a hard copy of patient's Lyrica, faxed it to [facility], and placed original in chart. Addendum entered by Vangie Maloney R.N. 02/02/22 11:57: Faxed all scripts, med orders, and DC Summary to [facility]. It is noted now, that hard copy is needed for patient's Lyrica, have asked hospitalist if he can do hard copy. Just found out that patient's COVID test is positive. Nursing indicated that he was positive a month ago. Patient had originally tested at home, and was negative. Asked Sharon at [facility] if they can still consider and isolate patient. She will be checking with her DNS and will call back. Original Note: DCP Cont: Discussed patient during team rounds. Hospitalist has indicated, patient is medically ready for discharge upon his stand point. Let him know that this DC Brand Development Manager would contact ortho, and update, as soon as it is confirmed if [facility] can take patient today. Called Sharon at [facility]. She has confirmed that she can accept patient at 1445. Have updated patient and spouse, who is at bedside. Explained that facility is rehab, with the intent of going home after he meets his therapy needs. Updated nurse, Silvina, and gave her number for report. Called rickie Galvez PA, and he is completing orders. Placed a stat COVID swab for patient. P: Patient is to be discharging to [facility] today. Once orders are completed, will fax them, along with PASSR and DC Summary. Vangie Maloney RN/Hollow Handle Bench Worker
--- NOTE | 2022-02-02 11:12 | P.DS_ITS ---
History of Present Illness History of Present Illness Date Patient Seen: 02/02/22 Time Patient Seen: 11:12 Chief complaint: Hip pain Narrative: See progress note Discharge Providers Provider Date of admission: 01/30/22 06:24 Discharge Date: 02/02/22 Primary care physician: Kvng KOTHARI Provider Consults: 01/25/22 10:59 Consult to Anesthesiology Routine Comment: Consulting Provider: Anesthesiologist Reason for consultation: PAC courtesy re: Covid infection 01/03/22 + comorbidities 01/30/22 06:52 Consult to Respiratory Therapy Evaluate & Treat Comment: Physician Instructions: Evaluate and treat 01/30/22 10:08 Consult to Physician Routine Comment: consult to primary care provider for followup Consulting Provider: Eric Michelle Reason for consultation: Positive STOP BANG, management of obstructive sleep apnea Has provider been notified: Yes 01/30/22 14:27 Consult to Occupational Therapy Evaluate & Treat Comment: Physician Instructions: Evaluate and treat Consult to Physical Therapy Evaluate & Treat Comment: Physician Instructions: Evaluate and Treat 01/30/22 14:53 Consult to Respiratory Therapy Evaluate & Treat Comment: s/p 3 level TLIF; h/o ILEANA with Bi-PAP Physician Instructions: Evaluate and treat Discharge provider: Glenn Rodriguez PA-C Summary Hospital Course Discharge Diagnosis: Lumbar scoliosis Lumbar spinal stenosis with neurogenic claudication Acute encephalopathy, not present on admission likely delirium secondary to UTI improving on IV antibiotics patient will be discharged on oral antibiotics Hospital Course: 1. L3-4, L4-5, L5-S1 Postero-lateral and posterior interbody fusion 2. L3-4, L4-5, L5-S1 interbody cage placement. 3. L3-4, L4-5, L5-S1 decompressive laminectomy with bilateral facetecomies 4. L3-4, L4-5, L5-S1 Posterior segmental instrumentation 5. L2-3 laminectomy 6. [place] of bone marrow from iliac crest 7. Utilization of microsurgical technique and operating microscope 8. Utilization of robotic assisted navigation Same procedure as scheduled: Yes Indications: Patient has been having chronic back pain and worsening lumbar radiculopathy and symptoms of neurogenic claudication. Patient failed multiple conservative management with worsening pain weakness and numbness in his lower extremity.? Patient has been having difficulty performing activity of daily living.? After discussing risks benefits of treatment options, patient elected proceed with surgery. Surgeon: Eric Michelle Hotel Clerk: Glenn Rodriguez Click Yes if Unassisted: No Anesthesia Type: General Operative Notes Closure Type: primary Specimen(s): none sent Prosthetic devices, grafts, tissues, transplants, or devices: Globus CREO MIS screws, Rise cages Applied: catheter Estimated Blood Loss (mL): 150 Blood products transfused: none Patient admitted for the above-mentioned procedure. Patient consented to the same. Patient taken operating room underwent L3-L4, L4-L5, L5-S1 posterior lateral and posterior interbody fusion January 30, 2022. Patient is taken to his room and developed acute encephalopathy and rigors hospitalist was consulted. Patient treated for acute encephalopathy, not present on admission likely delirium secondary to UTI improving with antibio tics. Patient will be discharged on antibiotics per hospitalist. Patient has perked aggressively improved. Hospitalist approved discharge to longterm facility. Patient be discharged to longterm facility today. Follow-up with [facility] in 2 weeks. Exam Vital Signs (past 8 hours): - 02/02/22 06:24 02/02/22 09:02 Temperature 98.0 F 97.5 F L Pulse Rate 86 95 H Respiratory Rate 16 16 Blood Pressure 119/49 L 143/73 H Pulse Oximetry 93 97 Oxygen Flow Rate 0 0 Oxygen Delivery Method Room Air Oxygen Flow Rate 0 Narrative Exam Narrative: See progress note Objective Labs Result Diagrams: 02/02/22 06:30 02/02/22 06:30 Labs: Laboratory Results - last 24 hr 02/02/22 02/02/22 06:30 06:30 WBC 11.5 H RBC 3.29 L Hgb 10.2 L Hct 29.8 L MCV 90.6 MCH 30.9 MCHC 34.1 RDW 15.9 H Plt Count 165 Neut % (Auto) 76.0 H Lymph % (Auto) 8.6 L Meriwether % (Auto) 11.4 Eos % (Auto) 3.3 Baso % (Auto) 0.7 Neut # (Auto) 8700 H Lymph # (Auto) 1000 L Meriwether # (Auto) 1300 H Eos # (Auto) 400 Baso # (Auto) 100 Sodium 137 Potassium 3.3 L Chloride 109 H Carbon Dioxide 22 BUN 11 Creatinine 0.93 Estimated GFR > 60 BUN/Creatinine Ratio 11.8 Glucose 151 H Calcium 8.4 PFSH Medical History Anticoagulated Central sleep apnea COVID-19 virus infection (01/03/22) Diabetes DVT (deep venous thrombosis) GERD (gastroesophageal reflux disease) HTN (hypertension) Hx pulmonary embolism Hyperlipemia Laceration Obesity Obstructive sleep apnea of adult Pulmonary embolism Spinal stenosis Surgical History H/O Spinal surgery History of hip replacement History of tonsillectomy and adenoidectomy Family History Father Pancreatic cancer Social History marital status: details: william Quigley household members: spouse lives independently: Yes caregiver/support person: No education level: college 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 Acute encephalopathy improving on antibiotics thought to likely be due to delirium secondary to UTI Plan of Treatment: Mobilize with physical therapy, limit bending, twisting, lifting Hospitalist has recommended oral antibiotics, complete course of oral antibiotics Follow-up with [facility] in 2 weeks Discharge Plan Discharge Plan Patient Disposition: SNF Transfer to: [facility] Discharge orders & Medications Prescriptions: New levofloxacin 750 mg tablet 750 mg PO DAILY 7 Days Qty: 7 0RF Rx Instructions: start evening of 10/6 acetaminophen 325 mg Tablet 650 mg PO Q6HR PRN (Reason: Pain, Mild (1-3)) Qty: 60 0RF oxycodone 5 mg tablet 5 mg PO Q4H PRN (Reason: pain) Qty: 60 0RF Continued multivitamin Tablet 1 tab PO DAILY Qty: 0 lisinopril 10 mg Tablet 10 mg PO BEDTIME duloxetine 30 mg Capsule,Delayed Release(Dr/Ec) 30 mg PO DAILY pregabalin 150 mg Capsule 150 mg PO BID metformin 500 mg tablet extended release 24 hr 500 mg PO DAILY Rx Instructions: PT TAKES ONE TAB ONE TIME DAILY Xarelto 20 mg tablet 20 mg PO DAILY docusate sodium 100 mg Capsule 100 mg PO BID Qty: 20 0RF (DME) [employer] Dreamstation BIPAP Qty: 1 Dose Instruction: As directed Label Comments: Pressure: IPAP 21 EPAP 17 DME: [facility] Rx Instructions: As directed Discontinued oxycodone 5 mg Tablet 5 mg PO Q6H PRN (Reason: Pain) acetaminophen 325 mg tablet 650 mg PO Q6HR PRN (Reason: Pain) Follow up/Referrals: Eric Michelle MD [Physician] - (2 weeks) ProviderKvng [Primary Care Provider] - Discharge Health Status Multidrug resistant organism: No MDRO Diet/Activity/Treatments Diet: Carb-consistent/Diabetic Liquid consistency: Normal/Thin Activity: Weight-bearing as tolerated, limit bending, twisting, lifting Skin/Wound/Dressing Care Report to your healthcare provider any signs of infection, such as:: chills, fever, increased pain, unusual drainage and unusual redness Dressing: Keep dressing clean and dry [facility] Reason for rehabilitation: Post-operative therapy Rehab type: Physical therapy and Occupational therapy Visit Report/Discharge Packet Instructions: DI for Prescription Opioid Use, DI for Transforaminal Lumbar Interbody Fusion Stand Alone Forms: Surgery Discharge Discharge Data Primary Care Provider: ProviderKvng Quality VTE Deep Vein Thrombosis/Pulmonary Embolism Present on Admission: No
[2022-02-02] MEDS: levoFLOXacin 250 MG TABLET 750 MG PO (11:42)
[2022-02-02] MEDS: MAGNESIUM SULFATE 2 GM/50 ML PIGGYBACK IV (11:46)
[2022-02-02 11:49] LABS: COVID19 -Nasal RAPID POSITIVE (Negative)
[2022-02-02 14:12] VITALS: BP 144/70; PULSE 104; RESP 18; TEMP 37.1; O2SAT 98
--- NOTE | 2022-02-02 14:44 | PC.NURSE ---
Addendum entered by Donna Lui R.N. 02/02/22 15:12: Pt out via w/c by [facility] personnel with all belongings Original Note: Pt is ready for discharge to SNF, called report to Soraida KENNY at [facility] and answered all questions. No further questions. Pt ready to go when transport arrives.
== END 2022-02-02 15:13 | DRG 454 ==
PROVIDERS: Anesthesiology; Internal Medicine; Physician Assistant Medical; Student in an Organized Health Care Education/Training Program; Admitting Provider Orthopaedic Surgery Orthopaedic Surgery of the Spine; Family Provider Family Medicine; Referring Provider Orthopaedic Surgery Orthopaedic Surgery of the Spine; Visit Provider Orthopaedic Surgery Orthopaedic Surgery of the Spine
PROC: 0SG10AJ Fusion of 2 or more Lumbar Vertebral Joints with Interbody Fusion Device, Posterior Approach, Anterior Column, Open Approach (ICD-10-PCS; principal; 2022-01-30 07:45)
DX: M48.062 Spinal stenosis, lumbar region with neurogenic claudication (principal); G93.49 Other encephalopathy; N39.0 Urinary tract infection, site not specified; M41.86 Other forms of scoliosis, lumbar region; E11.9 Type 2 diabetes mellitus without complications; I10 Essential (primary) hypertension; F32.A Depression, unspecified; Z86.718 Personal history of other venous thrombosis and embolism; Z79.01 Long term (current) use of anticoagulants; Z20.822 Contact with and (suspected) exposure to COVID-19; Z86.711 Personal history of pulmonary embolism; Z87.891 Personal history of nicotine dependence; Z79.84 Long term (current) use of oral hypoglycemic drugs
CPT/HCPCS: 36415; 36600; 70450; 70551; 71045; 72100; 76000; 80048; 80053; 81001; 82805; 82962; 83605; 83735; 85014; 85018; 85025; 87040; 87086; 87635; 93005; 94762; 97129; 97163; 97166; 97530; 97535; C9803; C1713; C9290; J0171; J0330; J0690; J1100; J1170; J1885; J2250; J2274; J2405; J2543; J2704; J3010; J3475

== ENCOUNTER 2023-12-20 09:59 | Day surgery (SDC) | payer MEDICARE, OTHER, SELFPAY ==
[2022-01-30 06:36] VITALS: BMI 34.1
--- NOTE | 2023-12-20 | PATH_ITS ---
[facility] Accession Number: [id number] No. of containers..01 Tissue . 01 Material submitted: . rectum - RECTAL POLYPS . 01 Diagnosis: RECTAL POLYPS: Hyperplastic polyps. [facility] 12/24/2023 1326 Local . 01 Electronically signed: . Erick Guaman MD, Pathologist NPI- [id number] . 01 Gross description: . Received in formalin with two patient identifiers and rectal polyps, are multiple downs to brown soft tissue fragments aggregating to 2.0 x 1.2 x 0.4 cm. Filtered and submitted in A1. ([id number]) /MRV 12/24/2023 1326 Local . 01 Pathologist provided ICD-10: K62.1 . 01 CPT . 541652 Specimen Comment: A courtesy copy of this report has been sent to [phone] Performed at: [address] [facility] [id number] MD Erick Guaman MD Phone: [phone]
[2023-12-20] MEDS: LACTATED RINGERS 1,000 ML 42 ML IV (10:18)
[2023-12-20 10:19] VITALS: BP 160/86; PULSE 96; RESP 18; TEMP 36.2; O2SAT 98
--- NOTE | 2023-12-20 10:36 | PM.HP.1 ---
History of Present Illness History of Present Illness Date Patient Seen: 12/20/23 Time Patient Seen: 10:36 Chief complaint: Colonoscopy Narrative: Bashir is a 78-year-old man here for colonoscopy. His last 1 was about 5 years ago. He has had polyps removed in the past although he has not certain if it was 5 years ago or longer ago. [facility] Medical History Anticoagulated Central sleep apnea COVID-19 virus infection (01/03/22) Diabetes DVT (deep venous thrombosis) GERD (gastroesophageal reflux disease) HTN (hypertension) Hx pulmonary embolism Hyperlipemia Laceration Obesity Obstructive sleep apnea of adult Pulmonary embolism Spinal stenosis Surgical History H/O Spinal surgery History of hip replacement History of tonsillectomy and adenoidectomy Family History Father Pancreatic cancer Social History marital status: details: to Soraida household members: spouse lives independently: Yes caregiver/support person: No education level: college 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 Smoking Status: Former smoker alcohol intake: current substance use type: does not use Meds Home Medications and Allergies Home Medications Medication Instructions Recorded Confirmed Type multivitamin 1 tab PO DAILY ##0 09/18/12 04/19/22 History metformin 500 mg tablet,extended 500 mg PO DAILY 04/11/18 12/20/23 History release 24 hr [employer] Dreamstation BIPAP #1 ea 09/17/18 01/30/22 History rivaroxaban 20 mg tablet (Xarelto) 20 mg PO DAILY 12/20/21 12/20/23 History duloxetine 30 mg capsule,delayed 30 mg PO DAILY 01/25/22 04/19/22 History release lisinopril 10 mg tablet 10 mg PO BEDTIME 01/25/22 12/20/23 History acetaminophen 325 mg tablet 650 mg (2 x 325 mg) PO Q6HR PRN 02/02/22 12/20/23 Rx Pain, Mild (1-3) #60 tabs pregabalin 150 mg capsule 150 mg PO BID #60 caps 02/02/22 12/20/23 Rx sodium,potassium,mag sulfates 17.5 See Rx Instructions PO .COMPLEX 11/21/23 Rx gram-3.13 gram-1.6 gram oral soln #354 mL (Suprep Bowel Prep Kit) Allergies Allergy/AdvReac Type Severity Reaction Status Date / Time No Known Drug Allergies Allergy Verified 12/20/23 10:35 Exam Vital Signs (past 8 hours): - 12/20/23 10:19 Temperature 97.2 F L Pulse Rate 96 H Respiratory Rate 18 Blood Pressure 160/86 H Pulse Oximetry 98 Oxygen Delivery Method Room Air Oxygen Delivery Method Room Air Const General: No acute distress Resp Effort & Inspection: normal respiratory effort Assessment & Plan Assessment and plan (1) History of colon polyps: Status: Acute Plan Bashir is a 78-year-old man here for a colonoscopy. We reviewed the risks and benefits and he would like to proceed. Time-Based Coding :: [TOTAL MINUTES] spent with patient and on the chart (including review of chart, obtaining history, exam, reviewing outside data, placing orders, documenting exam and treatment plan, and counseling patient) on [DATE].
--- NOTE | 2023-12-20 11:37 | PM.OP.COLON ---
Operative Date/Time/Diagnoses Date of procedure: 12/20/23 Time of procedure: 11:37 Pre-op diagnosis: History of polyps Post-op diagnosis: same Procedure & Clinicians Study performed: Colonoscopy Same procedure as scheduled: Yes Surgeon: Chidi Salazar Procedure Notes Procedure in detail: Surgeon: Chidi Saalzar MD Anesthesia: Philly Hutchison MD Procedure: The patient was brought to the endoscopy suite, placed in left lateral decubitus position. The patient was connected to monitoring devices. A time-out was performed. Sedation was administered. Once the patient was adequately sedated, a digital rectal exam was performed and was normal. The scope was then inserted and advanced to the cecum where the appendiceal orifice was identified and photographed. The scope was then slowly withdrawn over greater than 6 minutes. The mucosa was thoroughly inspected. There was 7 mm polyp in the rectum removed with a cold snare. There was a 5 mm polyp in the rectum removed with a cold snare. There were for 3 mm polyps in the rectum removed with a cold snare. All of the rectal polyps were sent together. The scope was retroflexed in the rectum. No other abnormalities were seen. The scope was straightened and removed. The patient was awakened and brought to recovery. Scope withdrawal time: 13 minutes Sedation time: 20 minutes EBL: 5 mL Findings: [] Post-procedure Disposition: PACU
[2023-12-20 11:42] VITALS: BP 119/65; PULSE 87; RESP 16; TEMP 36.3; O2SAT 95
[2023-12-20 11:45] VITALS: BP 117/68; PULSE 86; RESP 18; O2SAT 95
[2023-12-20 11:48] VITALS: BP 114/68; PULSE 86; RESP 16; O2SAT 97
[2023-12-20 11:55] VITALS: BP 115/64; PULSE 88; RESP 16; TEMP 36.1; O2SAT 97
== END 2023-12-20 12:11 | disposition home or self-care (01) ==
PROVIDERS: Family Provider Family Medicine; Referring Provider Surgery; Visit Provider Surgery
PROC: 0DJD8ZZ Inspection of Lower Intestinal Tract, Via Natural or Artificial Opening Endoscopic (ICD-10-PCS; CPT 45378; principal; 2023-12-20 11:00)
DX: Z12.11 Encounter for screening for malignant neoplasm of colon (principal); Z86.010 Personal history of colon polyps; K62.1 Rectal polyp
CPT/HCPCS: 45385; J2704